=== PATIENT | male | born 1965 | race American Indian/Alaskan Native ===

== ENCOUNTER 2022-03-13 13:57 | Inpatient (IN) | payer MEDICARE ==
--- NOTE | 2022-03-13 14:28 | Emergency Department Report ---
HPI - General Chief Complaint: Allergic Reaction Time Seen by Provider: 03/13/22 14:22 - HPI HPI: Room 2 The patient is a 56-year-old male present with chief complaint of shortness of breath. Patient has a history end-stage renal disease and was last dialyzed 5 days ago (03/08/2022). EMS was called states the patient was found to be 96% on room air. Patient has bilateral lower extremity edema as well as facial edema. History is limited secondary to the patient's decreased ability to respond given increased work of breathing. ED Past Medical Hx - Past Medical History Hx Hypertension: Yes Hx Pulmonary Embolism: Yes (On Xarelto) Hx Renal Disease: Yes (ESRD on HD q. T, TH, SAT) - Surgical History Additional Surgical History: Left chest Vas-Cath - Family History Family history: no significant - Social History Smoking Status: Unknown if ever smoked Substance Use Type: None ED Review of Systems ROS: Stated complaint: ALLERGIC REACTION Other details as noted in HPI Comment: Unobtainable due to pts medical conditions (Limited secondary to increased work of breathing) Constitutional: no symptoms reported Respiratory: shortness of breath Physical Exam - Physical Exam Vital Signs: Vital Signs 03/13/22 14:05 Temperature 98 F Pulse Rate 100 H Respiratory 18 Rate Blood Pressure 170/100 [Left] O2 Sat by Pulse 96 Oximetry Physical Exam: GENERAL: The patient is well-developed well-nourished male lying on stretcher exhibiting increased work of breathing. [] HEENT: Normocephalic. Atraumatic. Extraocular motions are intact. Patient has moist mucous membranes. There is periorbital and facial swelling NECK: Supple. Trachea midline CHEST/LUNGS: Diminished throughout. There is no respiratory distress noted. HEART/CARDIOVASCULAR: Regular. There is no tachycardia. There is no gallop rub or murmur. ABDOMEN: Abdomen is soft, nontender. Patient has normal bowel sounds. There is no abdominal distention. SKIN: There is no rash. There is 2+ bilateral lower extremity pitting edema. There is no diaphoresis. NEURO: The patient is awake, alert, and oriented. The patient is cooperative. The patient has no focal neurologic deficits. The patient has normal speech. GCS 15 MUSCULOSKELETAL: There is no evidence of acute injury. ED Course Vital Signs 03/13/22 14:05 Temperature 98 F Pulse Rate 100 H Respiratory 18 Rate Blood Pressure 170/100 [Left] O2 Sat by Pulse 96 Oximetry - Reevaluation(s) Reevaluation #1: 03/13/22 15:24 Patient became agitated and pulled off BiPAP. Explained to the patient importance of keeping the BiPAP on and otherwise only recourse would be intubation. Ativan 0.5 mg and Zofran 8 mg IV ordered. 03/13/22 16:35 Patient continues to pull with his BiPAP mask off and desats to 81% on room air. Subsequently the decision to intubate using RSI was made - Consultations Consultation #1: 03/13/22 16:38 Nephrology paged 03/13/22 17:12 Case discussed with woodworking craftsman Dr. Roy- will follow/arrange dialysis - Intubation Sedative: Etomidate Mg Given: 20 Paralytic: Succinylcholine Mg Given: 100 Laryngoscope: fiberoptic video scope Size: 3 Assist Device Used: fiberoptic device ET Tube Size: 8 Tube Secured Depth (cm): 24 Tube Secured Location: lips Tube Placement Confirmation: visualized tube passing t, equal breath sounds bilat, no breath sounds over epi, confirmation by capnometr Patient Tolerated Procedure: well, no complications Intubation Complications: none ED Medical Decision Making - Lab Data Result diagrams: 03/13/22 15:44 03/13/22 15:44 Laboratory Tests 03/13/22 03/13/22 03/13/22 15:44 15:44 16:15 WBC 10.9 RBC 5.42 H Hgb 15.4 H Hct 48.1 H MCV 89 MCH 28 MCHC 32 RDW 19.7 H Plt Count 153 Seg Neutrophils % Resident Hall Director ABG pH 7.281 L ABG pCO2 36.1 ABG pO2 73.5 L ABG HCO3 16.6 L ABG O2 Saturation 92.5 L ABG O2 Content 19.4 ABG Base Excess -9.2 L ABG Hemoglobin 15.2 ABG Carboxyhemoglobin 1.7 ABG Methemoglobin 0.6 Oxyhemoglobin 90.4 L FiO2 50 Sodium 143 Potassium 4.8 Chloride 105.5 Carbon Dioxide 17 L Anion Gap 25 BUN 78 H Creatinine 3.6 H Estimated GFR 18 BUN/Creatinine Ratio 22 Glucose 135 H Calcium 9.3 Total Bilirubin 2.50 H AST 363 H ALT 430 H Alkaline Phosphatase 122 Troponin T 0.176 H* NT-Pro-B Natriuret Pep 77113 H Total Protein 6.5 Albumin 3.6 L Albumin/Globulin Ratio 1.2 Triglycerides 98 Cholesterol 99 LDL Cholesterol Direct 59 HDL Cholesterol 24 L Cholesterol/HDL Ratio 4.12 - EKG Data -: EKG Interpreted by Me EKG shows normal: sinus rhythm Rate: normal (97 bpm) - EKG Data When compared to previous EKG there are: previous EKG unavailable Interpretation: nonspecific ST-T wave reilly (Flattened T waves leads I and aVL) - Radiology Data Radiology results: report reviewed (Chest x-ray), image reviewed (Chest x-ray) interpreted by me: Chest [id number] edema, no pneumothorax. No definite focal infiltrates [facility] [address] [place] [address] XRay Report Signed Patient: SALLIE BOWMAN MR#: [id number] : 1965 Acct:[id number] Age/Sex: 56 / M ADM Date: 03/13/22 Loc: ED Attending Dr: Ordering Physician: JACQUELINE HDZ MD Date of Service: 03/13/22 Procedure(s): XR chest 1V ap Accession Number(s): [id number] cc: JACQUELINE HDZ MD Fluoro Time In Minutes: CHEST 1 VIEW 03/13/2022 2:37 PM INDICATION / CLINICAL INFORMATION: Shortness of breath. Angioedema. COMPARISON: None available. FINDINGS: SUPPORT DEVICES: There is a single-lead left subclavian ICD with the tip of the pacing lead overlying the right ventricle. There is also a left jugular CVL with the tip overlying the upper cavoatrial junction. HEART / MEDIASTINUM: There is mild cardiomegaly with mild prominence of the central pulmonary vessels. LUNGS / PLEURA: Interstitial lung markings are slightly increased in the perihilar regions and lower lung zones. No pleural effusion. No pneumothorax. ADDITIONAL FINDINGS: No significant additional findings. IMPRESSION: Cardiomegaly with probable mild congestive heart failure/interstitial edema. Signer Name: Sly Braga MD Signed: 03/13/2022 2:54 PM Workstation Name: [id number] Transcribed By: RT Dictated By: lSy Braga MD Electronically Authenticated By: Sly Braga MD Signed Date/Time: 03/13/221453 DD/ 1452 TD/TT: - Differential Diagnosis Volume overload, pneumonia, CHF exacerbation, Critical care attestation.: If time is entered above; I have spent that time in minutes in the direct care o f this critically ill patient, excluding procedure time. ED Disposition Clinical Impression: Volume overload, ESRD needing dialysis, Respiratory failure, Hypoxia Disposition: ADMITTED INPATIENT Is pt being admited?: Yes Does the pt Need Aspirin: No Condition: Serious Time of Disposition: 16:47 (Care transferred to hospitalist (Dr. Butler))
--- NOTE | 2022-03-13 14:59 | XRay Report ---
CHEST 1 VIEW 03/13/2022 2:37 PM INDICATION / CLINICAL INFORMATION: Shortness of breath. Angioedema. COMPARISON: None available. FINDINGS: SUPPORT DEVICES: There is a single-lead left subclavian ICD with the tip of the pacing lead overlying the right ventricle. There is also a left jugular CVL with the tip overlying the upper cavoatrial ju nction. HEART / MEDIASTINUM: There is mild cardiomegaly with mild prominence of the central pulmonary vessels . LUNGS / PLEURA: Interstitial lung markings are slightly increased in the perihilar regions and lower lung zones. No pleural effusion. No pneumothorax. ADDITIONAL FINDINGS: No significant additional findings. IMPRESSION: Cardiomegaly with probable mild congestive heart failure/interstitial edema. Signer Name: Sly Braga MD Signed: 03/13/2022 2:54 PM Workstation Name: [id number]
[2022-03-13] MEDS ORDERED: ONDANSETRON 4 MG/2 ML INJ IV ONE (15:19)
[2022-03-13] MEDS ORDERED: LORazepam 2 MG/ML VIAL IV ONE (15:19)
[2022-03-13 15:53] LABS: Hematocrit 48.1 % (35.5-45.6); Hemoglobin 15.4 gm/dl (11.8-15.2); Mean Corpuscular HGB Conc 32 % (32-34); Mean Corpuscular Volume 89 fl (84-94); Platelet Count 153 K/mm3 (140-440); Red Blood Count 5.42 M/mm3 (3.65-5.03); Red Cell Distribution Width 19.7 % (13.2-15.2)
[2022-03-13 16:18] LABS: Albumin 3.6 g/dL (3.9-5); Calcium 9.3 mg/dL (8.4-10.2)
[2022-03-13 16:22] LABS: ABG Base Excess -9.2 mmol/L (-2.0-3.0); ABG HCO3 16.6 mmol/L (20.0-26.0); ABG Methemoglobin 0.6 % (0.0-1.5); ABG Oxygen Saturation 92.5 % (95.0-99.0); ABG PCO2 36.1 mm Hg; ABG PH 7.281 pH Units (7.350-7.450); ABG PO2 73.5 mm Hg (80.0-90.0)
[2022-03-13] MEDS ORDERED: SUCCINYLCHOLINE CHLORIDE 200 MG/10 ML INJ MDV ONE (16:24)
[2022-03-13] MEDS ORDERED: ETOMIDATE 20 MG/10 ML INJ IV ONE ×2 (16:24→18:10)
[2022-03-13] MEDS ORDERED: MIDAZOLAM 2 MG/2 ML INJ IV PRN (16:34)
[2022-03-13 16:41] LABS: Chol/HDL Ratio 4.12 %
[2022-03-13 16:49] LABS: Band Neutrophils # (Manual) 0.1 K/mm3; Basophils % (Manual) 0 % (0.0-1.8); Eosinophils % (Manual) 0 % (0.0-4.3); Total Cells Counted 100
[2022-03-13 16:50] LABS: Burr Cells 1+
[2022-03-13 16:51] LABS: Platelet Estimate Consistent w Auto
[2022-03-13] MEDS ORDERED: MIDAZOLAM/NS Drip 100mg/100ml 100 MG/100 ML BAG IV SCH (17:00)
--- NOTE | 2022-03-13 17:17 | History and Physical Report ---
History of Present Illness Chief complaint: Problems breathing History of present illness: 56 YO Male with Obesity Hypoventilation Syndrome, HTN, ESRD on HD(T,R,Sa) last dialyzed 5 days ago, PE on therapeutic anticoagulation with Xarelto presents to ED for evaluation. Patient reports "I cannot breathe". Patient is intubated and on ventilatory support at time my evaluation is unable to provide history. Patient history taken EMS staff, ED staff. At the time of arrival to the emergency department the patient reported he has experienced shortness of breath over the past 2 days with worsening symptoms over the past 1 day. Patient also acknowledged facial swelling. Patient was found to have oropharyngeal edema and was unable to protect his airway and was also found to have a pulse oximetry of 89%. Patient was emergently intubated and placed on ventilatory support. No further history is obtainable. No reports of fever, chills, chest pain, palpitation, adductive cough, skin rash or recent contact, or known exposure to COVID-19. Patient found to have clinical and laboratory symptoms consistent with CHF decompensation, end-stage renal disease, metabolic acidosis, fluid overload, elevated liver function tests. Echocardiogram and abdominal ultrasound ordered and is pending at time of admission. No prior admission for review. All medication listed at time of admission as reconciled. Advanced car e planning conducted in ED. Past History Past Medical History: ESRD, hypertension, pulmonary embolism, other (See HPI) Past Surgical History: Other (Dialysis access, AICD) Social history: single. denies: smoking, alcohol abuse, prescription drug abuse Family history: diabetes, hypertension Medications and Allergies Allergies Allergy/AdvReac Type Severity Reaction Status Date / Time No Known Allergies Allergy Verified 03/13/22 14:06 Home Medications Medication Instructions Recorded Confirmed Last Taken Type Aspirin [Aspirin BABY CHEW TAB] 81 mg PO QDAY 03/13/22 03/13/22 Unknown History AtorvaSTATin [Lipitor] 40 mg PO QHS 03/13/22 03/13/22 Unknown History Furosemide [Lasix] 40 mg PO QDAY 03/13/22 03/13/22 Unknown History Insulin NPH Hum/Reg Insulin Hm 100 unit SQ BID 03/13/22 03/13/22 Unknown History [Novolin 70-30 100 Unit/ml Vial] Sodium Bicarbonate 650 mg PO Q8HR 03/13/22 03/13/22 Unknown History XARELTO (see DOAC order set to 20 mg PO QDAY 03/13/22 03/13/22 Unknown History order) carvediloL [Coreg] 25 mg PO BID 03/13/22 03/13/22 Unknown History cloNIDine [Catapres] 0.2 mg PO BID 03/13/22 03/13/22 Unknown History hydrALAZINE [Apresoline] 50 mg PO Q8HR 03/13/22 03/13/22 Unknown History hydroCHLOROthiazide 50 mg PO 03/13/22 03/13/22 Unknown History [Hydrochlorothiazide] Active Meds: Active Medications MIDAZOLAM/NS Drip 100mg/100ml (Midazolam/Ns Drip 100mg/100ml) 100 mg in 100 mls @ 1 mls/hr IV TITR YRIS; Protocol Last Admin: 03/13/22 17:00 Dose: 1 mg/hr, 1 mls/hr Midazolam HCl (Midazolam 2 Mg/2 Ml Inj) 2 mg IV Q10MIN PRN PRN Reason: Sedation Last Admin: 03/13/22 17:00 Dose: 2 mg Review of Systems ROS unobtainable: due to endotracheal tube, due to mental status Exam - Constitutional Vitals: Temp Pulse Resp BP Pulse Ox 98 F 94 H 36 H 156/92 94 03/13/22 14:05 03/13/22 16:40 03/13/22 15:45 03/13/22 16:40 03/13/22 16:40 General appearance: Present: severe distress - EENT Eyes: Present: PERRL ENT: hearing intact, clear oral mucosa - Neck Neck: Present: supple, masses or JVD - Respiratory Respiratory effort: labored, accessory muscle use, stridor Respiratory: bilateral: diminished, rhonchi - Cardiovascular Heart Sounds: Present: S1 & S2. Absent: rub, click - Extremities Extremity abnormal: edema Peripheral Pulses: within normal limits - Abdominal General gastrointestinal: Present: soft, non-tender, non-distended, normal bowel sounds Male genitourinary: Present: normal - Integumentary Integumentary: Present: clear, dry - Musculoskeletal Musculoskeletal: generalized weakness - Psychiatric Psychiatric: no appropriate mood/affect, no intact judgment & insight, no memory intact - Neurologic Neurologic: CNII-XII intact, no focal deficits, moves all extremities, no gait normal HEART Score - HEART Score Troponin: Troponin T 0.176 ng/mL (0.00-0.029) H* 03/13/22 15:44 Results - Labs CBC & Chem 7: 03/13/22 15:44 03/13/22 15:44 Labs: Abnormal lab results 03/13/22 03/13/22 03/13/22 Range/Units 15:44 15:44 16:15 RBC 5.42 H (3.65-5.03) M/mm3 Hgb 15.4 H (11.8-15.2) gm/dl Hct 48.1 H (35.5-45.6) % RDW 19.7 H (13.2-15.2) % Seg Neuts % (Manual) 93.0 H (40.0-70.0) % Lymphocytes % (Manual) 3.0 L (13.4-35.0) % Nucleated RBC % 1.0 H (0.0-0.9) % Seg Neutrophils # Man 10.1 H (1.8-7.7) K/mm3 Lymphocytes # (Manual) 0.3 L (1.2-5.4) K/mm3 ABG pH 7.281 L (7.350-7.450) pH Units ABG pO2 73.5 L (80.0-90.0) mm Hg ABG HCO3 16.6 L (20.0-26.0) mmol/L ABG O2 Saturation 92.5 L (95.0-99.0) % ABG Base Excess -9.2 L (-2.0-3.0) mmol/L Oxyhemoglobin 90.4 L (95.0-99.0) % Carbon Dioxide 17 L (22-30) mmol/L BUN 78 H (9-20) mg/dL Creatinine 3.6 H (0.8-1.3) mg/dL Glucose 135 H (75-100) mg/dL Total Bilirubin 2.50 H (0.1-1.2) mg/dL AST 363 H (5-40) units/L ALT 430 H (7-56) units/L Troponin T 0.176 H* (0.00-0.029) ng/mL NT-Pro-B Natriuret Pep 53977 H (0-900) pg/mL Albumin 3.6 L (3.9-5) g/dL HDL Cholesterol 24 L (40-59) mg/dL Assessment and Plan - Patient Problems (1) Acute hypoxemic respiratory failure Current Visit: Yes Status: Acute Plan to address problem: Patient intubated and on ventilatory support, wean vent as tolerated, pulmonary team consulted, chest x-ray, supplemental oxygen, pulse oximetry, wean vent as tolerated, pulmonary toilet. The high probability of a clinically significant, sudden or life threatening deterioration of the [pulmonary, renal, cardiac, neuro] system(s) required my full and direct attention, intervention and personal management. The aggregate critical care time was [95] minutes. This time is in addition to time spent performing reported procedures but includes the following: [x] Data Review and interpretation [x] Patient assessment and monitoring of vital signs [x] Documentation [x] Medication orders and management (2) End stage renal disease Current Visit: Yes Status: Acute Plan to address problem: Nephrology team consulted in ED, dialysis as per renal team, strict I's/O, monitor fluid balance, avoid nephrotoxic agents. (3) Fluid overload Current Visit: Yes Status: Acute Qualifiers: Hypervolemia type: unspecified Qualified Code(s): E87.70 - Fluid overload, unspecified Plan to address problem: Dialysis as per renal team, monitor fluid balance, strict I's/O. (4) Metabolic acidosis Current Visit: Yes Status: Acute Plan to address problem: IV bicarbonate therapy, BMP, repeat BMP in AM. Urgent dialysis. (5) CHF (congestive heart failure) Current Visit: Yes Status: Acute Qualifiers: Heart failure type: systolic Heart failure chronicity: acute Qualified Code(s): I50.21 - Acute systolic (congestive) heart failure Plan to address problem: Strict I's/O, monitor urine output every shift, daily weight, afterload reduction, blood pressure control, diuresis, supplemental oxygen, pulse oximetry, thyroid panel, magnesium level, echocardiogram ordered and pending at time of admission. Cardiology team consulted in ED (6) History of pulmonary embolism Current Visit: Yes Status: Acute Plan to address problem: Continue therapeutic anticoagulation, supportive care. (7) Elevated liver function tests Current Visit: Yes Status: Acute Plan to address problem: Ultrasound abdomen to evaluate for hepatobiliary obstruction, repeat LFT in AM. (8) DVT prophylaxis Current Visit: Yes Status: Acute Plan to address problem: SCD to bilateral lower EXTR while in bed, continue therapeutic anticoagulation. (9) Advance care planning Current Visit: Yes Status: Acute Plan to address problem: Disease education done, care plan discussed, diagnoses discussed, prognosis discussed, patient is full code, +30 minutes. (10) Preventative health care Current Visit: Yes Status: Acute Plan to address problem: Outpatient follow-up with primary care physician for all age and risk factor appropriate screening tests, balanced diet, weight reduction, +30 minutes.
[2022-03-13] MEDS ORDERED: HYDROmorphone 0.5 MG/0.5 ML INJ IV PRN (17:18)
[2022-03-13] MEDS ORDERED: ALBUTEROL 2.5 MG/3 ML NEBU IH PRN (17:18)
[2022-03-13] MEDS ORDERED: oxyCODONE /ACETAMINOPHEN 5-325MG TAB PO PRN (17:18)
--- NOTE | 2022-03-13 17:36 | XRay Report ---
ABDOMEN 1 VIEW 03/13/2022 4:14 PM INDICATION / CLINICAL INFORMATION: OG post intubation. COMPARISON: None available. FINDINGS: TUBES / LINES: There is an orogastric tube with the tip overlying the gastric body and the proximal s idehole below the gastroesophageal junction. BOWEL GAS PATTERN: No significant abnormality. FREE AIR / EXTRALUMINAL GAS: None. ADDITIONAL FINDINGS: No significant additional findings. IMPRESSION: Orogastric tube tip overlies the gastric body. Signer Name: Sly Braga MD Signed: 03/13/2022 5:31 PM Workstation Name: [id number]
--- NOTE | 2022-03-13 17:47 | XRay Report ---
CHEST 1 VIEW 03/13/2022 4:14 PM INDICATION / CLINICAL INFORMATION: Status post intubation. COMPARISON: Earlier today at 2:37 PM. FINDINGS: SUPPORT DEVICES: There is a new endotracheal tube with the tip approximately 5 cm above the pamela. T here is a nasogastric tube coursing into the stomach with tip not seen. The positions of the left jug ular CVL and left subclavian pacemaker have not changed.. HEART / MEDIASTINUM: Cardiomegaly and pulmonary vascular congestion are stable. LUNGS / PLEURA: Patchy parenchymal opacities in both mid to lower lung zones are probably unchanged. No pneumothorax. ADDITIONAL FINDINGS: No significant additional findings. IMPRESSION: 1. New endotracheal tube is in satisfactory position. 2. Congestive heart failure is similar to the prior exam. Signer Name: Sly Braga MD Signed: 03/13/2022 5:42 PM Workstation Name: [id number]
[2022-03-13] MEDS ORDERED: SUCCINYLCHOLINE CHLORIDE 200 MG/10 ML INJ MDV IV ONE (18:10)
[2022-03-13] MEDS ORDERED: SODIUM CHLORIDE 0.9% 100 ML IV PRN (18:42)
[2022-03-13] MEDS ORDERED: ALBUMIN HUMAN 25% (25 GM/100 ML) INJ IV PRN (18:43)
--- NOTE | 2022-03-13 18:45 | Event Note ---
Date: 03/13/22 Appreciate nephrology consult- patient with ESRD, missed HD, presents with dyspnea and was intubated due to work of breathing. Electrolytes reasonable, volume of concern. However as he has been intubated, plan for HD in AM for volume removal.
[2022-03-13 20:13] LABS: ABG Base Excess -8.2 mmol/L (-2.0-3.0); ABG HCO3 16.3 mmol/L (20.0-26.0); ABG Methemoglobin 0.6 % (0.0-1.5); ABG Oxygen Saturation 99.4 % (95.0-99.0); ABG PH 7.339 pH Units (7.350-7.450)
[2022-03-13 20:17] LABS: ABG PO2 259.5 mm Hg (80.0-90.0)
[2022-03-13 21:16] LABS: Free T4 (Free Thyroxine) 1.24 ng/dL (0.76-1.46)
[2022-03-13] MEDS: cloNIDine 0.2 MG TAB PO SCH (22:05)
[2022-03-13] MEDS: SODIUM BICARBONATE 325 MG TAB PO SCH (23:05)
[2022-03-13] MEDS: carvediloL 25 MG TAB PO SCH (23:15)
[2022-03-14] MEDS: hydrALAZINE 25 MG TAB PO SCH ×2 (00:05→06:00)
[2022-03-14 04:23] LABS: ABG Base Excess -6.8 mmol/L (-2.0-3.0); ABG HCO3 18.4 mmol/L (20.0-26.0); ABG Methemoglobin 0.6 % (0.0-1.5); ABG Oxygen Saturation 91.1 % (95.0-99.0); ABG PCO2 35.9 mm Hg; ABG PH 7.327 pH Units (7.350-7.450); ABG PO2 65.2 mm Hg (80.0-90.0)
[2022-03-14 05:15] LABS: Basophils % (Auto) 0.1 % (0.0-1.8); Eosinophils % (Auto) 0.1 % (0.0-4.3); Hematocrit 41.7 % (35.5-45.6); Lymphocytes # (Auto) 0.5 K/mm3 (1.2-5.4); Lymphocytes % (Auto) 4.7 % (13.4-35.0); Mean Corpuscular HGB Conc 31 % (32-34); Mean Corpuscular Volume 90 fl (84-94); Monocytes # (Auto) 0.5 K/mm3 (0.0-0.8); Monocytes % (Auto) 5.6 % (0.0-7.3); Platelet Count 115 K/mm3 (140-440); Red Blood Count 4.64 M/mm3 (3.65-5.03); Red Cell Distribution Width 19.3 % (13.2-15.2)
[2022-03-14 05:29] LABS: Calcium 8.7 mg/dL (8.4-10.2)
[2022-03-14] MEDS: SODIUM BICARBONATE 325 MG TAB PO SCH ×3 (06:15→22:20)
[2022-03-14] MEDS ORDERED: RIVAROXABAN 20 MG TAB PO SCH (08:00)
--- NOTE | 2022-03-14 09:15 | XRay Report ---
CHEST 1 VIEW 03/14/2022 8:05 AM INDICATION / CLINICAL INFORMATION: resp failure. COMPARISON: 03/13/22 FINDINGS: SUPPORT DEVICES: Endotracheal tube has been removed. Left central line and esophagogastric tube are u nchanged. HEART / MEDIASTINUM: Stable. LUNGS / PLEURA: Interval improvement in bibasilar pulmonary opacities. No pneumothorax. ADDITIONAL FINDINGS: No significant additional findings. IMPRESSION: 1. Interval improvement. Signer Name: Alicia Turner MD Signed: 03/14/2022 9:10 AM Workstation Name: [id number]
--- NOTE | 2022-03-14 09:56 | Consultation ---
History of Present Illness - Reason for Consult Consult date: 03/14/22 chronic renal failure Requesting physician: JACQUELINE HDZ - History of Present Illness The patient is a 56-year-old male present with chief complaint of shortness of breath. ER records indicate that patient has history of ESRD and had last dialysis treatment about 5 days ago. However I do not see any dialysis access at this time. He does have a left chest wall triple-lumen catheter in place. Patient is currently intubated. Unable to get any additional information from patient. Tried to call patient's home number but no response. Patient has indwelling Anguiano catheter in place. He is putting out urine. He is currently on 55% FiO2. Oxygen saturation is 96%. Past History Past Medical History: hypertension, pulmonary embolism Past Surgical History: Other (Dialysis access, AICD) Social history: single. denies: smoking, alcohol abuse, prescription drug abuse Family history: diabetes, hypertension Medications and Allergies Allergies Allergy/AdvReac Type Severity Reaction Status Date / Time No Known Allergies Allergy Verified 03/13/22 14:06 Home Medications Medication Instructions Recorded Confirmed Last Taken Type Aspirin [Aspirin BABY CHEW TAB] 81 mg PO QDAY 03/13/22 03/13/22 Unknown History AtorvaSTATin [Lipitor] 40 mg PO QHS 03/13/22 03/13/22 Unknown History Furosemide [Lasix] 40 mg PO QDAY 03/13/22 03/13/22 Unknown History Insulin NPH Hum/Reg Insulin Hm 100 unit SQ BID 03/13/22 03/13/22 Unknown History [Novolin 70-30 100 Unit/ml Vial] Sodium Bicarbonate 650 mg PO Q8HR 03/13/22 03/13/22 Unknown History XARELTO (see DOAC order set to 20 mg PO QDAY 03/13/22 03/13/22 Unknown History order) carvediloL [Coreg] 25 mg PO BID 03/13/22 03/13/22 Unknown History cloNIDine [Catapres] 0.2 mg PO BID 03/13/22 03/13/22 Unknown History hydrALAZINE [Apresoline] 50 mg PO Q8HR 03/13/22 03/13/22 Unknown History hydroCHLOROthiazide 50 mg PO 03/13/22 03/13/22 Unknown History [Hydrochlorothiazide] Active Meds: Active Medications Acetaminophen (Acetaminophen 325 Mg Tab) 650 mg PO Q6H PRN PRN Reason: Pain MILD(1-3)/Fever >100.5/FLORES Albumin Human (Albumin Human 25% (25 Gm/100 Ml) Inj) 25 gm IV GLADYS PRN PRN Reason: Hypotension Albuterol (Albuterol 2.5 Mg/3 Ml Nebu) 2.5 mg IH Q3HRT PRN PRN Reason: Shortness Of Breath Aspirin (Aspirin 81 Mg Tab Chew) 81 mg PO QDAY [facility] Atorvastatin Calcium (Atorvastatin 40 Mg Tab) 40 mg PO QHS [facility] Last Admin: 03/13/22 23:05 Dose: 40 mg Carvedilol (Carvedilol 25 Mg Tab) 25 mg PO BID [facility] Last Admin: 03/13/22 23:15 Dose: 25 mg Clonidine HCl (Clonidine 0.2 Mg Tab) 0.2 mg PO BID [facility] Last Admin: 03/13/22 22:05 Dose: Not Given Furosemide (Furosemide 20 Mg/2 Ml Inj) 20 mg IV QDAY [facility] Hydralazine HCl (Hydralazine 25 Mg Tab) 50 mg PO Q8HR [facility] Last Admin: 03/14/22 06:00 Dose: Not Given Hydrochlorothiazide (Hydrochlorothiazide 25 Mg Tab) 50 mg PO QDAY [facility] Hydromorphone HCl (Hydromorphone 0.5 Mg/0.5 Ml Inj) 0.5 mg IV Q13H PRN PRN Reason: Pain , Severe (7-10) Last Admin: 03/13/22 21:30 Dose: 0.5 mg MIDAZOLAM/NS Drip 100mg/100ml (Midazolam/Ns Drip 100mg/100ml) 100 mg in 100 mls @ 1 mls/hr IV TITR [facility]; Protocol Last Titration: 03/13/22 22:30 Dose: 4 mg/hr, 4 mls/hr Sodium Chloride (Nacl 0.9%) 100 mls @ 999 mls/hr IV GLADYS PRN PRN Reason: Hypotension Midazolam HCl (Midazolam 2 Mg/2 Ml Inj) 2 mg IV Q10MIN PRN PRN Reason: Sedation Last Admin: 03/13/22 17:00 Dose: 2 mg Oxycodone/Acetaminophen (Oxycodone /Acetaminophen 5-325mg Tab) 1 tab PO Q16H PRN PRN Reason: Pain, Moderate (4-6) Rivaroxaban (Rivaroxaban 20 Mg Tab) 20 mg PO QDDIAB [facility] Sodium Bicarbonate (Sodium Bicarbonate 325 Mg Tab) 650 mg PO Q8HR [facility] Last Admin: 03/14/22 06:15 Dose: 650 mg Sodium Chloride (Sodium Chloride 0.9% 10 Ml Flush Syringe) 10 ml IV BID [facility] Last Admin: 03/13/22 22:30 Dose: 10 ml Sodium Chloride (Sodium Chloride 0.9% 10 Ml Flush Syringe) 10 ml IV PRN PRN PRN Reason: LINE FLUSH Review of Systems ROS unobtainable: due to mental status Exam - Vital Signs Vital signs: Vital Signs Temp Pulse Resp BP Pulse Ox 98 F 100 H 18 170/100 96 03/13/22 14:05 03/13/22 14:05 03/13/22 14:05 03/13/22 14:05 03/13/22 14:05 - General Appearance General appearance: well-developed, well-nourished, appears stated age, intubated EENT: PERRL, mucous membranes moist Neck: Present: neck supple, trachea midline. Absent: JVD/HJR, Masses Respiratory: Clear to Ascultation, Decreased Breath Sounds (At the bases) Heart: other (1+ pitting edema) Results - Lab Results 03/14/22 04:50 03/14/22 04:50 Most recent lab results ABG pH 7.327 pH Units (7.350-7.450) L 03/14/22 03:58 ABG pCO2 35.9 mm Hg 03/14/22 03:58 ABG pO2 65.2 mm Hg (80.0-90.0) L 03/14/22 03:58 ABG HCO3 18.4 mmol/L (20.0-26.0) L 03/14/22 03:58 ABG O2 Saturation 91.1 % (95.0-99.0) L 03/14/22 03:58 Calcium 8.7 mg/dL (8.4-10.2) 03/14/22 04:50 Magnesium 2.50 mg/dL (1.7-2.3) H 03/13/22 20:33 Assessment and Plan Impression * Acute kidney injury * Patient may have underlying chronic kidney disease * Respiratory failure. Chest x-ray showing evidence of mild volume overload * Diabetes * Hypertension * Abnormal LFTs * Mild metabolic acidosis and mild hyperkalemia Recommendations * Patient's baseline renal function is not known. Although ER documentation stated that patient has ESRD. I do not see any dialysis access. Attempted to call patient's home number but no response. * Patient is clinically mildly volume overloaded. Shall administer IV loop di uretic * Check a UA as well as renal ultrasound * Vasculitis work-up * Avoid nephrotoxins * Monitor Anguiano catheter for now * Shall treat his mild hyperkalemia medically * Monitor fluid status and electrolytes closely * No urgent indication for dialysis today * Thank you very much for the consultation. Shall follow along with you
[2022-03-14] MEDS ORDERED: FUROSEMIDE 40 MG/4 ML INJ IV ONE (09:58)
[2022-03-14] MEDS ORDERED: hydroCHLOROthiazide 25 MG TAB PO SCH (10:00)
[2022-03-14] MEDS ORDERED: XARELTO 20 MG PO SCH (10:00)
[2022-03-14] MEDS ORDERED: NON-FORMULARY EACH (Hydrochlorothiazide [Hydrochlorothiazide] 50 MG Tablet) PO SCH (10:00)
--- NOTE | 2022-03-14 10:04 | Electrocardiograph Report ---
Test Date: 2022-03-13 Test Time: 14:17:39 Pat Name: SALLIE BOWMAN Department: Room: A263 Gender: M [facility]: JUAN CARLOS : 1965 Requested By: JACQUELINE HDZ Order Number: [id number] Reading MD: Adonis Barboza Measurements Intervals [place] Rate: 97 P: 75 ND: 201 QRS: -70 QRSD: 111 T: 88 QT: 373 QTc: 474 Interpretive Statements Sinus rhythm Borderline prolonged ND interval Left anterior fascicular block Anterior infarct, old No previous ECG available for comparison Electronically Signed On 03-14-2022 10:04:20 EDT by Adonis Barboza
[2022-03-14] MEDS ORDERED: SODIUM POLYSTYRENE 15 GM/60 ML ORAL LIQD PO SCH (10:30)
[2022-03-14] MEDS: carvediloL 25 MG TAB PO SCH ×2 (10:38→22:20)
[2022-03-14] MEDS: ASPIRIN 81 MG TAB CHEW PO SCH (10:38)
[2022-03-14] MEDS: cloNIDine 0.2 MG TAB PO SCH (10:40)
[2022-03-14] MEDS: FUROSEMIDE 20 MG/2 ML INJ IV SCH (10:46)
--- NOTE | 2022-03-14 11:03 | Consultation ---
History of Present Illness Consult date: 03/14/22 Requesting physician: TRISTON ORDOÑEZ Reason for consult: other (AHRF on MVS) History of present illness: PULMONARY/CCM CONSULT NOTE (Full dictation # [id number]) Please see dictated notes for full details Past History Past Medical History: hypertension, pulmonary embolism Past Surgical History: Other (Dialysis access, AICD) Social history: single. denies: smoking, alcohol abuse, prescription drug abuse Family history: diabetes, hypertension Medications and Allergies Allergies Allergy/AdvReac Type Severity Reaction Status Date / Time No Known Allergies Allergy Verified 03/13/22 14:06 Home Medications Medication Instructions Recorded Confirmed Last Taken Type Aspirin [Aspirin BABY CHEW TAB] 81 mg PO QDAY 03/13/22 03/13/22 Unknown History AtorvaSTATin [Lipitor] 40 mg PO QHS 03/13/22 03/13/22 Unknown History Furosemide [Lasix] 40 mg PO QDAY 03/13/22 03/13/22 Unknown History Insulin NPH Hum/Reg Insulin Hm 100 unit SQ BID 03/13/22 03/13/22 Unknown History [Novolin 70-30 100 Unit/ml Vial] Sodium Bicarbonate 650 mg PO Q8HR 03/13/22 03/13/22 Unknown History XARELTO (see DOAC order set to 20 mg PO QDAY 03/13/22 03/13/22 Unknown History order) carvediloL [Coreg] 25 mg PO BID 03/13/22 03/13/22 Unknown History cloNIDine [Catapres] 0.2 mg PO BID 03/13/22 03/13/22 Unknown History hydrALAZINE [Apresoline] 50 mg PO Q8HR 03/13/22 03/13/22 Unknown History hydroCHLOROthiazide 50 mg PO 03/13/22 03/13/22 Unknown History [Hydrochlorothiazide] Active Meds: Active Medications Acetaminophen (Acetaminophen 325 Mg Tab) 650 mg PO Q6H PRN PRN Reason: Pain MILD(1-3)/Fever >100.5/FLORES Albumin Human (Albumin Human 25% (25 Gm/100 Ml) Inj) 25 gm IV GLADYS PRN PRN Reason: Hypotension Albuterol (Albuterol 2.5 Mg/3 Ml Nebu) 2.5 mg IH Q3HRT PRN PRN Reason: Shortness Of Breath Aspirin (Aspirin 81 Mg Tab Chew) 81 mg PO QDAY [facility] Last Admin: 03/14/22 10:38 Dose: 81 mg Carvedilol (Carvedilol 25 Mg Tab) 25 mg PO BID [facility] Last Admin: 03/14/22 10:38 Dose: 25 mg Furosemide (Furosemide 20 Mg/2 Ml Inj) 20 mg IV QDAY [facility] Last Admin: 03/14/22 10:46 Dose: 20 mg Hydromorphone HCl (Hydromorphone 0.5 Mg/0.5 Ml Inj) 0.5 mg IV Q13H PRN PRN Reason: Pain , Severe (7-10) Last Admin: 03/13/22 21:30 Dose: 0.5 mg MIDAZOLAM/NS Drip 100mg/100ml (Midazolam/Ns Drip 100mg/100ml) 100 mg in 100 mls @ 1 mls/hr IV TITR [facility]; Protocol Last Titration: 03/14/22 10:30 Dose: 3 mg/hr, 3 mls/hr Sodium Chloride (Nacl 0.9%) 100 mls @ 999 mls/hr IV GLADYS PRN PRN Reason: Hypotension Midazolam HCl (Midazolam 2 Mg/2 Ml Inj) 2 mg IV Q10MIN PRN PRN Reason: Sedation Last Admin: 03/13/22 17:00 Dose: 2 mg Oxycodone/Acetaminophen (Oxycodone /Acetaminophen 5-325mg Tab) 1 tab PO Q16H PRN PRN Reason: Pain, Moderate (4-6) Rivaroxaban (Rivaroxaban 15 Mg Tab) 15 mg PO QDDIAB [facility] Sodium Bicarbonate (Sodium Bicarbonate 325 Mg Tab) 650 mg PO Q8HR [facility] Last Admin: 03/14/22 06:15 Dose: 650 mg Sodium Chloride (Sodium Chloride 0.9% 10 Ml Flush Syringe) 10 ml IV BID [facility] Last Admin: 03/14/22 10:43 Dose: 10 ml Sodium Chloride (Sodium Chloride 0.9% 10 Ml Flush Syringe) 10 ml IV PRN PRN PRN Reason: LINE FLUSH Sodium Polystyrene Sulfonate (Sodium Polystyrene 15 Gm/60 Ml Oral Liqd) 30 gm PO ONCE@1030 [facility] Stop: 03/14/22 14:30 Last Admin: 03/14/22 10:45 Dose: 30 gm Physical Examination Vital signs: Vital Signs Temp Pulse Resp BP Pulse Ox 98 F 100 H 18 170/100 96 03/13/22 14:05 03/13/22 14:05 03/13/22 14:05 03/13/22 14:05 03/13/22 14:05 Results - Laboratory Findings CBC and BMP: 03/14/22 04:50 03/14/22 04:50 ABG ABG pH 7.327 pH Units (7.350-7.450) L 03/14/22 03:58 ABG pCO2 35.9 mm Hg 03/14/22 03:58 ABG pO2 65.2 mm Hg (80.0-90.0) L 03/14/22 03:58 ABG O2 Saturation 91.1 % (95.0-99.0) L 03/14/22 03:58 Abnormal lab findings: Abnormal Labs 03/13/22 03/13/22 03/13/22 15:44 15:44 16:15 RBC 5.42 H Hgb 15.4 H Hct 48.1 H MCHC RDW 19.7 H Plt Count Lymph % (Auto) Lymph # (Auto) Seg Neutrophils % Seg Neuts % (Manual) 93.0 H Lymphocytes % (Manual) 3.0 L Nucleated RBC % 1.0 H Seg Neutrophils # Seg Neutrophils # Man 10.1 H Lymphocytes # (Manual) 0.3 L ABG pH 7.281 L ABG pO2 73.5 L ABG HCO3 16.6 L ABG O2 Saturation 92.5 L ABG Base Excess -9.2 L ABG Hemoglobin Oxyhemoglobin 90.4 L Potassium Chloride Carbon Dioxide 17 L BUN 78 H Creatinine 3.6 H Glucose 135 H POC Glucose Magnesium Total Bilirubin 2.50 H AST 363 H ALT 430 H Troponin T 0.176 H* NT-Pro-B Natriuret Pep 16539 H Albumin 3.6 L HDL Cholesterol 24 L 03/13/22 03/13/22 03/14/22 20:04 20:33 00:23 RBC Hgb Hct MCHC RDW Plt Count Lymph % (Auto) Lymph # (Auto) Seg Neutrophils % Seg Neuts % (Manual) Lymphocytes % (Manual) Nucleated RBC % Seg Neutrophils # Seg Neutrophils # Man Lymphocytes # (Manual) ABG pH 7.339 L ABG pO2 259.5 H ABG HCO3 16.3 L ABG O2 Saturation 99.4 H ABG Base Excess -8.2 L ABG Hemoglobin Oxyhemoglobin Potassium Chloride Carbon Dioxide BUN Creatinine Glucose POC Glucose 187 H Magnesium 2.50 H Total Bilirubin AST ALT Troponin T NT-Pro-B Natriuret Pep Albumin HDL Cholesterol 03/14/22 03/14/22 03/14/22 03:58 04:50 04:50 RBC Hgb Hct MCHC 31 L RDW 19.3 H Plt Count 115 L Lymph % (Auto) 4.7 L Lymph # (Auto) 0.5 L Seg Neutrophils % 89.5 H Seg Neuts % (Manual) Lymphocytes % (Manual) Nucleated RBC % Seg Neutrophils # 8.5 H Seg Neutrophils # Man Lymphocytes # (Manual) ABG pH 7.327 L ABG pO2 65.2 L ABG HCO3 18.4 L ABG O2 Saturation 91.1 L ABG Base Excess -6.8 L ABG Hemoglobin 13.2 L Oxyhemoglobin 89.1 L Potassium 5.2 H Chloride 109.5 H Carbon Dioxide 19 L BUN 90 H Creatinine 4.2 H Glucose 204 H POC Glucose Magnesium Total Bilirubin AST ALT Troponin T NT-Pro-B Natriuret Pep Albumin HDL Cholesterol
[2022-03-14] MEDS ORDERED: DEXTROSE 50% IN WATER (25GM) 50 ML SYRINGE IV PRN (12:30)
[2022-03-14] MEDS ORDERED: INSULIN GLARGINE 100 UNITS/ML SUB-Q SCH (13:00)
[2022-03-14] MEDS: RIVAROXABAN 15 MG TAB PO SCH (13:58)
[2022-03-14] MEDS: INSULIN REGULAR, HUMAN 100 UNITS/1 ML SUB-Q SCH ×2 (14:42→18:14)
--- NOTE | 2022-03-14 14:53 | Consultation ---
History of Present Illness Consult date: 03/14/22 Requesting physician: ROSAMARIA DOVER Consult reason: congestive heart failure History of present illness: Patient is a 56-year-old male with a reported past medical history of hypertension, history of PE who was brought to the ED for evaluation due to shortness of breath. Patient history taken from documentation due to patient being intubated and sedated at time of interview. Per documentation patient c [place] to the ED with progressively worsening shortness of breath x2 days. Per documentation patient was found to have oral pharyngeal edema and intubated protect airway. Patient was found to have elevated creatinine, elevated BNP, and elevated liver enzymes. Patient is previously unknown to our practice. Cardiology is consulted for CHF Past History Past Medical History: hypertension, pulmonary embolism Past Surgical History: Other (Dialysis access, AICD) Social history: single. denies: smoking, alcohol abuse, prescription drug abuse Family history: diabetes, hypertension Medications and Allergies Allergies Allergy/AdvReac Type Severity Reaction Status Date / Time No Known Allergies Allergy Verified 03/13/22 14:06 Home Medications Medication Instructions Recorded Confirmed Last Taken Type Aspirin [Aspirin BABY CHEW TAB] 81 mg PO QDAY 03/13/22 03/13/22 Unknown History AtorvaSTATin [Lipitor] 40 mg PO QHS 03/13/22 03/13/22 Unknown History Furosemide [Lasix] 40 mg PO QDAY 03/13/22 03/13/22 Unknown History Insulin NPH Hum/Reg Insulin Hm 100 unit SQ BID 03/13/22 03/13/22 Unknown History [Novolin 70-30 100 Unit/ml Vial] Sodium Bicarbonate 650 mg PO Q8HR 03/13/22 03/13/22 Unknown History XARELTO (see DOAC order set to 20 mg PO QDAY 03/13/22 03/13/22 Unknown History order) carvediloL [Coreg] 25 mg PO BID 03/13/22 03/13/22 Unknown History cloNIDine [Catapres] 0.2 mg PO BID 03/13/22 03/13/22 Unknown History hydrALAZINE [Apresoline] 50 mg PO Q8HR 03/13/22 03/13/22 Unknown History hydroCHLOROthiazide 50 mg PO 03/13/22 03/13/22 Unknown History [Hydrochlorothiazide] Active Meds: Active Medications Acetaminophen (Acetaminophen 325 Mg Tab) 650 mg PO Q6H PRN PRN Reason: Pain MILD(1-3)/Fever >100.5/FLORES Albumin Human (Albumin Human 25% (25 Gm/100 Ml) Inj) 25 gm IV GLADYS PRN PRN Reason: Hypotension Albuterol (Albuterol 2.5 Mg/3 Ml Nebu) 2.5 mg IH Q3HRT PRN PRN Reason: Shortness Of Breath Aspirin (Aspirin 81 Mg Tab Chew) 81 mg PO QDAY [facility] Last Admin: 03/14/22 10:38 Dose: 81 mg Carvedilol (Carvedilol 25 Mg Tab) 25 mg PO BID [facility] Last Admin: 03/14/22 10:38 Dose: 25 mg Dextrose (Dextrose 50% In Water (25gm) 50 Ml Syringe) 50 ml IV Q30MIN PRN; Protocol PRN Reason: Hypoglycemia Famotidine (Famotidine 10 Mg Tab) 10 mg FEEDTUBE BID [facility] Fentanyl (Fentanyl 100 Mcg/2 Ml Inj) 50 mcg IV Q10MIN PRN PRN Reason: ANALGESIA Furosemide (Furosemide 20 Mg/2 Ml Inj) 20 mg IV QDAY [facility] Last Admin: 03/14/22 10:46 Dose: 20 mg Hydromorphone HCl (Hydromorphone 0.5 Mg/0.5 Ml Inj) 0.5 mg IV Q13H PRN PRN Reason: Pain , Severe (7-10) Last Admin: 03/13/22 21:30 Dose: 0.5 mg Sodium Chloride (Nacl 0.9%) 100 mls @ 999 mls/hr IV GLADYS PRN PRN Reason: Hypotension Fentanyl Citrate (Fentanyl Drip Premix) 2,000 mcg in 100 mls @ 7.095 mls/hr IV TITR [facility]; Protocol Insulin Glargine (Insulin Glargine 100 Units/Ml) 10 units SUB-Q ONCE@1300 [facility] Stop: 03/14/22 17:00 Last Admin: 03/14/22 14:36 Dose: 10 units Insulin Glargine (Insulin Glargine 100 Units/Ml) 10 units SUB-Q QHS [facility] Insulin Human Regular (Insulin Regular, Human 100 Units/1 Ml) 0 units SUB-Q Q6HR [facility]; Protocol Last Admin: 03/14/22 14:42 Dose: 3 units Oxycodone/Acetaminophen (Oxycodone /Acetaminophen 5-325mg Tab) 1 tab PO Q16H PRN PRN Reason: Pain, Moderate (4-6) Rivaroxaban (Rivaroxaban 15 Mg Tab) 15 mg PO QDDIAB [facility] Last Admin: 03/14/22 13:58 Dose: 15 mg Sodium Bicarbonate (Sodium Bicarbonate 325 Mg Tab) 650 mg PO Q8HR [facility] Last Admin: 03/14/22 14:36 Dose: 650 mg Sodium Chloride (Sodium Chloride 0.9% 10 Ml Flush Syringe) 10 ml IV BID [facility] Last Admin: 03/14/22 10:43 Dose: 10 ml Sodium Chloride (Sodium Chloride 0.9% 10 Ml Flush Syringe) 10 ml IV PRN PRN PRN Reason: LINE FLUSH Review of Systems ROS unobtainable: due to endotracheal tube Physical Examination Vital Signs Temp Pulse Resp BP Pulse Ox 98 F 100 H 18 170/100 96 03/13/22 14:05 03/13/22 14:05 03/13/22 14:05 03/13/22 14:05 03/13/22 14:05 General appearance: other (Intubated and sedated) HEENT: Positive: Mucus Membranes Moist Neck: Positive: trachea midline Cardiac: Positive: Reg Rate and Rhythm Lungs: Positive: Ventilated Respirations Neuro: Positive: Other (Unable to assess) Abdomen: Positive: Soft Skin: Negative: Rash, Suspicious Lesions, Ulceration Extremities: Present: upper extr. pulses, edema Results 03/14/22 04:50 03/14/22 04:50 Cardiac Enzymes 03/13/22 Range/Units 15:44 AST 363 H (5-40) units/L Lipids 03/13/22 Range/Units 15:44 Triglycerides 98 (2-149) mg/dL Cholesterol 99 (50-199) mg/dL HDL Cholesterol 24 L (40-59) mg/dL Cholesterol/HDL Ratio 4.12 % CBC 03/13/22 03/14/22 Range/Units 15:44 04:50 WBC 10.9 9.5 (4.5-11.0) K/mm3 RBC 5.42 H 4.64 (3.65-5.03) M/mm3 Hgb 15.4 H 13.0 (11.8-15.2) gm/dl Hct 48.1 H 41.7 D (35.5-45.6) % Plt Count 153 115 L (140-440) K/mm3 Lymph # (Auto) 0.5 L (1.2-5.4) K/mm3 Gordon # (Auto) 0.5 (0.0-0.8) K/mm3 Eos # (Auto) 0.0 (0.0-0.4) K/mm3 Baso # (Auto) 0.0 (0.0-0.1) K/mm3 Comprehensive Metabolic Panel 03/13/22 03/14/22 Range/Units 15:44 04:50 Sodium 143 142 (137-145) mmol/L Potassium 4.8 5.2 H (3.6-5.0) mmol/L Chloride 105.5 109.5 H (98-107) mmol/L Carbon Dioxide 17 L 19 L (22-30) mmol/L BUN 78 H 90 H (9-20) mg/dL Creatinine 3.6 H 4.2 H (0.8-1.3) mg/dL Glucose 135 H 204 H (75-100) mg/dL Calcium 9.3 8.7 (8.4-10.2) mg/dL AST 363 H (5-40) units/L ALT 430 H (7-56) units/L Alkaline Phosphatase 122 (35-129) units/L Total Protein 6.5 (6.3-8.2) g/dL Albumin 3.6 L (3.9-5) g/dL - Imaging and Cardiology Echo: pending EKG interpretations - Telemetry EKG Rhythm: Sinus Rhythm - EKG Sinus rhythms and dysrhythmias: sinus rhythm AV and intraventricular conduction: left anterior fascicular Assessment and Plan Patient is a 56-year-old male with a reported past medical history of hypertension, history of PE who was brought to the ED for evaluation due to shortness of breath Acute respiratory failure-pulmonology following SULEMAN on CKD-nephrology follow Acute on chronic HFrEF NSTEMI suspect type II AICD in situ History of PE anticoagulated on Xarelto Hypertension Plan: EKG shows sinus rhythm 97 with borderline prolonged UT interval and left anterior fascicular block. No acute ischemic changes Troponin noted to be elevated suspect troponin elevation in setting of SULEMAN and acute heart failure BNP noted to be elevated, CXR positive for CHF, and patient has bilateral lower extremity edema Due to renal function will defer volume management to nephrology Patient noted to have soft blood pressures this a.m. we will hold clonidine, hydralazine, and hydrochlorothiazide Continue Coreg 25 mg p.o. twice daily Will decrease Xarelto to 15 mg p.o. daily for renal dosing Echo pending Will hold statin due to elevated liver enzymes No next of kin or family listed in chart to contact regarding patient's history Patient seen in conjunction with Dr. Barboza who agrees with this plan of care 30 minutes of critical care time spent care coordination pain - Patient Problems (1) Acute hypoxemic respiratory failure Current Visit: Yes Status: Acute (2) Fluid overload Current Visit: Yes Status: Acute Qualifiers: Hypervolemia type: unspecified Qualified Code(s): E87.70 - Fluid overload, unspecified (3) Metabolic acidosis Current Visit: Yes Status: Acute (4) CHF (congestive heart failure) Current Visit: Yes Status: Acute Qualifiers: Heart failure type: systolic Heart failure chronicity: acute Qualified Code(s): I50.21 - Acute systolic (congestive) heart failure (5) History of pulmonary embolism Current Visit: Yes Status: Acute (6) Elevated liver function tests Current Visit: Yes Status: Acute
[2022-03-14 15:10] LABS: Hepatitis B Surface Antigen Non-Reactive (Negative); Hepatitis C Virus Antibody Non-Reactive (NonReactive)
[2022-03-14] MEDS ORDERED: hydrALAZINE 20 MG/1 ML INJ IV PRN (15:57)
--- NOTE | 2022-03-14 16:13 | Cat Scan Report ---
CT BRAIN: 03/14/2022 INDICATION / CLINICAL INFORMATION: ams. COMPARISON: None available. FINDINGS: BRAIN/INTRACRANIAL STRUCTURES: Unenhanced CT images of the brain were obtained. No previous studies a re available here for comparison. Ventricles and sulci are prominent in size, consistent with diffuse cerebral atrophy. There is a 2.4 cm rounded fluid signal structure located along the medial anterior aspect of left temporal lobe. Thi s is most likely incidental arachnoid cyst, although an intra-axial cystic lesion cannot be fully exc luded. There is evidence of ischemic injury involving the medial aspect of the right inferior cerebellar hem isphere and to a lesser degree small area on the left. This has the appearance of ischemic injury, of indeterminate age. EXTRACRANIAL STRUCTURES: Unremarkable. IMPRESSION: 1. No acute abnormality. 2. Chronic and age-related changes. 3.4 cm rounded fluid density structure in medial left temporal lo be as described above. 4. Evolving cerebellar infarct, right greater than left, indeterminate age. No evidence of hemorrhage All CT scans at this location are performed using dose reduction to ALARA by means of automated expos ure control. Signer Name: Jacob Rose MD Signed: 03/14/2022 4:09 PM Workstation Name: [id number]
--- NOTE | 2022-03-14 16:47 | Progress Note ---
<TIAGOTRISTONTanisha - Last Filed: 03/14/22 16:51> Assessment and Plan Assessment and plan: This is a 56-year-old male with OHS, HTN, PE on therapeutic anticoagulation, CHF and AICD and still admitted with acute on chronic CHF decompensation metabolic acidosis, fluid overload, transaminitis, acute hypoxic respiratory failure and acute kidney injury Neuro: Acute metabolic encephalopathy -Sedated with Versed -changed to fentanyl gtt -RASS goal 0 to -1 -Reorientation as needed -Maintain sleep-wake cycle -As needed analgesia -CT head shows diffuse cerebral atrophy, 3.4 cm rounded fluid density structure located along the medial anterior aspect of the left temporal lobe most likely arachnoid cyst, evolving cerebral infarct right greater than left (age indeterminant), no evidence of hemorrhage -Neurology and neurosurgery consulted, appreciate recommendations -MRI brain pending -MRA head/neck pending -TSH, lipid panel pending -Lipitor, Aspirin -Permissive hypertension for 24-48 hours -PT/OT/ST eval requested Cardiac: Acute on chronic heart failure with reduced EF, NSTEMI suspect type II, h/o HTN, AICD -Cardiology consulted, appreciate recommendations -Blood pressure monitoring per protocol -Antihypertension regimen with hydral 50 po q8, HCTZ 50 mg qday, Coreg 25 mg BID, clonidine 0.2 mg qday -Cardio d/c hydral PO, HCTZ and Clonidine -IV hydral PRN -Echocardiogram pending Respiratory: Acute hypoxic respiratory failure, h/o PE on Xarelto -CCM consulted, appreciate recommendations -Intubated on 03/13 with 7.5 OETT at 24 at the lips -A.m. vent settings: AC TV 450/Rate 24/ Peep 10/ FiO2 55% -See RT notes for titration -A.m. ABG and CXR noted -VAP bundle -SPO2 monitoring GI: Morbid obesity, transaminitis -24 hours +21 mL -PPI -NTR consulted for tube feedings -BR: Senokot S -Abd US pending -Trend LFTs : Acute kidney injury with possible underlying CKD, hyperchloremic metabolic acidosis, mild hyperkalemia -Nephrology consulted, appreciate recommendations --Lasix 80 mg x1 -Monitor intake and output -Renally dose medications -Avoid nephrotoxic medications -Urine electrolytes pending -Renal ultrasound pending -Trend BMP ID: NAD -f/u sputum culture -Monitor WBC and temperature curve Endo: Hyperglycemia, h/o DM -Hold home Novolin 70/30 100 units twice daily -Avoid hypoglycemia -SSI -Accu-Cheks q. 6 -Lantus added, titrate as needed -Hemoglobin A1c pending Heme: NAD -Trend CBC -Transfuse hemoglobin less than 7 -SCDs to BLE while in bed The high probability of a clinically significant, sudden or life threatening deterioration of the [multi] system(s) required my full and direct attention, intervention and personal management. The aggregate critical care time was [60] minutes. This time is in addition to time spent performing reported procedures but includes the following: [x] Data Review and interpretation [x] Patient assessment and monitoring of vital signs [x] Documentation [x] Medication orders and management Disposition Plan: icu Total Time Spent with Patient (Minutes): 60 History Interval history: This is a 56-year-old male with OHS, HTN, PE on therapeutic anticoagulation with Xarelto, CHF and AICD in situ who presented to emergency department on 03/13 with complaints of shortness of breath over the past 2 days with worsening symptoms over the past day via EMS. Per documentation patient had last hemodialysis session on 03/08. Patient was emergently intubated in the emergency department as he was found to have some oropharyngeal edema and inability to protect his airway and found to have a pulse ox of 89%. 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 Patient was admitted to the hospital service with acute CHF decompensation, metabolic acidosis, fluid overload, transaminitis, acute kidney injury and acute hypoxic respiratory failure with consults to [facility], cardiology and nephrology. Hospital course to date: 03/14: Cardiology discontinued hydralazine, hydrochlorothiazide and clonidine due to soft blood pressures this morning and would like to continue Coreg and decreased Xarelto. Nephrology ordered a one-time dose of Lasix 80 mg. Patient remains intubated. This evening patient was becoming hypertensive and as needed hydralazine added. Unable to confirm if patient is on outpatient hemodialysis as does not know and current chest access appears to be PICC line. Hospitalist Physical - Constitutional Vitals: Temp Pulse Resp BP Pulse Ox 100.0 F H 66 23 161/71 95 03/14/22 11:38 03/14/22 12:40 03/14/22 06:30 03/14/22 12:40 03/14/22 12:40 General appearance: Present: no acute distress, other (Intubated and sedated) - EENT Eyes: Present: PERRL, EOM intact ENT: dentition normal - Neck Neck: Present: normal ROM - Respiratory Respiratory effort: normal Respiratory: bilateral: diminished - Cardiovascular Rhythm: regular Heart Sounds: Present: S1 & S2. Absent: systolic murmur, diastolic murmur - Extremities Extremities: no ischemia, pulses intact, pulses symmetrical, normal temperature, normal color Peripheral Pulses: within normal limits - Abdominal General gastrointestinal: soft, non-tender, non-distended, normal bowel sounds - Integumentary Integumentary: Present: warm, dry - Psychiatric Psychiatric: other - Neurologic Neurologic: other (follows commands with BLE, PERRL, intact cough/gag reflex) - Allied Health Allied health notes reviewed: nursing, RT, social work HEART Score - HEART Score Troponin: Troponin T 0.176 ng/mL (0.00-0.029) H* 03/13/22 15:44 Results - Labs CBC & Chem 7: 03/14/22 04:50 03/14/22 04:50 Labs: Laboratory Last Values WBC 9.5 K/mm3 (4.5-11.0) 03/14/22 04:50 RBC 4.64 M/mm3 (3.65-5.03) 03/14/22 04:50 Hgb 13.0 gm/dl (11.8-15.2) 03/14/22 04:50 Hct 41.7 % (35.5-45.6) D 03/14/22 04:50 MCV 90 fl (84-94) 03/14/22 04:50 MCH 28 pg (28-32) 03/14/22 04:50 MCHC 31 % (32-34) L 03/14/22 04:50 RDW 19.3 % (13.2-15.2) H 03/14/22 04:50 Plt Count 115 K/mm3 (140-440) L 03/14/22 04:50 Lymph % (Auto) 4.7 % (13.4-35.0) L 03/14/22 04:50 Campbell % (Auto) 5.6 % (0.0-7.3) 03/14/22 04:50 Eos % (Auto) 0.1 % (0.0-4.3) 03/14/22 04:50 Baso % (Auto) 0.1 % (0.0-1.8) 03/14/22 04:50 Lymph # (Auto) 0.5 K/mm3 (1.2-5.4) L 03/14/22 04:50 Campbell # (Auto) 0.5 K/mm3 (0.0-0.8) 03/14/22 04:50 Eos # (Auto) 0.0 K/mm3 (0.0-0.4) 03/14/22 04:50 Baso # (Auto) 0.0 K/mm3 (0.0-0.1) 03/14/22 04:50 Add Manual Diff Complete 03/13/22 15:44 Total Counted 100 03/13/22 15:44 Seg Neutrophils % 89.5 % (40.0-70.0) H 03/14/22 04:50 Seg Neuts % (Manual) 93.0 % (40.0-70.0) H 03/13/22 15:44 Band Neutrophils % 1.0 % 03/13/22 15:44 Lymphocytes % (Manual) 3.0 % (13.4-35.0) L 03/13/22 15:44 Reactive Lymphs % (Man) 0 % 03/13/22 15:44 Monocytes % (Manual) 2.0 % (0.0-7.3) 03/13/22 15:44 Eosinophils % (Manual) 0 % (0.0-4.3) 03/13/22 15:44 Basophils % (Manual) 0 % (0.0-1.8) 03/13/22 15:44 Metamyelocytes % 1.0 % 03/13/22 15:44 Myelocytes % 0 % 03/13/22 15:44 Promyelocytes % 0 % 03/13/22 15:44 Blast Cells % 0 % 03/13/22 15:44 Nucleated RBC % 1.0 % (0.0-0.9) H 03/13/22 15:44 Seg Neutrophils # 8.5 K/mm3 (1.8-7.7) H 03/14/22 04:50 Seg Neutrophils # Man 10.1 K/mm3 (1.8-7.7) H 03/13/22 15:44 Band Neutrophils # 0.1 K/mm3 03/13/22 15:44 Lymphocytes # (Manual) 0.3 K/mm3 (1.2-5.4) L 03/13/22 15:44 Abs React Lymphs (Man) 0.0 K/mm3 03/13/22 15:44 Monocytes # (Manual) 0.2 K/mm3 (0.0-0.8) 03/13/22 15:44 Eosinophils # (Manual) 0.0 K/mm3 (0.0-0.4) 03/13/22 15:44 Basophils # (Manual) 0.0 K/mm3 (0.0-0.1) 03/13/22 15:44 Metamyelocytes # 0.1 K/mm3 03/13/22 15:44 Myelocytes # 0.0 K/mm3 03/13/22 15:44 Promyelocytes # 0.0 K/mm3 03/13/22 15:44 Blast Cells # 0.0 K/mm3 03/13/22 15:44 WBC Morphology Not Reportable 03/13/22 15:44 Hypersegmented Neuts Not Reportable 03/13/22 15:44 Hyposegmented Neuts Not Reportable 03/13/22 15:44 Hypogranular Neuts Not Reportable 03/13/22 15:44 Smudge Cells Not Reportable 03/13/22 15:44 Toxic Granulation Not Reportable 03/13/22 15:44 Toxic Vacuolation Not Reportable 03/13/22 15:44 Dohle Bodies Not Reportable 03/13/22 15:44 Pelger-Huet Anomaly Not Reportable 03/13/22 15:44 Tyson Rods Not Reportable 03/13/22 15:44 Platelet Estimate Consistent w auto 03/13/22 15:44 Clumped Platelets Not Reportable 03/13/22 15:44 Plt Clumps, EDTA Not Reportable 03/13/22 15:44 Large Platelets Not Reportable 03/13/22 15:44 Giant Platelets Not Reportable 03/13/22 15:44 Platelet Satelliting Not Reportable 03/13/22 15:44 Plt Morphology Comment Not Reportable 03/13/22 15:44 RBC Morphology Not Reportable 03/13/22 15:44 Dimorphic RBCs Not Reportable 03/13/22 15:44 Polychromasia Few 03/13/22 15:44 Hypochromasia Not Reportable 03/13/22 15:44 Poikilocytosis Not Reportable 03/13/22 15:44 Anisocytosis Not Reportable 03/13/22 15:44 Microcytosis Not Reportable 03/13/22 15:44 Macrocytosis Not Reportable 03/13/22 15:44 Spherocytes Not Reportable 03/13/22 15:44 Pappenheimer Bodies Not Reportable 03/13/22 15:44 Sickle Cells Not Reportable 03/13/22 15:44 Target Cells Not Reportable 03/13/22 15:44 Tear Drop Cells Not Reportable 03/13/22 15:44 Ovalocytes Not Reportable 03/13/22 15:44 Helmet Cells Not Reportable 03/13/22 15:44 Sesay-Oberon Bodies Not Reportable 03/13/22 15:44 Jayton Rings Not Reportable 03/13/22 15:44 Caro Cells 1+ 03/13/22 15:44 Bite Cells Not Reportable 03/13/22 15:44 Crenated Cell Not Reportable 03/13/22 15:44 Elliptocytes Few 03/13/22 15:44 Acanthocytes (Spur) Not Reportable 03/13/22 15:44 Rouleaux Not Reportable 03/13/22 15:44 Hemoglobin C Crystals Not Reportable 03/13/22 15:44 Schistocytes Not Reportable 03/13/22 15:44 Malaria parasites Not Reportable 03/13/22 15:44 Rashaad Bodies Not Reportable 03/13/22 15:44 Hem Pathologist Commnt No 03/13/22 15:44 ABG pH 7.327 pH Units (7.350-7.450) L 03/14/22 03:58 ABG pCO2 35.9 mm Hg 03/14/22 03:58 ABG pO2 65.2 mm Hg (80.0-90.0) L 03/14/22 03:58 ABG HCO3 18.4 mmol/L (20.0-26.0) L 03/14/22 03:58 ABG O2 Saturation 91.1 % (95.0-99.0) L 03/14/22 03:58 ABG O2 Content 16.5 (0.0-44) 03/14/22 03:58 ABG Base Excess -6.8 mmol/L (-2.0-3.0) L 03/14/22 03:58 ABG Hemoglobin 13.2 gm/dl (14.0-18.0) L 03/14/22 03:58 ABG Carboxyhemoglobin 1.6 % (0.0-5.0) 03/14/22 03:58 ABG Methemoglobin 0.6 % (0.0-1.5) 03/14/22 03:58 Oxyhemoglobin 89.1 % (95.0-99.0) L 03/14/22 03:58 FiO2 50 % 03/14/22 03:58 Sodium 142 mmol/L (137-145) 03/14/22 04:50 Potassium 5.2 mmol/L (3.6-5.0) H 03/14/22 04:50 Chloride 109.5 mmol/L (98-107) H 03/14/22 04:50 Carbon Dioxide 19 mmol/L (22-30) L 03/14/22 04:50 Anion Gap 19 mmol/L 03/14/22 04:50 BUN 90 mg/dL (9-20) H 03/14/22 04:50 Creatinine 4.2 mg/dL (0.8-1.3) H 03/14/22 04:50 Estimated GFR 18 ml/min 03/14/22 04:50 BUN/Creatinine Ratio 21 % 03/14/22 04:50 Glucose 204 mg/dL (75-100) H 03/14/22 04:50 POC Glucose 190 mg/dL (70-105) H 03/14/22 16:28 Calcium 8.7 mg/dL (8.4-10.2) 03/14/22 04:50 Magnesium 2.50 mg/dL (1.7-2.3) H 03/13/22 20:33 Total Bilirubin 2.50 mg/dL (0.1-1.2) H 03/13/22 15:44 AST 363 units/L (5-40) H 03/13/22 15:44 ALT 430 units/L (7-56) H 03/13/22 15:44 Alkaline Phosphatase 122 units/L (35-129) 03/13/22 15:44 Troponin T 0.176 ng/mL (0.00-0.029) H* 03/13/22 15:44 NT-Pro-B Natriuret Pep 98001 pg/mL (0-900) H 03/13/22 15:44 Total Protein 6.5 g/dL (6.3-8.2) 03/13/22 15:44 Albumin 3.6 g/dL (3.9-5) L 03/13/22 15:44 Albumin/Globulin Ratio 1.2 % 03/13/22 15:44 Triglycerides 98 mg/dL (2-149) 03/13/22 15:44 Cholesterol 99 mg/dL (50-199) 03/13/22 15:44 LDL Cholesterol Direct 59 mg/dL (50-130) 03/13/22 15:44 HDL Cholesterol 24 mg/dL (40-59) L 03/13/22 15:44 Cholesterol/HDL Ratio 4.12 % 03/13/22 15:44 TSH 1.790 mlU/mL (0.270-4.200) 03/13/22 20:33 Free T4 1.24 ng/dL (0.76-1.46) 03/13/22 20:33 Hepatitis A IgM Ab Non-reactive (NonReactive) 03/14/22 10:12 Hep Bs Antigen Non-reactive (Negative) 03/14/22 10:12 Hep B Core IgM Ab Non-reactive (NonReactive) 03/14/22 10:12 Hepatitis C Antibody Non-reactive (NonReactive) 03/14/22 10:12 Microbiology: Microbiology 03/13/22 18:15 Sputum - Expectorated Sputum Sputum Culture - Preliminary Anguiano/IV: Voiding Method Indwelling Catheter Active Medications - Current Medications Current Medications: Generic Name Dose Route Start Last Admin Trade Name Freq PRN Reason Stop Dose Admin Acetaminophen 650 mg 03/13/22 17:18 Acetaminophen 325 Mg Tab PO Q6H PRN Pain MILD(1-3)/Fever >100.5/FLORES Albumin Human 25 gm 03/13/22 18:43 Albumin Human 25% (25 Gm/100 Ml) Inj IV GLADYS PRN Hypotension Albuterol 2.5 mg 03/13/22 17:18 Albuterol 2.5 Mg/3 Ml Nebu IH Q3HRT PRN Shortness Of Breath Aspirin 81 mg 03/14/22 10:00 03/14/22 10:38 Aspirin 81 Mg Tab Chew PO 81 mg QDAY YRIS Administration Atorvastatin Calcium 40 mg 03/14/22 22:00 Atorvastatin 40 Mg Tab PO QHS YRIS Carvedilol 25 mg 03/13/22 22:00 03/14/22 10:38 Carvedilol 25 Mg Tab PO 25 mg BID YRIS Administration Dextrose 50 ml 03/14/22 12:30 Dextrose 50% In Water (25gm) 50 Ml Syringe IV Q30MIN PRN Hypoglycemia Protocol Famotidine 10 mg 03/14/22 22:00 Famotidine 10 Mg Tab FEEDTUBE BID YRIS Fentanyl 50 mcg 03/14/22 11:20 Fentanyl 100 Mcg/2 Ml Inj IV Q10MIN PRN ANALGESIA Furosemide 20 mg 03/14/22 10:00 03/14/22 10:46 Furosemide 20 Mg/2 Ml Inj IV 20 mg QDAY YRIS Administration Hydralazine HCl 10 mg 03/14/22 15:57 Hydralazine 20 Mg/1 Ml Inj IV Q4HR PRN Hypertension Hydromorphone HCl 0.5 mg 03/13/22 17:18 03/13/22 21:30 Hydromorphone 0.5 Mg/0.5 Ml Inj IV 0.5 mg Q13H PRN Administration Pain , Severe (7-10) Sodium Chloride 100 mls @ 999 mls/hr 03/13/22 18:42 Nacl 0.9% IV GLADYS PRN Hypotension Fentanyl Citrate 2,000 mcg in 100 mls @ 7.095 mls/hr 03/14/22 12:00 Fentanyl Drip Premix IV TITR [facility] Protocol 1 MCG/KG/HR Insulin Glargine 10 units 03/14/22 13:00 03/14/22 14:36 Insulin Glargine 100 Units/Ml SUB-Q 03/14/22 17:00 10 units ONCE@1300 [facility] Administration Insulin Glargine 10 units 03/15/22 22:00 Insulin Glargine 100 Units/Ml SUB-Q QHS [facility] Insulin Human Regular 0 units 03/14/22 13:00 03/14/22 14:42 Insulin Regular, Human 100 Units/1 Ml SUB-Q 3 units Q6HR YRIS Administration Protocol Oxycodone/Acetaminophen 1 tab 03/13/22 17:18 Oxycodone /Acetaminophen 5-325mg Tab PO Q16H PRN Pain, Moderate (4-6) Rivaroxaban 15 mg 03/14/22 10:29 03/14/22 13:58 Rivaroxaban 15 Mg Tab PO 15 mg QDDIAB YRIS Administration Senna/Docusate Sodium 1 tab 03/14/22 22:00 Sennosides/Docusate Sodium 8.6/50 Mg Tab FEEDTUBE QHS YRIS Sodium Bicarbonate 650 mg 03/13/22 22:00 03/14/22 14:36 Sodium Bicarbonate 325 Mg Tab PO 650 mg Q8HR YRIS Administration Sodium Chloride 10 ml 03/13/22 22:00 03/14/22 10:43 Sodium Chloride 0.9% 10 Ml Flush Syringe IV 10 ml BID YRIS Administration Sodium Chloride 10 ml 03/13/22 17:18 Sodium Chloride 0.9% 10 Ml Flush Syringe IV PRN PRN LINE FLUSH Nutrition/Malnutrition Assess - Dietary Evaluation Nutrition/Malnutrition Findings: Nutrition Notes Start: 03/14/22 09:54 Freq: Status: Active Protocol: Document 03/14/22 09:54 VICTORIA (Rec: 03/14/22 10:31 VICTORIA [id number]) Nutrition Notes Need for Assessment 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 Current Diet NPO (since 03/13 17:19), TF- Nepro w/CARBSTEADY @ 50 ml/hr (from L 03/14.). Labs/Tests 03/14: K 5.2, Cl 109.5, CO2 19 , BUN 90, Crea 4.2, Glu 204. Pertinent Medications 03/14: Nutritionally unremarkable. 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 Weight Status Morbidly Obese Subjective/Other Information RD consult for skin risk, risk of malnutrition, and write/ manage TF. Pt currently on NPO. I will prescribe TF to provide Pt with energy/proteins needs duering LOS. Pt is on Mechanical Ventilation, O2 saturation @ 89%, according to Physical Assessment History notes. Pt has missing teeth, according to Physical Assessment History notes. Pt shows no signs of concern for skin risk at the odalis, according to Physical Assessment History notes. Pt shows no signs of concern for risk of malnutrition at the time, according to Physical Assessment History notes. Percent of energy/protein needs met: Pt currently on NPO. Prescribed TF-Nepro w/ CARBSTEADY @ 50 ml/hr provides for energy/protein needs (2, 180 Kcal/98 g) during LOS, 102 % Kcal; 74% AA. Burn Absent Trauma Absent GI Symptoms None Food Allergy No Skin Integrity/Comment Assessment WNL. 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 As Evidenced by Signs and Symptoms Pt currently on NPO. Is patient on ventilator? Yes Is Patient Ambulatory and/or Out of Bed No REE-([facility]-confined to bed) 2740.836 Kcal/Kg value to use for calculation 15 Approximate Energy Requirements Using 2129 kcal/Kg Calculation Used for Recommendations Kcal/kg Additional Notes Protein: >1.2 g/Kg AdjBW; >132 g/day. Fluids: 1 ml/Kcal, or as per MD. Nutrition Intervention Nutrition Support: Start TF-Nepro w/CARBSTEADY @ 50 ml/hr. Flush: 200 ml water Q 4 hr,or as per MD. Kcal 2,180 Protein (gm) 98 Carbohydrates (gm) 195 Fat (gm) 116 Fluid (mL) 880 Fiber (gm) 15 % RDI: 102% Kcal; 74% AA. Goal #1 Provide at least 75% of energy /protein needs through Enteral Feeding during LOS. Follow-Up By: 03/16/22 Additional Comments Start monitoring TF tolerance and BM. <DWAYNE ANNE - Last Filed: 03/15/22 07:57> Assessment and Plan Assessment and plan: I saw and evaluated the patient. I agree with the findings and the plan of care as documented in the Nurse Practitioner's~note, with the following corrections and additions. Hospitalist Physical - Constitutional Vitals: Temp Pulse Resp BP Pulse Ox 99.3 F 67 26 H 123/77 84 03/15/22 07:12 03/15/22 07:00 03/15/22 07:00 03/15/22 07:00 03/15/22 07:00 HEART Score - HEART Score Troponin: Troponin T 0.176 ng/mL (0.00-0.029) H* 03/13/22 15:44 Results - Labs CBC & Chem 7: 03/14/22 04:50 03/15/22 04:36 Labs: Laboratory Last Values WBC 9.5 K/mm3 (4.5-11.0) 03/14/22 04:50 RBC 4.64 M/mm3 (3.65-5.03) 03/14/22 04:50 Hgb 13.0 gm/dl (11.8-15.2) 03/14/22 04:50 Hct 41.7 % (35.5-45.6) D 03/14/22 04:50 MCV 90 fl (84-94) 03/14/22 04:50 MCH 28 pg (28-32) 03/14/22 04:50 MCHC 31 % (32-34) L 03/14/22 04:50 RDW 19.3 % (13.2-15.2) H 03/14/22 04:50 Plt Count 115 K/mm3 (140-440) L 03/14/22 04:50 Lymph % (Auto) 4.7 % (13.4-35.0) L 03/14/22 04:50 Campbell % (Auto) 5.6 % (0.0-7.3) 03/14/22 04:50 Eos % (Auto) 0.1 % (0.0-4.3) 03/14/22 04:50 Baso % (Auto) 0.1 % (0.0-1.8) 03/14/22 04:50 Lymph # (Auto) 0.5 K/mm3 (1.2-5.4) L 03/14/22 04:50 Campbell # (Auto) 0.5 K/mm3 (0.0-0.8) 03/14/22 04:50 Eos # (Auto) 0.0 K/mm3 (0.0-0.4) 03/14/22 04:50 Baso # (Auto) 0.0 K/mm3 (0.0-0.1) 03/14/22 04:50 Add Manual Diff Complete 03/13/22 15:44 Total Counted 100 03/13/22 15:44 Seg Neutrophils % 89.5 % (40.0-70.0) H 03/14/22 04:50 Seg Neuts % (Manual) 93.0 % (40.0-70.0) H 03/13/22 15:44 Band Neutrophils % 1.0 % 03/13/22 15:44 Lymphocytes % (Manual) 3.0 % (13.4-35.0) L 03/13/22 15:44 Reactive Lymphs % (Man) 0 % 03/13/22 15:44 Monocytes % (Manual) 2.0 % (0.0-7.3) 03/13/22 15:44 Eosinophils % (Manual) 0 % (0.0-4.3) 03/13/22 15:44 Basophils % (Manual) 0 % (0.0-1.8) 03/13/22 15:44 Metamyelocytes % 1.0 % 03/13/22 15:44 Myelocytes % 0 % 03/13/22 15:44 Promyelocytes % 0 % 03/13/22 15:44 Blast Cells % 0 % 03/13/22 15:44 Nucleated RBC % 1.0 % (0.0-0.9) H 03/13/22 15:44 Seg Neutrophils # 8.5 K/mm3 (1.8-7.7) H 03/14/22 04:50 Seg Neutrophils # Man 10.1 K/mm3 (1.8-7.7) H 03/13/22 15:44 Band Neutrophils # 0.1 K/mm3 03/13/22 15:44 Lymphocytes # (Manual) 0.3 K/mm3 (1.2-5.4) L 03/13/22 15:44 Abs React Lymphs (Man) 0.0 K/mm3 03/13/22 15:44 Monocytes # (Manual) 0.2 K/mm3 (0.0-0.8) 03/13/22 15:44 Eosinophils # (Manual) 0.0 K/mm3 (0.0-0.4) 03/13/22 15:44 Basophils # (Manual) 0.0 K/mm3 (0.0-0.1) 03/13/22 15:44 Metamyelocytes # 0.1 K/mm3 03/13/22 15:44 Myelocytes # 0.0 K/mm3 03/13/22 15:44 Promyelocytes # 0.0 K/mm3 03/13/22 15:44 Blast Cells # 0.0 K/mm3 03/13/22 15:44 WBC Morphology Not Reportable 03/13/22 15:44 Hypersegmented Neuts Not Reportable 03/13/22 15:44 Hyposegmented Neuts Not Reportable 03/13/22 15:44 Hypogranular Neuts Not Reportable 03/13/22 15:44 Smudge Cells Not Reportable 03/13/22 15:44 Toxic Granulation Not Reportable 03/13/22 15:44 Toxic Vacuolation Not Reportable 03/13/22 15:44 Dohle Bodies Not Reportable 03/13/22 15:44 Pelger-Huet Anomaly Not Reportable 03/13/22 15:44 Tyson Rods Not Reportable 03/13/22 15:44 Platelet Estimate Consistent w auto 03/13/22 15:44 Clumped Platelets Not Reportable 03/13/22 15:44 Plt Clumps, EDTA Not Reportable 03/13/22 15:44 Large Platelets Not Reportable 03/13/22 15:44 Giant Platelets Not Reportable 03/13/22 15:44 Platelet Satelliting Not Reportable 03/13/22 15:44 Plt Morphology Comment Not Reportable 03/13/22 15:44 RBC Morphology Not Reportable 03/13/22 15:44 Dimorphic RBCs Not Reportable 03/13/22 15:44 Polychromasia Few 03/13/22 15:44 Hypochromasia Not Reportable 03/13/22 15:44 Poikilocytosis Not Reportable 03/13/22 15:44 Anisocytosis Not Reportable 03/13/22 15:44 Microcytosis Not Reportable 03/13/22 15:44 Macrocytosis Not Reportable 03/13/22 15:44 Spherocytes Not Reportable 03/13/22 15:44 Pappenheimer Bodies Not Reportable 03/13/22 15:44 Sickle Cells Not Reportable 03/13/22 15:44 Target Cells Not Reportable 03/13/22 15:44 Tear Drop Cells Not Reportable 03/13/22 15:44 Ovalocytes Not Reportable 03/13/22 15:44 Helmet Cells Not Reportable 03/13/22 15:44 Sesay-Oberon Bodies Not Reportable 03/13/22 15:44 Jayton Rings Not Reportable 03/13/22 15:44 Azael Cells 1+ 03/13/22 15:44 Bite Cells Not Reportable 03/13/22 15:44 Crenated Cell Not Reportable 03/13/22 15:44 Elliptocytes Few 03/13/22 15:44 Acanthocytes (Spur) Not Reportable 03/13/22 15:44 Rouleaux Not Reportable 03/13/22 15:44 Hemoglobin C Crystals Not Reportable 03/13/22 15:44 Schistocytes Not Reportable 03/13/22 15:44 Malaria parasites Not Reportable 03/13/22 15:44 Rashaad Bodies Not Reportable 03/13/22 15:44 Hem Pathologist Commnt No 03/13/22 15:44 ABG pH 7.347 pH Units (7.350-7.450) L 03/14/22 21:00 ABG pCO2 41.9 mm Hg 03/14/22 21:00 ABG pO2 111.6 mm Hg (80.0-90.0) H 03/14/22 21:00 ABG HCO3 22.4 mmol/L (20.0-26.0) 03/14/22 21:00 ABG O2 Saturation 97.9 % (95.0-99.0) 03/14/22 21:00 ABG O2 Content 18.3 (0.0-44) 03/14/22 21:00 ABG Base Excess -3.1 mmol/L (-2.0-3.0) L 03/14/22 21:00 ABG Hemoglobin 13.4 gm/dl (14.0-18.0) L 03/14/22 21:00 ABG Carboxyhemoglobin 1.5 % (0.0-5.0) 03/14/22 21:00 ABG Methemoglobin 0.5 % (0.0-1.5) 03/14/22 21:00 Oxyhemoglobin 96.0 % (95.0-99.0) 03/14/22 21:00 FiO2 53 % 03/14/22 21:00 Sodium 143 mmol/L (137-145) 03/15/22 04:36 Potassium 4.8 mmol/L (3.6-5.0) 03/15/22 04:36 Chloride 109.8 mmol/L (98-107) H 03/15/22 04:36 Carbon Dioxide 21 mmol/L (22-30) L 03/15/22 04:36 Anion Gap 17 mmol/L 03/15/22 04:36 BUN 100 mg/dL (9-20) H 03/15/22 04:36 Creatinine 4.3 mg/dL (0.8-1.3) H 03/15/22 04:36 Estimated GFR 18 ml/min 03/15/22 04:36 BUN/Creatinine Ratio 23 % 03/15/22 04:36 Glucose 178 mg/dL (75-100) H 03/15/22 04:36 POC Glucose 166 mg/dL (70-105) H 03/14/22 23:43 Hemoglobin A1c 8.6 % (4-6) H 03/15/22 04:36 Calcium 8.6 mg/dL (8.4-10.2) 03/15/22 04:36 Magnesium 2.50 mg/dL (1.7-2.3) H 03/13/22 20:33 Total Bilirubin 1.50 mg/dL (0.1-1.2) H 03/15/22 04:36 AST 136 units/L (5-40) H 03/15/22 04:36 ALT 299 units/L (7-56) H 03/15/22 04:36 Alkaline Phosphatase 78 units/L (35-129) 03/15/22 04:36 Troponin T 0.176 ng/mL (0.00-0.029) H* 03/13/22 15:44 NT-Pro-B Natriuret Pep 91016 pg/mL (0-900) H 03/13/22 15:44 Total Protein 5.3 g/dL (6.3-8.2) L 03/15/22 04:36 Albumin 2.5 g/dL (3.9-5) L 03/15/22 04:36 Albumin/Globulin Ratio 0.9 % 03/15/22 04:36 Triglycerides 98 mg/dL (2-149) 03/13/22 15:44 Cholesterol 99 mg/dL (50-199) 03/13/22 15:44 LDL Cholesterol Direct 59 mg/dL (50-130) 03/13/22 15:44 HDL Cholesterol 24 mg/dL (40-59) L 03/13/22 15:44 Cholesterol/HDL Ratio 4.12 % 03/13/22 15:44 TSH 0.362 mlU/mL (0.270-4.200) 03/15/22 04:36 Free T4 1.24 ng/dL (0.76-1.46) 03/13/22 20:33 Urine Color Straw (Yellow) 03/14/22 16:25 Urine Turbidity Clear (Clear) 03/14/22 16:25 Urine pH 5.0 (5.0-7.0) 03/14/22 16:25 Ur Specific [place] 1.015 (1.003-1.030) 03/14/22 16:25 Urine Protein 30 mg/dl mg/dL (Negative) 03/14/22 16:25 Urine Glucose (UA) Negative mg/dL (Negative) 03/14/22 16:25 Urine Ketones Trace mg/dL (Negative) 03/14/22 16:25 Urine Blood 1+ (Negative) 03/14/22 16:25 Urine Nitrite Negative (Negative) 03/14/22 16:25 Ur Reducing Substances Not Reportable 03/14/22 16:25 Urine Bilirubin Negative (Negative) 03/14/22 16:25 Urine Ictotest Not Reportable 03/14/22 16:25 Urine Urobilinogen < 2.0 mg/dL (<2.0) 03/14/22 16:25 Ur Leukocyte Esterase Negative (Negative) 03/14/22 16:25 Urine WBC (Auto) 6.0 /HPF (0.0-6.0) 03/14/22 16:25 Urine RBC (Auto) 82.0 /HPF (0.0-6.0) 03/14/22 16:25 U Epithel Cells (Auto) 1.0 /HPF (0-13.0) 03/14/22 16:25 Urine Bacteria (Auto) 1+ /HPF (Negative) 03/14/22 16:25 Urine Mucus Few /HPF 03/14/22 16:25 Hepatitis A IgM Ab Non-reactive (NonReactive) 03/14/22 10:12 Hep Bs Antigen Non-reactive (Negative) 03/14/22 10:12 Hep B Core IgM Ab Non-reactive (NonReactive) 03/14/22 10:12 Hepatitis C Antibody Non-reactive (NonReactive) 03/14/22 10:12 Microbiology: Microbiology 03/13/22 18:15 Sputum - Expectorated Sputum Sputum Culture - Preliminary Anguiano/IV: Voiding Method Indwelling Catheter Active Medications - Current Medications Current Medications: Generic Name Dose Route Start Last Admin Trade Name Freq PRN Reason Stop Dose Admin Acetaminophen 650 mg 03/13/22 17:18 Acetaminophen 325 Mg Tab PO Q6H PRN Pain MILD(1-3)/Fever >100.5/FLORES Albumin Human 25 gm 03/13/22 18:43 Albumin Human 25% (25 Gm/100 Ml) Inj IV GLADYS PRN Hypotension Albuterol 2.5 mg 03/13/22 17:18 Albuterol 2.5 Mg/3 Ml Nebu IH Q3HRT PRN Shortness Of Breath Aspirin 81 mg 03/14/22 10:00 03/14/22 10:38 Aspirin 81 Mg Tab Chew PO 81 mg QDAY YRIS Administration Atorvastatin Calcium 40 mg 03/14/22 22:00 03/14/22 22:20 Atorvastatin 40 Mg Tab PO 40 mg QHS YRIS Administration Carvedilol 25 mg 03/13/22 22:00 03/14/22 22:20 Carvedilol 25 Mg Tab PO 25 mg BID YRIS Administration Dextrose 50 ml 03/14/22 12:30 Dextrose 50% In Water (25gm) 50 Ml Syringe IV Q30MIN PRN Hypoglycemia Protocol Famotidine 10 mg 03/14/22 22:00 03/14/22 22:20 Famotidine 10 Mg Tab FEEDTUBE 10 mg BID YRIS Administration Fentanyl 50 mcg 03/14/22 11:20 Fentanyl 100 Mcg/2 Ml Inj IV Q10MIN PRN ANALGESIA Furosemide 20 mg 03/14/22 10:00 03/14/22 10:46 Furosemide 20 Mg/2 Ml Inj IV 20 mg QDAY YRIS Administration Hydralazine HCl 10 mg 03/14/22 15:57 Hydralazine 20 Mg/1 Ml Inj IV Q4HR PRN Hypertension Hydromorphone HCl 0.5 mg 03/13/22 17:18 03/13/22 21:30 Hydromorphone 0.5 Mg/0.5 Ml Inj IV 0.5 mg Q13H PRN Administration Pain , Severe (7-10) Sodium Chloride 100 mls @ 999 mls/hr 03/13/22 18:42 Nacl 0.9% IV GLADYS PRN Hypotension Fentanyl Citrate 2,000 mcg in 100 mls @ 7.095 mls/hr 03/14/22 12:00 Fentanyl Drip Premix IV TITR YRIS Protocol 1 MCG/KG/HR Insulin Glargine 10 units 03/15/22 22:00 Insulin Glargine 100 Units/Ml SUB-Q QHS YRIS Insulin Human Regular 0 units 03/14/22 13:00 03/15/22 06:16 Insulin Regular, Human 100 Units/1 Ml SUB-Q 2 units Q6HR YRIS Administration Protocol Oxycodone/Acetaminophen 1 tab 03/13/22 17:18 Oxycodone /Acetaminophen 5-325mg Tab PO Q16H PRN Pain, Moderate (4-6) Rivaroxaban 15 mg 03/14/22 10:29 03/14/22 13:58 Rivaroxaban 15 Mg Tab PO 15 mg QDDIAB YRIS Administration Senna/Docusate Sodium 1 tab 03/14/22 22:00 03/14/22 22:20 Sennosides/Docusate Sodium 8.6/50 Mg Tab FEEDTUBE 1 tab QHS YRIS Administration Sodium Bicarbonate 650 mg 03/13/22 22:00 03/15/22 06:17 Sodium Bicarbonate 325 Mg Tab PO 650 mg Q8HR YRIS Administration Sodium Chloride 10 ml 03/13/22 22:00 03/14/22 22:20 Sodium Chloride 0.9% 10 Ml Flush Syringe IV 10 ml BID YRIS Administration Sodium Chloride 10 ml 03/13/22 17:18 Sodium Chloride 0.9% 10 Ml Flush Syringe IV PRN PRN LINE FLUSH Nutrition/Malnutrition Assess - Dietary Evaluation Nutrition/Malnutrition Findings: Nutrition Notes Start: 03/14/22 09 :54 Freq: Status: Active Protocol: Document 03/14/22 09:54 VICTORIA (Rec: 03/14/22 10:31 VICTORIA [id number]) Nutrition Notes Need for Assessment 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 Current Diet NPO (since 03/13 17:19), TF- Nepro w/CARBSTEADY @ 50 ml/hr (from L 03/14.). Labs/Tests 03/14: K 5.2, Cl 109.5, CO2 19 , BUN 90, Crea 4.2, Glu 204. Pertinent Medications 03/14: Nutritionally unremarkable. 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 Weight Status Morbidly Obese Subjective/Other Information RD consult for skin risk, risk of malnutrition, and write/ manage TF. Pt currently on NPO. I will prescribe TF to provide Pt with energy/proteins needs duering LOS. Pt is on Mechanical Ventilation, O2 saturation @ 89%, according to Physical Assessment History notes. Pt has missing teeth, according to Physical Assessment History notes. Pt shows no signs of concern for skin risk at the odalis, according to Physical Assessment History notes. Pt shows no signs of concern for risk of malnutrition at the time, according to Physical Assessment History notes. Percent of energy/protein needs met: Pt currently on NPO. Prescribed TF-Nepro w/ CARBSTEADY @ 50 ml/hr provides for energy/protein needs (2, 180 Kcal/98 g) during LOS, 102 % Kcal; 74% AA. Burn Absent Trauma Absent GI Symptoms None Food Allergy No Skin Integrity/Comment Assessment WNL. 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 As Evidenced by Signs and Symptoms Pt currently on NPO. Is patient on ventilator? Yes Is Patient Ambulatory and/or Out of Bed No REE-([facility]-confined to bed) 2740.836 Kcal/Kg value to use for calculation 15 Approximate Energy Requirements Using 2129 kcal/Kg Calculation Used for Recommendations Kcal/kg Additional Notes Protein: >1.2 g/Kg AdjBW; >132 g/day. Fluids: 1 ml/Kcal, or as per MD. Nutrition Intervention Nutrition Support: Start TF-Nepro w/CARBSTEADY @ 50 ml/hr. Flush: 200 ml water Q 4 hr,or as per MD. Kcal 2,180 Protein (gm) 98 Carbohydrates (gm) 195 Fat (gm) 116 Fluid (mL) 880 Fiber (gm) 15 % RDI: 102% Kcal; 74% AA. Goal #1 Provide at least 75% of energy /protein needs through Enteral Feeding during LOS. Follow-Up By: 03/16/22 Additional Comments Start monitoring TF tolerance and BM.
[2022-03-14 18:50] LABS: Bacteria,Urine 1+ /HPF (Negative); Mucus,Urine FEW /HPF
[2022-03-14 19:18] LABS: Bilirubin,Urine Negative (Negative); Color,Urine Straw (Yellow)
[2022-03-14 19:19] LABS: Blood,Urine 1+ (Negative); Urobilinogen,Urine < 2.0 mg/dL (<2.0)
[2022-03-14 21:18] LABS: ABG Base Excess -3.1 mmol/L (-2.0-3.0); ABG HCO3 22.4 mmol/L (20.0-26.0); ABG Methemoglobin 0.5 % (0.0-1.5); ABG Oxygen Saturation 97.9 % (95.0-99.0); ABG PCO2 41.9 mm Hg; ABG PH 7.347 pH Units (7.350-7.450); ABG PO2 111.6 mm Hg (80.0-90.0)
--- NOTE | 2022-03-14 21:52 | Ultrasound Report ---
ULTRASOUND ABDOMEN, LIMITED INDICATION / CLINICAL INFORMATION: Elev LFT's, Elev bilirubin. COMPARISON: None available. FINDINGS: PANCREAS: Visualized portion shows no significant abnormality. LIVER: Liver is enlarged measuring 19 cm. Liver appears moderately echogenic. No focal lesion. Normal hepatopedal blood flow in the main portal vein. GALLBLADDER: Moderate amount of gallbladder sludge. No echogenic stones. No gallbladder wall thickeni ng or edema. BILE DUCTS: No significant abnormality. Common bile duct measures 5 mm. FREE FLUID: None. ADDITIONAL FINDINGS: None. IMPRESSION: 1. Hepatomegaly with hepatic steatosis. 2. Gallbladder sludge without sonographic evidence for acute cholecystitis. Signer Name: Alicia Turner MD Signed: 03/14/2022 9:47 PM Workstation Name: [id number]
[2022-03-14] MEDS: SENNOSIDES/DOCUSATE SODIUM 8.6/50 MG TAB FEEDTUBE SCH (22:20)
[2022-03-14] MEDS: FAMOTIDINE 10 MG TAB FEEDTUBE SCH (22:20)
[2022-03-15] MEDS: INSULIN REGULAR, HUMAN 100 UNITS/1 ML SUB-Q SCH ×5 (00:27→23:24)
[2022-03-15 05:49] LABS: Albumin 2.5 g/dL (3.9-5); Calcium 8.6 mg/dL (8.4-10.2)
[2022-03-15] MEDS: SODIUM BICARBONATE 325 MG TAB PO SCH ×3 (06:17→21:33)
[2022-03-15] MEDS: carvediloL 25 MG TAB PO SCH ×2 (09:04→21:33)
[2022-03-15] MEDS: ASPIRIN 81 MG TAB CHEW PO SCH (09:04)
[2022-03-15] MEDS: RIVAROXABAN 15 MG TAB PO SCH (09:04)
[2022-03-15] MEDS: FUROSEMIDE 20 MG/2 ML INJ IV SCH (09:04)
[2022-03-15] MEDS: FAMOTIDINE 10 MG TAB FEEDTUBE SCH ×2 (09:04→21:33)
--- NOTE | 2022-03-15 09:04 | Progress Note ---
Assessment and Plan Impression * Acute kidney injury * Patient may have underlying chronic kidney disease * Respiratory failure. Chest x-ray showing evidence of mild volume overload * Diabetes * Hypertension * Abnormal LFTs * Mild metabolic acidosis and mild hyperkalemia Recommendations * Patient's baseline renal function is not known. Although ER documentation s tated that patient has ESRD. I do not see any dialysis access. Attempted to call patient's home number again today but no response. * Patient is clinically mildly volume overloaded. Continue IV loop diuretic as needed * His urine shows 1+ dipstick protein and 1+ blood * Follow-up results of vasculitis work-up. Hepatitis B and C both are negative * Avoid nephrotoxins * Monitor Anguiano catheter for now * Hyperkalemia has been corrected * Monitor fluid status and electrolytes closely * No urgent indication for dialysis today * Reorder renal ultrasound Subjective Date of service: 03/15/22 Interval history: Patient remains on the ventilator. Currently on 55% FiO2. Oxygen saturation is 98%. Patient is unresponsive. Objective - Vital Signs Vital signs: Vital Signs - 12hr 03/14/22 03/14/22 03/14/22 21:30 21:58 22:00 Temperature Pulse Rate 65 64 65 Pulse Rate [ From Monitor] Respiratory 24 24 Rate Blood Pressure 169/75 175/77 175/77 O2 Sat by Pulse 95 98 91 Oximetry 03/14/22 03/14/22 03/14/22 22:20 22:30 23:00 Temperature Pulse Rate 69 66 64 Pulse Rate [ From Monitor] Respiratory 24 24 Rate Blood Pressure 175/77 174/73 163/60 O2 Sat by Pulse 94 92 Oximetry 03/14/22 03/14/22 03/14/22 23:30 23:41 23:45 Temperature 98.4 F Pulse Rate 61 63 Pulse Rate [ From Monitor] Respiratory 24 Rate Blood Pressure 148/63 148/63 O2 Sat by Pulse 100 100 Oximetry 03/15/22 03/15/22 03/15/22 00:00 00:30 01:00 Temperature Pulse Rate 63 62 62 Pulse Rate [ 63 From Monitor] Respiratory 24 24 24 Rate Blood Pressure 152/79 148/70 153/81 O2 Sat by Pulse 90 89 92 Oximetry 03/15/22 03/15/22 03/15/22 01:30 02:00 02:30 Temperature Pulse Rate 63 63 64 Pulse Rate [ From Monitor] Respiratory 24 24 24 Rate Blood Pressure 160/74 153/72 174/87 O2 Sat by Pulse 93 91 97 Oximetry 03/15/22 03/15/22 03/15/22 03:00 03:30 04:00 Temperature 99.3 F Pulse Rate 62 61 61 Pulse Rate [ 61 From Monitor] Respiratory 24 24 24 Rate Blood Pressure 158/72 149/71 161/81 O2 Sat by Pulse 95 92 93 Oximetry 03/15/22 03/15/22 03/15/22 04:30 05:00 05:02 Temperature Pulse Rate 61 62 64 Pulse Rate [ From Monitor] Respiratory 24 19 Rate Blood Pressure 153/76 148/79 148/79 O2 Sat by Pulse 90 96 99 Oximetry 03/15/22 03/15/22 03/15/22 05:31 06:01 06:30 Temperature Pulse Rate 64 64 66 Pulse Rate [ From Monitor] Respiratory 24 24 27 H Rate Blood Pressure 128/70 120/70 127/75 O2 Sat by Pulse 91 87 88 Oximetry 03/15/22 03/15/22 03/15/22 07:00 07:12 07:20 Temperature 99.3 F Pulse Rate 67 67 Pulse Rate [ From Monitor] Respiratory 26 H Rate Blood Pressure 123/77 123/77 O2 Sat by Pulse 84 95 Oximetry 03/15/22 03/15/22 03/15/22 07:30 08:00 08:22 Temperature Pulse Rate 67 67 66 Pulse Rate [ 66 From Monitor] Respiratory 29 H 31 H Rate Blood Pressure 123/73 137/84 O2 Sat by Pulse 92 96 Oximetry 03/15/22 03/15/22 08:30 09:00 Temperature Pulse Rate 69 67 Pulse Rate [ From Monitor] Respiratory 29 H 26 H Rate Blood Pressure 146/88 128/76 O2 Sat by Pulse 96 94 Oximetry - General Appearance General appearance: well-developed, well-nourished, appears stated age, intubated EENT: PERRL, mucous membranes moist Neck: no JVD, no thyromegaly, no carotid bruit, supple Respiratory: Present: Clear to Ascultation Cardiology: regular, normal heart rate, S1S2, no murmurs Gastrointestinal: Integumentary: no rash, other (1+ edema) - Lab 03/14/22 04:50 03/15/22 04:36 Most recent lab results ABG pH 7.347 pH Units (7.350-7.450) L 03/14/22 21:00 ABG pCO2 41.9 mm Hg 03/14/22 21:00 ABG pO2 111.6 mm Hg (80.0-90.0) H 03/14/22 21:00 ABG HCO3 22.4 mmol/L (20.0-26.0) 03/14/22 21:00 ABG O2 Saturation 97.9 % (95.0-99.0) 03/14/22 21:00 Calcium 8.6 mg/dL (8.4-10.2) 03/15/22 04:36 Magnesium 2.50 mg/dL (1.7-2.3) H 03/13/22 20:33 Medications & Allergies - Medications Allergies/Adverse Reactions: Allergies No Known Allergies Allergy (Verified 03/13/22 14:06) Home Medications: Home Medications Medication Instructions Recorded Confirmed Last Taken Type Aspirin [Aspirin BABY CHEW TAB] 81 mg PO QDAY 03/13/22 03/13/22 Unknown History AtorvaSTATin [Lipitor] 40 mg PO QHS 03/13/22 03/13/22 Unknown History Furosemide [Lasix] 40 mg PO QDAY 03/13/22 03/13/22 Unknown History Insulin NPH Hum/Reg Insulin Hm 100 unit SQ BID 03/13/22 03/13/22 Unknown History [Novolin 70-30 100 Unit/ml Vial] Sodium Bicarbonate 650 mg PO Q8HR 03/13/22 03/13/22 Unknown History XARELTO (see DOAC order set to 20 mg PO QDAY 03/13/22 03/13/22 Unknown History order) carvediloL [Coreg] 25 mg PO BID 03/13/22 03/13/22 Unknown History cloNIDine [Catapres] 0.2 mg PO BID 03/13/22 03/13/22 Unknown History hydrALAZINE [Apresoline] 50 mg PO Q8HR 03/13/22 03/13/22 Unknown History hydroCHLOROthiazide 50 mg PO 03/13/22 03/13/22 Unknown History [Hydrochlorothiazide] Active Medications: Generic Name Dose Route Start Last Admin Trade Name Freq PRN Reason Stop Dose Admin Acetaminophen 650 mg 03/13/22 17:18 Acetaminophen 325 Mg Tab PO Q6H PRN Pain MILD(1-3)/Fever >100.5/FLORES Albumin Human 25 gm 07/24/22 18:43 Albumin Human 25% (25 Gm/100 Ml) Inj IV GLADYS PRN Hypotension Albuterol 2.5 mg 03/13/22 17:18 Albuterol 2.5 Mg/3 Ml Nebu IH Q3HRT PRN Shortness Of Breath Aspirin 81 mg 03/14/22 10:00 03/14/22 10:38 Aspirin 81 Mg Tab Chew PO 81 mg QDAY YRIS Administration Atorvastatin Calcium 40 mg 03/14/22 22:00 03/14/22 22:20 Atorvastatin 40 Mg Tab PO 40 mg QHS [facility] Administration Carvedilol 25 mg 03/13/22 22:00 03/14/22 22:20 Carvedilol 25 Mg Tab PO 25 mg BID YRIS Administration Dextrose 50 ml 03/14/22 12:30 Dextrose 50% In Water (25gm) 50 Ml Syringe IV Q30MIN PRN Hypoglycemia Protocol Famotidine 10 mg 03/14/22 22:00 03/14/22 22:20 Famotidine 10 Mg Tab FEEDTUBE 10 mg BID YRIS Administration Fentanyl 50 mcg 03/14/22 11:20 Fentanyl 100 Mcg/2 Ml Inj IV Q10MIN PRN ANALGESIA Furosemide 20 mg 03/14/22 10:00 03/14/22 10:46 Furosemide 20 Mg/2 Ml Inj IV 20 mg QDAY [facility] Administration Hydralazine HCl 10 mg 03/14/22 15:57 Hydralazine 20 Mg/1 Ml Inj IV Q4HR PRN Hypertension Hydromorphone HCl 0.5 mg 03/13/22 17:18 03/13/22 21:30 Hydromorphone 0.5 Mg/0.5 Ml Inj IV 0.5 mg Q13H PRN Administration Pain , Severe (7-10) Sodium Chloride 100 mls @ 999 mls/hr 03/13/22 18:42 Nacl 0.9% IV GLADYS PRN Hypotension Fentanyl Citrate 2,000 mcg in 100 mls @ 7.095 mls/hr 03/14/22 12:00 Fentanyl Drip Premix IV TITR [facility] Protocol 1 MCG/KG/HR Insulin Glargine 10 units 03/15/22 22:00 Insulin Glargine 100 Units/Ml SUB-Q QHS [facility] Insulin Human Regular 0 units 03/14/22 13:00 03/15/22 06:16 Insulin Regular, Human 100 Units/1 Ml SUB-Q 2 units Q6HR YRIS Administration Protocol Oxycodone/Acetaminophen 1 tab 03/13/22 17:18 Oxycodone /Acetaminophen 5-325mg Tab PO Q16H PRN Pain, Moderate (4-6) Rivaroxaban 15 mg 03/14/22 10:29 03/14/22 13:58 Rivaroxaban 15 Mg Tab PO 15 mg QDDIAB YRIS Administration Senna/Docusate Sodium 1 tab 03/14/22 22:00 03/14/22 22:20 Sennosides/Docusate Sodium 8.6/50 Mg Tab FEEDTUBE 1 tab QHS YRIS Administration Sodium Bicarbonate 650 mg 03/13/22 22:00 03/15/22 06:17 Sodium Bicarbonate 325 Mg Tab PO 650 mg Q8HR YRIS Administration Sodium Chloride 10 ml 03/13/22 22:00 03/14/22 22:20 Sodium Chloride 0.9% 10 Ml Flush Syringe IV 10 ml BID YRIS Administration Sodium Chloride 10 ml 03/13/22 17:18 Sodium Chloride 0.9% 10 Ml Flush Syringe IV PRN PRN LINE FLUSH
[2022-03-15] MEDS ORDERED: FUROSEMIDE 40 MG/4 ML INJ IV SCH (09:30)
--- NOTE | 2022-03-15 09:39 | XRay Report ---
CHEST 1 VIEW 03/15/2022 7:42 AM INDICATION / CLINICAL INFORMATION: resp failure. COMPARISON: 03/14/2022 FINDINGS: SUPPORT DEVICES: Stable, satisfactory device positioning.. Left Port-A-Cath tip overlies SVC HEART / MEDIASTINUM: No significant abnormality. LUNGS / PLEURA: Mild increased densities seen right middle lobe and right lower lung and retrocardiac region. This appears increased since prior exam No pneumothorax. Signer Name: Tiburcio Vega MD Signed: 03/15/2022 9:35 AM Workstation Name: [id number]
--- NOTE | 2022-03-15 11:25 | Progress Note ---
Assessment and Plan - neurology consulted - scheduled duonebs bid - begin scopolamine patch - 2D ECHO reveals HFrEF of 20-25% (was on home Milrinone) - ? Cardiorenal syndrome; may benefit from imotropic support if no improvement in azotemia - gentle diuresis per nephrology team - Heme/Onc evaluation ongoing - continue to wean supplemental oxygen for target O2 sat's > 90% acutely - VAP bundle addressed - continue lung protective strategies - continue bronchodilators with pulmonary hygiene per RT - wean per pulmonary driven protocols otherwise - avoid nephrotoxins, renally dose all medications - continue Daily SAT and SBT assessment as tolerated - continue accuchecks with glycemic control per SSI (While critically ill target blood glucose of 140-180 mg/dL; avoid hypoglycemia) - sedation prn for target RASS 0 to -1 - continue to avoid benzodiazepine's, reduce the possibility of delirium - AB's per ID rec's (Rocephin and Vancomycin) - prn analgesia per CPOT score - Maintenance of sleep-wake cycle, avoid delirium - continue enteral nutritional support at goal rate as tolerated - G.I. & VTE prophylaxis - PT/OT/ROM exercises - continue mobility protocols for pressure ulcer prophylaxis - Monitor hemodynamics closely - continue other care per attending / other consultants - discharge planning ongoing concurrently COVID SPECIFIC INTERVENTIONS - COVID-19 PCR negative .... Re-evaluate in am & prn CONDITION: CRITICAL PROGNOSIS: GUARDED CODE STATUS: FULL CODE The high probability of a clinically significant, sudden or life-threatening deterioration of the [respiratory, cardiovascular, GI & neurologic] system(s) required my full and direct attention, intervention and personal management. The aggregate critical care time was [33] minutes without overlap. Time includes spent on; [x] Data Review and interpretation [x] Patient assessment and monitoring of vital signs [x] Documentation [x] Medication orders and management Subjective Date of service: 03/15/22 Interval history: Patient is seen today for: Seen and examined at bedside; 24hour events reviewed; nursing and respiratory care staff consulted; no adverse overnight events reported to me; resting in bed; remains on MVS; oxygenation improved; remains lethargic; CT brain suggests subacute cerebellar infarct; no emesisa or overt aspiration; secretions moderate Objective Vital Signs - 12hr 03/14/22 03/14/22 03/14/22 23:30 23:41 23:45 Temperature 98.4 F Pulse Rate 61 63 Pulse Rate [ From Monitor] Respiratory 24 Rate Blood Pressure 148/63 148/63 O2 Sat by Pulse 100 100 Oximetry 03/15/22 03/15/22 03/15/22 00:00 00:30 01:00 Temperature Pulse Rate 63 62 62 Pulse Rate [ 63 From Monitor] Respiratory 24 24 24 Rate Blood Pressure 152/79 148/70 153/81 O2 Sat by Pulse 90 89 92 Oximetry 03/15/22 03/15/22 03/15/22 01:30 02:00 02:30 Temperature Pulse Rate 63 63 64 Pulse Rate [ From Monitor] Respiratory 24 24 Rate Blood Pressure 160/74 153/72 174/87 O2 Sat by Pulse 93 91 97 Oximetry 03/15/22 03/15/22 03/15/22 03:00 03:30 04:00 Temperature 99.3 F Pulse Rate 62 61 61 Pulse Rate [ 61 From Monitor] Respiratory 24 24 Rate Blood Pressure 158/72 149/71 161/81 O2 Sat by Pulse 95 92 93 Oximetry 03/15/22 03/15/22 03/15/22 04:30 05:00 05:02 Temperature Pulse Rate 61 62 64 Pulse Rate [ From Monitor] Respiratory 24 19 Rate Blood Pressure 153/76 148/79 148/79 O2 Sat by Pulse 90 96 99 Oximetry 03/15/22 03/15/22 03/15/22 05:31 06:01 06:30 Temperature Pulse Rate 64 64 66 Pulse Rate [ From Monitor] Respiratory 24 24 27 H Rate Blood Pressure 128/70 120/70 127/75 O2 Sat by Pulse 91 87 88 Oximetry 03/15/22 03/15/22 03/15/22 07:00 07:12 07:20 Temperature 99.3 F Pulse Rate 67 67 Pulse Rate [ From Monitor] Respiratory 26 H Rate Blood Pressure 123/77 123/77 O2 Sat by Pulse 84 95 Oximetry 03/15/22 03/15/22 03/15/22 07:30 08:00 08:22 Temperature Pulse Rate 67 67 66 Pulse Rate [ 66 From Monitor] Respiratory 29 H 31 H Rate Blood Pressure 123/73 137/84 O2 Sat by Pulse 92 96 Oximetry 03/15/22 03/15/22 03/15/22 08:30 09:00 09:30 Temperature Pulse Rate 69 67 67 Pulse Rate [ From Monitor] Respiratory 29 H 26 H 24 Rate Blood Pressure 146/88 128/76 132/78 O2 Sat by Pulse 96 94 97 Oximetry 03/15/22 10:00 Temperature Pulse Rate 63 Pulse Rate [ From Monitor] Respiratory 24 Rate Blood Pressure 125/71 O2 Sat by Pulse 91 Oximetry Constitutional: no acute distress, other (middle aged morbidly obese male with mildly increased respiratory effort at rest on MVS) Eyes: non-icteric ENT: oropharynx moist, other (ETT 24 cm PRESLEY) Neck: supple, no lymphadenopathy, no JVD, other (large circumference) Effort: mildly labored Ascultation: Bilateral: diminished breath sounds, rales Percussion: Bilateral: not dull Cardiovascular: regular rate and rhythm Gastrointestinal: normoactive bowel sounds, soft, non-tender, non-distended (protuberant) Integumentary: normal Extremities: no cyanosis, pulses normal, no ischemia or petechiae, edema (2+) Neurologic: non-focal exam (grossly), pupils equal and round, unable to assess Psychiatric: other (unable to assess re: AMS) CBC and BMP: 03/14/22 04:50 03/15/22 04:36 ABG, PT/INR, D-dimer: ABG ABG pH 7.347 pH Units (7.350-7.450) L 03/14/22 21:00 ABG pCO2 41.9 mm Hg 03/14/22 21:00 ABG pO2 111.6 mm Hg (80.0-90.0) H 03/14/22 21:00 ABG O2 Saturation 97.9 % (95.0-99.0) 03/14/22 21:00 Abnormal lab findings: Abnormal Labs 03/13/22 03/13/22 03/13/22 15:44 15:44 16:15 RBC 5.42 H Hgb 15.4 H Hct 48.1 H MCHC RDW 19.7 H Plt Count Lymph % (Auto) Lymph # (Auto) Seg Neutrophils % Seg Neuts % (Manual) 93.0 H Lymphocytes % (Manual) 3.0 L Nucleated RBC % 1.0 H Seg Neutrophils # Seg Neutrophils # Man 10.1 H Lymphocytes # (Manual) 0.3 L ABG pH 7.281 L ABG pO2 73.5 L ABG HCO3 16.6 L ABG O2 Saturation 92.5 L ABG Base Excess -9.2 L ABG Hemoglobin Oxyhemoglobin 90.4 L Potassium Chloride Carbon Dioxide 17 L BUN 78 H Creatinine 3.6 H Glucose 135 H POC Glucose Hemoglobin A1c Magnesium Total Bilirubin 2.50 H AST 363 H ALT 430 H Troponin T 0.176 H* NT-Pro-B Natriuret Pep 57072 H Total Protein Albumin 3.6 L HDL Cholesterol 24 L 03/13/22 03/13/22 03/14/22 20:04 20:33 00:23 RBC Hgb Hct MCHC RDW Plt Count Lymph % (Auto) Lymph # (Auto) Seg Neutrophils % Seg Neuts % (Manual) Lymphocytes % (Manual) Nucleated RBC % Seg Neutrophils # Seg Neutrophils # Man Lymphocytes # (Manual) ABG pH 7.339 L ABG pO2 259.5 H ABG HCO3 16.3 L ABG O2 Saturation 99.4 H ABG Base Excess -8.2 L ABG Hemoglobin Oxyhemoglobin Potassium Chloride Carbon Dioxide BUN Creatinine Glucose POC Glucose 187 H Hemoglobin A1c Magnesium 2.50 H Total Bilirubin AST ALT Troponin T NT-Pro-B Natriuret Pep Total Protein Albumin HDL Cholesterol 03/14/22 03/14/22 03/14/22 03:58 04:50 04:50 RBC Hgb Hct MCHC 31 L RDW 19.3 H Plt Count 115 L Lymph % (Auto) 4.7 L Lymph # (Auto) 0.5 L Seg Neutrophils % 89.5 H Seg Neuts % (Manual) Lymphocytes % (Manual) Nucleated RBC % Seg Neutrophils # 8.5 H Seg Neutrophils # Man Lymphocytes # (Manual) ABG pH 7.327 L ABG pO2 65.2 L ABG HCO3 18.4 L ABG O2 Saturation 91.1 L ABG Base Excess -6.8 L ABG Hemoglobin 13.2 L Oxyhemoglobin 89.1 L Potassium 5.2 H Chloride 109.5 H Carbon Dioxide 19 L BUN 90 H Creatinine 4.2 H Glucose 204 H POC Glucose Hemoglobin A1c Magnesium Total Bilirubin AST ALT Troponin T NT-Pro-B Natriuret Pep Total Protein Albumin HDL Cholesterol 03/14/22 03/14/22 03/14/22 11:29 16:28 21:00 RBC Hgb Hct MCHC RDW Plt Count Lymph % (Auto) Lymph # (Auto) Seg Neutrophils % Seg Neuts % (Manual) Lymphocytes % (Manual) Nucleated RBC % Seg Neutrophils # Seg Neutrophils # Man Lymphocytes # (Manual) ABG pH 7.347 L ABG pO2 111.6 H ABG HCO3 ABG O2 Saturation ABG Base Excess -3.1 L ABG Hemoglobin 13.4 L Oxyhemoglobin Potassium Chloride Carbon Dioxide BUN Creatinine Glucose POC Glucose 203 H 190 H Hemoglobin A1c Magnesium Total Bilirubin AST ALT Troponin T NT-Pro-B Natriuret Pep Total Protein Albumin HDL Cholesterol 03/14/22 03/15/22 03/15/22 23:43 04:36 04:36 RBC Hgb Hct MCHC RDW Plt Count Lymph % (Auto) Lymph # (Auto) Seg Neutrophils % Seg Neuts % (Manual) Lymphocytes % (Manual) Nucleated RBC % Seg Neutrophils # Seg Neutrophils # Man Lymphocytes # (Manual) ABG pH ABG pO2 ABG HCO3 ABG O2 Saturation ABG Base Excess ABG Hemoglobin Oxyhemoglobin Potassium Chloride 109.8 H Carbon Dioxide 21 L BUN 100 H Creatinine 4.3 H Glucose 178 H POC Glucose 166 H Hemoglobin A1c 8.6 H Magnesium Total Bilirubin 1.50 H AST 136 H ALT 299 H Troponin T NT-Pro-B Natriuret Pep Total Protein 5.3 L Albumin 2.5 L HDL Cholesterol Chest x-ray: image reviewed (increased interstitial edema pattern) Allied health notes reviewed: nursing
[2022-03-15] MEDS: CLOPIDOGREL 75 MG TAB FEEDTUBE SCH (11:41)
--- NOTE | 2022-03-15 13:34 | Progress Note ---
Assessment and Plan Patient is a 56-year-old male with a reported past medical history of hypertension, history of PE who was brought to the ED for evaluation due to shortness of breath Acute respiratory failure-pulmonology following SULEMAN on CKD-nephrology follow Acute on chronic HFrEF NSTEMI suspect type II AICD in situ History of PE anticoagulated on Xarelto Hypertension Echo 03/13/2022-EF 20 to 25%. Mild concentric LVH. Right ventricle is moderately dilated. Left atrium is moderately dilated. Right atrium is mildly dilated. Pacemaker lead present in right atrium. Mild mitral regurgitation. Mild tricuspid regurgitation. Mild to moderate pulmonary hypertension. Plan: Per conversation with staff patient was on milrinone as an outpatient and PICC line for milrinone. Furthermore per conversations patient follows Dr. Montoya. Records requested from Dr. Montoya office. Will hold off on inotropic therapy until records reviewed Troponin noted to be elevated suspect troponin elevation in setting of SULEMAN and acute heart failure BNP noted to be elevated, CXR positive for CHF, and patient has bilateral lower extremity edema Due to renal function will defer volume management to nephrology Continue Coreg 25 mg p.o. twice daily Continue Xarelto to 15 mg p.o. daily for h/o pf PE Will hold statin due to elevated liver enzymes Patient seen in conjunction with Dr. Barboza who agrees with this plan of care 30 minutes of critical care time spent care coordination pain - Patient Problems (1) Acute hypoxemic respiratory failure Current Visit: Yes Status: Acute (2) Fluid overload Current Visit: Yes Status: Acute Qualifiers: Hypervolemia type: unspecified Qualified Code(s): E87.70 - Fluid overload, unspecified (3) Metabolic acidosis Current Visit: Yes Status: Acute (4) CHF (congestive heart failure) Current Visit: Yes Status: Acute Qualifiers: Heart failure type: systolic Heart failure chronicity: acute Qualified Code(s): I50.21 - Acute systolic (congestive) heart failure (5) History of pulmonary embolism Current Visit: Yes Status: Acute (6) Elevated liver function tests Current Visit: Yes Status: Acute Subjective Date of service: 03/15/22 Principal diagnosis: SULEMAN, acute on chronic HFrEF, acute respiratory failure Interval history: Patient remains intubated and sedated Sinus 60 to 70s with PVCs on monitor Objective Vital Signs Temp Pulse Pulse Resp BP Pulse Ox 03/15/22 13:00 70 25 H 148/88 88 03/15/22 12:31 68 30 H 146/89 94 03/15/22 12:01 69 25 H 120/75 89 03/15/22 12:00 67 30 H 95 03/15/22 11:40 99.4 F 03/15/22 11:30 66 27 H 105/75 90 03/15/22 11:28 65 125/71 98 03/15/22 11:00 65 29 H 115/76 91 03/15/22 10:30 66 27 H 136/82 88 03/15/22 10:00 63 24 125/71 91 03/15/22 09:30 67 24 132/78 97 03/15/22 09:00 67 26 H 128/76 94 03/15/22 08:30 69 29 H 146/88 96 03/15/22 08:22 66 03/15/22 08:00 67 66 31 H 137/84 96 03/15/22 07:30 67 29 H 123/73 92 03/15/22 07:20 67 123/77 95 03/15/22 07:12 99.3 F 03/15/22 07:00 67 26 H 123/77 84 03/15/22 06:30 66 27 H 127/75 88 03/15/22 06:01 64 24 120/70 87 03/15/22 05:31 64 24 128/70 91 03/15/22 05:02 64 148/79 99 03/15/22 05:00 62 19 148/79 96 03/15/22 04:30 61 24 153/76 90 03/15/22 04:00 99.3 F 61 61 24 161/81 93 03/15/22 03:30 61 24 149/71 92 03/15/22 03:00 62 24 158/72 95 03/15/22 02:30 64 24 174/87 97 03/15/22 02:00 63 24 153/72 91 03/15/22 01:30 63 24 160/74 93 03/15/22 01:00 62 24 153/81 92 03/15/22 00:30 62 24 148/70 89 03/15/22 00:00 63 63 24 152/79 90 03/14/22 23:45 98.4 F 03/14/22 23:41 63 148/63 100 03/14/22 23:30 61 24 148/63 100 03/14/22 23:00 64 24 163/60 92 03/14/22 22:30 66 24 174/73 94 03/14/22 22:20 69 175/77 03/14/22 22:00 65 24 175/77 91 03/14/22 21:58 64 175/77 98 03/14/22 21:30 65 24 169/75 95 03/14/22 21:00 66 24 169/70 92 03/14/22 20:30 63 24 153/74 94 03/14/22 20:00 98.3 F 65 65 24 160/79 92 03/14/22 19:30 65 24 158/76 92 03/14/22 19:00 65 24 163/74 96 03/14/22 18:30 64 23 150/73 92 03/14/22 18:00 65 24 166/73 92 03/14/22 17:30 64 24 162/80 94 03/14/22 17:00 68 20 156/81 92 03/14/22 16:51 98.7 F 03/14/22 16:40 68 160/77 96 03/14/22 16:30 68 20 160/77 92 03/14/22 16:01 68 16 175/76 98 03/14/22 16:00 77 24 94 03/14/22 15:30 66 20 175/76 91 03/14/22 15:00 66 24 175/70 91 03/14/22 14:31 66 24 170/76 95 03/14/22 14:00 67 22 170/76 92 - Physical Examination General: Other (Intubated and sedated) HEENT: Positive: Mucus Membranes Moist Neck: Positive: trachea midline Cardiac: Positive: Reg Rate and Rhythm Lungs: Positive: Ventilated Respirations Neuro: Positive: Other (Unable to assess) Abdomen: Positive: Soft Skin: Negative: Rash, Suspicious Lesions, Ulceration Extremities: Present: upper extr. pulses, edema - Labs and Meds Cardiac Enzymes 03/15/22 Range/Units 04:36 AST 136 H (5-40) units/L Comprehensive Metabolic Panel 03/15/22 Range/Units 04:36 Sodium 143 (137-145) mmol/L Potassium 4.8 (3.6-5.0) mmol/L Chloride 109.8 H (98-107) mmol/L Carbon Dioxide 21 L (22-30) mmol/L BUN 100 H (9-20) mg/dL Creatinine 4.3 H (0.8-1.3) mg/dL Glucose 178 H (75-100) mg/dL Calcium 8.6 (8.4-10.2) mg/dL AST 136 H (5-40) units/L ALT 299 H (7-56) units/L Alkaline Phosphatase 78 (35-129) units/L Total Protein 5.3 L (6.3-8.2) g/dL Albumin 2.5 L (3.9-5) g/dL - Imaging and Cardiology Echo: report reviewed - Telemetry EKG Rhythm: Sinus Rhythm - EKG Sinus rhythms and dysrhythmias: sinus rhythm AV and intraventricular conduction: left anterior fascicular - Allied health notes Allied health notes reviewed: nursing
[2022-03-15] MEDS: IPRATROPIUM/ALBUTEROL SULFATE 3 ML AMPUL.NEB IH SCH ×2 (13:50→20:45)
--- NOTE | 2022-03-15 15:00 | Vascular Lab Report ---
DUPLEX DOPPLER ULTRASOUND CAROTID, BILATERAL INDICATION / CLINICAL INFORMATION: cva. COMPARISON: None available. FINDINGS: RIGHT CAROTID: Mild atherosclerotic plaque. - PLAQUE ESTIMATE (%): < 50% - CCA velocity: 44 cm/sec. - ICA peak systolic velocity: 72 cm/sec. - ICA/CCA PSV Ratio: Less than 2. Right Vertebral Artery: Antegrade flow. LEFT CAROTID: Mild to moderate atherosclerotic plaque. - PLAQUE ESTIMATE (%): < 50% - CCA velocity: 43 cm/sec. - ICA peak systolic velocity: 93 cm/sec. - ICA/CCA PSV Ratio: 2.2 Left Vertebral Artery: Antegrade flow. IMPRESSION: 1. Right Internal Carotid Artery: Less than 50% diameter stenosis. 2. Left Internal Carotid Artery: Less than 50% diameter stenosis. Velocity criteria are extrapolated from diameter data as defined by the Society of Radiologists in Ul trasound Consensus Conference, Radiology 2003; 229;340-346. NO STENOSIS (NORMAL) - Plaque = none; ICA PSV < 125 cm/sec; ICA/CCA PSV Ratio < 2.0 <50% STENOSIS - Plaque < 50%; ICA PSV < 125 cm/sec; ICA/CCA PSV Ratio < 2.0 50-69% STENOSIS - Plaque > 50%; ICA PSV = 125-230 cm/sec; ICA/CCA PSV Ratio = 2.0-4.0 >70% BUT <100% STENOSIS - Plaque > 50%; ICA PSV > 230 cm/sec; ICA/CCA PSV Ratio > 4.0 NEAR OCCLUSION - Plaque = visible lumen; ICA PSV = high/low/none; ICA/CCA PSV Ratio = variable TOTAL OCCLUSION - Plaque = no lumen; ICA PSV = none; ICA/CCA PSV Ratio = N/A Scribed by: Corrie Gomez RDMS, RVT, RMSKS Scribed: 03/15/2022 1:45 PM I have reviewed the images, agree with this report, and edited this report as needed. Signer Name: Luis Alvarado MD Signed: 03/15/2022 2:56 PM Workstation Name: [id number]
--- NOTE | 2022-03-15 15:49 | Progress Note ---
Assessment and Plan Assessment and plan: This is a 56-year-old male with OHS, HTN, PE on therapeutic anticoagulation, CHF and AICD and still admitted with acute on chronic CHF decompensation metabolic acidosis, fluid overload, transaminitis, acute hypoxic respiratory failure and acute kidney injury Neuro: Acute metabolic encephalopathy, CVA -Sedated with fentanyl gtt -RASS goal 0 to -1 -Reorientation as needed -Maintain sleep-wake cycle -As needed analgesia -CT head shows diffuse cerebral atrophy, 3.4 cm rounded fluid density structure located along the medial anterior aspect of the left temporal lobe most likely arachnoid cyst, evolving cerebral infarct right greater than left (age indeterminant), no evidence of hemorrhage -Neurology and neurosurgery consulted, appreciate recommendations -MRI brain unable to be completed d/t AICD -MRA head/neck unable to be completed d/t AICD, CTA unable to be obtained d/t renal function -Bilateral carotid US with less than 50% stenosis in Bilateral carotid arteries -TSH, lipid panel noted -Lipitor holding re elevated LFTs, Aspirin/plavix -PT/OT/ST eval requested Cardiac: Acute on chronic heart failure with reduced EF, NSTEMI suspect type II, h/o HTN, AICD -Cardiology consulted, appreciate recommendations -Blood pressure monitoring per protocol -Antihypertension regimen with Coreg 25 mg BID -Per family: outpatient milrinone through PICC -Records requested from Dr. Montoya office -IV hydral PRN -Echocardiogram pending -Hold statin in setting of transaminitis Respiratory: Acute hypoxic respiratory failure, h/o PE on Xarelto -CCM consulted, appreciate recommendations -Intubated on 03/13 with 7.5 OETT at 24 at the lips -A.m. vent settings: AC TV 450/Rate 24/ Peep 10/ FiO2 55% -See RT notes for titration -A.m. ABG and CXR noted -VAP bundle -SPO2 monitoring GI: Morbid obesity, transaminitis -24 hours -1133 mL -PPI -NTR consulted for tube feedings -BR: Senokot S -03/15 abdominal ultrasound shows hepatomegaly with hepatic steatosis, gallbladder sludge without sonographic evidence of acute cholecystitis -Trend LFTs : Acute kidney injury with possible underlying CKD, hyperchloremic metabolic acidosis, uremia -Nephrology consulted, appreciate recommendations -s/p lasix 80mg 03/14, 03/15 40 mg lasix -Monitor intake and output -Renally dose medications -Avoid nephrotoxic medications -Urine electrolytes pending -Renal ultrasound cancelled -Trend BMP ID: NAD -f/u sputum culture -Monitor WBC and temperature curve Endo: h/o DM -Hold home Novolin 70/30 100 units twice daily -Avoid hypoglycemia -SSI -Accu-Cheks q. 6 -Lantus added, titrate as needed -Hemoglobin A1c 8.6 Heme: NAD -Trend CBC -Transfuse hemoglobin less than 7 -SCDs to BLE while in bed -Continue home Xarelto The high probability of a clinically significant, sudden or life threatening deterioration of the [multi] system(s) required my full and direct attention, intervention and personal management. The aggregate critical care time was [90] minutes. This time is in addition to time spent performing reported procedures but includes the following: [x] Data Review and interpretation [x] Patient assessment and monitoring of vital signs [x] Documentation [x] Medication orders and management Disposition Plan: icu Total Time Spent with Patient (Minutes): 90 History Interval history: This is a 56-year-old male with OHS, HTN, PE on therapeutic anticoagulation with Xarelto, CHF and AICD in situ who presented to emergency department on 03/13 with complaints of shortness of breath over the past 2 days with worsening symptoms over the past day via EMS. Per documentation patient had last hemodialysis session on 03/08. Patient was emergently intubated in the emergency department as he was found to have some oropharyngeal edema and inability to protect his airway and found to have a pulse ox of 89%. 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 Patient was admitted to the hospital service with acute CHF decompensation, metabolic acidosis, fluid overload, transaminitis, acute kidney injury and acute hypoxic respiratory failure with consults to [facility], cardiology and nephrology. Hospital course to date: 03/14: Cardiology discontinued hydralazine, hydrochlorothiazide and clonidine due to soft blood pressures this morning and would like to continue Coreg and decreased Xarelto. Nephrology ordered a one-time dose of Lasix 80 mg. Patient remains intubated. This evening patient was becoming hypertensive and as needed hydralazine added. Unable to confirm if patient is on outpatient hemodialysis as does not know and current chest access appears to be PICC line. 03/15: Family stated that patient had milrinone infusion through PICC line, hemodialysis approximately 8 years ago. Nephrology administered additional Lasix today. We will continue to monitor renal function. CCM made vent changes. Daughter and updated extensively at bedside by nurse practitioner. Hospitalist Physical - Constitutional Vitals: Temp Pulse Resp BP Pulse Ox 99.4 F 69 30 H 139/80 95 03/15/22 11:40 03/15/22 15:20 03/15/22 15:00 03/15/22 15:20 03/15/22 15:20 General appearance: Present: no acute distress, other (Intubated and sedated) - EENT Eyes: Present: PERRL, EOM intact ENT: dentition normal - Neck Neck: Present: normal ROM - Respiratory Respiratory effort: normal Respiratory: bilateral: diminished - Cardiovascular Rhythm: regular Heart Sounds: Present: S1 & S2. Absent: systolic murmur, diastolic murmur - Extremities Extremities: no ischemia, pulses intact, pulses symmetrical, normal temperature, normal color Extremity abnormal: edema Peripheral Pulses: within normal limits - Abdominal General gastrointestinal: soft, non-tender, non-distended, normal bowel sounds - Integumentary Integumentary: Present: warm, dry - Psychiatric Psychiatric: cooperative, other - Neurologic Neurologic: other (moves BLE to pain, PERRL, intact cough/gag) - Allied Health Allied health notes reviewed: nursing, RT, social work HEART Score - HEART Score Troponin: Troponin T 0.176 ng/mL (0.00-0.029) H* 03/13/22 15:44 Results - Labs CBC & Chem 7: 03/14/22 04:50 03/15/22 04:36 Labs: Laboratory Last Values WBC 9.5 K/mm3 (4.5-11.0) 03/14/22 04:50 RBC 4.64 M/mm3 (3.65-5.03) 03/14/22 04:50 Hgb 13.0 gm/dl (11.8-15.2) 03/14/22 04:50 Hct 41.7 % (35.5-45.6) D 03/14/22 04:50 MCV 90 fl (84-94) 03/14/22 04:50 MCH 28 pg (28-32) 03/14/22 04:50 MCHC 31 % (32-34) L 03/14/22 04:50 RDW 19.3 % (13.2-15.2) H 03/14/22 04:50 Plt Count 115 K/mm3 (140-440) L 03/14/22 04:50 Lymph % (Auto) 4.7 % (13.4-35.0) L 03/14/22 04:50 [place] % (Auto) 5.6 % (0.0-7.3) 03/14/22 04:50 Eos % (Auto) 0.1 % (0.0-4.3) 03/14/22 04:50 Baso % (Auto) 0.1 % (0.0-1.8) 03/14/22 04:50 Lymph # (Auto) 0.5 K/mm3 (1.2-5.4) L 03/14/22 04:50 [place] # (Auto) 0.5 K/mm3 (0.0-0.8) 03/14/22 04:50 Eos # (Auto) 0.0 K/mm3 (0.0-0.4) 03/14/22 04:50 Baso # (Auto) 0.0 K/mm3 (0.0-0.1) 03/14/22 04:50 Add Manual Diff Complete 03/13/22 15:44 Total Counted 100 03/13/22 15:44 Seg Neutrophils % 89.5 % (40.0-70.0) H 03/14/22 04:50 Seg Neuts % (Manual) 93.0 % (40.0-70.0) H 03/13/22 15:44 Band Neutrophils % 1.0 % 03/13/22 15:44 Lymphocytes % (Manual) 3.0 % (13.4-35.0) L 03/13/22 15:44 Reactive Lymphs % (Man) 0 % 03/13/22 15:44 Monocytes % (Manual) 2.0 % (0.0-7.3) 03/13/22 15:44 Eosinophils % (Manual) 0 % (0.0-4.3) 03/13/22 15:44 Basophils % (Manual) 0 % (0.0-1.8) 03/13/22 15:44 Metamyelocytes % 1.0 % 03/13/22 15:44 Myelocytes % 0 % 03/13/22 15:44 Promyelocytes % 0 % 03/13/22 15:44 Blast Cells % 0 % 03/13/22 15:44 Nucleated RBC % 1.0 % (0.0-0.9) H 03/13/22 15:44 Seg Neutrophils # 8.5 K/mm3 (1.8-7.7) H 03/14/22 04:50 Seg Neutrophils # Man 10.1 K/mm3 (1.8-7.7) H 03/13/22 15:44 Band Neutrophils # 0.1 K/mm3 03/13/22 15:44 Lymphocytes # (Manual) 0.3 K/mm3 (1.2-5.4) L 03/13/22 15:44 Abs React Lymphs (Man) 0.0 K/mm3 03/13/22 15:44 Monocytes # (Manual) 0.2 K/mm3 (0.0-0.8) 03/13/22 15:44 Eosinophils # (Manual) 0.0 K/mm3 (0.0-0.4) 03/13/22 15:44 Basophils # (Manual) 0.0 K/mm3 (0.0-0.1) 03/13/22 15:44 Metamyelocytes # 0.1 K/mm3 03/13/22 15:44 Myelocytes # 0.0 K/mm3 03/13/22 15:44 Promyelocytes # 0.0 K/mm3 03/13/22 15:44 Blast Cells # 0.0 K/mm3 03/13/22 15:44 WBC Morphology Not Reportable 03/13/22 15:44 Hypersegmented Neuts Not Reportable 03/13/22 15:44 Hyposegmented Neuts Not Reportable 03/13/22 15:44 Hypogranular Neuts Not Reportable 03/13/22 15:44 Smudge Cells Not Reportable 03/13/22 15:44 Toxic Granulation Not Reportable 03/13/22 15:44 Toxic Vacuolation Not Reportable 03/13/22 15:44 Dohle Bodies Not Reportable 03/13/22 15:44 Pelger-Huet Anomaly Not Reportable 03/13/22 15:44 Tyson Rods Not Reportable 03/13/22 15:44 Platelet Estimate Consistent w auto 03/13/22 15:44 Clumped Platelets Not Reportable 03/13/22 15:44 Plt Clumps, EDTA Not Reportable 03/13/22 15:44 Large Platelets Not Reportable 03/13/22 15:44 Giant Platelets Not Reportable 03/13/22 15:44 Platelet Satelliting Not Reportable 03/13/22 15:44 Plt Morphology Comment Not Reportable 03/13/22 15:44 RBC Morphology Not Reportable 03/13/22 15:44 Dimorphic RBCs Not Reportable 03/13/22 15:44 Polychromasia Few 03/13/22 15:44 Hypochromasia Not Reportable 03/13/22 15:44 Poikilocytosis Not Reportable 03/13/22 15:44 Anisocytosis Not Reportable 03/13/22 15:44 Microcytosis Not Reportable 03/13/22 15:44 Macrocytosis Not Reportable 03/13/22 15:44 Spherocytes Not Reportable 03/13/22 15:44 Pappenheimer Bodies Not Reportable 03/13/22 15:44 Sickle Cells Not Reportable 03/13/22 15:44 Target Cells Not Reportable 03/13/22 15:44 Tear Drop Cells Not Reportable 03/13/22 15:44 Ovalocytes Not Reportable 03/13/22 15:44 Helmet Cells Not Reportable 03/13/22 15:44 [place] Bodies Not Reportable 03/13/22 15:44 Picher Rings Not Reportable 03/13/22 15:44 [place] Cells 1+ 03/13/22 15:44 Bite Cells Not Reportable 03/13/22 15:44 Crenated Cell Not Reportable 03/13/22 15:44 Elliptocytes Few 03/13/22 15:44 Acanthocytes (Spur) Not Reportable 03/13/22 15:44 Rouleaux Not Reportable 03/13/22 15:44 Hemoglobin C Crystals Not Reportable 03/13/22 15:44 Schistocytes Not Reportable 03/13/22 15:44 Malaria parasites Not Reportable 03/13/22 15:44 Rashaad Bodies Not Reportable 03/13/22 15:44 Hem Pathologist Commnt No 03/13/22 15:44 ABG pH 7.347 pH Units (7.350-7.450) L 03/14/22 21:00 ABG pCO2 41.9 mm Hg 03/14/22 21:00 ABG pO2 111.6 mm Hg (80.0-90.0) H 03/14/22 21:00 ABG HCO3 22.4 mmol/L (20.0-26.0) 03/14/22 21:00 ABG O2 Saturation 97.9 % (95.0-99.0) 03/14/22 21:00 ABG O2 Content 18.3 (0.0-44) 03/14/22 21:00 ABG Base Excess -3.1 mmol/L (-2.0-3.0) L 03/14/22 21:00 ABG Hemoglobin 13.4 gm/dl (14.0-18.0) L 03/14/22 21:00 ABG Carboxyhemoglobin 1.5 % (0.0-5.0) 03/14/22 21:00 ABG Methemoglobin 0.5 % (0.0-1.5) 03/14/22 21:00 Oxyhemoglobin 96.0 % (95.0-99.0) 03/14/22 21:00 FiO2 53 % 03/14/22 21:00 Sodium 143 mmol/L (137-145) 03/15/22 04:36 Potassium 4.8 mmol/L (3.6-5.0) 03/15/22 04:36 Chloride 109.8 mmol/L (98-107) H 03/15/22 04:36 Carbon Dioxide 21 mmol/L (22-30) L 03/15/22 04:36 Anion Gap 17 mmol/L 03/15/22 04:36 BUN 100 mg/dL (9-20) H 03/15/22 04:36 Creatinine 4.3 mg/dL (0.8-1.3) H 03/15/22 04:36 Estimated GFR 18 ml/min 03/15/22 04:36 BUN/Creatinine Ratio 23 % 03/15/22 04:36 Glucose 178 mg/dL (75-100) H 03/15/22 04:36 POC Glucose 199 mg/dL (70-105) H 03/15/22 11:25 Hemoglobin A1c 8.6 % (4-6) H 03/15/22 04:36 Calcium 8.6 mg/dL (8.4-10.2) 03/15/22 04:36 Magnesium 2.50 mg/dL (1.7-2.3) H 03/13/22 20:33 Total Bilirubin 1.50 mg/dL (0.1-1.2) H 03/15/22 04:36 AST 136 units/L (5-40) H 03/15/22 04:36 ALT 299 units/L (7-56) H 03/15/22 04:36 Alkaline Phosphatase 78 units/L (35-129) 03/15/22 04:36 Troponin T 0.176 ng/mL (0.00-0.029) H* 03/13/22 15:44 NT-Pro-B Natriuret Pep 41641 pg/mL (0-900) H 03/13/22 15:44 Total Protein 5.3 g/dL (6.3-8.2) L 03/15/22 04:36 Albumin 2.5 g/dL (3.9-5) L 03/15/22 04:36 Albumin/Globulin Ratio 0.9 % 03/15/22 04:36 Triglycerides 98 mg/dL (2-149) 03/13/22 15:44 Cholesterol 99 mg/dL (50-199) 03/13/22 15:44 LDL Cholesterol Direct 59 mg/dL (50-130) 03/13/22 15:44 HDL Cholesterol 24 mg/dL (40-59) L 03/13/22 15:44 Cholesterol/HDL Ratio 4.12 % 03/13/22 15:44 TSH 0.362 mlU/mL (0.270-4.200) 03/15/22 04:36 Free T4 1.24 ng/dL (0.76-1.46) 03/13/22 20:33 Urine Color Straw (Yellow) 03/14/22 16:25 Urine Turbidity Clear (Clear) 03/14/22 16:25 Urine pH 5.0 (5.0-7.0) 03/14/22 16:25 Ur Specific [place] 1.015 (1.003-1.030) 03/14/22 16:25 Urine Protein 30 mg/dl mg/dL (Negative) 03/14/22 16:25 Urine Glucose (UA) Negative mg/dL (Negative) 03/14/22 16:25 Urine Ketones Trace mg/dL (Negative) 03/14/22 16:25 Urine Blood 1+ (Negative) 03/14/22 16:25 Urine Nitrite Negative (Negative) 03/14/22 16:25 Ur Reducing Substances Not Reportable 03/14/22 16:25 Urine Bilirubin Negative (Negative) 03/14/22 16:25 Urine Ictotest Not Reportable 03/14/22 16:25 Urine Urobilinogen < 2.0 mg/dL (<2.0) 03/14/22 16:25 Ur Leukocyte Esterase Negative (Negative) 03/14/22 16:25 Urine WBC (Auto) 6.0 /HPF (0.0-6.0) 03/14/22 16:25 Urine RBC (Auto) 82.0 /HPF (0.0-6.0) 03/14/22 16:25 U Epithel Cells (Auto) 1.0 /HPF (0-13.0) 03/14/22 16:25 Urine Bacteria (Auto) 1+ /HPF (Negative) 03/14/22 16:25 Urine Mucus Few /HPF 03/14/22 16:25 Hepatitis A IgM Ab Non-reactive (NonReactive) 03/14/22 10:12 Hep Bs Antigen Non-reactive (Negative) 03/14/22 10:12 Hep B Core IgM Ab Non-reactive (NonReactive) 03/14/22 10:12 Hepatitis C Antibody Non-reactive (NonReactive) 03/14/22 10:12 Microbiology: Microbiology 03/13/22 18:15 Sputum - Expectorated Sputum Sputum Culture - Preliminary [place]gu[place]/IV: Voiding Method Indwelling Catheter Active Medications - Current Medications Current Medications: Generic Name Dose Route Start Last Admin Trade Name Freq PRN Reason Stop Dose Admin Acetaminophen 650 mg 03/13/22 17:18 Acetaminophen 325 Mg Tab PO Q6H PRN Pain MILD(1-3)/Fever >100.5/FLORES Albumin Human 25 gm 03/13/22 18:43 Albumin Human 25% (25 Gm/100 Ml) Inj IV GLADYS PRN Hypotension Albuterol 2.5 mg 03/13/22 17:18 Albuterol 2.5 Mg/3 Ml Nebu IH Q3HRT PRN Shortness Of Breath Albuterol/Ipratropium 1 ampul 03/15/22 12:00 03/15/22 13:50 Ipratropium/Albuterol Sulfate 3 Ml Ampul.Neb IH 1 ampul Q12HRT YRIS Administration Aspirin 81 mg 03/14/22 10:00 03/15/22 09:04 Aspirin 81 Mg Tab Chew PO 81 mg QDAY YRIS Administration Atorvastatin Calcium 40 mg 03/14/22 22:00 03/14/22 22:20 Atorvastatin 40 Mg Tab PO 40 mg QHS YRIS Administration Carvedilol 25 mg 03/13/22 22:00 03/15/22 09:04 Carvedilol 25 Mg Tab PO 25 mg BID YRIS Administration Clopidogrel Bisulfate 75 mg 03/15/22 11:00 03/15/22 11:41 Clopidogrel 75 Mg Tab FEEDTUBE 75 mg QDAY YRIS Administration Dextrose 50 ml 03/14/22 12:30 Dextrose 50% In Water (25gm) 50 Ml Syringe IV Q30MIN PRN Hypoglycemia Protocol Famotidine 10 mg 03/14/22 22:00 03/15/22 09:04 Famotidine 10 Mg Tab FEEDTUBE 10 mg BID YRIS Administration Fentanyl 50 mcg 03/14/22 11:20 Fentanyl 100 Mcg/2 Ml Inj IV Q10MIN PRN ANALGESIA Furosemide 20 mg 03/14/22 10:00 03/15/22 09:04 Furosemide 20 Mg/2 Ml Inj IV 20 mg QDAY YRIS Administration Hydralazine HCl 10 mg 03/14/22 15:57 Hydralazine 20 Mg/1 Ml Inj IV Q4HR PRN Hypertension Hydromorphone HCl 0.5 mg 03/13/22 17:18 03/13/22 21:30 Hydromorphone 0.5 Mg/0.5 Ml Inj IV 0.5 mg Q13H PRN Administration Pain , Severe (7-10) Sodium Chloride 100 mls @ 999 mls/hr 03/13/22 18:42 Nacl 0.9% IV GLADYS PRN Hypotension Fentanyl Citrate 2,000 mcg in 100 mls @ 7.095 mls/hr 03/14/22 12:00 Fentanyl Drip Premix IV TITR [facility] Protocol 1 MCG/KG/HR Insulin Glargine 10 units 03/15/22 22:00 Insulin Glargine 100 Units/Ml SUB-Q QHS [facility] Insulin Human Regular 0 units 03/14/22 13:00 03/15/22 11:41 Insulin Regular, Human 100 Units/1 Ml SUB-Q 2 units Q6HR YRIS Administration Protocol Oxycodone/Acetaminophen 1 tab 03/13/22 17:18 Oxycodone /Acetaminophen 5-325mg Tab PO Q16H PRN Pain, Moderate (4-6) Rivaroxaban 15 mg 03/14/22 10:29 03/15/22 09:04 Rivaroxaban 15 Mg Tab PO 15 mg QDDIAB YRIS Administration Senna/Docusate Sodium 1 tab 03/14/22 22:00 03/14/22 22:20 Sennosides/Docusate Sodium 8.6/50 Mg Tab FEEDTUBE 1 tab QHS YRIS Administration Sodium Bicarbonate 650 mg 03/13/22 22:00 03/15/22 13:56 Sodium Bicarbonate 325 Mg Tab PO 650 mg Q8HR YRIS Administration Sodium Chloride 10 ml 03/13/22 22:00 03/15/22 09:05 Sodium Chloride 0.9% 10 Ml Flush Syringe IV 10 ml BID YRIS Administration Sodium Chloride 10 ml 03/13/22 17:18 Sodium Chloride 0.9% 10 Ml Flush Syringe IV PRN PRN LINE FLUSH Nutrition/Malnutrition Assess - Dietary Evaluation Nutrition/Malnutrition Findings: Nutrition Notes Start: 03/14/22 09:5 4 Freq: Status: Active Protocol: Document 03/14/22 09:54 VICTORIA (Rec: 03/14/22 10:31 VICTORIA [id number]) Nutrition Notes Need for Assessment generated from: MD Order,manager integrity,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 Current Diet NPO (since 03/13 17:19), TF- Nepro w/CARBSTEADY @ 50 ml/hr (from L 03/14.). Labs/Tests 03/14: K 5.2, Cl 109.5, CO2 19 , BUN 90, Crea 4.2, Glu 204. Pertinent Medications 03/14: Nutritionally unremarkable. Height 5 ft 11 in Weight 141.9 kg [place] Body Weight (kg) 78.18 BMI 43.6 Intake Prior to Admission Good Weight change and time frame P{t states being unsure if loss body weight [employer]. Weight Status Morbidly Obese Subjective/Other Information RD consult for skin risk, risk of malnutrition, and write/ manage TF. Pt currently on NPO. I will prescribe TF to provide Pt with energy/proteins needs duering LOS. Pt is on Mechanical Ventilation, O2 saturation @ 89%, according to Physical Assessment History notes. Pt has missing teeth, according to Physical Assessment History notes. Pt shows no signs of concern for skin risk at the odalis, according to Physical Assessment History notes. Pt shows no signs of concern for risk of malnutrition at the time, according to Physical Assessment History notes. Percent of energy/protein needs met: Pt currently on NPO. Prescribed TF-Nepro w/ CARBSTEADY @ 50 ml/hr provides for energy/protein needs (2, 180 Kcal/98 g) during LOS, 102 % Kcal; 74% AA. Burn Absent Trauma Absent GI Symptoms None Food Allergy No Skin Integrity/Comment Assessment WNL. Current % PO Other Minimum of two criteria No Fluid Accumulation Moderate to Severe (severe) Reduced Bottle Label Inspector Strength N/A (non-severe) Protein-Calorie Malnutrition N\A #1 Nutrition Diagnosis Inadequate oral intake Etiology Pt is on Mechanical Ventilation. As Evidenced by Signs and Symptoms Pt currently on NPO. Is patient on ventilator? Yes Is Patient Ambulatory and/or Out of Bed No REE-([facility]-confined to bed) 2740.836 Kcal/Kg value to use for calculation 15 Approximate Energy Requirements Using 2129 kcal/Kg Calculation Used for Recommendations Kcal/kg Additional Notes Protein: >1.2 g/Kg AdjBW; >132 g/day. Fluids: 1 ml/Kcal, or as per MD. Nutrition Intervention Nutrition Support: Start TF-Nepro w/CARBSTEADY @ 50 ml/hr. Flush: 200 ml water Q 4 hr,or as per MD. Kcal 2,180 Protein (gm) 98 Carbohydrates (gm) 195 Fat (gm) 116 Fluid (mL) 880 Fiber (gm) 15 % RDI: 102% Kcal; 74% AA. Goal #1 Provide at least 75% of energy /protein needs through Enteral Feeding during LOS. Follow-Up By: 03/16/22 Additional Comments Start monitoring TF tolerance and BM.
[2022-03-15] MEDS: ACETAMINOPHEN 325 MG TAB PO PRN (16:39)
--- NOTE | 2022-03-15 18:23 | Consultation ---
DATE OF CONSULTATION: 03/14/2022 PULMONARY CRITICAL CARE CONSULT NOTE CONSULTING PHYSICIAN: Kendra Woodward MD. REASON FOR CONSULTATION: Acute hypoxemic respiratory failure, on mechanical ventilatory support. CHIEF COMPLAINT AND HISTORY OF PRESENT ILLNESS: The patient is a now 56-year-old middle-aged male with a past medical history significant for obesity hypoventilation syndrome, morbidly obese, BMI of 44, who apparently missed a couple of dialysis sessions, came into the Emergency Room, I believe, yesterday complaining of shortness of breath. Of note, he also has a history of a pulmonary embolism, on therapeutic anticoagulation. In the Emergency Room, he was intubated and placed on mechanical ventilatory support. According to the EMS, the patient mentioned that he had been short of breath for about 2 days with worsening symptoms in the preceding 24 hours. He acknowledged some facial swelling. He was found to have oropharyngeal edema. He was unable to protect his airway. He was hypoxemic. He was emergently intubated. There were no reports of fevers, chills, chest pain, palpitation, cough or known exposure to COVID-19. It is unclear who got that history. His symptoms were consistent with CHF decompensation, volume overload, possibly also related to his end-stage renal disease as well as metabolic acidosis. We are asked to assist with management. When I stopped by to see him, he was resting in bed. He was on the mechanical ventilator, assist control mode of ventilation. He was on PRVC/AC, tidal volumes 450, rate of 24, and a PEEP of 10 and 55% FiO2 at the time I saw him. The patient's tobacco use/abuse history is unknown. He was sedated. The above is as much of the history of presentation as I have. PAST MEDICAL HISTORY: End-stage renal disease, on dialysis; congestive heart failure; obesity hypoventilation syndrome. History of pulmonary embolus, on therapeutic anticoagulation. He is morbidly obese. PAST SURGICAL HISTORY: Reportedly, has a history of dialysis access, so the records mention a history of dialysis ____ as well as an implanted cardiac device. MEDICATIONS: He was on at the time I stopped by to see him, according to the medication administration record included the following: He was on Tylenol 650 mg p.o. q. 6 hours p.r.n. mild pain or fevers, all p.o. meds via the feeding tube. Albumin 25 grams IV p.r.n. with dialysis. Albuterol 2.5 mg inhaled q. 3 hours p.r.n. shortness of breath, aspirin 81 mg p.o. daily, carvedilol 25 mg p.o. b.i.d., Lasix 20 mg IV daily, Dilaudid 0.5 mg IV q. 13 hours p.r.n. severe pain. Versed drip was going at 3 mg per hour. Percocet 5/325 one tablet p.o. q. 16 hours p.r.n. moderate pain, Xarelto, rivaroxaban 15 mg p.o. b.i.d. ALLERGIES: No known drug allergies. DIET: Morbidly obese gentleman, acute weight loss or gain history is unknown. FAMILY AND SOCIAL HISTORY: Apparently lived in the community. Records deny alcohol, tobacco, or illicit drug use or abuse. FAMILY HISTORY: Otherwise positive for diabetes and hypertension. REVIEW OF SYSTEMS: Unobtainable secondary to the patient's medical and mental condition. Since he has been here, no gross hematochezia or melena, no gross hematuria, no hematemesis, no bloody tracheal secretions, no witnessed seizures. Review of systems otherwise unobtainable or as in body of history above. PHYSICAL EXAMINATION: VITAL SIGNS: On presentation here revealed vital signs shows that he was afebrile, temperature 98 degrees Fahrenheit with a pulse of 100, respiratory rate of as high as 37 and blood pressure 170/100, O2 sats were 96%. Inspired oxygen concentration at that time was not recorded. Since he has been here, he has had a T-max of 100.7 degrees Fahrenheit. GENERAL: He is a middle-aged, morbidly obese male. Normocephalic, atraumatic on the mechanical ventilator with mildly increased respiratory effort at rest. HEAD, EYES, EARS, NOSE AND THROAT: Anicteric. No conjunctival erythema. Oropharynx was moist. ET tube was taped around 25 cm at the lips. No gross jugular venous distention, no thyromegaly. He does have a large neck circumference. Grossly, there were no palpable lymph nodes in the supraclavicular or submandibular lymph node chains. LUNGS: Auscultation of both lung yee significant for bilateral rales. No active wheezing. Diminished breath sounds. HEART: Sounds 1 and 2 are heard at the time of my evaluation, regular rate and rhythm without overt rubs or murmurs. ABDOMEN: Soft, full, protuberant. Bowel sounds are positive, nontender, no palpable hepatosplenomegaly. He does have an implanted cardiac device in the left upper anterior chest wall. He also appears to have vascular catheter/PICC line in the left upper anterior chest wall. It is unclear what type of line that is, but it does not look like a Vascath. No significant bleeding around the stoma. Again, abdomen is soft, full, protuberant. Bowel sounds are positive, nontender, no palpable hepatosplenomegaly. EXTREMITIES: Without overt digital clubbing or cyanosis. He has about 2+ bipedal pitting edema. Pedal pulses are 2+ bilaterally. NEUROLOGIC: Pupils are equal, round, about 3 mm, reactive to light. Extraocular muscle movements could not be assessed. He has spontaneous movements to all 4 extremities. He was sedated and not really following commands. SKIN: Normal turgor in the areas I examined without overt cellulitis or rash. Please see the wound care nurses' notes for full description of his skin. PSYCHIATRIC: Mood and affect could not be assessed. He was sedated. LABORATORY DATA: From my review are as follows: Admission white cell count 10,900, hemoglobin 15.4, hematocrit 48.1, platelet count 153, 1% band forms on the manual differential. Arterial blood gas at presentation showed a pH of 7.28, pCO2 of 36, pO2 of 74 on 50% FiO2. Most recent ABG shows a pH of 7.33, pCO2 of 36, pO2 of 65, again on 50% FiO2 and the above-mentioned vent settings. Serum sodium was 143, potassium 4.8, chloride 106, bicarbonate 17, BUN 78, creatinine 3.6, glucose 135. AST 363, ALT 430. Troponin was up at 0.176. TSH within normal limits. Free T4 within normal limits. Tracheal aspirate is pending, no growth to date. DIAGNOSTIC DATA: A chest x-ray was done, it is preintubation, it showed gross cardiomegaly, hilar congestion and enlarged right main pulmonary artery trunk and bilaterally increased interstitial markings consistent with volume overload. Post-intubation chest x-ray shows ET tube in good position. Of note, there is what looks like a PICC line with the tip in the distal SVC/right atrial junction. He also has an implanted cardiac device. Chest x-ray today shows some improvement in the volume overload picture. Echocardiogram has been done, it shows a left ventricular ejection fraction of 20-25%, moderately reduced right ventricular systolic function. Right ventricular systolic pressure estimated at 47 mmHg. ASSESSMENT: 1. Acute hypoxemic respiratory failure, on mechanical ventilatory support. 2. History of end-stage renal disease, on dialysis. Unclear where the vascular access is. 3. Bilateral pulmonary edema. 4. Metabolic acidosis. 5. Acute exacerbation of congestive heart failure. 6. History of pulmonary embolism. 7. Elevated serum transaminases. Possible congested liver. 8. Morbid obesity. 9. Pulmonary hypertension. PLAN: We will keep him on full mechanical ventilator support in the short term. Ventilator-associated pneumonia bundle has been introduced. Oxygen will be weaned to keep sats greater than or equal to 90%. Aspiration precautions were maintained. No acute indication for empiric antibiotic therapy. We will follow him clinically at this point. Hopefully, with hemodialysis ultrafiltration, volume status overload should improve. Again, oxygen will be weaned to keep sats greater than or equal to about 90%. Versed drip will be stopped and he will be started on fentanyl drip. We will get a CRP level to help guide clinical decision making. Nephrology consultation has been placed. I will repeat the arterial blood gas at 9:00 p.m. tonsuellen and make changes from that standpoint. He will be placed on GI prophylaxis with Pepcid. He is fully anticoagulated with Xarelto. Cardiology evaluation will be of benefit in this gentleman with severe cardiomyopathy. Flu and pneumonia vaccination will be addressed per protocol. Thank you very much for the consult. We will follow along and make further recommendations as picture progresses/becomes clearer. Enteral nutrition will be the feeding modality of choice. He is critically ill on life-sustaining interventions including mechanical ventilatory support at very high risk of from cardiopulmonary and renal system decompensation. At this time, I spent about 35-40 minutes of critical care time without overlap and excluding any procedural time that may be necessary. TID: [id number] RECEIPT: [id number] STEPHEN/LOW/PAUL
[2022-03-15] MEDS: SENNOSIDES/DOCUSATE SODIUM 8.6/50 MG TAB FEEDTUBE SCH (21:33)
[2022-03-15] MEDS: INSULIN GLARGINE 100 UNITS/ML SUB-Q SCH (21:33)
[2022-03-16] MEDS: fentaNYL 100 MCG/2 ML INJ IV PRN ×2 (00:19→15:13)
[2022-03-16 03:51] LABS: Hematocrit 40.9 % (35.5-45.6); Hemoglobin 13.5 gm/dl (11.8-15.2); Mean Corpuscular HGB Conc 33 % (32-34); Mean Corpuscular Volume 88 fl (84-94); Red Blood Count 4.65 M/mm3 (3.65-5.03); Red Cell Distribution Width 19.9 % (13.2-15.2)
[2022-03-16 03:56] LABS: Platelet Count 94 K/mm3 (140-440)
[2022-03-16 04:02] LABS: Albumin 2.3 g/dL (3.9-5); Calcium 8.3 mg/dL (8.4-10.2)
[2022-03-16] MEDS: INSULIN REGULAR, HUMAN 100 UNITS/1 ML SUB-Q SCH ×4 (05:04→23:31)
[2022-03-16] MEDS: SODIUM BICARBONATE 650 MG TAB PO SCH ×3 (05:09→21:16)
[2022-03-16 06:47] LABS: ABG Base Excess -1.8 mmol/L (-2.0-3.0); ABG HCO3 23.3 mmol/L (20.0-26.0); ABG Methemoglobin 0.5 % (0.0-1.5); ABG PCO2 40.8 mm Hg; ABG PH 7.374 pH Units (7.350-7.450); ABG PO2 111.9 mm Hg (80.0-90.0)
[2022-03-16] MEDS: IPRATROPIUM/ALBUTEROL SULFATE 3 ML AMPUL.NEB IH SCH ×2 (08:17→21:07)
--- NOTE | 2022-03-16 09:06 | Progress Note ---
Assessment and Plan Impression * Acute kidney injury * Chronic kidney disease * Respiratory failure. Chest x-ray showing evidence of mild volume overload * Diabetes * Hypertension * Abnormal LFTs * Mild metabolic acidosis and mild hyperkalemia * Acute on chronic HFrEF * NSTEMI suspect type II Recommendations * Patient's baseline renal function is not known. Noted to have CKD per discussions with family however * Patient is clinically volume overloaded. Continue IV loop diuretic as needed, switch to Bumex given hypoalbuminemia and poor kidney function * Appreciate cardiology input- defer to them regarding inotropic therapy but suspect would be beneficial from kidney standpoint * His urine shows 1+ dipstick protein and 1+ blood * Follow-up results of vasculitis work-up. 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 Currently on 40% FiO2. Tube feeds running. Patient is unresponsive. Objective - Exam Narrative Exam: General appearance: well-developed, well-nourished, appears stated age, intubated EENT: PERRL, mucous membranes moist Neck: no JVD, supple Respiratory: Present: Clear to Ascultation Cardiology: regular, normal heart rate, S1S2, no murmurs Gastrointestinal: Integumentary: no rash, other (2+ edema) - Vital Signs Vital signs: Vital Signs - 12hr 03/15/22 03/15/22 03/15/22 21:33 22:00 22:42 Temperature Pulse Rate 68 69 69 Pulse Rate [ Bilateral Throughout] Pulse Rate [ From Monitor] Respiratory 28 H 35 H Rate Respiratory Rate [Bilateral Throughout] Blood Pressure 126/79 121/79 122/80 O2 Sat by Pulse 95 98 Oximetry 03/15/22 03/15/22 03/15/22 23:00 23:12 23:24 Temperature 97.8 F Pulse Rate 66 69 Pulse Rate [ Bilateral Throughout] Pulse Rate [ From Monitor] Respiratory 34 H Rate Respiratory Rate [Bilateral Throughout] Blood Pressure 120/81 155/80 O2 Sat by Pulse 93 96 Oximetry 0703/16/22 03/16/22 00:00 01:00 02:00 Temperature 97.3 F L Pulse Rate 68 64 63 Pulse Rate [ Bilateral Throughout] Pulse Rate [ 68 From Monitor] Respiratory 37 H 30 H 27 H Rate Respiratory Rate [Bilateral Throughout] Blood Pressure 134/86 119/69 118/76 O2 Sat by Pulse 90 98 Oximetry 03/16/22 03/16/22 03/16/22 03:00 03:34 03:51 Temperature 99.3 F Pulse Rate 64 62 Pulse Rate [ Bilateral Throughout] Pulse Rate [ From Monitor] Respiratory 33 H Rate Respiratory Rate [Bilateral Throughout] Blood Pressure 134/80 122/60 O2 Sat by Pulse 97 96 Oximetry 03/16/22 03/16/22 03/16/22 04:00 05:00 06:00 Temperature Pulse Rate 62 62 65 Pulse Rate [ Bilateral Throughout] Pulse Rate [ 62 From Monitor] Respiratory 25 H 27 H 24 Rate Respiratory Rate [Bilateral Throughout] Blood Pressure 120/68 126/69 125/86 O2 Sat by Pulse 96 94 97 Oximetry 03/16/22 03/16/22 03/16/22 07:00 08:00 08:41 Temperature 98.7 F Pulse Rate 61 68 Pulse Rate [ 68 Bilateral Throughout] Pulse Rate [ 63 From Monitor] Respiratory 24 26 H Rate Respiratory 24 Rate [Bilateral Throughout] Blood Pressure 127/70 142/89 O2 Sat by Pulse 95 98 Oximetry 03/16/22 09:00 Temperature Pulse Rate 64 Pulse Rate [ Bilateral Throughout] Pulse Rate [ From Monitor] Respiratory 24 Rate Respiratory Rate [Bilateral Throughout] Blood Pressure 151/84 O2 Sat by Pulse 91 Oximetry - Lab 03/16/22 Unknown 03/16/22 04:00 Most recent lab results ABG pH 7.374 pH Units (7.350-7.450) 03/16/22 06:00 ABG pCO2 40.8 mm Hg 03/16/22 06:00 ABG pO2 111.9 mm Hg (80.0-90.0) H 03/16/22 06:00 ABG HCO3 23.3 mmol/L (20.0-26.0) 03/16/22 06:00 ABG O2 Saturation 98.0 % (95.0-99.0) 03/16/22 06:00 Calcium 8.3 mg/dL (8.4-10.2) L 03/16/22 04:00 Magnesium 2.50 mg/dL (1.7-2.3) H 03/13/22 20:33 Medications & Allergies - Medications Allergies/Adverse Reactions: Allergies No Known Allergies Allergy (Verified 03/13/22 14:06) Home Medications: Home Medications Medication Instructions Recorded Confirmed Last Taken Type Aspirin [Aspirin BABY CHEW TAB] 81 mg PO QDAY 03/13/22 03/13/22 Unknown History AtorvaSTATin [Lipitor] 40 mg PO QHS 03/13/22 03/13/22 Unknown History Furosemide [Lasix] 40 mg PO QDAY 03/13/22 03/13/22 Unknown History Insulin NPH Hum/Reg Insulin Hm 100 unit SQ BID 03/13/22 03/13/22 Unknown History [Novolin 70-30 100 Unit/ml Vial] Sodium Bicarbonate 650 mg PO Q8HR 03/13/22 03/13/22 Unknown History XARELTO (see DOAC order set to 20 mg PO QDAY 03/13/22 03/13/22 Unknown History order) carvediloL [Coreg] 25 mg PO BID 03/13/22 03/13/22 Unknown History cloNIDine [Catapres] 0.2 mg PO BID 03/13/22 03/13/22 Unknown History hydrALAZINE [Apresoline] 50 mg PO Q8HR 03/13/22 03/13/22 Unknown History hydroCHLOROthiazide 50 mg PO 03/13/22 03/13/22 Unknown History [Hydrochlorothiazide] Active Medications: Generic Name Dose Route Start Last Admin Trade Name Freq PRN Reason Stop Dose Admin Acetaminophen 650 mg 03/13/22 17:18 03/15/22 16:39 Acetaminophen 325 Mg Tab PO 650 mg Q6H PRN Administration Pain MILD(1-3)/Fever >100.5/FLORES Albumin Human 25 gm 03/13/22 18:43 Albumin Human 25% (25 Gm/100 Ml) Inj IV GLADYS PRN Hypotension Albuterol 2.5 mg 03/13/22 17:18 Albuterol 2.5 Mg/3 Ml Nebu IH Q3HRT PRN Shortness Of Breath Albuterol/Ipratropium 1 ampul 03/15/22 12:00 03/16/22 08:17 Ipratropium/Albuterol Sulfate 3 Ml Ampul.Neb IH 1 ampul Q12HRT YRIS Administration Aspirin 81 mg 03/14/22 10:00 03/15/22 09:04 Aspirin 81 Mg Tab Chew PO 81 mg QDAY YRIS Administration Carvedilol 25 mg 03/13/22 22:00 03/15/22 21:33 Carvedilol 25 Mg Tab PO 25 mg BID YRIS Administration Clopidogrel Bisulfate 75 mg 03/15/22 11:00 03/15/22 11:41 Clopidogrel 75 Mg Tab FEEDTUBE 75 mg QDAY YRIS Administration Dextrose 50 ml 03/14/22 12:30 Dextrose 50% In Water (25gm) 50 Ml Syringe IV Q30MIN PRN Hypoglycemia Protocol Famotidine 10 mg 03/14/22 22:00 03/15/22 21:33 Famotidine 10 Mg Tab FEEDTUBE 10 mg BID YRIS Administration Fentanyl 50 mcg 03/14/22 11:20 03/16/22 00:19 Fentanyl 100 Mcg/2 Ml Inj IV 50 mcg Q10MIN PRN Administration ANALGESIA Furosemide 20 mg 03/14/22 10:00 03/15/22 09:04 Furosemide 20 Mg/2 Ml Inj IV 20 mg QDAY YRIS Administration Hydralazine HCl 10 mg 03/14/22 15:57 Hydralazine 20 Mg/1 Ml Inj IV Q4HR PRN Hypertension Hydromorphone HCl 0.5 mg 03/13/22 17:18 03/13/22 21:30 Hydromorphone 0.5 Mg/0.5 Ml Inj IV 0.5 mg Q13H PRN Administration Pain , Severe (7-10) Sodium Chloride 100 mls @ 999 mls/hr 03/13/22 18:42 Nacl 0.9% IV GLADYS PRN Hypotension Fentanyl Citrate 2,000 mcg in 100 mls @ 7.095 mls/hr 03/14/22 12:00 Fentanyl Drip Premix IV TITR YRIS Protocol 1 MCG/KG/HR Insulin Glargine 10 units 03/15/22 22:00 03/15/22 21:33 Insulin Glargine 100 Units/Ml SUB-Q 10 units QHS YRIS Administration Insulin Human Regular 0 units 03/14/22 13:00 03/16/22 05:04 Insulin Regular, Human 100 Units/1 Ml SUB-Q 3 units Q6HR YRIS Administration Protocol Oxycodone/Acetaminophen 1 tab 03/13/22 17:18 Oxycodone /Acetaminophen 5-325mg Tab PO Q16H PRN Pain, Moderate (4-6) Rivaroxaban 15 mg 03/14/22 10:29 03/15/22 09:04 Rivaroxaban 15 Mg Tab PO 15 mg QDDIAB YRIS Administration Senna/Docusate Sodium 1 tab 03/14/22 22:00 03/15/22 21:33 Sennosides/Docusate Sodium 8.6/50 Mg Tab FEEDTUBE 1 tab QHS YRIS Administration Sodium Bicarbonate 650 mg 03/16/22 06:00 03/16/22 05:09 Sodium Bicarbonate 650 Mg Tab PO 650 mg Q8HR YRIS Administration Sodium Chloride 10 ml 03/13/22 22:00 03/15/22 21:34 Sodium Chloride 0.9% 10 Ml Flush Syringe IV 10 ml BID YRIS Administration Sodium Chloride 10 ml 03/13/22 17:18 Sodium Chloride 0.9% 10 Ml Flush Syringe IV PRN PRN LINE FLUSH
--- NOTE | 2022-03-16 09:14 | XRay Report ---
CHEST 1 VIEW 03/16/2022 7:03 AM INDICATION / CLINICAL INFORMATION: Respiratory failure. COMPARISON: Yesterday. FINDINGS: SUPPORT DEVICES: The positions of the endotracheal tube, nasogastric tube, left jugular CVL and left subclavian ICD have not changed. HEART / MEDIASTINUM: Cardiomegaly is stable. There is prominence of the central pulmonary vessels. LUNGS / PLEURA: Pleuroparenchymal disease in both lower hemithoraces, right greater than left, is aga in identified. Disease on the right has shown slight improvement. No new abnormality. No pneumothorax . ADDITIONAL FINDINGS: No significant additional findings. IMPRESSION: Pleuroparenchymal disease in both lower hemithoraces with slight improvement on the right . Signer Name: Sly Braga MD Signed: 03/16/2022 9:10 AM Workstation Name: [id number]
[2022-03-16] MEDS: FAMOTIDINE 10 MG TAB FEEDTUBE SCH ×2 (09:43→21:16)
[2022-03-16] MEDS: ASPIRIN 81 MG TAB CHEW PO SCH (09:43)
[2022-03-16] MEDS: carvediloL 25 MG TAB PO SCH ×2 (09:44→21:19)
[2022-03-16] MEDS: CLOPIDOGREL 75 MG TAB FEEDTUBE SCH (09:44)
[2022-03-16] MEDS: RIVAROXABAN 15 MG TAB PO SCH (09:44)
[2022-03-16] MEDS ORDERED: FUROSEMIDE 20 MG/2 ML INJ IV SCH (10:00)
--- NOTE | 2022-03-16 10:55 | Consultation ---
History of Present Illness Consult date: 03/15/22 Reason for Consult: cva Chief complaint: cva History of present illness: 56 yo male with htn, pe (?on xarelto at home), who presented with shortness of breath with noted oropharyngeal edema (requiring intubation) with nchct revealing age indeterminate infarct and/or "evolving infarct". Patient is not able to provide any more history at present. Past History Past Medical History: hypertension, pulmonary embolism Past Surgical History: Other (Dialysis access, AICD) Social history: single. denies: smoking, alcohol abuse, prescription drug abuse Family history: diabetes, hypertension Medications and Allergies Allergies Allergy/AdvReac Type Severity Reaction Status Date / Time No Known Allergies Allergy Verified 03/13/22 14:06 Home Medications Medication Instructions Recorded Confirmed Last Taken Type Aspirin [Aspirin BABY CHEW TAB] 81 mg PO QDAY 03/13/22 03/13/22 Unknown History AtorvaSTATin [Lipitor] 40 mg PO QHS 03/13/22 03/13/22 Unknown History Furosemide [Lasix] 40 mg PO QDAY 03/13/22 03/13/22 Unknown History Insulin NPH Hum/Reg Insulin Hm 100 unit SQ BID 03/13/22 03/13/22 Unknown History [Novolin 70-30 100 Unit/ml Vial] Sodium Bicarbonate 650 mg PO Q8HR 03/13/22 03/13/22 Unknown History XARELTO (see DOAC order set to 20 mg PO QDAY 03/13/22 03/13/22 Unknown History order) carvediloL [Coreg] 25 mg PO BID 03/13/22 03/13/22 Unknown History cloNIDine [Catapres] 0.2 mg PO BID 03/13/22 03/13/22 Unknown History hydrALAZINE [Apresoline] 50 mg PO Q8HR 03/13/22 03/13/22 Unknown History hydroCHLOROthiazide 50 mg PO 03/13/22 03/13/22 Unknown History [Hydrochlorothiazide] Active Meds: Active Medications Acetaminophen (Acetaminophen 325 Mg Tab) 650 mg PO Q6H PRN PRN Reason: Pain MILD(1-3)/Fever >100.5/FLORES Last Admin: 03/15/22 16:39 Dose: 650 mg Albumin Human (Albumin Human 25% (25 Gm/100 Ml) Inj) 25 gm IV GLADYS PRN PRN Reason: Hypotension Albuterol (Albuterol 2.5 Mg/3 Ml Nebu) 2.5 mg IH Q3HRT PRN PRN Reason: Shortness Of Breath Albuterol/Ipratropium (Ipratropium/Albuterol Sulfate 3 Ml Ampul.Neb) 1 ampul IH Q12HRT [facility] Last Admin: 03/16/22 08:17 Dose: 1 ampul Aspirin (Aspirin 81 Mg Tab Chew) 81 mg PO QDAY [facility] Last Admin: 03/16/22 09:43 Dose: 81 mg Bumetanide (Bumetanide 1 Mg/4 Ml Inj) 1 mg IV BID@0600,1800 [facility] Carvedilol (Carvedilol 25 Mg Tab) 25 mg PO BID [facility] Last Admin: 03/16/22 09:44 Dose: 25 mg Clopidogrel Bisulfate (Clopidogrel 75 Mg Tab) 75 mg FEEDTUBE QDAY [facility] Last Admin: 03/16/22 09:44 Dose: 75 mg Dextrose (Dextrose 50% In Water (25gm) 50 Ml Syringe) 50 ml IV Q30MIN PRN; Protocol PRN Reason: Hypoglycemia Famotidine (Famotidine 10 Mg Tab) 10 mg FEEDTUBE BID [facility] Last Admin: 03/16/22 09:43 Dose: 10 mg Fentanyl (Fentanyl 100 Mcg/2 Ml Inj) 50 mcg IV Q10MIN PRN PRN Reason: ANALGESIA Last Admin: 03/16/22 00:19 Dose: 50 mcg Hydralazine HCl (Hydralazine 20 Mg/1 Ml Inj) 10 mg IV Q4HR PRN PRN Reason: Hypertension Hydromorphone HCl (Hydromorphone 0.5 Mg/0.5 Ml Inj) 0.5 mg IV Q13H PRN PRN Reason: Pain , Severe (7-10) Last Admin: 03/13/22 21:30 Dose: 0.5 mg Sodium Chloride (Nacl 0.9%) 100 mls @ 999 mls/hr IV GLADYS PRN PRN Reason: Hypotension Fentanyl Citrate (Fentanyl Drip Premix) 2,000 mcg in 100 mls @ 7.095 mls/hr IV TITR [facility]; Protocol Insulin Glargine (Insulin Glargine 100 Units/Ml) 10 units SUB-Q QHS [facility] Last Admin: 03/15/22 21:33 Dose: 10 units Insulin Human Regular (Insulin Regular, Human 100 Units/1 Ml) 0 units SUB-Q Q6HR [facility]; Protocol Last Admin: 03/16/22 05:04 Dose: 3 units Oxycodone/Acetaminophen (Oxycodone /Acetaminophen 5-325mg Tab) 1 tab PO Q16H PRN PRN Reason: Pain, Moderate (4-6) Rivaroxaban (Rivaroxaban 15 Mg Tab) 15 mg PO QDDIAB [facility] Last Admin: 03/16/22 09:44 Dose: 15 mg Senna/Docusate Sodium (Sennosides/Docusate Sodium 8.6/50 Mg Tab) 1 tab FEEDTUBE QHS [facility] Last Admin: 03/15/22 21:33 Dose: 1 tab Sodium Bicarbonate (Sodium Bicarbonate 650 Mg Tab) 650 mg PO Q8HR [facility] Last Admin: 03/16/22 05:09 Dose: 650 mg Sodium Chloride (Sodium Chloride 0.9% 10 Ml Flush Syringe) 10 ml IV BID [facility] Last Admin: 03/16/22 09:43 Dose: 10 ml Sodium Chloride (Sodium Chloride 0.9% 10 Ml Flush Syringe) 10 ml IV PRN PRN PRN Reason: LINE FLUSH Review of Systems ROS unobtainable: due to endotracheal tube Physical Examination - Vital Signs Vital Signs: Vital Signs Temp Pulse Resp BP Pulse Ox 98 F 100 H 18 170/100 96 03/13/22 14:05 03/13/22 14:05 03/13/22 14:05 03/13/22 14:05 03/13/22 14:05 - Physical Exam Narrative exam: Gen: nad, intubated; Head: normocephalic; Eyes: no gaze deviation; ENT: +ETT; CVS: warm and well-perfused; Pulm: no respiratory distress; GI: appears non-distended; Ext: no cyanosis appreciated at distal extremities; Skin: no acute rash appreciated at distal extremities; Heme: no pathologic ecchymosis appreciated at distal extremities; Neuro: obtunded, intubated, CN 2 - sluggish reactive pupils, CN 3, 4, 6 - no gaze deviation, CN 5/7 -opens/closes eyes to tactile stimuli, CN 9/10 - swallowing not noted, CN 11/12 - pt cannot cooperate secondary to LOC; Motor/Sensory - at least 2-/5 at distal upper exts to tactile stimuli; at least 1/5 at distal lower exts; Cerebellar/Gait - pt cannot cooperate secondary to LOC; NIHSS (1a.) Level of Consciousness:2 (1b.) LOC Questions:1 (1c.) LOC Commands:1 (2.) Best Gaze:0 (3.) Visual:1 (4.) Facial Palsy:0 (5a.) Motor Arm, Left:3 (5b.) Motor Arm, Right:3 (6a.) Motor Leg, Left:3 (6b.) Motor Leg, Right:3 (7.) Limb Ataxia:0 (8.) Sensory:1 (9.) Best Language:2 (10.) Dysarthria: untestable (11.) Extinction and Inattention:1 NIHSS Total Score: 21 Results - Laboratory Findings CBC and BMP: 03/16/22 Unknown 03/16/22 04:00 Abnormal Lab Findings: Abnormal Labs 03/13/22 03/13/22 03/13/22 15:44 15:44 16:15 RBC 5.42 H Hgb 15.4 H Hct 48.1 H MCHC RDW 19.7 H Plt Count Lymph % (Auto) Lymph # (Auto) Seg Neutrophils % Seg Neuts % (Manual) 93.0 H Lymphocytes % (Manual) 3.0 L Nucleated RBC % 1.0 H Seg Neutrophils # Seg Neutrophils # Man 10.1 H Lymphocytes # (Manual) 0.3 L ABG pH 7.281 L ABG pO2 73.5 L ABG HCO3 16.6 L ABG O2 Saturation 92.5 L ABG Base Excess -9.2 L ABG Hemoglobin Oxyhemoglobin 90.4 L Sodium Potassium Chloride Carbon Dioxide 17 L BUN 78 H Creatinine 3.6 H Glucose 135 H POC Glucose Hemoglobin A1c Calcium Magnesium Total Bilirubin 2.50 H AST 363 H ALT 430 H Troponin T 0.176 H* NT-Pro-B Natriuret Pep 50010 H Total Protein Albumin 3.6 L HDL Cholesterol 24 L 03/13/22 03/13/22 03/14/22 20:04 20:33 00:23 RBC Hgb Hct MCHC RDW Plt Count Lymph % (Auto) Lymph # (Auto) Seg Neutrophils % Seg Neuts % (Manual) Lymphocytes % (Manual) Nucleated RBC % Seg Neutrophils # Seg Neutrophils # Man Lymphocytes # (Manual) ABG pH 7.339 L ABG pO2 259.5 H ABG HCO3 16.3 L ABG O2 Saturation 99.4 H ABG Base Excess -8.2 L ABG Hemoglobin Oxyhemoglobin Sodium Potassium Chloride Carbon Dioxide BUN Creatinine Glucose POC Glucose 187 H Hemoglobin A1c Calcium Magnesium 2.50 H Total Bilirubin AST ALT Troponin T NT-Pro-B Natriuret Pep Total Protein Albumin HDL Cholesterol 03/14/22 03/14/22 03/14/22 03:58 04:50 04:50 RBC Hgb Hct MCHC 31 L RDW 19.3 H Plt Count 115 L Lymph % (Auto) 4.7 L Lymph # (Auto) 0.5 L Seg Neutrophils % 89.5 H Seg Neuts % (Manual) Lymphocytes % (Manual) Nucleated RBC % Seg Neutrophils # 8.5 H Seg Neutrophils # Man Lymphocytes # (Manual) ABG pH 7.327 L ABG pO2 65.2 L ABG HCO3 18.4 L ABG O2 Saturation 91.1 L ABG Base Excess -6.8 L ABG Hemoglobin 13.2 L Oxyhemoglobin 89.1 L Sodium Potassium 5.2 H Chloride 109.5 H Carbon Dioxide 19 L BUN 90 H Creatinine 4.2 H Glucose 204 H POC Glucose Hemoglobin A1c Calcium Magnesium Total Bilirubin AST ALT Troponin T NT-Pro-B Natriuret Pep Total Protein Albumin HDL Cholesterol 03/14/22 03/14/22 03/14/22 11:29 16:28 21:00 RBC Hgb Hct MCHC RDW Plt Count Lymph % (Auto) Lymph # (Auto) Seg Neutrophils % Seg Neuts % (Manual) Lymphocytes % (Manual) Nucleated RBC % Seg Neutrophils # Seg Neutrophils # Man Lymphocytes # (Manual) ABG pH 7.347 L ABG pO2 111.6 H ABG HCO3 ABG O2 Saturation ABG Base Excess -3.1 L ABG Hemoglobin 13.4 L Oxyhemoglobin Sodium Potassium Chloride Carbon Dioxide BUN Creatinine Glucose POC Glucose 203 H 190 H Hemoglobin A1c Calcium Magnesium Total Bilirubin AST ALT Troponin T NT-Pro-B Natriuret Pep Total Protein Albumin HDL Cholesterol 03/14/22 03/15/22 03/15/22 23:43 04:36 04:36 RBC Hgb Hct MCHC RDW Plt Count Lymph % (Auto) Lymph # (Auto) Seg Neutrophils % Seg Neuts % (Manual) Lymphocytes % (Manual) Nucleated RBC % Seg Neutrophils # Seg Neutrophils # Man Lymphocytes # (Manual) ABG pH ABG pO2 ABG HCO3 ABG O2 Saturation ABG Base Excess ABG Hemoglobin Oxyhemoglobin Sodium Potassium Chloride 109.8 H Carbon Dioxide 21 L BUN 100 H Creatinine 4.3 H Glucose 178 H POC Glucose 166 H Hemoglobin A1c 8.6 H Calcium Magnesium Total Bilirubin 1.50 H AST 136 H ALT 299 H Troponin T NT-Pro-B Natriuret Pep Total Protein 5.3 L Albumin 2.5 L HDL Cholesterol 03/15/22 03/15/22 03/15/22 11:25 16:15 21:30 RBC Hgb Hct MCHC RDW Plt Count Lymph % (Auto) Lymph # (Auto) Seg Neutrophils % Seg Neuts % (Manual) Lymphocytes % (Manual) Nucleated RBC % Seg Neutrophils # Seg Neutrophils # Man Lymphocytes # (Manual) ABG pH ABG pO2 ABG HCO3 ABG O2 Saturation ABG Base Excess ABG Hemoglobin Oxyhemoglobin Sodium Potassium Chloride Carbon Dioxide BUN Creatinine Glucose POC Glucose 199 H 192 H 207 H Hemoglobin A1c Calcium Magnesium Total Bilirubin AST ALT Troponin T NT-Pro-B Natriuret Pep Total Protein Albumin HDL Cholesterol 03/15/22 03/16/22 03/16/22 23:09 04:00 05:00 RBC Hgb Hct MCHC RDW Plt Count Lymph % (Auto) Lymph # (Auto) Seg Neutrophils % Seg Neuts % (Manual) Lymphocytes % (Manual) Nucleated RBC % Seg Neutrophils # Seg Neutrophils # Man Lymphocytes # (Manual) ABG pH ABG pO2 ABG HCO3 ABG O2 Saturation ABG Base Excess ABG Hemoglobin Oxyhemoglobin Sodium 148 H Potassium Chloride 110.3 H Carbon Dioxide BUN 111 H Creatinine 4.7 H Glucose 243 H POC Glucose 193 H 201 H Hemoglobin A1c Calcium 8.3 L Magnesium Total Bilirubin 1.50 H AST 72 H ALT 202 H Troponin T NT-Pro-B Natriuret Pep Total Protein 5.6 L Albumin 2.3 L HDL Cholesterol 03/16/22 03/16/22 06:00 Unknown RBC Hgb Hct MCHC RDW 19.9 H Plt Count 94 L Lymph % (Auto) Lymph # (Auto) Seg Neutrophils % Seg Neuts % (Manual) Lymphocytes % (Manual) Nucleated RBC % Seg Neutrophils # Seg Neutrophils # Man Lymphocytes # (Manual) ABG pH ABG pO2 111.9 H ABG HCO3 ABG O2 Saturation ABG Base Excess ABG Hemoglobin 13.4 L Oxyhemoglobin Sodium Potassium Chloride Carbon Dioxide BUN Creatinine Glucose POC Glucose Hemoglobin A1c Calcium Magnesium Total Bilirubin AST ALT Troponin T NT-Pro-B Natriuret Pep Total Protein Albumin HDL Cholesterol Assessment and Plan 56 yo male with htn, pe (?on xarelto at home), who presented with shortness of breath with noted oropharyngeal edema (requiring intubation) with nchct revealing age indeterminate infarct and/or "evolving infarct". 1. Acute / Subacute Ischemic Stroke (?embolic) - ASA 325 mg PO qday, MRI/A Brai n w/o contrast if ppm is mri compatible o/w repeat nhct in 24-48 hours, CTA Head/Neck w/ & w/o contrast if no contraindication (noted with low gfr), TTEcho, CUS, confirm LDL/TSH/Covid-19/UDS, agree w/ hypercoaguable workup (recommend hematology evaluation), telemetry, NIHSS q4 hours; SBP goal 160-200 mmHg and DBP 80-100 mmHg for 48 hours. Statin therapy for a goal LDL of 70, when patient passes swallow evaluation. PT/OT/ST/Swallow evaluation. Long-term risk-factor modification, including a strict diet/exercise regimen for secondary stroke prophylaxis. Stroke education prior to discharge. 2. Hypertension - goal SBP 160-200 mmHg and DBP 80-100 mmHg for 48 hours 3. Hyperlipidemia - goal LDL of 70 w/ statin therapy if no contraindications. 4. Dysarthria / Dysphagia - st / swallow evaluation/monitoring especially in the setting of oropharyngeal edema (?trigger per primary team). 5. Generalized weakness - pt/ot evaluation/monitoring. Bonifacio Braga MD Neurology [id number]
--- NOTE | 2022-03-16 12:35 | Progress Note ---
Assessment and Plan Patient is a 56-year-old male with a reported past medical history of hypertension, history of PE who was brought to the ED for evaluation due to shortness of breath Acute respiratory failure-pulmonology following SULEMAN on CKD-nephrology follow Acute on chronic HFrEF NSTEMI suspect type II AICD in situ History of PE anticoagulated on Xarelto Hypertension Echo 03/13/2022-EF 20 to 25%. Mild concentric LVH. Right ventricle is moderately dilated. Left atrium is moderately dilated. Right atrium is mildly dilated. Pacemaker lead present in right atrium. Mild mitral regurgitation. Mild tricuspid regurgitation. Mild to moderate pulmonary hypertension. Plan: Per conversation with staff patient was on milrinone as an outpatient and PICC line for milrinone. Furthermore per conversations patient follows Dr. Montoya. Records reviewed patient appears to have been on IV milrinone as an outpatient we will resume inotropic therapy with milrinone Due to renal function will defer volume management to nephrology Continue Coreg 25 mg p.o. twice daily Continue Xarelto to 15 mg p.o. daily for h/o pf PE Will hold statin due to elevated liver enzymes Patient seen in conjunction with Dr. Barboza who agrees with this plan of care 30 minutes of critical care time spent care coordination pain - Patient Problems (1) Acute hypoxemic respiratory failure Current Visit: Yes Status: Acute (2) Fluid overload Current Visit: Yes Status: Acute Qualifiers: Hypervolemia type: unspecified Qualified Code(s): E87.70 - Fluid overload, unspecified (3) Metabolic acidosis Current Visit: Yes Status: Acute (4) CHF (congestive heart failure) Current Visit: Yes Status: Acute Qualifiers: Heart failure type: systolic Heart failure chronicity: acute Qualified Code(s): I50.21 - Acute systolic (congestive) heart failure (5) History of pulmonary embolism Current Visit: Yes Status: Acute (6) Elevated liver function tests Current Visit: Yes Status: Acute Subjective Date of service: 03/16/22 Principal diagnosis: SULEMAN, acute on chronic HFrEF, acute respiratory failure Interval history: Patient remains intubated and unresponsive Sinus 60 to 70s with PVCs on monitor Objective Vital Signs Temp Pulse Pulse Pulse Resp Resp BP 03/16/22 12:00 99.3 F 61 61 29 H 120/67 03/16/22 11:00 65 19 114/68 03/16/22 10:00 63 18 151/84 03/16/22 09:00 64 24 151/84 03/16/22 08:41 68 24 03/16/22 08:00 98.7 F 68 63 26 H 142/89 03/16/22 07:00 61 24 127/70 03/16/22 06:00 65 24 125/86 03/16/22 05:00 62 27 H 126/69 03/16/22 04:00 62 62 25 H 120/68 03/16/22 03:51 99.3 F 03/16/22 03:34 62 122/60 03/16/22 03:00 64 33 H 134/80 03/16/22 02:00 63 27 H 118/76 03/16/22 01:00 64 30 H 119/69 03/16/22 00:00 97.3 F L 68 68 37 H 134/86 03/15/22 23:24 69 155/80 03/15/22 23:12 97.8 F 03/15/22 23:00 66 34 H 120/81 03/15/22 22:42 69 35 H 122/80 03/15/22 22:00 69 28 H 121/79 03/15/22 21:33 68 126/79 03/15/22 21:00 69 29 H 131/78 03/15/22 20:46 69 28 H 03/15/22 20:00 67 30 H 164/77 03/15/22 19:45 70 31 H 03/15/22 19:25 98.3 F 03/15/22 19:00 70 33 H 128/77 03/15/22 18:50 71 35 H 128/77 03/15/22 18:45 70 36 H 128/77 03/15/22 18:41 71 36 H 128/77 03/15/22 18:35 71 36 H 128/77 03/15/22 18:31 71 37 H 128/77 03/15/22 18:25 70 30 H 121/83 03/15/22 18:21 68 30 H 121/83 03/15/22 18:15 69 29 H 121/83 03/15/22 18:11 69 29 H 121/83 03/15/22 18:05 69 31 H 121/83 03/15/22 18:01 69 33 H 121/83 03/15/22 17:55 69 30 H 111/78 03/15/22 17:51 70 29 H 111/78 03/15/22 17:45 73 33 H 111/78 03/15/22 17:41 72 34 H 111/78 03/15/22 17:36 100.5 F H 03/15/22 17:35 73 34 H 111/78 03/15/22 17:31 72 34 H 111/78 03/15/22 17:25 73 35 H 114/87 03/15/22 17:21 74 37 H 114/87 03/15/22 17:15 73 36 H 114/87 03/15/22 17:11 73 36 H 114/87 03/15/22 17:06 03/15/22 17:05 73 36 H 114/87 03/15/22 17:00 71 35 H 114/87 03/15/22 16:34 101.3 F H 03/15/22 16:31 73 36 H 132/80 03/15/22 16:00 70 70 29 H 112/76 03/15/22 15:30 68 31 H 122/76 03/15/22 15:20 69 139/80 03/15/22 15:00 68 30 H 123/77 03/15/22 14:30 69 24 139/80 03/15/22 14:00 68 24 126/78 03/15/22 13:50 70 26 H 03/15/22 13:30 69 29 H 143/81 03/15/22 13:00 70 25 H 148/88 Pulse Ox 03/16/22 12:00 94 03/16/22 11:00 91 03/16/22 10:00 95 03/16/22 09:00 91 03/16/22 08:41 03/16/22 08:00 98 03/16/22 07:00 95 03/16/22 06:00 97 03/16/22 05:00 94 03/16/22 04:00 96 03/16/22 03:51 03/16/22 03:34 96 03/16/22 03:00 97 03/16/22 02:00 98 03/16/22 01:00 03/16/22 00:00 90 03/15/22 23:24 96 03/15/22 23:12 03/15/22 23:00 93 03/15/22 22:42 98 03/15/22 22:00 95 03/15/22 21:33 03/15/22 21:00 92 03/15/22 20:46 03/15/22 20:00 96 03/15/22 19:45 97 03/15/22 19:25 03/15/22 19:00 97 03/15/22 18:50 98 03/15/22 18:45 98 03/15/22 18:41 98 03/15/22 18:35 97 03/15/22 18:31 94 03/15/22 18:25 97 03/15/22 18:21 96 03/15/22 18:15 96 03/15/22 18:11 96 03/15/22 18:05 96 03/15/22 18:01 95 03/15/22 17:55 94 03/15/22 17:51 94 03/15/22 17:45 96 03/15/22 17:41 95 03/15/22 17:36 03/15/22 17:35 95 03/15/22 17:31 92 03/15/22 17:25 96 03/15/22 17:21 96 03/15/22 17:15 96 03/15/22 17:11 97 03/15/22 17:06 97 03/15/22 17:05 96 03/15/22 17:00 89 03/15/22 16:34 03/15/22 16:31 90 03/15/22 16:00 88 03/15/22 15:30 89 03/15/22 15:20 95 03/15/22 15:00 88 03/15/22 14:30 87 03/15/22 14:00 86 03/15/22 13:50 03/15/22 13:30 87 03/15/22 13:00 88 - Physical Examination General: Other (Intubated and sedated) HEENT: Positive: Mucus Membranes Moist Neck: Positive: trachea midline Cardiac: Positive: Reg Rate and Rhythm Lungs: Positive: Decreased Breath Sounds Neuro: Positive: Other (Unable to assess) Abdomen: Positive: Soft Skin: Negative: Rash, Suspicious Lesions, Ulceration Extremities: Present: upper extr. pulses, edema - Labs and Meds Cardiac Enzymes 03/16/22 Range/Units 04:00 AST 72 H (5-40) units/L CBC 03/16/22 Range/Units Unknown WBC 8.8 (4.5-11.0) K/mm3 RBC 4.65 (3.65-5.03) M/mm3 Hgb 13.5 (11.8-15.2) gm/dl Hct 40.9 (35.5-45.6) % Plt Count 94 L (140-440) K/mm3 Comprehensive Metabolic Panel 03/16/22 Range/Units 04:00 Sodium 148 H (137-145) mmol/L Potassium 4.7 (3.6-5.0) mmol/L Chloride 110.3 H (98-107) mmol/L Carbon Dioxide 24 (22-30) mmol/L BUN 111 H (9-20) mg/dL Creatinine 4.7 H (0.8-1.3) mg/dL Glucose 243 H (75-100) mg/dL Calcium 8.3 L (8.4-10.2) mg/dL AST 72 H (5-40) units/L ALT 202 H (7-56) units/L Alkaline Phosphatase 107 (35-129) units/L Total Protein 5.6 L (6.3-8.2) g/dL Albumin 2.3 L (3.9-5) g/dL - Imaging and Cardiology Echo: report reviewed - Telemetry EKG Rhythm: Sinus Rhythm - EKG Sinus rhythms and dysrhythmias: sinus rhythm AV and intraventricular conduction: left anterior fascicular - Allied health notes Allied health notes reviewed: nursing
[2022-03-16] MEDS: MILRINONE-D5W 20 MG/100 ML 20 MG/100 ML BAG IV SCH ×2 (12:44→20:32)
--- NOTE | 2022-03-16 13:02 | Ultrasound Report ---
ULTRASOUND RENAL INDICATION: SULEMAN. COMPARISON: No relevant prior imaging study available. FINDINGS: RIGHT KIDNEY: Size: 10.4 cm. Echogenicity: Normal. Cortical thickness: Normal. Stones: None. Hydronephrosis: None. Cyst or mass: None. LEFT KIDNEY: Size: 15.6 cm. Echogenicity: Normal. Cortical thickness: Normal. Stones: None. Hydronephrosis: None. Cyst or mass: None. Urinary Bladder: No significant abnormality. Free Fluid: None. Additional Findings: None. IMPRESSION 1. No acute sonographic abnormality of the kidneys. Relative enlargement of the left kidney compared with the right, of uncertain clinical significance. Signer Name: Luis Alvarado MD Signed: 03/16/2022 12:58 PM Workstation Name: [id number]
--- NOTE | 2022-03-16 14:45 | Progress Note ---
Assessment and Plan Assessment and plan: This is a 56-year-old male with OHS, HTN, PE on therapeutic anticoagulation, CHF and AICD and still admitted with acute on chronic CHF decompensation metabolic acidosis, fluid overload, transaminitis, acute hypoxic respiratory failure and acute kidney injury Neuro: Acute metabolic encephalopathy, CVA -Sedated with fentanyl gtt -RASS goal 0 to -1 -Reorientation as needed -Maintain sleep-wake cycle -As needed analgesia -CT head shows diffuse cerebral atrophy, 3.4 cm rounded fluid density structure located along the medial anterior aspect of the left temporal lobe most likely arachnoid cyst, evolving cerebral infarct right greater than left (age indeterminant), no evidence of hemorrhage -Neurology and neurosurgery consulted, appreciate recommendations -MRI brain unable to be completed d/t AICD -MRA head/neck unable to be completed d/t AICD, CTA unable to be obtained d/t renal function -Bilateral carotid US with less than 50% stenosis in Bilateral carotid arteries -TSH, lipid panel noted -Lipitor holding re elevated LFTs, Aspirin/plavix -PT/OT/ST eval requested Cardiac: Acute on chronic heart failure with reduced EF, NSTEMI suspect type II, h/o HTN, AICD -Cardiology consulted, appreciate recommendations -Blood pressure monitoring per protocol -Antihypertension regimen with Coreg 25 mg BID -Per family: outpatient milrinone through PICC -Cards will resume milrinone gtt -IV hydral PRN -Echocardiogram shows LVEF 20 to 25%, mild concentric LVH, mild to moderate pulm hypertension -Hold statin in setting of transaminitis Respiratory: Acute hypoxic respiratory failure, h/o PE on Xarelto -CCM consulted, appreciate recommendations -Intubated on 03/13 with 7.5 OETT at 24 at the lips -A.m. vent settings: AC TV 450/Rate 24/ Peep 10/ FiO2 40% -See RT notes for titration -A.m. ABG and CXR noted -VAP bundle -SPO2 monitoring GI: Morbid obesity, transaminitis (improving) -24 hours + 650 mL -PPI -NTR consulted for tube feedings -BR: Senokot S -03/15 abdominal ultrasound shows hepatomegaly with hepatic steatosis, gallbladder sludge without sonographic evidence of acute cholecystitis -Trend LFTs : Acute kidney injury with possible underlying CKD, hyperchloremic, uremia, hy ponatremia -Nephrology consulted, appreciate recommendations -s/p lasix 80mg 03/14, 03/15 40 mg lasix-> Bumex -Monitor intake and output -Renally dose medications -Avoid nephrotoxic medications -Urine electrolytes pending -Renal ultrasound cancelled -Trend BMP ID: NAD -f/u sputum culture -Monitor WBC and temperature curve Endo: h/o DM -Hold home Novolin 70/30 100 units twice daily -Avoid hypoglycemia -SSI -Accu-Cheks q. 6 -Lantus added, titrate as needed -Hemoglobin A1c 8.6 Heme: NAD -Trend CBC -Transfuse hemoglobin less than 7 -SCDs to BLE while in bed -Continue home Xarelto The high probability of a clinically significant, sudden or life threatening deterioration of the [multi] system(s) required my full and direct attention, intervention and personal management. The aggregate critical care time was [90] minutes. This time is in addition to time spent performing reported procedures but includes the following: [x] Data Review and interpretation [x] Patient assessment and monitoring of vital signs [x] Documentation [x] Medication orders and management Disposition Plan: icu Total Time Spent with Patient (Minutes): 60 History Interval history: This is a 56-year-old male with OHS, HTN, PE on therapeutic anticoagulation with Xarelto, CHF and AICD in situ who presented to emergency department on 03/13 with complaints of shortness of breath over the past 2 days with worsening symptoms over the past day via EMS. Per documentation patient had last hemodialysis session on 03/08. Patient was emergently intubated in the emergency department as he was found to have some oropharyngeal edema and inability to protect his airway and found to have a pulse ox of 89%. 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 Patient was admitted to the hospital service with acute CHF decompensation, metabolic acidosis, fluid overload, transaminitis, acute kidney injury and acute hypoxic respiratory failure with consults to [facility], cardiology and nephrology. Hospital course to date: 03/14: Cardiology discontinued hydralazine, hydrochlorothiazide and clonidine due to soft blood pressures this morning and would like to continue Coreg and decreased Xarelto. Nephrology ordered a one-time dose of Lasix 80 mg. Patient remains intubated. This evening patient was becoming hypertensive and as needed hydralazine added. Unable to confirm if patient is on outpatient hemodialysis as does not know and current chest access appears to be PICC line. 03/15: Family stated that patient had milrinone infusion through PICC line, hemodialysis approximately 8 years ago. Nephrology administered additional Lasix today. We will continue to monitor renal function. CCM made vent changes. Daughter and updated extensively at bedside by nurse practitioner. 03/16: Worsening renal function however no urgent need for indication for nephrology. Diuretics changed to Bumex. Neurology ordered a CTA head/neck (not ordered yesterday due to renal function, MRA not ordered due to pacemaker) and nephrology has okayed the use of dye per RN however testing still pending as radiology states patient will need hemodialysis postcontrast. RN paged telemetry neurology. Cardiology will restart IV milrinone. Hospitalist Physical - Constitutional Vitals: Temp Pulse Resp BP Pulse Ox 99.3 F 74 29 H 113/57 91 03/16/22 12:00 03/16/22 14:00 03/16/22 14:00 03/16/22 14:00 03/16/22 14:00 General appearance: Present: no acute distress, other (Intubated and sedated) - EENT Eyes: Present: PERRL, EOM intact ENT: dentition normal, hearing decreased - Neck Neck: Present: normal ROM - Respiratory Respiratory effort: normal Respiratory: bilateral: diminished - Cardiovascular Rhythm: regular Heart Sounds: Present: S1 & S2. Absent: systolic murmur, diastolic murmur - Extremities Extremities: no ischemia, pulses intact, pulses symmetrical, normal temperature, normal color Extremity abnormal: edema Peripheral Pulses: within normal limits - Abdominal General gastrointestinal: soft, non-tender, non-distended, normal bowel sounds - Integumentary Integumentary: Present: warm, dry - Psychiatric Psychiatric: other - Neurologic Neurologic: other (awaken to verbal stimuli, response to painful stimuli to BLE, does not follow commands, intact cough/gag reflex) - Allied Health Allied health notes reviewed: nursing, RT, social work HEART Score - HEART Score Troponin: Troponin T 0.176 ng/mL (0.00-0.029) H* 03/13/22 15:44 Results - Labs CBC & Chem 7: 03/16/22 Unknown 03/16/22 04:00 Labs: Laboratory Last Values WBC 8.8 K/mm3 (4.5-11.0) 03/16/22 Unknown RBC 4.65 M/mm3 (3.65-5.03) 03/16/22 Unknown Hgb 13.5 gm/dl (11.8-15.2) 03/16/22 Unknown Hct 40.9 % (35.5-45.6) 03/16/22 Unknown MCV 88 fl (84-94) 03/16/22 Unknown MCH 29 pg (28-32) 03/16/22 Unknown MCHC 33 % (32-34) 03/16/22 Unknown RDW 19.9 % (13.2-15.2) H 03/16/22 Unknown Plt Count 94 K/mm3 (140-440) L 03/16/22 Unknown Lymph % (Auto) 4.7 % (13.4-35.0) L 03/14/22 04:50 [place] % (Auto) 5.6 % (0.0-7.3) 03/14/22 04:50 Eos % (Auto) 0.1 % (0.0-4.3) 03/14/22 04:50 Baso % (Auto) 0.1 % (0.0-1.8) 03/14/22 04:50 Lymph # (Auto) 0.5 K/mm3 (1.2-5.4) L 03/14/22 04:50 [place] # (Auto) 0.5 K/mm3 (0.0-0.8) 03/14/22 04:50 Eos # (Auto) 0.0 K/mm3 (0.0-0.4) 03/14/22 04:50 Baso # (Auto) 0.0 K/mm3 (0.0-0.1) 03/14/22 04:50 Add Manual Diff Complete 03/13/22 15:44 Total Counted 100 03/13/22 15:44 Seg Neutrophils % 89.5 % (40.0-70.0) H 03/14/22 04:50 Seg Neuts % (Manual) 93.0 % (40.0-70.0) H 03/13/22 15:44 Band Neutrophils % 1.0 % 03/13/22 15:44 Lymphocytes % (Manual) 3.0 % (13.4-35.0) L 03/13/22 15:44 Reactive Lymphs % (Man) 0 % 03/13/22 15:44 Monocytes % (Manual) 2.0 % (0.0-7.3) 03/13/22 15:44 Eosinophils % (Manual) 0 % (0.0-4.3) 03/13/22 15:44 Basophils % (Manual) 0 % (0.0-1.8) 03/13/22 15:44 Metamyelocytes % 1.0 % 03/13/22 15:44 Myelocytes % 0 % 03/13/22 15:44 Promyelocytes % 0 % 03/13/22 15:44 Blast Cells % 0 % 03/13/22 15:44 Nucleated RBC % 1.0 % (0.0-0.9) H 03/13/22 15:44 Seg Neutrophils # 8.5 K/mm3 (1.8-7.7) H 03/14/22 04:50 Seg Neutrophils # Man 10.1 K/mm3 (1.8-7.7) H 03/13/22 15:44 Band Neutrophils # 0.1 K/mm3 03/13/22 15:44 Lymphocytes # (Manual) 0.3 K/mm3 (1.2-5.4) L 03/13/22 15:44 Abs React Lymphs (Man) 0.0 K/mm3 03/13/22 15:44 Monocytes # (Manual) 0.2 K/mm3 (0.0-0.8) 03/13/22 15:44 Eosinophils # (Manual) 0.0 K/mm3 (0.0-0.4) 03/13/22 15:44 Basophils # (Manual) 0.0 K/mm3 (0.0-0.1) 03/13/22 15:44 Metamyelocytes # 0.1 K/mm3 03/13/22 15:44 Myelocytes # 0.0 K/mm3 03/13/22 15:44 Promyelocytes # 0.0 K/mm3 03/13/22 15:44 Blast Cells # 0.0 K/mm3 03/13/22 15:44 WBC Morphology Not Reportable 03/13/22 15:44 Hypersegmented Neuts Not Reportable 03/13/22 15:44 Hyposegmented Neuts Not Reportable 03/13/22 15:44 Hypogranular Neuts Not Reportable 03/13/22 15:44 Smudge Cells Not Reportable 03/13/22 15:44 Toxic Granulation Not Reportable 03/13/22 15:44 Toxic Vacuolation Not Reportable 03/13/22 15:44 Dohle Bodies Not Reportable 03/13/22 15:44 Pelger-Huet Anomaly Not Reportable 03/13/22 15:44 Tyson Rods Not Reportable 03/13/22 15:44 Platelet Estimate Consistent w auto 03/13/22 15:44 Clumped Platelets Not Reportable 03/13/22 15:44 Plt Clumps, EDTA Not Reportable 03/13/22 15:44 Large Platelets Not Reportable 03/13/22 15:44 Giant Platelets Not Reportable 03/13/22 15:44 Platelet Satelliting Not Reportable 03/13/22 15:44 Plt Morphology Comment Not Reportable 03/13/22 15:44 RBC Morphology Not Reportable 03/13/22 15:44 Dimorphic RBCs Not Reportable 03/13/22 15:44 Polychromasia Few 03/13/22 15:44 Hypochromasia Not Reportable 03/13/22 15:44 Poikilocytosis Not Reportable 03/13/22 15:44 Anisocytosis Not Reportable 03/13/22 15:44 Microcytosis Not Reportable 03/13/22 15:44 Macrocytosis Not Reportable 03/13/22 15:44 Spherocytes Not Reportable 03/13/22 15:44 Pappenheimer Bodies Not Reportable 03/13/22 15:44 Sickle Cells Not Reportable 03/13/22 15:44 Target Cells Not Reportable 03/13/22 15:44 Tear Drop Cells Not Reportable 03/13/22 15:44 Ovalocytes Not Reportable 03/13/22 15:44 Helmet Cells Not Reportable 03/13/22 15:44 Sesay-Brackenridge Bodies Not Reportable 03/13/22 15:44 [place] Rings Not Reportable 03/13/22 15:44 Azael Cells 1+ 03/13/22 15:44 Bite Cells Not Reportable 03/13/22 15:44 Crenated Cell Not Reportable 03/13/22 15:44 Elliptocytes Few 03/13/22 15:44 Acanthocytes (Spur) Not Reportable 03/13/22 15:44 Rouleaux Not Reportable 03/13/22 15:44 Hemoglobin C Crystals Not Reportable 03/13/22 15:44 Schistocytes Not Reportable 03/13/22 15:44 Malaria parasites Not Reportable 03/13/22 15:44 Rashaad Bodies Not Reportable 03/13/22 15:44 Hem Pathologist Commnt No 03/13/22 15:44 ABG pH 7.374 pH Units (7.350-7.450) 03/16/22 06:00 ABG pCO2 40.8 mm Hg 03/16/22 06:00 ABG pO2 111.9 mm Hg (80.0-90.0) H 03/16/22 06:00 ABG HCO3 23.3 mmol/L (20.0-26.0) 03/16/22 06:00 ABG O2 Saturation 98.0 % (95.0-99.0) 03/16/22 06:00 ABG O2 Content 18.2 (0.0-44) 03/16/22 06:00 ABG Base Excess -1.8 mmol/L (-2.0-3.0) 03/16/22 06:00 ABG Hemoglobin 13.4 gm/dl (14.0-18.0) L 03/16/22 06:00 ABG Carboxyhemoglobin 1.4 % (0.0-5.0) 03/16/22 06:00 ABG Methemoglobin 0.5 % (0.0-1.5) 03/16/22 06:00 Oxyhemoglobin 96.1 % (95.0-99.0) 03/16/22 06:00 FiO2 50 % 03/16/22 06:00 Sodium 148 mmol/L (137-145) H 03/16/22 04:00 Potassium 4.7 mmol/L (3.6-5.0) 03/16/22 04:00 Chloride 110.3 mmol/L (98-107) H 03/16/22 04:00 Carbon Dioxide 24 mmol/L (22-30) 03/16/22 04:00 Anion Gap 18 mmol/L 03/16/22 04:00 BUN 111 mg/dL (9-20) H 03/16/22 04:00 Creatinine 4.7 mg/dL (0.8-1.3) H 03/16/22 04:00 Estimated GFR 16 ml/min 03/16/22 04:00 BUN/Creatinine Ratio 24 % 03/16/22 04:00 Glucose 243 mg/dL (75-100) H 03/16/22 04:00 POC Glucose 209 mg/dL (70-105) H 03/16/22 11:48 Hemoglobin A1c 8.6 % (4-6) H 03/15/22 04:36 Calcium 8.3 mg/dL (8.4-10.2) L 03/16/22 04:00 Magnesium 2.50 mg/dL (1.7-2.3) H 03/13/22 20:33 Total Bilirubin 1.50 mg/dL (0.1-1.2) H 03/16/22 04:00 AST 72 units/L (5-40) H 03/16/22 04:00 ALT 202 units/L (7-56) H 03/16/22 04:00 Alkaline Phosphatase 107 units/L (35-129) 03/16/22 04:00 Troponin T 0.176 ng/mL (0.00-0.029) H* 03/13/22 15:44 NT-Pro-B Natriuret Pep 95530 pg/mL (0-900) H 03/13/22 15:44 Total Protein 5.6 g/dL (6.3-8.2) L 03/16/22 04:00 Albumin 2.3 g/dL (3.9-5) L 03/16/22 04:00 Albumin/Globulin Ratio 0.7 % 03/16/22 04:00 Triglycerides 98 mg/dL (2-149) 03/13/22 15:44 Cholesterol 99 mg/dL (50-199) 03/13/22 15:44 LDL Cholesterol Direct 59 mg/dL (50-130) 03/13/22 15:44 HDL Cholesterol 24 mg/dL (40-59) L 03/13/22 15:44 Cholesterol/HDL Ratio 4.12 % 03/13/22 15:44 TSH 0.362 mlU/mL (0.270-4.200) 03/15/22 04:36 Free T4 1.24 ng/dL (0.76-1.46) 03/13/22 20:33 Urine Color Straw (Yellow) 03/14/22 16:25 Urine Turbidity Clear (Clear) 03/14/22 16:25 Urine pH 5.0 (5.0-7.0) 03/14/22 16:25 Ur Specific [place] 1.015 (1.003-1.030) 03/14/22 16:25 Urine Protein 30 mg/dl mg/dL (Negative) 03/14/22 16:25 Urine Glucose (UA) Negative mg/dL (Negative) 03/14/22 16:25 Urine Ketones Trace mg/dL (Negative) 03/14/22 16:25 Urine Blood 1+ (Negative) 03/14/22 16:25 Urine Nitrite Negative (Negative) 03/14/22 16:25 Ur Reducing Substances Not Reportable 03/14/22 16:25 Urine Bilirubin Negative (Negative) 03/14/22 16:25 Urine Ictotest Not Reportable 03/14/22 16:25 Urine Urobilinogen < 2.0 mg/dL (<2.0) 03/14/22 16:25 Ur Leukocyte Esterase Negative (Negative) 03/14/22 16:25 Urine WBC (Auto) 6.0 /HPF (0.0-6.0) 03/14/22 16:25 Urine RBC (Auto) 82.0 /HPF (0.0-6.0) 03/14/22 16:25 U Epithel Cells (Auto) 1.0 /HPF (0-13.0) 03/14/22 16:25 Urine Bacteria (Auto) 1+ /HPF (Negative) 03/14/22 16:25 Urine Mucus Few /HPF 03/14/22 16:25 Hepatitis A IgM Ab Non-reactive (NonReactive) 03/14/22 10:12 Hep Bs Antigen Non-reactive (Negative) 03/14/22 10:12 Hep B Core IgM Ab Non-reactive (NonReactive) 03/14/22 10:12 Hepatitis C Antibody Non-reactive (NonReactive) 03/14/22 10:12 Anguiano/IV: Voiding Method Indwelling Catheter Active Medications - Current Medications Current Medications: Generic Name Dose Route Start Last Admin Trade Name Freq PRN Reason Stop Dose Admin Acetaminophen 650 mg 03/13/22 17:18 03/15/22 16:39 Acetaminophen 325 Mg Tab PO 650 mg Q6H PRN Administration Pain MILD(1-3)/Fever >100.5/FLORES Albumin Human 25 gm 03/13/22 18:43 Albumin Human 25% (25 Gm/100 Ml) Inj IV GLADYS PRN Hypotension Albuterol 2.5 mg 03/13/22 17:18 Albuterol 2.5 Mg/3 Ml Nebu IH Q3HRT PRN Shortness Of Breath Albuterol/Ipratropium 1 ampul 03/15/22 12:00 03/16/22 08:17 Ipratropium/Albuterol Sulfate 3 Ml Ampul.Neb IH 1 ampul Q12HRT YRIS Administration Aspirin 81 mg 03/14/22 10:00 03/16/22 09:43 Aspirin 81 Mg Tab Chew PO 81 mg QDAY YRIS Administration Bumetanide 1 mg 03/16/22 18:00 Bumetanide 1 Mg/4 Ml Inj IV BID@0600,1800 YRIS Carvedilol 25 mg 03/13/22 22:00 03/16/22 09:44 Carvedilol 25 Mg Tab PO 25 mg BID YRIS Administration Clopidogrel Bisulfate 75 mg 03/15/22 11:00 03/16/22 09:44 Clopidogrel 75 Mg Tab FEEDTUBE 75 mg QDAY YRIS Administration Dextrose 50 ml 03/14/22 12:30 Dextrose 50% In Water (25gm) 50 Ml Syringe IV Q30MIN PRN Hypoglycemia Protocol Famotidine 10 mg 03/14/22 22:00 03/16/22 09:43 Famotidine 10 Mg Tab FEEDTUBE 10 mg BID YRIS Administration Fentanyl 50 mcg 03/14/22 11:20 03/16/22 00:19 Fentanyl 100 Mcg/2 Ml Inj IV 50 mcg Q10MIN PRN Administration ANALGESIA Hydralazine HCl 10 mg 03/14/22 15:57 Hydralazine 20 Mg/1 Ml Inj IV Q4HR PRN Hypertension Hydromorphone HCl 0.5 mg 03/13/22 17:18 03/13/22 21:30 Hydromorphone 0.5 Mg/0.5 Ml Inj IV 0.5 mg Q13H PRN Administration Pain , Severe (7-10) Sodium Chloride 100 mls @ 999 mls/hr 03/13/22 18:42 Nacl 0.9% IV GLADYS PRN Hypotension Fentanyl Citrate 2,000 mcg in 100 mls @ 7.095 mls/hr 03/14/22 12:00 Fentanyl Drip Premix IV TITR YRIS Protocol 1 MCG/KG/HR Milrinone Lactate/Dextrose 20 mg in 100 mls @ 11.6 mls/hr 03/16/22 13:00 12:44 Milrinone-D5w 20 Mg/100 Ml IV 0.275 mcg/kg/min DIRECT YRIS 11.6 mls/hr Administration Protocol 0.275 MCG/KG/MIN Insulin Glargine 10 units 03/15/22 22:00 03/15/22 21:33 Insulin Glargine 100 Units/Ml SUB-Q 10 units QHS YRIS Administration Insulin Human Regular 0 units 03/14/22 13:00 03/16/22 12:21 Insulin Regular, Human 100 Units/1 Ml SUB-Q 3 units Q6HR YRIS Administration Protocol Oxycodone/Acetaminophen 1 tab 03/13/22 17:18 Oxycodone /Acetaminophen 5-325mg Tab PO Q16H PRN Pain, Moderate (4-6) Rivaroxaban 15 mg 03/14/22 10:29 03/16/22 09:44 Rivaroxaban 15 Mg Tab PO 15 mg QDDIAB YRIS Administration Senna/Docusate Sodium 1 tab 03/14/22 22:00 03/15/22 21:33 Sennosides/Docusate Sodium 8.6/50 Mg Tab FEEDTUBE 1 tab QHS YRIS Administration Sodium Bicarbonate 650 mg 03/16/22 06:00 03/16/22 13:44 Sodium Bicarbonate 650 Mg Tab PO 650 mg Q8HR YRIS Administration Sodium Chloride 10 ml 03/13/22 22:00 03/16/22 09:43 Sodium Chloride 0.9% 10 Ml Flush Syringe IV 10 ml BID YRIS Administration Sodium Chloride 10 ml 03/13/22 17:18 Sodium Chloride 0.9% 10 Ml Flush Syringe IV PRN PRN LINE FLUSH Nutrition/Malnutrition Assess - Dietary Evaluation Nutrition/Malnutrition Findings: Nutrition Notes Start: 03/14/22 09:54 Freq: Status: Active Protocol: Document 03/16/22 10:04 VICTORIA (Rec: 03/16/22 10:27 VICTORIA [id number]) Nutrition Notes Initial or Follow up Brief Note Current Diagnosis Acute Kidney Injury,CKD(stage I-IV),Diabetes,Hypertension, Respiratory Failure,Stroke Other Pertinent Diagnosis ESRD+HD, Pulmonary Embolism, Fluid Overload, Metabolic Acidosis, CHF... Current Diet TF-Nepro w/CARBSTEADY @ 50 ml/ hr (from L 03/14). Labs/Tests 03/16: Na 148, Cl 110.3, BUN 111, Crea 4.7, Glu 243, Ca 8.3 , HbA1c 8.6%. Pertinent Medications 03/16: Lantus 10U, Humulin R 3U, others nutritionally unremarkable. Height 5 ft 11 in Weight 140.6 kg Carpio Body Weight (kg) 78.18 BMI 43.2 Weight change and time frame 1.3 Kg body weight loss in 2 days reported. Weight Status Morbidly Obese Subjective/Other Information RD consult for routine F/U on TF tolerance/continuation. TF continues as prescribed, and well tolerated, according to RN notes. Pt remains on Mechanical Ventilation, O2 saturation @ 98%, according to Physical Assessment History notes. Pt has not had a BM since , according to Physical Assessment History notes. Percent of energy/protein needs met: Prescribed TF-Nepro w/ CARBSTEADY @ 50 ml/hr provides for energy/protein needs (2, 180 Kcal/98 g) during LOS, 102 % Kcal; 74% AA. #1 Nutrition Diagnosis Inadequate oral intake Diagnosis Progress(for reassessment Continues documentation) Is patient on ventilator? Yes Is Patient Ambulatory and/or Out of Bed No REE-([facility]-confined to bed) 2725.248 Kcal/Kg value to use for calculation 15 Approximate Energy Requirements Using 2109 kcal/Kg Calculation Used for Recommendations Kcal/kg Additional Notes Protein: >1.2 g/Kg AdjBW; >132 g/day. Fluids: 1 ml/Kcal, or as per MD. Nutrition Intervention Nutrition Support: Continue TF-Nepro w/CARBSTEADY @ 50 ml/hr. Flush: 200 ml water Q 4 hr,or as per MD. Kcal 2,180 Protein (gm) 98 Carbohydrates (gm) 195 Fat (gm) 116 Fluid (mL) 880 Fiber (gm) 15 % RDI: 102% Kcal; 74% AA. Goal #1 Provide at least 75% of energy /protein needs through Enteral Feeding during LOS. Follow-Up By: 03/23/22 Additional Comments Continue monitoring TF tolerance and BM.
--- NOTE | 2022-03-16 17:10 | Progress Note ---
Assessment and Plan -Acute hypoxic respiratory failure on MVS -h/o PE on Xarelto -Acute metabolic encephalopathy, CVA -Acute on chronic heart failure with reduced EF - NSTEMI suspect type II, h/o HTN, AICD -Morbid obesity BMI 43 -Transaminitis (improving) -Acute kidney injury with possible underlying CKD, -Hyperchloremic, uremia, hyponatremia - h/o DM -Thrombocytopenia -CTA brain (pending) -2D ECHO reveals HFrEF of 20-25% (was on home Milrinone) -Diuresis per nephrology team- changed Furosemide to Bumetanide today -Edwards catheter in for strict Is and Os. Plan to change to condom cath - continue to titrate supplemental oxygen to keep SpO2 89-92% - VAP bundle addressed, aspiration precautions - continue lung protective strategies-keep PEEP at 10 to help with heart failure -CXR,ABG as clinically indicated - continue bronchodilators with pulmonary hygiene per RT - wean per pulmonary driven protocols otherwise - avoid nephrotoxins, renally dose all medications - continue daily assessment for readiness to wean - continue accuchecks with glycemic control per SSI (While critically ill target blood glucose of 140-180 mg/dL; avoid hypoglycemia) - continue to avoid benzodiazepines, reduce the possibility of delirium -Trend temperature curve and WCC, continue to monitor off antibiotics for now - prn analgesia per CPOT score - Maintenance of sleep-wake cycle, avoid delirium - continue enteral nutritional support at goal rate as tolerated - VTE prophylaxis- on Rivaroxaban for h/o PE -Stress ulcer prophylaxis- Famotidine -continue mobility , off loading per facility protocol for pressure ulcer prevention - Monitor hemodynamics closely, trend platelets -Supportive transfusions as clinically indicated to keep HgB >7g/dL - continue other care per attending / other consultants COVID SPECIFIC INTERVENTIONS - COVID-19 PCR negative CONDITION: CRITICAL PROGNOSIS: GUARDED CODE STATUS: FULL CODE The high probability of a clinically significant, sudden or life-threatening deterioration of the [respiratory, cardiovascular, neurologic] system(s) required my full and direct attention, intervention and personal management. The aggregate critical care time was [33] minutes without overlap. 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, acute on chronic HFrEF, acute respiratory failure Interval history: This is a 56-year-old male with OHS, HTN, PE on therapeutic anticoagulation, CHF and AICD and still admitted with acute on chronic CHF decompensation metabolic acidosis, fluid overload, transaminitis, acute hypoxic respiratory failure and acute kidney injury Seen and examined at bedside; 24hour events reviewed; nursing and respiratory care staff consulted; no adverse overnight events reported to me; resting in bed; remains on MVS ACVC- 450/24/+ 10/40% ; no emesis or overt aspiration; secretions moderate Daughter visiting at the bedside Objective Vital Signs - 12hr 03/16/22 03/16/22 03/16/22 06:00 07:00 08:00 Temperature 98.7 F Pulse Rate 65 61 68 Pulse Rate [ Bilateral Throughout] Pulse Rate [ 63 From Monitor] Respiratory 24 24 26 H Rate Respiratory Rate [Bilateral Throughout] Blood Pressure 125/86 127/70 142/89 O2 Sat by Pulse 97 95 98 Oximetry 03/16/22 03/16/22 03/16/22 08:41 09:00 10:00 Temperature Pulse Rate 64 63 Pulse Rate [ 68 Bilateral Throughout] Pulse Rate [ From Monitor] Respiratory 24 18 Rate Respiratory 24 Rate [Bilateral Throughout] Blood Pressure 151/84 151/84 O2 Sat by Pulse 91 95 Oximetry 03/16/22 03/16/22 03/16/22 11:00 12:00 12:45 Temperature 99.3 F Pulse Rate 65 61 61 Pulse Rate [ Bilateral Throughout] Pulse Rate [ 61 From Monitor] Respiratory 19 29 H Rate Respiratory Rate [Bilateral Throughout] Blood Pressure 114/68 120/67 120/67 O2 Sat by Pulse 91 94 94 Oximetry 03/16/22 03/16/22 03/16/22 13:00 14:00 15:00 Temperature Pulse Rate 66 74 72 Pulse Rate [ Bilateral Throughout] Pulse Rate [ From Monitor] Respiratory 34 H 29 H 31 H Rate Respiratory Rate [Bilateral Throughout] Blood Pressure 114/69 113/57 105/53 O2 Sat by Pulse 92 91 91 Oximetry 03/16/22 03/16/22 03/16/22 15:13 15:19 16:00 Temperature 98.8 F Pulse Rate 70 Pulse Rate [ Bilateral Throughout] Pulse Rate [ 71 From Monitor] Respiratory 38 H 38 H 93 H Rate Respiratory Rate [Bilateral Throughout] Blood Pressure 115/43 O2 Sat by Pulse 94 Oximetry 03/16/22 03/16/22 16:38 17:00 Temperature Pulse Rate 71 76 Pulse Rate [ Bilateral Throughout] Pulse Rate [ From Monitor] Respiratory 33 H Rate Respiratory Rate [Bilateral Throughout] Blood Pressure 115/43 115/47 O2 Sat by Pulse 95 89 Oximetry Constitutional: other (middle aged morbidly obese male with mildly increased respiratory effort at rest on MVS) Eyes: non-icteric ENT: oropharynx moist, other (ETT 24 cm PRESLEY) Neck: supple, no lymphadenopathy, no JVD, other (large circumference) Effort: mildly labored, other (anterior left chest wall tunnelled PICC line) Ascultation: Bilateral: diminished breath sounds, rales Percussion: Bilateral: not dull Cardiovascular: regular rate and rhythm, other (S1,S2) Gastrointestinal: normoactive bowel sounds, soft, non-tender, non-distended (protuberant) Integumentary: normal Extremities: no cyanosis, pulses normal, no ischemia or petechiae, edema (2+) Neurologic: non-focal exam (grossly), pupils equal and round (3mm), unable to assess Psychiatric: other (unable to assess re: AMS) CBC and BMP: 03/17/22 04:17 03/17/22 04:17 ABG, PT/INR, D-dimer: ABG ABG pH 7.374 pH Units (7.350-7.450) 03/16/22 06:00 ABG pCO2 40.8 mm Hg 03/16/22 06:00 ABG pO2 111.9 mm Hg (80.0-90.0) H 03/16/22 06:00 ABG O2 Saturation 98.0 % (95.0-99.0) 03/16/22 06:00 Abnormal lab findings: Abnormal Labs 03/13/22 03/13/22 03/13/22 15:44 15:44 16:15 RBC 5.42 H Hgb 15.4 H Hct 48.1 H MCHC RDW 19.7 H Plt Count Lymph % (Auto) Lymph # (Auto) Seg Neutrophils % Seg Neuts % (Manual) 93.0 H Lymphocytes % (Manual) 3.0 L Nucleated RBC % 1.0 H Seg Neutrophils # Seg Neutrophils # Man 10.1 H Lymphocytes # (Manual) 0.3 L ABG pH 7.281 L ABG pO2 73.5 L ABG HCO3 16.6 L ABG O2 Saturation 92.5 L ABG Base Excess -9.2 L ABG Hemoglobin Oxyhemoglobin 90.4 L Sodium Potassium Chloride Carbon Dioxide 17 L BUN 78 H Creatinine 3.6 H Glucose 135 H POC Glucose Hemoglobin A1c Calcium Magnesium Total Bilirubin 2.50 H AST 363 H ALT 430 H Troponin T 0.176 H* NT-Pro-B Natriuret Pep 54709 H Total Protein Albumin 3.6 L HDL Cholesterol 24 L 03/13/22 03/13/22 03/14/22 20:04 20:33 00:23 RBC Hgb Hct MCHC RDW Plt Count Lymph % (Auto) Lymph # (Auto) Seg Neutrophils % Seg Neuts % (Manual) Lymphocytes % (Manual) Nucleated RBC % Seg Neutrophils # Seg Neutrophils # Man Lymphocytes # (Manual) ABG pH 7.339 L ABG pO2 259.5 H ABG HCO3 16.3 L ABG O2 Saturation 99.4 H ABG Base Excess -8.2 L ABG Hemoglobin Oxyhemoglobin Sodium Potassium Chloride Carbon Dioxide BUN Creatinine Glucose POC Glucose 187 H Hemoglobin A1c Calcium Magnesium 2.50 H Total Bilirubin AST ALT Troponin T NT-Pro-B Natriuret Pep Total Protein Albumin HDL Cholesterol 03/14/22 03/14/22 03/14/22 03:58 04:50 04:50 RBC Hgb Hct MCHC 31 L RDW 19.3 H Plt Count 115 L Lymph % (Auto) 4.7 L Lymph # (Auto) 0.5 L Seg Neutrophils % 89.5 H Seg Neuts % (Manual) Lymphocytes % (Manual) Nucleated RBC % Seg Neutrophils # 8.5 H Seg Neutrophils # Man Lymphocytes # (Manual) ABG pH 7.327 L ABG pO2 65.2 L ABG HCO3 18.4 L ABG O2 Saturation 91.1 L ABG Base Excess -6.8 L ABG Hemoglobin 13.2 L Oxyhemoglobin 89.1 L Sodium Potassium 5.2 H Chloride 109.5 H Carbon Dioxide 19 L BUN 90 H Creatinine 4.2 H Glucose 204 H POC Glucose Hemoglobin A1c Calcium Magnesium Total Bilirubin AST ALT Troponin T NT-Pro-B Natriuret Pep Total Protein Albumin HDL Cholesterol 03/14/22 03/14/22 03/14/22 11:29 16:28 21:00 RBC Hgb Hct MCHC RDW Plt Count Lymph % (Auto) Lymph # (Auto) Seg Neutrophils % Seg Neuts % (Manual) Lymphocytes % (Manual) Nucleated RBC % Seg Neutrophils # Seg Neutrophils # Man Lymphocytes # (Manual) ABG pH 7.347 L ABG pO2 111.6 H ABG HCO3 ABG O2 Saturation ABG Base Excess -3.1 L ABG Hemoglobin 13.4 L Oxyhemoglobin Sodium Potassium Chloride Carbon Dioxide BUN Creatinine Glucose POC Glucose 203 H 190 H Hemoglobin A1c Calcium Magnesium Total Bilirubin AST ALT Troponin T NT-Pro-B Natriuret Pep Total Protein Albumin HDL Cholesterol 03/14/22 03/15/22 03/15/22 23:43 04:36 04:36 RBC Hgb Hct MCHC RDW Plt Count Lymph % (Auto) Lymph # (Auto) Seg Neutrophils % Seg Neuts % (Manual) Lymphocytes % (Manual) Nucleated RBC % Seg Neutrophils # Seg Neutrophils # Man Lymphocytes # (Manual) ABG pH ABG pO2 ABG HCO3 ABG O2 Saturation ABG Base Excess ABG Hemoglobin Oxyhemoglobin Sodium Potassium Chloride 109.8 H Carbon Dioxide 21 L BUN 100 H Creatinine 4.3 H Glucose 178 H POC Glucose 166 H Hemoglobin A1c 8.6 H Calcium Magnesium Total Bilirubin 1.50 H AST 136 H ALT 299 H Troponin T NT-Pro-B Natriuret Pep Total Protein 5.3 L Albumin 2.5 L HDL Cholesterol 03/15/22 03/15/22 03/15/22 11:25 16:15 21:30 RBC Hgb Hct MCHC RDW Plt Count Lymph % (Auto) Lymph # (Auto) Seg Neutrophils % Seg Neuts % (Manual) Lymphocytes % (Manual) Nucleated RBC % Seg Neutrophils # Seg Neutrophils # Man Lymphocytes # (Manual) ABG pH ABG pO2 ABG HCO3 ABG O2 Saturation ABG Base Excess ABG Hemoglobin Oxyhemoglobin Sodium Potassium Chloride Carbon Dioxide BUN Creatinine Glucose POC Glucose 199 H 192 H 207 H Hemoglobin A1c Calcium Magnesium Total Bilirubin AST ALT Troponin T NT-Pro-B Natriuret Pep Total Protein Albumin HDL Cholesterol 03/15/22 03/16/22 03/16/22 23:09 04:00 05:00 RBC Hgb Hct MCHC RDW Plt Count Lymph % (Auto) Lymph # (Auto) Seg Neutrophils % Seg Neuts % (Manual) Lymphocytes % (Manual) Nucleated RBC % Seg Neutrophils # Seg Neutrophils # Man Lymphocytes # (Manual) ABG pH ABG pO2 ABG HCO3 ABG O2 Saturation ABG Base Excess ABG Hemoglobin Oxyhemoglobin Sodium 148 H Potassium Chloride 110.3 H Carbon Dioxide BUN 111 H Creatinine 4.7 H Glucose 243 H POC Glucose 193 H 201 H Hemoglobin A1c Calcium 8.3 L Magnesium Total Bilirubin 1.50 H AST 72 H ALT 202 H Troponin T NT-Pro-B Natriuret Pep Total Protein 5.6 L Albumin 2.3 L HDL Cholesterol 03/16/22 03/16/22 03/16/22 06:00 11:48 Unknown RBC Hgb Hct MCHC RDW 19.9 H Plt Count 94 L Lymph % (Auto) Lymph # (Auto) Seg Neutrophils % Seg Neuts % (Manual) Lymphocytes % (Manual) Nucleated RBC % Seg Neutrophils # Seg Neutrophils # Man Lymphocytes # (Manual) ABG pH ABG pO2 111.9 H ABG HCO3 ABG O2 Saturation ABG Base Excess ABG Hemoglobin 13.4 L Oxyhemoglobin Sodium Potassium Chloride Carbon Dioxide BUN Creatinine Glucose POC Glucose 209 H Hemoglobin A1c Calcium Magnesium Total Bilirubin AST ALT Troponin T NT-Pro-B Natriuret Pep Total Protein Albumin HDL Cholesterol Chest x-ray: image reviewed Allied health notes reviewed: RT
[2022-03-16] MEDS: BUMETANIDE 1 MG/4 ML INJ IV SCH (18:22)
[2022-03-16] MEDS: SENNOSIDES/DOCUSATE SODIUM 8.6/50 MG TAB FEEDTUBE SCH (21:16)
[2022-03-16] MEDS: INSULIN GLARGINE 100 UNITS/ML SUB-Q SCH (21:19)
[2022-03-17] MEDS: MILRINONE-D5W 20 MG/100 ML 20 MG/100 ML BAG IV SCH (03:19)
[2022-03-17 04:54] LABS: Hematocrit 36.7 % (35.5-45.6); Mean Corpuscular HGB Conc 33 % (32-34); Mean Corpuscular Volume 90 fl (84-94); Red Blood Count 4.08 M/mm3 (3.65-5.03); Red Cell Distribution Width 19.6 % (13.2-15.2)
[2022-03-17 04:56] LABS: Platelet Count 77 K/mm3 (140-440)
[2022-03-17] MEDS: SODIUM BICARBONATE 650 MG TAB PO SCH ×3 (05:07→21:02)
[2022-03-17] MEDS: INSULIN REGULAR, HUMAN 100 UNITS/1 ML SUB-Q SCH ×4 (05:07→23:52)
[2022-03-17] MEDS: BUMETANIDE 1 MG/4 ML INJ IV SCH ×2 (05:07→17:50)
[2022-03-17 05:13] LABS: Albumin 1.9 g/dL (3.9-5); Calcium 7.6 mg/dL (8.4-10.2)
[2022-03-17 06:14] LABS: ABG Base Excess -0.6 mmol/L (-2.0-3.0); ABG HCO3 24.4 mmol/L (20.0-26.0); ABG Methemoglobin 0.5 % (0.0-1.5); ABG Oxygen Saturation 93.6 % (95.0-99.0); ABG PCO2 41.2 mm Hg; ABG PH 7.39 pH Units (7.350-7.450); ABG PO2 64.3 mm Hg (80.0-90.0)
[2022-03-17] MEDS: RIVAROXABAN 15 MG TAB PO SCH (07:30)
[2022-03-17] MEDS: IPRATROPIUM/ALBUTEROL SULFATE 3 ML AMPUL.NEB IH SCH ×2 (08:48→20:04)
[2022-03-17] MEDS ORDERED: SODIUM CHLORIDE 0.9% 100 ML IV PRN (09:01)
--- NOTE | 2022-03-17 09:01 | Progress Note ---
Assessment and Plan Impression * Acute kidney injury * Patient may have underlying chronic kidney disease * Respiratory failure. Chest x-ray showing evidence of mild volume overload * Diabetes * Hypertension * Abnormal LFTs * Mild metabolic acidosis and mild hyperkalemia Recommendations * Patient's baseline renal function is not known. * His urine shows 1+ dipstick protein and 1+ blood * Follow-up results of vasculitis work-up. Hepatitis B and C both are negative * Renal ultrasound shows relatively larger left kidney. Otherwise normal. * Avoid nephrotoxins * Monitor Anguiano catheter for now * Hyperkalemia has been corrected * Monitor fluid status and electrolytes closely * Plans for CT scan with contrast noted. Furthermore patient still clinically volume overloaded and his BUN is also climbing. Need to initiate renal replacement therapy. Called patient's Elly at [phone] and left message * Discussed with ICU team. Plan to initiate dialysis after access placement. Would plan for dialysis after contrast administration. 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 Currently on 50% FiO2. Oxygen saturation is 94%. Patient is also currently on milrinone drip. Anguiano catheter in place. Objective - Vital Signs Vital signs: Vital Signs - 12hr 03/16/22 03/16/22 03/16/22 21:00 21:07 21:19 Temperature Pulse Rate 80 82 Pulse Rate [ 81 Bilateral Throughout] Pulse Rate [ From Monitor] Respiratory 27 H Rate Respiratory 27 H Rate [Bilateral Throughout] Blood Pressure 101/68 101/68 O2 Sat by Pulse 93 Oximetry 03/16/22 03/16/22 03/16/22 22:00 23:00 23:20 Temperature 98.3 F Pulse Rate 74 77 Pulse Rate [ Bilateral Throughout] Pulse Rate [ From Monitor] Respiratory 28 H 31 H Rate Respiratory Rate [Bilateral Throughout] Blood Pressure 106/58 111/58 O2 Sat by Pulse 91 88 Oximetry 03/16/22 03/17/22 03/17/22 23:46 00:00 00:04 Temperature Pulse Rate 79 70 71 Pulse Rate [ Bilateral Throughout] Pulse Rate [ 76 From Monitor] Respiratory 26 H 28 H Rate Respiratory Rate [Bilateral Throughout] Blood Pressure 103/66 98/48 98/48 O2 Sat by Pulse 95 89 95 Oximetry 03/17/22 03/17/2203/17/22 01:00 02:00 03:00 Temperature Pulse Rate 80 79 73 Pulse Rate [ Bilateral Throughout] Pulse Rate [ From Monitor] Respiratory 33 H 34 H 33 H Rate Respiratory Rate [Bilateral Throughout] Blood Pressure 98/48 119/57 111/53 O2 Sat by Pulse 95 94 95 Oximetry 03/17/22 03/17/22 03/17/22 04:00 05:00 06:00 Temperature 99.1 F Pulse Rate 81 78 74 Pulse Rate [ Bilateral Throughout] Pulse Rate [ 72 From Monitor] Respiratory 37 H 32 H 30 H Rate Respiratory Rate [Bilateral Throughout] Blood Pressure 91/52 95/55 101/50 O2 Sat by Pulse 93 87 91 Oximetry 03/17/22 03/17/22 03/17/22 07:00 07:55 08:00 Temperature 100.1 F H Pulse Rate 79 79 Pulse Rate [ Bilateral Throughout] Pulse Rate [ 75 From Monitor] Respiratory 30 H 31 H Rate Respiratory Rate [Bilateral Throughout] Blood Pressure 91/48 84/54 O2 Sat by Pulse 93 88 Oximetry 03/17/22 03/17/22 08:09 08:15 Temperature Pulse Rate 75 75 Pulse Rate [ Bilateral Throughout] Pulse Rate [ From Monitor] Respiratory Rate Respiratory Rate [Bilateral Throughout] Blood Pressure 84/54 O2 Sat by Pulse 95 Oximetry - General Appearance General appearance: well-developed, well-nourished, appears stated age, intubate d EENT: PERRL, mucous membranes moist Neck: no JVD, no thyromegaly, no carotid bruit, supple Respiratory: Present: Clear to Ascultation Cardiology: regular, normal heart rate, S1S2, no murmurs Gastrointestinal: normal, normoactive bowel sounds Integumentary: other (1+ pitting edema) - Lab 03/17/22 04:17 03/17/22 04:17 Most recent lab results ABG pH 7.390 pH Units (7.350-7.450) 03/17/22 06:00 ABG pCO2 41.2 mm Hg 03/17/22 06:00 ABG pO2 64.3 mm Hg (80.0-90.0) L 03/17/22 06:00 ABG HCO3 24.4 mmol/L (20.0-26.0) 03/17/22 06:00 ABG O2 Saturation 93.6 % (95.0-99.0) L 03/17/22 06:00 Calcium 7.6 mg/dL (8.4-10.2) L 03/17/22 04:17 Magnesium 2.50 mg/dL (1.7-2.3) H 03/13/22 20:33 Medications & Allergies - Medications Allergies/Adverse Reactions: Allergies No Known Allergies Allergy (Verified 03/13/22 14:06) Home Medications: Home Medications Medication Instructions Recorded Confirmed Last Taken Type Aspirin [Aspirin BABY CHEW TAB] 81 mg PO QDAY 03/13/22 03/13/22 Unknown History AtorvaSTATin [Lipitor] 40 mg PO QHS 03/13/22 03/13/22 Unknown History Furosemide [Lasix] 40 mg PO QDAY 03/13/22 03/13/22 Unknown History Insulin NPH Hum/Reg Insulin Hm 100 unit SQ BID 03/13/22 03/13/22 Unknown History [Novolin 70-30 100 Unit/ml Vial] Sodium Bicarbonate 650 mg PO Q8HR 03/13/22 03/13/22 Unknown History XARELTO (see DOAC order set to 20 mg PO QDAY 03/13/22 03/13/22 Unknown History order) carvediloL [Coreg] 25 mg PO BID 03/13/22 03/13/22 Unknown History cloNIDine [Catapres] 0.2 mg PO BID 03/13/22 03/13/22 Unknown History hydrALAZINE [Apresoline] 50 mg PO Q8HR 03/13/22 03/13/22 Unknown History hydroCHLOROthiazide 50 mg PO 03/13/22 03/13/22 Unknown History [Hydrochlorothiazide] Active Medications: Generic Name Dose Route Start Last Admin Trade Name Freq PRN Reason Stop Dose Admin Acetaminophen 650 mg 03/13/22 17:18 03/15/22 16:39 Acetaminophen 325 Mg Tab PO 650 mg Q6H PRN Administration Pain MILD(1-3)/Fever >100.5/FLORES Albumin Human 25 gm 03/13/22 18:43 Albumin Human 25% (25 Gm/100 Ml) Inj IV GLADYS PRN Hypotension Albuterol 2.5 mg 03/13/22 17:18 Albuterol 2.5 Mg/3 Ml Nebu IH Q3HRT PRN Shortness Of Breath Albuterol/Ipratropium 1 ampul 03/15/22 12:00 03/17/22 08:48 Ipratropium/Albuterol Sulfate 3 Ml Ampul.Neb IH 1 ampul Q12HRT YRIS Administration Aspirin 81 mg 03/14/22 10:00 03/16/22 09:43 Aspirin 81 Mg Tab Chew PO 81 mg QDAY YRIS Administration Bumetanide 1 mg 03/16/22 18:00 03/17/22 05:07 Bumetanide 1 Mg/4 Ml Inj IV 1 mg BID@0600,1800 YRIS Administration Carvedilol 25 mg 03/13/22 22:00 03/16/22 21:19 Carvedilol 25 Mg Tab PO 25 mg BID YRIS Administration Clopidogrel Bisulfate 75 mg 03/15/22 11:00 03/16/22 09:44 Clopidogrel 75 Mg Tab FEEDTUBE 75 mg QDAY YRIS Administration Dextrose 50 ml 03/14/22 12:30 Dextrose 50% In Water (25gm) 50 Ml Syringe IV Q30MIN PRN Hypoglycemia Protocol Famotidine 10 mg 03/14/22 22:00 03/16/22 21:16 Famotidine 10 Mg Tab FEEDTUBE 10 mg BID YRIS Administration Fentanyl 50 mcg 03/14/22 11:20 03/16/22 15:13 Fentanyl 100 Mcg/2 Ml Inj IV 50 mcg Q10MIN PRN Administration ANALGESIA Hydralazine HCl 10 mg 03/14/22 15:57 Hydralazine 20 Mg/1 Ml Inj IV Q4HR PRN Hypertension Hydromorphone HCl 0.5 mg 03/13/22 17:18 03/13/22 21:30 Hydromorphone 0.5 Mg/0.5 Ml Inj IV 0.5 mg Q13H PRN Administration Pain , Severe (7-10) Sodium Chloride 100 mls @ 999 mls/hr 03/13/22 18:42 Nacl 0.9% IV GLADYS PRN Hypotension Fentanyl Citrate 2,000 mcg in 100 mls @ 7.095 mls/hr 03/14/22 12:00 Fentanyl Drip Premix IV TITR YRIS Protocol 1 MCG/KG/HR Milrinone Lactate/Dextrose 20 mg in 100 mls @ 11.6 mls/hr 03/16/22 13:00 03/17/22 03:19 Milrinone-D5w 20 Mg/100 Ml IV 0.275 mcg/kg/min DIRECT YRIS 11.6 mls/hr Administration Protocol 0.275 MCG/KG/MIN Insulin Glargine 20 units 03/17/22 22:00 Insulin Glargine 100 Units/Ml SUB-Q QHS YRIS Insulin Human Regular 0 units 03/14/22 13:00 03/17/22 05:07 Insulin Regular, Human 100 Units/1 Ml SUB-Q 3 units Q6HR YRIS Administration Protocol Oxycodone/Acetaminophen 1 tab 03/13/22 17:18 Oxycodone /Acetaminophen 5-325mg Tab PO Q16H PRN Pain, Moderate (4-6) Rivaroxaban 15 mg 03/14/22 10:29 03/17/22 07:30 Rivaroxaban 15 Mg Tab PO 15 mg QDDIAB YRIS Administration Senna/Docusate Sodium 1 tab 03/14/22 22:00 03/16/22 21:16 Sennosides/Docusate Sodium 8.6/50 Mg Tab FEEDTUBE 1 tab QHS YRIS Administration Sodium Bicarbonate 650 mg 03/16/22 06:00 03/17/22 05:07 Sodium Bicarbonate 650 Mg Tab PO 650 mg Q8HR YRSI Administration Sodium Chloride 10 ml 03/13/22 22:00 03/16/22 21:16 Sodium Chloride 0.9% 10 Ml Flush Syringe IV 10 ml BID YRIS Administration Sodium Chloride 10 ml 03/13/22 17:18 Sodium Chloride 0.9% 10 Ml Flush Syringe IV PRN PRN LINE FLUSH
[2022-03-17] MEDS: ASPIRIN 81 MG TAB CHEW PO SCH (09:53)
[2022-03-17] MEDS: carvediloL 25 MG TAB PO SCH (09:53)
[2022-03-17] MEDS: CLOPIDOGREL 75 MG TAB FEEDTUBE SCH (09:53)
[2022-03-17] MEDS: FAMOTIDINE 10 MG TAB FEEDTUBE SCH ×2 (09:53→21:02)
--- NOTE | 2022-03-17 10:11 | Progress Note ---
Assessment and Plan -Acute hypoxic respiratory failure on MVS -h/o PE on Xarelto -Acute metabolic encephalopathy, CVA -Acute on chronic heart failure with reduced EF - NSTEMI suspect type II, h/o HTN, AICD -Morbid obesity BMI 43 -Transaminitis (improving) -Acute kidney injury with possible underlying CKD, -Hyperchloremic, uremia, hyponatremia - h/o DM -Thrombocytopenia CTA brain- done this morning. Results pending Norepinephrine for BP support, titrate to MAP>65 -2D ECHO reveals HFrEF of 20-25% (was on home Milrinone) -Diuresis per nephrology team- for HD today, Vascath will be placed -Anguiano catheter in for strict Is and Os. - continue to titrate supplemental oxygen to keep SpO2 89-92% - VAP bundle addressed, aspiration precautions, HOB >40 - continue lung protective strategies-keep PEEP at 10 to help with heart failure -CXR,ABG as clinically indicated - continue bronchodilators with pulmonary hygiene per RT - wean per pulmonary driven protocols otherwise - avoid nephrotoxins, renally dose all medications - continue daily assessment for readiness to wean - continue accuchecks with glycemic control per SSI (While critically ill target blood glucose of 140-180 mg/dL; avoid hypoglycemia) - continue to avoid benzodiazepines, reduce the possibility of delirium -Trend temperature curve and WCC, continue to monitor off antibiotics for now - prn analgesia per CPOT score - Maintenance of sleep-wake cycle, avoid delirium - continue enteral nutritional support at goal rate as tolerated - VTE prophylaxis- on Rivaroxaban for h/o PE. Continue to monitor for bleeding and platelet counts -Stress ulcer prophylaxis- Famotidine -continue mobility , off loading per facility protocol for pressure ulcer prevention - Monitor hemodynamics closely, -Supportive transfusions as clinically indicated to keep HgB >7g/dL - continue other care per attending / other consultants COVID SPECIFIC INTERVENTIONS - COVID-19 PCR negative CONDITION: CRITICAL PROGNOSIS: GUARDED CODE STATUS: FULL CODE The high probability of a clinically significant, sudden or life-threatening deterioration of the [respiratory, cardiovascular, neurologic] system(s) required my full and direct attention, intervention and personal management. The aggregate critical care time was [33] minutes without overlap. 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 On Milrinone with soft blood pressures Required 2 doses of Fentanyl for patient-ventilator dys-synchrony overnight. No fevers, no diarrhea, no vomiting. Tolerating tube feeding Discussed in inter disciplinary rounds Objective Vital Signs - 12hr 03/16/22 03/16/22 03/16/22 23:00 23:20 23:46 Temperature 98.3 F Pulse Rate 77 79 Pulse Rate [ From Monitor] Respiratory 31 H Rate Blood Pressure 111/58 103/66 O2 Sat by Pulse 88 95 Oximetry 03/17/22 03/17/22 03/17/22 00:00 00:04 01:00 Temperature Pulse Rate 70 71 80 Pulse Rate [ 76 From Monitor] Respiratory 26 H 28 H 33 H Rate Blood Pressure 98/48 98/48 98/48 O2 Sat by Pulse 89 95 95 Oximetry 03/17/22 03/17/22 03/17/22 02:00 03:00 04:00 Temperature 99.1 F Pulse Rate 79 73 81 Pulse Rate [ 72 From Monitor] Respiratory 34 H 33 H 37 H Rate Blood Pressure 119/57 111/53 91/52 O2 Sat by Pulse 94 95 93 Oximetry 03/17/22 03/17/22 03/17/22 05:00 06:00 07:00 Temperature Pulse Rate 78 74 79 Pulse Rate [ From Monitor] Respiratory 32 H 30 H 30 H Rate Blood Pressure 95/55 101/50 91/48 O2 Sat by Pulse 87 91 93 Oximetry 03/17/22 03/17/22 03/17/22 07:55 08:00 08:09 Temperature 100.1 F H Pulse Rate 79 75 Pulse Rate [ 75 From Monitor] Respiratory 31 H Rate Blood Pressure 84/54 O2 Sat by Pulse 88 Oximetry 03/17/22 03/17/22 03/17/22 08:15 09:00 10:00 Temperature Pulse Rate 75 80 80 Pulse Rate [ From Monitor] Respiratory 32 H 30 H Rate Blood Pressure 84/54 98/48 112/59 O2 Sat by Pulse 95 90 95 Oximetry Constitutional: other (middle aged morbidly obese male with mildly increased respiratory effort at rest on MVS) Eyes: non-icteric ENT: oropharynx moist, other (ETT 24 cm PRESLEY) Neck: supple, no lymphadenopathy, no JVD, other (large circumference) Effort: mildly labored, other (anterior left chest wall tunnelled PICC line) Ascultation: Bilateral: diminished breath sounds, rales Percussion: Bilateral: not dull Cardiovascular: regular rate and rhythm, other (S1,S2) Gastrointestinal: normoactive bowel sounds, soft, non-tender, non-distended (protuberant) Integumentary: normal Extremities: no cyanosis, pulses normal, no ischemia or petechiae, edema (2+) Neurologic: non-focal exam (grossly), pupils equal and round (3mm), unable to assess Psychiatric: other (unable to assess re: AMS) CBC and BMP: 03/18/22 04:17 03/18/22 04:17 ABG, PT/INR, D-dimer: ABG ABG pH 7.390 pH Units (7.350-7.450) 03/17/22 06:00 ABG pCO2 41.2 mm Hg 03/17/22 06:00 ABG pO2 64.3 mm Hg (80.0-90.0) L 03/17/22 06:00 ABG O2 Saturation 93.6 % (95.0-99.0) L 03/17/22 06:00 Abnormal lab findings: Abnormal Labs 03/13/22 03/13/22 03/13/22 15:44 15:44 16:15 RBC 5.42 H Hgb 15.4 H Hct 48.1 H MCHC RDW 19.7 H Plt Count Lymph % (Auto) Lymph # (Auto) Seg Neutrophils % Seg Neuts % (Manual) 93.0 H Lymphocytes % (Manual) 3.0 L Nucleated RBC % 1.0 H Seg Neutrophils # Seg Neutrophils # Man 10.1 H Lymphocytes # (Manual) 0.3 L ABG pH 7.281 L ABG pO2 73.5 L ABG HCO3 16.6 L ABG O2 Saturation 92.5 L ABG Base Excess -9.2 L ABG Hemoglobin Oxyhemoglobin 90.4 L Sodium Potassium Chloride Carbon Dioxide 17 L BUN 78 H Creatinine 3.6 H Glucose 135 H POC Glucose Hemoglobin A1c Calcium Magnesium Total Bilirubin 2.50 H AST 363 H ALT 430 H Troponin T 0.176 H* NT-Pro-B Natriuret Pep 14632 H Total Protein Albumin 3.6 L HDL Cholesterol 24 L 03/13/22 03/13/22 03/14/22 20:04 20:33 00:23 RBC Hgb Hct MCHC RDW Plt Count Lymph % (Auto) Lymph # (Auto) Seg Neutrophils % Seg Neuts % (Manual) Lymphocytes % (Manual) Nucleated RBC % Seg Neutrophils # Seg Neutrophils # Man Lymphocytes # (Manual) ABG pH 7.339 L ABG pO2 259.5 H ABG HCO3 16.3 L ABG O2 Saturation 99.4 H ABG Base Excess -8.2 L ABG Hemoglobin Oxyhemoglobin Sodium Potassium Chloride Carbon Dioxide BUN Creatinine Glucose POC Glucose 187 H Hemoglobin A1c Calcium Magnesium 2.50 H Total Bilirubin AST ALT Troponin T NT-Pro-B Natriuret Pep Total Protein Albumin HDL Cholesterol 03/14/22 03/14/22 03/14/22 03:58 04:50 04:50 RBC Hgb Hct MCHC 31 L RDW 19.3 H Plt Count 115 L Lymph % (Auto) 4.7 L Lymph # (Auto) 0.5 L Seg Neutrophils % 89.5 H Seg Neuts % (Manual) Lymphocytes % (Manual) Nucleated RBC % Seg Neutrophils # 8.5 H Seg Neutrophils # Man Lymphocytes # (Manual) ABG pH 7.327 L ABG pO2 65.2 L ABG HCO3 18.4 L ABG O2 Saturation 91.1 L ABG Base Excess -6.8 L ABG Hemoglobin 13.2 L Oxyhemoglobin 89.1 L Sodium Potassium 5.2 H Chloride 109.5 H Carbon Dioxide 19 L BUN 90 H Creatinine 4.2 H Glucose 204 H POC Glucose Hemoglobin A1c Calcium Magnesium Total Bilirubin AST ALT Troponin T NT-Pro-B Natriuret Pep Total Protein Albumin HDL Cholesterol 03/14/22 03/14/22 03/14/22 11:29 16:28 21:00 RBC Hgb Hct MCHC RDW Plt Count Lymph % (Auto) Lymph # (Auto) Seg Neutrophils % Seg Neuts % (Manual) Lymphocytes % (Manual) Nucleated RBC % Seg Neutrophils # Seg Neutrophils # Man Lymphocytes # (Manual) ABG pH 7.347 L ABG pO2 111.6 H ABG HCO3 ABG O2 Saturation ABG Base Excess -3.1 L ABG Hemoglobin 13.4 L Oxyhemoglobin Sodium Potassium Chloride Carbon Dioxide BUN Creatinine Glucose POC Glucose 203 H 190 H Hemoglobin A1c Calcium Magnesium Total Bilirubin AST ALT Troponin T NT-Pro-B Natriuret Pep Total Protein Albumin HDL Cholesterol 03/14/22 03/15/22 03/15/22 23:43 04:36 04:36 RBC Hgb Hct MCHC RDW Plt Count Lymph % (Auto) Lymph # (Auto) Seg Neutrophils % Seg Neuts % (Manual) Lymphocytes % (Manual) Nucleated RBC % Seg Neutrophils # Seg Neutrophils # Man Lymphocytes # (Manual) ABG pH ABG pO2 ABG HCO3 ABG O2 Saturation ABG Base Excess ABG Hemoglobin Oxyhemoglobin Sodium Potassium Chloride 109.8 H Carbon Dioxide 21 L BUN 100 H Creatinine 4.3 H Glucose 178 H POC Glucose 166 H Hemoglobin A1c 8.6 H Calcium Magnesium Total Bilirubin 1.50 H AST 136 H ALT 299 H Troponin T NT-Pro-B Natriuret Pep Total Protein 5.3 L Albumin 2.5 L HDL Cholesterol 03/15/22 03/15/22 03/15/22 11:25 16:15 21:30 RBC Hgb Hct MCHC RDW Plt Count Lymph % (Auto) Lymph # (Auto) Seg Neutrophils % Seg Neuts % (Manual) Lymphocytes % (Manual) Nucleated RBC % Seg Neutrophils # Seg Neutrophils # Man Lymphocytes # (Manual) ABG pH ABG pO2 ABG HCO3 ABG O2 Saturation ABG Base Excess ABG Hemoglobin Oxyhemoglobin Sodium Potassium Chloride Carbon Dioxide BUN Creatinine Glucose POC Glucose 199 H 192 H 207 H Hemoglobin A1c Calcium Magnesium Total Bilirubin AST ALT Troponin T NT-Pro-B Natriuret Pep Total Protein Albumin HDL Cholesterol 03/15/22 03/16/22 03/16/22 23:09 04:00 05:00 RBC Hgb Hct MCHC RDW Plt Count Lymph % (Auto) Lymph # (Auto) Seg Neutrophils % Seg Neuts % (Manual) Lymphocytes % (Manual) Nucleated RBC % Seg Neutrophils # Seg Neutrophils # Man Lymphocytes # (Manual) ABG pH ABG pO2 ABG HCO3 ABG O2 Saturation ABG Base Excess ABG Hemoglobin Oxyhemoglobin Sodium 148 H Potassium Chloride 110.3 H Carbon Dioxide BUN 111 H Creatinine 4.7 H Glucose 243 H POC Glucose 193 H 201 H Hemoglobin A1c Calcium 8.3 L Magnesium Total Bilirubin 1.50 H AST 72 H ALT 202 H Troponin T NT-Pro-B Natriuret Pep Total Protein 5.6 L Albumin 2.3 L HDL Cholesterol 03/16/22 03/16/22 03/16/22 06:00 11:48 18:00 RBC Hgb Hct MCHC RDW Plt Count Lymph % (Auto) Lymph # (Auto) Seg Neutrophils % Seg Neuts % (Manual) Lymphocytes % (Manual) Nucleated RBC % Seg Neutrophils # Seg Neutrophils # Man Lymphocytes # (Manual) ABG pH ABG pO2 111.9 H ABG HCO3 ABG O2 Saturation ABG Base Excess ABG Hemoglobin 13.4 L Oxyhemoglobin Sodium Potassium Chloride Carbon Dioxide BUN Creatinine Glucose POC Glucose 209 H 261 H Hemoglobin A1c Calcium Magnesium Total Bilirubin AST ALT Troponin T NT-Pro-B Natriuret Pep Total Protein Albumin HDL Cholesterol 03/16/22 03/16/22 03/16/22 21:19 23:27 Unknown RBC Hgb Hct MCHC RDW 19.9 H Plt Count 94 L Lymph % (Auto) Lymph # (Auto) Seg Neutrophils % Seg Neuts % (Manual) Lymphocytes % (Manual) Nucleated RBC % Seg Neutrophils # Seg Neutrophils # Man Lymphocytes # (Manual) ABG pH ABG pO2 ABG HCO3 ABG O2 Saturation ABG Base Excess ABG Hemoglobin Oxyhemoglobin Sodium Potassium Chloride Carbon Dioxide BUN Creatinine Glucose POC Glucose 241 H 241 H Hemoglobin A1c Calcium Magnesium Total Bilirubin AST ALT Troponin T NT-Pro-B Natriuret Pep Total Protein Albumin HDL Cholesterol 03/17/22 03/17/22 03/17/22 04:17 04:17 05:04 RBC Hgb Hct MCHC RDW 19.6 H Plt Count 77 L Lymph % (Auto) Lymph # (Auto) Seg Neutrophils % Seg Neuts % (Manual) Lymphocytes % (Manual) Nucleated RBC % Seg Neutrophils # Seg Neutrophils # Man Lymphocytes # (Manual) ABG pH ABG pO2 ABG HCO3 ABG O2 Saturation ABG Base Excess ABG Hemoglobin Oxyhemoglobin Sodium Potassium Chloride Carbon Dioxide 21 L BUN 119 H Creatinine 4.5 H Glucose 446 H POC Glucose 241 H Hemoglobin A1c Calcium 7.6 L Magnesium Total Bilirubin 1.50 H AST ALT 122 H Troponin T NT-Pro-B Natriuret Pep Total Protein 5.1 L Albumin 1.9 L HDL Cholesterol 03/17/22 06:00 RBC Hgb Hct MCHC RDW Plt Count Lymph % (Auto) Lymph # (Auto) Seg Neutrophils % Seg Neuts % (Manual) Lymphocytes % (Manual) Nucleated RBC % Seg Neutrophils # Seg Neutrophils # Man Lymphocytes # (Manual) ABG pH ABG pO2 64.3 L ABG HCO3 ABG O2 Saturation 93.6 L ABG Base Excess ABG Hemoglobin 12.6 L Oxyhemoglobin 91.4 L Sodium Potassium Chloride Carbon Dioxide BUN Creatinine Glucose POC Glucose Hemoglobin A1c Calcium Magnesium Total Bilirubin AST ALT Troponin T NT-Pro-B Natriuret Pep Total Protein Albumin HDL Cholesterol Chest x-ray: image reviewed Allied health notes reviewed: RT
--- NOTE | 2022-03-17 10:31 | Cat Scan Report ---
CT HEAD WITHOUT CONTRAST INDICATION / CLINICAL INFORMATION: cva. TECHNIQUE: All CT scans at this location are performed using CT dose reduction for ALARA by means of automated e xposure control. COMPARISON: Head CT 03/14/2022 FINDINGS: HEMORRHAGE: No evidence of intracranial hemorrhage or extra-axial fluid collection. EXTRA-AXIAL SPACES: A well-circumscribed ovoid region of fluid attenuation is present along the media l aspect of the left temporal lobe. This measures about 2.5 x 2.1 x 1.4 cm in overall dimension. This may represent an arachnoid cyst in the medial aspect of the left cranial fossa. Macrocystic intra-ax ial lesions cannot be entirely excluded. Findings are not changed since recent previous study 03/14/20 22. VENTRICULAR SYSTEM: The third and lateral ventricles are prominent in size for age 56 years. CEREBRAL PARENCHYMA: A diffuse decreased brain parenchymal attenuation is observed in a periventricul ar white matter distribution compatible with advanced microvascular ischemic change. MIDLINE SHIFT OR HERNIATION: There is no mass effect. CEREBELLUM / BRAINSTEM: Decreased attenuation is observed along the medial aspect of the right cerebe llar hemisphere consistent with right posterior cerebral artery infarction. This is unchanged. This m ay be a subacute to chronic right PICA infarction. Cerebellum has an otherwise unremarkable appearanc e. No abnormalities are seen to involve the brainstem. MIDLINE STRUCTURES:No abnormalities of the pituitary gland or pineal region are identified. INTRACRANIAL VESSELS: Calcified atherosclerotic plaque is present along the course the cavernous segm ents of both internal carotid arteries. ORBITS: visualized portions of the orbits have an unremarkable appearance. SOFT TISSUES of HEAD: No significant abnormality. CALVARIUM: Evaluation of bone windows reveals no abnormalities. PARANASAL SINUSES / MASTOID AIR CELLS: Visualized portions of the paranasal sinuses are free from inf lammatory mucosal disease. Mastoid air cells are normally pneumatized. ADDITIONAL FINDINGS: Oral enteric an orotracheal tubes are demonstrated. These are poorly evaluated o n head CT examination. IMPRESSION: 1. 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 2. Well-circumscribed area of CSF attenuation in the medial aspect of the left middle cranial fossa a s described above. 3. No interval change since recent previous study 03/14/2022. Signer Name: Connor Jerez MD Signed: 03/17/2022 10:26 AM Workstation Name: [id number]
[2022-03-17] MEDS ORDERED: NORepinephrine/NS 8 MG-250 ML 8 MG/250 ML INFUS..BTL IV SCH (11:00)
[2022-03-17] MEDS ORDERED: VANCOMYCIN PHARMACY TO DOSE IV SCH (11:00)
--- NOTE | 2022-03-17 11:07 | Progress Note ---
Assessment and Plan Assessment and plan: This is a 56-year-old male with OHS, HTN, PE on therapeutic anticoagulation, CHF and AICD and still admitted with acute on chronic CHF decompensation metabolic acidosis, fluid overload, transaminitis, acute hypoxic respiratory failure and acute kidney injury Neuro: Acute metabolic encephalopathy, CVA -Sedated with fentanyl gtt -RASS goal 0 to -1 -Reorientation as needed -Maintain sleep-wake cycle -As needed analgesia -CT head shows diffuse cerebral atrophy, 3.4 cm rounded fluid density structure located along the medial anterior aspect of the left temporal lobe most likely arachnoid cyst, evolving cerebral infarct right greater than left (age indeterminant), no evidence of hemorrhage -03/17 CT head shows evidence of 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 -CTA head shows poor visualization of the right PICA noted, areas of mild narrowing seen in the posterior circulation, no definitive signs of large vessel occlusion -CTA neck shows no significant stenosis appreciated in the limited CTA of the neck -Neurology and neurosurgery consulted, appreciate recommendations -MRI brain unable to be completed d/t AICD -MRA head/neck unable to be completed d/t AICD -Bilateral carotid US with less than 50% stenosis in Bilateral carotid arteries -TSH, lipid panel noted -Lipitor holding re elevated LFTs, Aspirin/plavix -PT/OT/ST eval requested Cardiac: Acute on chronic heart failure with reduced EF, NSTEMI suspect type II, h/o HTN, AICD -Cardiology consulted, appreciate recommendations -Blood pressure monitoring per protocol -Vasopressor support with levophed -BB reduced -Per family: outpatient milrinone through PICC -milrinone gtt -IV hydral PRN -Echocardiogram shows LVEF 20 to 25%, mild concentric LVH, mild to moderate pulm hypertension -Hold statin in setting of transaminitis Respiratory: Acute hypoxic respiratory failure, h/o PE on Xarelto -[facility] consulted, appreciate recommendations -Intubated on 03/13 with 7.5 OETT at 24 at the lips -A.m. vent settings: AC TV 450/Rate 24/ Peep 10/ FiO2 40% -See RT notes for titration -A.m. ABG and CXR noted -VAP bundle -SPO2 monitoring GI: Morbid obesity, transaminitis (improving) -24 hours + 1480 mL -PPI -NTR consulted for tube feedings -BR: Senokot S -03/15 abdominal ultrasound shows hepatomegaly with hepatic steatosis, gallbladder sludge without sonographic evidence of acute cholecystitis -Trend LFTs : Acute kidney injury with possible underlying CKD, hyperchloremic, uremia, hyponatremia -Nephrology consulted, appreciate recommendations -s/p lasix 80mg 03/14, 03/15 40 mg lasix-> Bumex -Right femoral trialysis placed 03/17 -HD initiated on 03/17 -HD per nephrology -Monitor intake and output -Renally dose medications -Avoid nephrotoxic medications -Urine electrolytes pending -Renal ultrasound cancelled -Trend BMP ID: NAD -f/u sputum culture -Monitor WBC and temperature curve Endo: h/o DM -Hold home Novolin 70/30 100 units twice daily -Avoid hypoglycemia -SSI -Accu-Cheks q. 6 -Lantus added, titrate as needed -Hemoglobin A1c 8.6 Heme: NAD -Trend CBC -Transfuse hemoglobin less than 7 -SCDs to BLE while in bed -Continue home Xarelto The high probability of a clinically significant, sudden or life threatening deterioration of the [multi] system(s) required my full and direct attention, intervention and personal management. The aggregate critical care time was [60] minutes. This time is in addition to time spent performing reported procedures but includes the following: [x] Data Review and interpretation [x] Patient assessment and monitoring of vital signs [x] Documentation [x] Medication orders and management History Interval history: This is a 56-year-old male with OHS, HTN, PE on therapeutic anticoagulation with Xarelto, CHF and AICD in situ who presented to emergency department on 03/13 with complaints of shortness of breath over the past 2 days with worsening symptoms over the past day via EMS. Per documentation patient had last hemodialysis session on 03/08. Patient was emergently intubated in the emergency department as he was found to have some oropharyngeal edema and inability to protect his airway and found to have a pulse ox of 89%. 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 Patient was admitted to the hospital service with acute CHF decompensation, metabolic acidosis, fluid overload, transaminitis, acute kidney injury and acute hypoxic respiratory failure with consults to [facility], cardiology and nephrology. Hospital course to date: 03/14: Cardiology discontinued hydralazine, hydrochlorothiazide and clonidine due to soft blood pressures this morning and would like to continue Coreg and decreased Xarelto. Nephrology ordered a one-time dose of Lasix 80 mg. Patient remains intubated. This evening patient was becoming hypertensive and as needed hydralazine added. Unable to confirm if patient is on outpatient hemodialysis as does not know and current chest access appears to be PICC line. 03/15: Family stated that patient had milrinone infusion through PICC line, hemodialysis approximately 8 years ago. Nephrology administered additional Lasix today. We will continue to monitor renal function. [facility] made vent changes. Daughter and updated extensively at bedside by nurse practitioner. 03/16: Worsening renal function however no urgent need for indication for nephrology. Diuretics changed to Bumex. Neurology ordered a CTA head/neck (not ordered yesterday due to renal function, MRA not ordered due to pacemaker) and nephrology has okayed the use of dye per RN however testing still pending as radiology states patient will need hemodialysis postcontrast. RN paged telemetry neurology. Cardiology will restart IV milrinone. Hospitalist Physical - Constitutional Vitals: Temp Pulse Resp BP Pulse Ox 100.1 F H 80 30 H 112/59 95 03/17/22 07:55 03/17/22 10:00 03/17/22 10:00 03/17/22 10:00 03/17/22 10:00 General appearance: Present: no acute distress, other (Intubated and sedated) HEART Score - HEART Score Troponin: Troponin T 0.176 ng/mL (0.00-0.029) H* 03/13/22 15:44 Results - Labs CBC & Chem 7: 03/17/22 04:17 03/17/22 04:17 Labs: Laboratory Last Values WBC 8.9 K/mm3 (4.5-11.0) 03/17/22 04:17 RBC 4.08 M/mm3 (3.65-5.03) 03/17/22 04:17 Hgb 12.0 gm/dl (11.8-15.2) 03/17/22 04:17 Hct 36.7 % (35.5-45.6) 03/17/22 04:17 MCV 90 fl (84-94) 03/17/22 04:17 MCH 29 pg (28-32) 03/17/22 04:17 MCHC 33 % (32-34) 03/17/22 04:17 RDW 19.6 % (13.2-15.2) H 03/17/22 04:17 Plt Count 77 K/mm3 (140-440) L 03/17/22 04:17 Lymph % (Auto) 4.7 % (13.4-35.0) L 03/14/22 04:50 [place] % (Auto) 5.6 % (0.0-7.3) 03/14/22 04:50 Eos % (Auto) 0.1 % (0.0-4.3) 03/14/22 04:50 Baso % (Auto) 0.1 % (0.0-1.8) 03/14/22 04:50 Lymph # (Auto) 0.5 K/mm3 (1.2-5.4) L 03/14/22 04:50 [place] # (Auto) 0.5 K/mm3 (0.0-0.8) 03/14/22 04:50 Eos # (Auto) 0.0 K/mm3 (0.0-0.4) 03/14/22 04:50 Baso # (Auto) 0.0 K/mm3 (0.0-0.1) 03/14/22 04:50 Add Manual Diff Complete 03/13/22 15:44 Total Counted 100 03/13/22 15:44 Seg Neutrophils % 89.5 % (40.0-70.0) H 03/14/22 04:50 Seg Neuts % (Manual) 93.0 % (40.0-70.0) H 03/13/22 15:44 Band Neutrophils % 1.0 % 03/13/22 15:44 Lymphocytes % (Manual) 3.0 % (13.4-35.0) L 03/13/22 15:44 Reactive Lymphs % (Man) 0 % 03/13/22 15:44 Monocytes % (Manual) 2.0 % (0.0-7.3) 03/13/22 15:44 Eosinophils % (Manual) 0 % (0.0-4.3) 03/13/22 15:44 Basophils % (Manual) 0 % (0.0-1.8) 03/13/22 15:44 Metamyelocytes % 1.0 % 03/13/22 15:44 Myelocytes % 0 % 03/13/22 15:44 Promyelocytes % 0 % 03/13/22 15:44 Blast Cells % 0 % 03/13/22 15:44 Nucleated RBC % 1.0 % (0.0-0.9) H 03/13/22 15:44 Seg Neutrophils # 8.5 K/mm3 (1.8-7.7) H 03/14/22 04:50 Seg Neutrophils # Man 10.1 K/mm3 (1.8-7.7) H 03/13/22 15:44 Band Neutrophils # 0.1 K/mm3 03/13/22 15:44 Lymphocytes # (Manual) 0.3 K/mm3 (1.2-5.4) L 03/13/22 15:44 Abs React Lymphs (Man) 0.0 K/mm3 03/13/22 15:44 Monocytes # (Manual) 0.2 K/mm3 (0.0-0.8) 03/13/22 15:44 Eosinophils # (Manual) 0.0 K/mm3 (0.0-0.4) 03/13/22 15:44 Basophils # (Manual) 0.0 K/mm3 (0.0-0.1) 03/13/22 15:44 Metamyelocytes # 0.1 K/mm3 03/13/22 15:44 Myelocytes # 0.0 K/mm3 03/13/22 15:44 Promyelocytes # 0.0 K/mm3 03/13/22 15:44 Blast Cells # 0.0 K/mm3 03/13/22 15:44 WBC Morphology Not Reportable 03/13/22 15:44 Hypersegmented Neuts Not Reportable 03/13/22 15:44 Hyposegmented Neuts Not Reportable 03/13/22 15:44 Hypogranular Neuts Not Reportable 03/13/22 15:44 Smudge Cells Not Reportable 03/13/22 15:44 Toxic Granulation Not Reportable 03/13/22 15:44 Toxic Vacuolation Not Reportable 03/13/22 15:44 Dohle Bodies Not Reportable 03/13/22 15:44 Pelger-Huet Anomaly Not Reportable 03/13/22 15:44 Tyson Rods Not Reportable 03/13/22 15:44 Platelet Estimate Consistent w auto 03/13/22 15:44 Clumped Platelets Not Reportable 03/13/22 15:44 Plt Clumps, EDTA Not Reportable 03/13/22 15:44 Large Platelets Not Reportable 03/13/22 15:44 Giant Platelets Not Reportable 03/13/22 15:44 Platelet Satelliting Not Reportable 03/13/22 15:44 Plt Morphology Comment Not Reportable 03/13/22 15:44 RBC Morphology Not Reportable 03/13/22 15:44 Dimorphic RBCs Not Reportable 03/13/22 15:44 Polychromasia Few 03/13/22 15:44 Hypochromasia Not Reportable 03/13/22 15:44 Poikilocytosis Not Reportable 03/13/22 15:44 Anisocytosis Not Reportable 03/13/22 15:44 Microcytosis Not Reportable 03/13/22 15:44 Macrocytosis Not Reportable 03/13/22 15:44 Spherocytes Not Reportable 03/13/22 15:44 Pappenheimer Bodies Not Reportable 03/13/22 15:44 Sickle Cells Not Reportable 03/13/22 15:44 Target Cells Not Reportable 03/13/22 15:44 Tear Drop Cells Not Reportable 03/13/22 15:44 Ovalocytes Not Reportable 03/13/22 15:44 Helmet Cells Not Reportable 03/13/22 15:44 [place] Bodies Not Reportable 03/13/22 15:44 [place] Rings Not Reportable 03/13/22 15:44 Azael Cells 1+ 03/13/22 15:44 Bite Cells Not Reportable 03/13/22 15:44 Crenated Cell Not Reportable 03/13/22 15:44 Elliptocytes Few 03/13/22 15:44 Acanthocytes (Spur) Not Reportable 03/13/22 15:44 Rouleaux Not Reportable 03/13/22 15:44 Hemoglobin C Crystals Not Reportable 03/13/22 15:44 Schistocytes Not Reportable 03/13/22 15:44 Malaria parasites Not Reportable 03/13/22 15:44 Rashaad Bodies Not Reportable 03/13/22 15:44 Hem Pathologist Commnt No 03/13/22 15:44 ABG pH 7.390 pH Units (7.350-7.450) 03/17/22 06:00 ABG pCO2 41.2 mm Hg 03/17/22 06:00 ABG pO2 64.3 mm Hg (80.0-90.0) L 03/17/22 06:00 ABG HCO3 24.4 mmol/L (20.0-26.0) 03/17/22 06:00 ABG O2 Saturation 93.6 % (95.0-99.0) L 03/17/22 06:00 ABG O2 Content 16.2 (0.0-44) 03/17/22 06:00 ABG Base Excess -0.6 mmol/L (-2.0-3.0) 03/17/22 06:00 ABG Hemoglobin 12.6 gm/dl (14.0-18.0) L 03/17/22 06:00 ABG Carboxyhemoglobin 1.8 % (0.0-5.0) 03/17/22 06:00 ABG Methemoglobin 0.5 % (0.0-1.5) 03/17/22 06:00 Oxyhemoglobin 91.4 % (95.0-99.0) L 03/17/22 06:00 FiO2 50 % 03/17/22 06:00 Sodium 140 mmol/L (137-145) D 03/17/22 04:17 Potassium 4.1 mmol/L (3.6-5.0) 03/17/22 04:17 Chloride 103.5 mmol/L (98-107) 03/17/22 04:17 Carbon Dioxide 21 mmol/L (22-30) L 03/17/22 04:17 Anion Gap 20 mmol/L 03/17/22 04:17 BUN 119 mg/dL (9-20) H 03/17/22 04:17 Creatinine 4.5 mg/dL (0.8-1.3) H 03/17/22 04:17 Estimated GFR 17 ml/min 03/17/22 04:17 BUN/Creatinine Ratio 26 % 03/17/22 04:17 Glucose 446 mg/dL (75-100) H 03/17/22 04:17 POC Glucose 241 mg/dL (70-105) H 03/17/22 05:04 Hemoglobin A1c 8.6 % (4-6) H 03/15/22 04:36 Calcium 7.6 mg/dL (8.4-10.2) L 03/17/22 04:17 Magnesium 2.50 mg/dL (1.7-2.3) H 03/13/22 20:33 Total Bilirubin 1.50 mg/dL (0.1-1.2) H 03/17/22 04:17 AST 33 units/L (5-40) 03/17/22 04:17 ALT 122 units/L (7-56) H 03/17/22 04:17 Alkaline Phosphatase 109 units/L (35-129) 03/17/22 04:17 Troponin T 0.176 ng/mL (0.00-0.029) H* 03/13/22 15:44 NT-Pro-B Natriuret Pep 10365 pg/mL (0-900) H 03/13/22 15:44 Total Protein 5.1 g/dL (6.3-8.2) L 03/17/22 04:17 Albumin 1.9 g/dL (3.9-5) L 03/17/22 04:17 Albumin/Globulin Ratio 0.6 % 03/17/22 04:17 Triglycerides 98 mg/dL (2-149) 03/13/22 15:44 Cholesterol 99 mg/dL (50-199) 03/13/22 15:44 LDL Cholesterol Direct 59 mg/dL (50-130) 03/13/22 15:44 HDL Cholesterol 24 mg/dL (40-59) L 03/13/22 15:44 Cholesterol/HDL Ratio 4.12 % 03/13/22 15:44 TSH 0.362 mlU/mL (0.270-4.200) 03/15/22 04:36 Free T4 1.24 ng/dL (0.76-1.46) 03/13/22 20:33 Urine Color Straw (Yellow) 03/14/22 16:25 Urine Turbidity Clear (Clear) 03/14/22 16:25 Urine pH 5.0 (5.0-7.0) 03/14/22 16:25 Ur Specific [place] 1.015 (1.003-1.030) 03/14/22 16:25 Urine Protein 30 mg/dl mg/dL (Negative) 03/14/22 16:25 Urine Glucose (UA) Negative mg/dL (Negative) 03/14/22 16:25 Urine Ketones Trace mg/dL (Negative) 03/14/22 16:25 Urine Blood 1+ (Negative) 03/14/22 16:25 Urine Nitrite Negative (Negative) 03/14/22 16:25 Ur Reducing Substances Not Reportable 03/14/22 16:25 Urine Bilirubin Negative (Negative) 03/14/22 16:25 Urine Ictotest Not Reportable 03/14/22 16:25 Urine Urobilinogen < 2.0 mg/dL (<2.0) 03/14/22 16:25 Ur Leukocyte Esterase Negative (Negative) 03/14/22 16:25 Urine WBC (Auto) 6.0 /HPF (0.0-6.0) 03/14/22 16:25 Urine RBC (Auto) 82.0 /HPF (0.0-6.0) 03/14/22 16:25 U Epithel Cells (Auto) 1.0 /HPF (0-13.0) 03/14/22 16:25 Urine Bacteria (Auto) 1+ /HPF (Negative) 03/14/22 16:25 Urine Mucus Few /HPF 03/14/22 16:25 Hepatitis A IgM Ab Non-reactive (NonReactive) 03/14/22 10:12 Hep Bs Antigen Non-reactive (Negative) 03/14/22 10:12 Hep B Core IgM Ab Non-reactive (NonReactive) 03/14/22 10:12 Hepatitis C Antibody Non-reactive (NonReactive) 03/14/22 10:12 Microbiology: Microbiology 03/13/22 18:15 Sputum - Expectorated Sputum Sputum Culture - Preliminary Staphylococcus Aureus Anguiano/IV: Voiding Method Indwelling Catheter Active Medications - Current Medications Current Medications: Generic Name Dose Route Start Last Admin Trade Name Freq PRN Reason Stop Dose Admin Acetaminophen 650 mg 03/13/22 17:18 03/15/22 16:39 Acetaminophen 325 Mg Tab PO 650 mg Q6H PRN Administration Pain MILD(1-3)/Fever >100.5/FLORES Albumin Human 25 gm 03/13/22 18:43 Albumin Human 25% (25 Gm/100 Ml) Inj IV GLADYS PRN Hypotension Albuterol 2.5 mg 03/13/22 17:18 Albuterol 2.5 Mg/3 Ml Nebu IH Q3HRT PRN Shortness Of Breath Albuterol/Ipratropium 1 ampul 03/15/22 12:00 03/17/22 08:48 Ipratropium/Albuterol Sulfate 3 Ml Ampul.Neb IH 1 ampul Q12HRT YRIS Administration Aspirin 81 mg 03/14/22 10:00 03/17/22 09:53 Aspirin 81 Mg Tab Chew PO 81 mg QDAY YRIS Administration Bumetanide 1 mg 03/16/22 18:00 03/17/22 05:07 Bumetanide 1 Mg/4 Ml Inj IV 1 mg BID@0600,1800 YRIS Administration Carvedilol 6.25 mg 03/17/22 22:00 Carvedilol 6.25 Mg Tab FEEDTUBE BID YRIS Clopidogrel Bisulfate 75 mg 03/15/22 11:00 03/17/22 09:53 Clopidogrel 75 Mg Tab FEEDTUBE 75 mg QDAY YRIS Administration Dextrose 50 ml 03/14/22 12:30 Dextrose 50% In Water (25gm) 50 Ml Syringe IV Q30MIN PRN Hypoglycemia Protocol Famotidine 10 mg 03/14/22 22:00 03/17/22 09:53 Famotidine 10 Mg Tab FEEDTUBE 10 mg BID YRIS Administration Fentanyl 50 mcg 03/14/22 11:20 03/16/22 15:13 Fentanyl 100 Mcg/2 Ml Inj IV 50 mcg Q10MIN PRN Administration ANALGESIA Hydralazine HCl 10 mg 03/14/22 15:57 Hydralazine 20 Mg/1 Ml Inj IV Q4HR PRN Hypertension Hydromorphone HCl 0.5 mg 03/13/22 17:18 03/13/22 21:30 Hydromorphone 0.5 Mg/0.5 Ml Inj IV 0.5 mg Q13H PRN Administration Pain , Severe (7-10) Sodium Chloride 100 mls @ 999 mls/hr 03/13/22 18:42 Nacl 0.9% IV GLADYS PRN Hypotension Fentanyl Citrate 2,000 mcg in 100 mls @ 7.095 mls/hr 03/14/22 12:00 Fentanyl Drip Premix IV TITR YRIS Protocol 1 MCG/KG/HR Sodium Chloride 100 mls @ 999 mls/hr 03/17/22 09:01 Nacl 0.9% IV GLADYS PRN Hypotension NORepinephrine/NS 8 MG-250 ML 8 mg in 250 mls @ 3.75 mls/hr 03/17/22 11:00 Norepinephrine/Ns 8 Mg-250 Ml (Double Conc) IV TITRATE YRIS Protocol 2 MCG/MIN Vancomycin HCl 2,000 mg/ 540 mls @ 333 mls/hr 03/17/22 11:00 Sodium Chloride IV 03/17/22 12:37 ONCE ONE Protocol Insulin Glargine 20 units 03/17/22 22:00 Insulin Glargine 100 Units/Ml SUB-Q QHS YRIS Insulin Human Regular 0 units 03/14/22 13:00 03/17/22 05:07 Insulin Regular, Human 100 Units/1 Ml SUB-Q 3 units Q6HR YRIS Administration Protocol Oxycodone/Acetaminophen 1 tab 03/13/22 17:18 Oxycodone /Acetaminophen 5-325mg Tab PO Q16H PRN Pain, Moderate (4-6) Rivaroxaban 15 mg 03/14/22 10:29 03/17/22 07:30 Rivaroxaban 15 Mg Tab PO 15 mg QDDIAB YRIS Administration Senna/Docusate Sodium 1 tab 03/14/22 22:00 03/16/22 21:16 Sennosides/Docusate Sodium 8.6/50 Mg Tab FEEDTUBE 1 tab QHS YRIS Administration Sodium Bicarbonate 650 mg 03/16/22 06:00 03/17/22 05:07 Sodium Bicarbonate 650 Mg Tab PO 650 mg Q8HR YRIS Administration Sodium Chloride 10 ml 03/13/22 22:00 03/17/22 09:54 Sodium Chloride 0.9% 10 Ml Flush Syringe IV 10 ml BID YRIS Administration Sodium Chloride 10 ml 03/13/22 17:18 Sodium Chloride 0.9% 10 Ml Flush Syringe IV PRN PRN LINE FLUSH Nutrition/Malnutrition Assess - Dietary Evaluation Nutrition/Malnutrition Findings: Nutrition Notes Start: 03/14/22 09:54 Freq: Status: Active Protocol: Document 03/16/22 10:04 VICTORIA (Rec: 03/16/22 10:27 VICTORIA [id number]) Nutrition Notes Initial or Follow up Brief Note Current Diagnosis Acute Kidney Injury,CKD(stage I-IV),Diabetes,Hypertension, Respiratory Failure,Stroke Other Pertinent Diagnosis ESRD+HD, Pulmonary Embolism, Fluid Overload, Metabolic Acidosis, CHF... Current Diet TF-Nepro w/CARBSTEADY @ 50 ml/ hr (from L 03/14). Labs/Tests 03/16: Na 148, Cl 110.3, BUN 111, Crea 4.7, Glu 243, Ca 8.3 , HbA1c 8.6%. Pertinent Medications 03/16: Lantus 10U, Humulin R 3U, others nutritionally unremarkable. Height 5 ft 11 in Weight 140.6 kg [place] Body Weight (kg) 78.18 BMI 43.2 Weight change and time frame 1.3 Kg body weight loss in 2 days reported. Weight Status Morbidly Obese Subjective/Other Information RD consult for routine F/U on TF tolerance/continuation. TF continues as prescribed, and well tolerated, according to RN notes. Pt remains on Mechanical Ventilation, O2 saturation @ 98%, according to Physical Assessment History notes. Pt has not had a BM since , according to Physical Assessment History notes. Percent of energy/protein needs met: Prescribed TF-Nepro w/ CARBSTEADY @ 50 ml/hr provides for energy/protein needs (2, 180 Kcal/98 g) during LOS, 102 % Kcal; 74% AA. #1 Nutrition Diagnosis Inadequate oral intake Diagnosis Progress(for reassessment Continues documentation) Is patient on ventilator? Yes Is Patient Ambulatory and/or Out of Bed No REE-([facility]-confined to bed) 2725.248 Kcal/Kg value to use for calculation 15 Approximate Energy Requirements Using 2109 kcal/Kg Calculation Used for Recommendations Kcal/kg Additional Notes Protein: >1.2 g/Kg AdjBW; >132 g/day. Fluids: 1 ml/Kcal, or as per MD. Nutrition Intervention Nutrition Support: Continue TF-Nepro w/CARBSTEADY @ 50 ml/hr. Flush: 200 ml water Q 4 hr,or as per MD. Kcal 2,180 Protein (gm) 98 Carbohydrates (gm) 195 Fat (gm) 116 Fluid (mL) 880 Fiber (gm) 15 % RDI: 102% Kcal; 74% AA. Goal #1 Provide at least 75% of energy /protein needs through Enteral Feeding during LOS. Follow-Up By: 03/23/22 Additional Comments Continue monitoring TF tolerance and BM.
--- NOTE | 2022-03-17 11:09 | Cat Scan Report ---
CT angio head INDICATION / CLINICAL INFORMATION: 56 years Male; cva. TECHNIQUE: Thin cut axial images obtained through the head during IV bolus contrast administration. S agittal, coronal, and 3 plane MIP reconstructions performed by the technologist. NASCET type criteria used evaluate stenoses. Automated exposure control utilized for radiation reduction purposes. Subopt imal bolus concentration suggested. COMPARISON: None available. FINDINGS: INTERNAL CAROTID ARTERIES: No definitive signs of significant narrowing appreciated. Atherosclerotic disease noted. VERTEBROBASILAR SYSTEM: Left vertebral artery appears to be dominant when compared with the right. Ar eas of relatively smooth like narrowing are seen in the distal, nondominant right vertebral artery an d perhaps in the mid basilar artery. DISTAL BRANCHES: Distal branches of the anterior, middle, and posterior cerebral arteries are fairly symmetric in appearance and number. The left PICA is fairly well visualized, while that of the right is not, which may explain patient's PICA territory infarct in the right cerebellar hemisphere. Scattered areas of mild narrowing seen in multiple peripheral branches, some of which may be artifact ual. The P1 segment on the right appears to be hypoplastic-majority of blood flow to the right [employer] territo ry is via the right PICA. Focal area of mild narrowing is suggested in the proximal P1 segment on the left. ANEURYSM: None identified. ADDITIONAL FINDINGS: Small focus of enostosis along the inner table the right frontal bone-of no clin ical significance. IMPRESSION: 1. Poor visualization of the right PICA noted. There are also areas of mild narrowing seen in the pos terior circulation. 2. No definitive signs of large vessel occlusion. Signer Name: Luis Enrique Good MD, III Signed: 03/17/2022 11:05 AM Workstation Name: Lee Silber
--- NOTE | 2022-03-17 11:11 | Procedure Note ---
Date of procedure: 03/17/22 Pre-op diagnosis: SULEMAN, Acute respiratory failure, Acute on Chronic HFrEF Post-op diagnosis: same Procedure: Statement of concerns: Telephone consent obtained from Mrs. Elly Eli. Trialysis catheter was placed in right femoral vein. Sterile technique was utilized. Patient prepped and placed in trendelenburg position. Area prepped with chlorhexidine/ full body drape utilized. Target vessel visualized with ultrasound. Using seldinger technique, a finder needle was used to puncture target vessel. Wire was threaded through the needle, skin was nicked and needle was withdrawn over wire. A dilator was passed over the wire and tract was dilated. A central venous line catheter was threaded over a wire. All three ports withdrew blood and flushed without difficulty with saline. Line sutured in place, biopatch placed and dressed with tegaderm. Pt tolerated procedure well. VS remained stable throughout procedure. (time spent placing line not included in daily critical care time) CCT: 60 mins Anesthesia: local Surgeon: TRISTON ORDOÑEZ Estimated blood loss: minimal Condition: critical Disposition: ICU
--- NOTE | 2022-03-17 11:36 | Cat Scan Report ---
CT angio neck INDICATION / CLINICAL INFORMATION: 56 years Male; cva. TECHNIQUE: Thin cut axial images obtained through the head during IV bolus contrast administration. S agittal, coronal, and 3 plane MIP reconstructions performed by the technologist. NASCET type criteria used evaluate stenoses. All CT scans at this location are performed using CT dose reduction for ALAR A by means of automated exposure control. Poor bolus concentration noted. COMPARISON: None available. FINDINGS: ARCH: Normal aortic arch branching suggested. CAROTID ARTERIES: The visualized common and internal carotid arteries are widely patent. VERTEBRAL ARTERIES: Codominant vertebral system seen. No significant stenosis appreciated, although t he proximal great vessels are difficult to visualize because of streak artifact and some degree of mo tion.. ADDITIONAL FINDINGS: Patient is intubated. OG tube noted. Pleural thickening and/or effusion noted on the right with partial opacification and/or atelectasis s een in the right lower lobe. Pacemaker/February wires noted. Multiple, small nodes are seen in the left level 5/suprapedicular reg ion. Perhaps findings related to recent pacemaker/defibrillator placement. IMPRESSION: No significant stenosis appreciated on this very limited CTA of the neck. Signer Name: Luis Enrique Good MD, III Signed: 03/17/2022 11:32 AM Workstation Name: [email or web address]
[2022-03-17] MEDS ORDERED: VANCOMYCIN 2,000 MG in SODIUM CHLORIDE 0.9% 500 ML 500 ML IV SCH (12:00)
[2022-03-17] MEDS ORDERED: MILRINONE-D5W 20 MG/100 ML 20 MG/100 ML BAG IV SCH (12:00)
--- NOTE | 2022-03-17 12:32 | Progress Note ---
Assessment and Plan Patient is a 56-year-old male with a reported past medical history of hypertension, history of PE who was brought to the ED for evaluation due to shortness of breath Acute respiratory failure-pulmonology following SULEMAN on CKD-nephrology follow Acute on chronic HFrEF NSTEMI suspect type II AICD in situ History of PE anticoagulated on Xarelto Hypertension Echo 03/13/2022-EF 20 to 25%. Mild concentric LVH. Right ventricle is moderately dilated. Left atrium is moderately dilated. Right atrium is mildly dilated. Pacemaker lead present in right atrium. Mild mitral regurgitation. Mild tricuspid regurgitation. Mild to moderate pulmonary hypertension. Plan: Per conversation with staff patient was on milrinone as an outpatient and PICC line for milrinone. Furthermore per conversations patient follows Dr. Montoya. Records reviewed patient appears to have been on IV milrinone as an outpatient Patient has become hypotensive we will decrease to carvedilol 6.25 mg p.o. twice daily. Will continue inotropic therapy with milrinone with close monitoring of BP and for arrhythmia Per documentation patient be started on hemodialysis. Will defer volume management to nephrology Continue Xarelto to 15 mg p.o. daily for h/o pf PE Will hold statin due to elevated liver enzymes Patient seen in conjunction with Dr. Barboza who agrees with this plan of care 30 minutes of critical care time spent care coordination pain - Patient Problems (1) Acute hypoxemic respiratory failure Current Visit: Yes Status: Acute (2) Fluid overload Current Visit: Yes Status: Acute Qualifiers: Hypervolemia type: unspecified Qualified Code(s): E87.70 - Fluid overload, unspecified (3) Metabolic acidosis Current Visit: Yes Status: Acute (4) CHF (congestive heart failure) Current Visit: Yes Status: Acute Qualifiers: Heart failure type: systolic Heart failure chronicity: acute Qualified Code(s): I50.21 - Acute systolic (congestive) heart failure (5) History of pulmonary embolism Current Visit: Yes Status: Acute (6) Elevated liver function tests Current Visit: Yes Status: Acute Subjective Date of service: 03/17/22 Principal diagnosis: SULEMAN, acute on chronic HFrEF, acute respiratory failure Interval history: Patient remains intubated. Patient for CT today Sinus 60 to 70s with PVCs on monitor Objective Vital Signs Temp Pulse Pulse Pulse Resp Resp BP 03/17/22 12:09 70 03/17/22 12:00 75 70 31 H 91/49 03/17/22 11:52 99.2 F 03/17/22 11:00 78 30 H 99/55 03/17/22 10:00 80 30 H 112/59 03/17/22 09:00 80 32 H 98/48 03/17/22 08:49 77 32 H 84/54 03/17/22 08:48 78 33 H 03/17/22 08:15 75 84/54 03/17/22 08:09 75 03/17/22 08:00 79 75 31 H 84/54 03/17/22 07:55 100.1 F H 03/17/22 07:00 79 30 H 91/48 03/17/22 06:00 74 30 H 101/50 03/17/22 05:00 78 32 H 95/55 03/17/22 04:00 99.1 F 81 72 37 H 91/52 03/17/22 03:00 73 33 H 111/53 03/17/22 02:00 79 34 H 119/57 03/17/22 01:00 80 33 H 98/48 03/17/22 00:04 71 28 H 98/48 03/17/22 00:00 70 76 26 H 98/48 03/16/22 23:46 79 103/66 03/16/22 23:20 98.3 F 03/16/22 23:00 77 31 H 111/58 03/16/22 22:00 74 28 H 106/58 03/16/22 21:19 82 101/68 03/16/22 21:07 81 27 H 03/16/22 21:00 80 27 H 101/68 03/16/22 20:00 84 35 H 106/63 03/16/22 19:31 75 25 H 03/16/22 19:18 98.3 F 03/16/22 19:01 77 26 H 03/16/22 19:00 108/54 03/16/22 18:00 74 29 H 113/51 03/16/22 17:00 76 33 H 115/47 03/16/22 16:38 71 115/43 03/16/22 16:00 98.8 F 70 71 93 H 115/43 03/16/22 15:19 38 H 03/16/22 15:13 38 H 03/16/22 15:00 72 31 H 105/53 03/16/22 14:00 74 29 H 113/57 03/16/22 13:00 66 34 H 114/69 03/16/22 12:45 61 120/67 Pulse Ox 03/17/22 12:09 03/17/22 12:00 88 03/17/22 11:52 03/17/22 11:00 90 03/17/22 10:00 95 03/17/22 09:00 90 03/17/22 08:49 95 03/17/22 08:48 03/17/22 08:15 95 03/17/22 08:09 03/17/22 08:00 88 03/17/22 07:55 03/17/22 07:00 93 03/17/22 06:00 91 03/17/22 05:00 87 03/17/22 04:00 93 03/17/22 03:00 95 03/17/22 02:00 94 03/17/22 01:00 95 03/17/22 00:04 03/17/22 00:00 89 03/16/22 23:46 95 03/16/22 23:20 03/16/22 23:00 88 03/16/22 22:00 91 03/16/22 21:19 03/16/22 21:07 03/16/22 21:00 93 03/16/22 20:00 88 03/16/22 19:31 95 03/16/22 19:18 03/16/22 19:01 03/16/22 19:00 03/16/22 18:00 90 03/16/22 17:00 89 03/16/22 16:38 95 03/16/22 16:00 94 03/16/22 15:19 03/16/22 15:13 03/16/22 15:00 91 03/16/22 14:00 91 03/16/22 13:00 92 03/16/22 12:45 94 - Physical Examination General: Other (Intubated and sedated) HEENT: Positive: Mucus Membranes Moist Neck: Positive: trachea midline Cardiac: Positive: Reg Rate and Rhythm Lungs: Positive: Decreased Breath Sounds Neuro: Positive: Other (Unable to assess) Abdomen: Positive: Soft Skin: Negative: Rash, Suspicious Lesions, Ulceration Extremities: Present: upper extr. pulses, edema - Labs and Meds Cardiac Enzymes 03/17/22 Range/Units 04:17 AST 33 (5-40) units/L CBC 03/17/22 Range/Units 04:17 WBC 8.9 (4.5-11.0) K/mm3 RBC 4.08 (3.65-5.03) M/mm3 Hgb 12.0 (11.8-15.2) gm/dl Hct 36.7 (35.5-45.6) % Plt Count 77 L (140-440) K/mm3 Comprehensive Metabolic Panel 03/17/22 Range/Units 04:17 Sodium 140 D (137-145) mmol/L Potassium 4.1 (3.6-5.0) mmol/L Chloride 103.5 (98-107) mmol/L Carbon Dioxide 21 L (22-30) mmol/L BUN 119 H (9-20) mg/dL Creatinine 4.5 H (0.8-1.3) mg/dL Glucose 446 H (75-100) mg/dL Calcium 7.6 L (8.4-10.2) mg/dL AST 33 (5-40) units/L ALT 122 H (7-56) units/L Alkaline Phosphatase 109 (35-129) units/L Total Protein 5.1 L (6.3-8.2) g/dL Albumin 1.9 L (3.9-5) g/dL - Imaging and Cardiology Echo: report reviewed - Telemetry EKG Rhythm: Sinus Rhythm - EKG Sinus rhythms and dysrhythmias: sinus rhythm AV and intraventricular conduction: left anterior fascicular - Allied health notes Allied health notes reviewed: RT
[2022-03-17] MEDS ORDERED: SODIUM CHLORIDE 0.9% 1000 ML 1,000 ML IV PRN (17:08)
--- NOTE | 2022-03-17 17:42 | Procedure Note ---
Date of procedure: 03/17/22 Pre-op diagnosis: acute resp failure, everardo on hd Post-op diagnosis: same Procedure: Jacob test completed. Ulnar pulse intact. Right radial fausto inserted using sterile technique. Area prepped with chlorhexidine and the site was infiltrated with 1ml 1% li docaine. Arterial line was placed using ultrasound; catheter advanced without difficulty. Line was sutured, biopatch not available and tegaderm dressing applied. RN asked to place Arm board. Arterial waveform observed on bedside monitor. Line flushed and zeroed. RN at bedside. Pt tolerated procedure well. VS remained stable throughout procedure. (time spent placing line not included in daily critical care time) CCT: 60 mins
[2022-03-17] MEDS: SENNOSIDES/DOCUSATE SODIUM 8.6/50 MG TAB FEEDTUBE SCH (21:02)
[2022-03-17] MEDS: carvediloL 6.25 MG TAB FEEDTUBE SCH (21:06)
[2022-03-17] MEDS: INSULIN GLARGINE 100 UNITS/ML SUB-Q SCH (21:06)
[2022-03-18 04:32] LABS: Hematocrit 37.6 % (35.5-45.6); Hemoglobin 12.4 gm/dl (11.8-15.2); Mean Corpuscular HGB Conc 33 % (32-34); Mean Corpuscular Volume 87 fl (84-94); Platelet Count 90 K/mm3 (140-440); Red Blood Count 4.32 M/mm3 (3.65-5.03); Red Cell Distribution Width 19.3 % (13.2-15.2)
[2022-03-18 04:47] LABS: Calcium 8.5 mg/dL (8.4-10.2)
[2022-03-18] MEDS: ACETAMINOPHEN 325 MG TAB PO PRN ×2 (04:52→11:54)
[2022-03-18] MEDS: BUMETANIDE 1 MG/4 ML INJ IV SCH ×2 (05:01→17:55)
[2022-03-18] MEDS: SODIUM BICARBONATE 650 MG TAB PO SCH ×3 (05:01→21:50)
[2022-03-18 05:21] LABS: Band Neutrophils # (Manual) 0.1 K/mm3; Basophils % (Manual) 0 % (0.0-1.8); Total Cells Counted 100
[2022-03-18 05:22] LABS: Anisocytosis 1+; Platelet Estimate Consistent w Auto
[2022-03-18 05:41] LABS: ABG Base Excess 0.9 mmol/L (-2.0-3.0); ABG HCO3 24.9 mmol/L (20.0-26.0); ABG Methemoglobin 0.5 % (0.0-1.5); ABG Oxygen Saturation 95.4 % (95.0-99.0); ABG PCO2 37.6 mm Hg; ABG PH 7.439 pH Units (7.350-7.450)
[2022-03-18] MEDS: INSULIN REGULAR, HUMAN 100 UNITS/1 ML SUB-Q SCH ×4 (05:54→23:53)
[2022-03-18] MEDS: fentaNYL 100 MCG/2 ML INJ IV PRN ×2 (06:28→12:22)
[2022-03-18] MEDS: IPRATROPIUM/ALBUTEROL SULFATE 3 ML AMPUL.NEB IH SCH ×2 (07:08→19:53)
[2022-03-18] MEDS: CLOPIDOGREL 75 MG TAB FEEDTUBE SCH (09:13)
[2022-03-18] MEDS: FAMOTIDINE 10 MG TAB FEEDTUBE SCH ×2 (09:13→21:50)
[2022-03-18] MEDS: RIVAROXABAN 15 MG TAB PO SCH (09:13)
[2022-03-18] MEDS: ASPIRIN 81 MG TAB CHEW PO SCH (09:13)
[2022-03-18] MEDS: carvediloL 6.25 MG TAB FEEDTUBE SCH ×2 (10:40→21:50)
--- NOTE | 2022-03-18 10:51 | Progress Note ---
Assessment and Plan Impression * Acute kidney injury * Patient may have underlying chronic kidney disease * Respiratory failure. Chest x-ray showing evidence of mild volume overload * Diabetes * Hypertension * Abnormal LFTs * Mild metabolic acidosis and mild hyperkalemia Recommendations * Patient's baseline renal function is not known. * His urine shows 1+ dipstick protein and 1+ blood * Follow-up results of vasculitis work-up. Hepatitis B and C both are negative * Renal ultrasound shows relatively larger left kidney. Otherwise normal. * Avoid nephrotoxins * Monitor Anguiano catheter for now * Hyperkalemia has been corrected * Monitor fluid status and electrolytes closely * HD started 03/17 for clinical volume overload, azotemia with BUN>100, continue daily HD x3 days per new start protocol, plan for HD today and tomorrow l Subjective Date of service: 03/18/22 Principal diagnosis: SULEMAN, acute on chronic HFrEF, acute respiratory failure Interval history: Patient remains on the ventilator. Currently on 40% FiO2. Patient is unresponsive. Started HD yesterday Objective - Exam Narrative Exam: General appearance: appears stated age, intubated EENT: PERRL, mucous membranes moist Neck: no JVD, supple Respiratory: Present: Clear to Ascultation Cardiology: regular, normal heart rate, S1S2, no murmurs Gastrointestinal: Integumentary: no rash, other (2+ edema) - Vital Signs Vital signs: Vital Signs - 12hr 03/17/22 03/17/22 03/17/22 23:00 23:15 23:31 Temperature Pulse Rate 77 81 81 Pulse Rate [ Bilateral Throughout] Pulse Rate [ From Monitor] Respiratory 32 H 32 H 32 H Rate Respiratory Rate [Bilateral Throughout] Blood Pressure 106/61 106/61 106/61 O2 Sat by Pulse 90 95 95 Oximetry 03/17/22 03/17/22 03/17/22 23:45 23:55 23:56 Temperature Pulse Rate 80 80 Pulse Rate [ Bilateral Throughout] Pulse Rate [ 80 From Monitor] Respiratory 35 H 32 H Rate Respiratory Rate [Bilateral Throughout] Blood Pressure 106/61 O2 Sat by Pulse 94 95 Oximetry 03/18/22 03/18/22 03/18/22 00:00 00:03 00:10 Temperature 98.4 F Pulse Rate 81 80 79 Pulse Rate [ Bilateral Throughout] Pulse Rate [ From Monitor] Respiratory 35 H 34 H Rate Respiratory Rate [Bilateral Throughout] Blood Pressure 116/63 116/63 110/57 O2 Sat by Pulse 89 93 95 Oximetry 03/18/22 03/18/22 03/18/22 00:15 00:31 00:45 Temperature Pulse Rate 82 82 82 Pulse Rate [ Bilateral Throughout] Pulse Rate [ From Monitor] Respiratory 22 22 26 H Rate Respiratory Rate [Bilateral Throughout] Blood Pressure 116/63 116/63 116/63 O2 Sat by Pulse 94 94 94 Oximetry 03/18/22 03/18/22 03/18/22 01:00 01:15 01:31 Temperature Pulse Rate 82 81 83 Pulse Rate [ Bilateral Throughout] Pulse Rate [ From Monitor] Respiratory 33 H 33 H 35 H Rate Respiratory Rate [Bilateral Throughout] Blood Pressure 125/68 125/68 125/68 O2 Sat by Pulse 91 94 93 Oximetry 03/18/22 03/18/22 03/18/22 01:45 02:01 02:15 Temperature Pulse Rate 82 83 83 Pulse Rate [ Bilateral Throughout] Pulse Rate [ From Monitor] Respiratory 34 H 28 H 33 H Rate Respiratory Rate [Bilateral Throughout] Blood Pressure 125/68 116/67 116/67 O2 Sat by Pulse 94 89 94 Oximetry 03/18/22 03/18/22 03/18/22 02:31 02:45 02:55 Temperature Pulse Rate 82 82 86 Pulse Rate [ Bilateral Throughout] Pulse Rate [ From Monitor] Respiratory 30 H 34 H Rate Respiratory Rate [Bilateral Throughout] Blood Pressure 116/67 116/67 124/64 O2 Sat by Pulse 95 95 95 Oximetry 03/18/22 03/18/22 03/18/22 03:00 03:15 03:31 Temperature 102.4 F H Pulse Rate 82 81 83 Pulse Rate [ Bilateral Throughout] Pulse Rate [ From Monitor] Respiratory 34 H 32 H 36 H Rate Respiratory Rate [Bilateral Throughout] Blood Pressure 122/69 122/69 122/69 O2 Sat by Pulse 88 94 95 Oximetry 03/18/22 03/18/22 03/18/22 03:45 04:00 04:15 Temperature 102.4 F H Pulse Rate 83 83 81 Pulse Rate [ Bilateral Throughout] Pulse Rate [ 81 From Monitor] Respiratory 35 H 34 H 32 H Rate Respiratory Rate [Bilateral Throughout] Blood Pressure 122/69 128/71 128/71 O2 Sat by Pulse 95 88 94 Oximetry 03/18/22 03/18/22 03/18/22 04:31 04:45 05:00 Temperature Pulse Rate 83 84 83 Pulse Rate [ Bilateral Throughout] Pulse Rate [ From Monitor] Respiratory 36 H 37 H 36 H Rate Respiratory Rate [Bilateral Throughout] Blood Pressure 128/71 128/71 133/73 O2 Sat by Pulse 94 94 88 Oximetry 03/18/22 03/18/22 03/18/22 05:15 05:31 05:45 Temperature Pulse Rate 82 83 85 Pulse Rate [ Bilateral Throughout] Pulse Rate [ From Monitor] Respiratory 30 H 34 H 37 H Rate Respiratory Rate [Bilateral Throughout] Blood Pressure 133/73 133/73 133/73 O2 Sat by Pulse 94 93 94 Oximetry 03/18/22 03/18/22 03/18/22 06:00 06:15 06:31 Temperature Pulse Rate 88 89 84 Pulse Rate [ Bilateral Throughout] Pulse Rate [ From Monitor] Respiratory 38 H 36 H 35 H Rate Respiratory Rate [Bilateral Throughout] Blood Pressure 142/86 142/86 142/86 O2 Sat by Pulse 89 95 95 Oximetry 03/18/22 03/18/22 03/18/22 06:45 07:00 07:01 Temperature 102.4 F H Pulse Rate 81 80 Pulse Rate [ Bilateral Throughout] Pulse Rate [ From Monitor] Respiratory 29 H 28 H Rate Respiratory Rate [Bilateral Throughout] Blood Pressure 142/86 116/63 O2 Sat by Pulse 94 90 Oximetry 03/18/22 03/18/22 03/18/22 07:09 07:15 07:31 Temperature Pulse Rate 80 81 81 Pulse Rate [ 82 Bilateral Throughout] Pulse Rate [ From Monitor] Respiratory 34 H 31 H 32 H Rate Respiratory 30 H Rate [Bilateral Throughout] Blood Pressure 108/50 116/63 116/63 O2 Sat by Pulse 95 94 93 Oximetry 03/18/22 03/18/22 03/18/22 07:39 07:44 07:45 Temperature Pulse Rate 81 81 Pulse Rate [ Bilateral Throughout] Pulse Rate [ From Monitor] Respiratory 30 H Rate Respiratory Rate [Bilateral Throughout] Blood Pressure 116/63 O2 Sat by Pulse 94 94 Oximetry 03/18/22 03/18/22 03/18/22 08:00 08:15 08:31 Temperature 102.4 F H Pulse Rate 81 82 82 Pulse Rate [ Bilateral Throughout] Pulse Rate [ 82 From Monitor] Respiratory 32 H 32 H 29 H Rate Respiratory Rate [Bilateral Throughout] Blood Pressure 115/69 116/63 116/63 O2 Sat by Pulse 87 93 93 Oximetry 03/18/22 03/18/22 03/18/22 08:45 08:57 09:00 Temperature Pulse Rate 87 85 85 Pulse Rate [ Bilateral Throughout] Pulse Rate [ From Monitor] Respiratory 39 H 36 H Rate Respiratory Rate [Bilateral Throughout] Blood Pressure 116/63 115/69 127/73 O2 Sat by Pulse 93 92 87 Oximetry 03/18/22 03/18/22 03/18/22 09:15 09:31 09:45 Temperature Pulse Rate 86 86 88 Pulse Rate [ Bilateral Throughout] Pulse Rate [ From Monitor] Respiratory 37 H 39 H 33 H Rate Respiratory Rate [Bilateral Throughout] Blood Pressure 127/73 127/73 127/73 O2 Sat by Pulse 92 93 93 Oximetry 03/18/22 03/18/22 03/18/22 10:00 10:15 10:31 Temperature Pulse Rate 86 88 86 Pulse Rate [ Bilateral Throughout] Pulse Rate [ From Monitor] Respiratory 40 H 36 H 39 H Rate Respiratory Rate [Bilateral Throughout] Blood Pressure 136/72 136/72 136/72 O2 Sat by Pulse 89 93 93 Oximetry - Lab 03/18/22 04:17 03/18/22 04:17 Most recent lab results ABG pH 7.439 pH Units (7.350-7.450) 03/18/22 05:30 ABG pCO2 37.6 mm Hg 03/18/22 05:30 ABG pO2 69.0 mm Hg (80.0-90.0) L 03/18/22 05:30 ABG HCO3 24.9 mmol/L (20.0-26.0) 03/18/22 05:30 ABG O2 Saturation 95.4 % (95.0-99.0) 03/18/22 05:30 Calcium 8.5 mg/dL (8.4-10.2) 03/18/22 04:17 Magnesium 2.50 mg/dL (1.7-2.3) H 03/13/22 20:33 Medications & Allergies - Medications Allergies/Adverse Reactions: Allergies No Known Allergies Allergy (Verified 03/13/22 14:06) Home Medications: Home Medications Medication Instructions Recorded Confirmed Last Taken Type Aspirin [Aspirin BABY CHEW TAB] 81 mg PO QDAY 03/13/22 03/13/22 Unknown History AtorvaSTATin [Lipitor] 40 mg PO QHS 03/13/22 03/13/22 Unknown History Furosemide [Lasix] 40 mg PO QDAY 03/13/22 03/13/22 Unknown History Insulin NPH Hum/Reg Insulin Hm 100 unit SQ BID 03/13/22 03/13/22 Unknown History [Novolin 70-30 100 Unit/ml Vial] Sodium Bicarbonate 650 mg PO Q8HR 03/13/22 03/13/22 Unknown History XARELTO (see DOAC order set to 20 mg PO QDAY 03/13/22 03/13/22 Unknown History order) carvediloL [Coreg] 25 mg PO BID 03/13/22 03/13/22 Unknown History cloNIDine [Catapres] 0.2 mg PO BID 03/13/22 03/13/22 Unknown History hydrALAZINE [Apresoline] 50 mg PO Q8HR 03/13/22 03/13/22 Unknown History hydroCHLOROthiazide 50 mg PO 03/13/22 03/13/22 Unknown History [Hydrochlorothiazide] Active Medications: Generic Name Dose Route Start Last Admin Trade Name Freq PRN Reason Stop Dose Admin Acetaminophen 650 mg 03/13/22 17:18 03/18/22 04:52 Acetaminophen 325 Mg Tab PO 650 mg Q6H PRN Administration Pain MILD(1-3)/Fever >100.5/FLORES Albumin Human 25 gm 03/13/22 18:43 Albumin Human 25% (25 Gm/100 Ml) Inj IV GLADYS PRN Hypotension Albuterol 2.5 mg 03/13/22 17:18 Albuterol 2.5 Mg/3 Ml Nebu IH Q3HRT PRN Shortness Of Breath Albuterol/Ipratropium 1 ampul 03/15/22 12:00 03/18/22 07:08 Ipratropium/Albuterol Sulfate 3 Ml Ampul.Neb IH 1 ampul Q12HRT YRIS Administration Aspirin 81 mg 03/14/22 10:00 03/18/22 09:13 Aspirin 81 Mg Tab Chew PO 81 mg QDAY YRIS Administration Bumetanide 1 mg 03/16/22 18:00 03/18/22 05:01 Bumetanide 1 Mg/4 Ml Inj IV 1 mg BID@0600,1800 YRIS Administration Carvedilol 6.25 mg 03/17/22 22:00 03/18/22 10:40 Carvedilol 6.25 Mg Tab FEEDTUBE Not Given BID YRIS Clopidogrel Bisulfate 75 mg 03/15/22 11:00 03/18/22 09:13 Clopidogrel 75 Mg Tab FEEDTUBE 75 mg QDAY YRIS Administration Dextrose 50 ml 03/14/22 12:30 Dextrose 50% In Water (25gm) 50 Ml Syringe IV Q30MIN PRN Hypoglycemia Protocol Famotidine 10 mg 03/14/22 22:00 03/18/22 09:13 Famotidine 10 Mg Tab FEEDTUBE 10 mg BID YRIS Administration Fentanyl 50 mcg 03/14/22 11:20 03/18/22 06:28 Fentanyl 100 Mcg/2 Ml Inj IV 50 mcg Q10MIN PRN Administration ANALGESIA Hydralazine HCl 10 mg 03/14/22 15:57 Hydralazine 20 Mg/1 Ml Inj IV Q4HR PRN Hypertension Hydromorphone HCl 0.5 mg 03/13/22 17:18 03/13/22 21:30 Hydromorphone 0.5 Mg/0.5 Ml Inj IV 0.5 mg Q13H PRN Administration Pain , Severe (7-10) Sodium Chloride 100 mls @ 999 mls/hr 03/13/22 18:42 Nacl 0.9% IV GLADYS PRN Hypotension Fentanyl Citrate 2,000 mcg in 100 mls @ 7.095 mls/hr 03/14/22 12:00 Fentanyl Drip Premix IV TITR YRIS Protocol 1 MCG/KG/HR Sodium Chloride 100 mls @ 999 mls/hr 03/17/22 09:01 Nacl 0.9% IV GLADYS PRN Hypotension NORepinephrine/NS 8 MG-250 ML 8 mg in 250 mls @ 3.75 mls/hr 03/17/22 11:00 03/17/22 20:59 Norepinephrine/Ns 8 Mg-250 Ml (Double Conc) IV 0 mcg/min TITRATE YRIS 0 mls/hr Titration Protocol 2 MCG/MIN Milrinone Lactate/Dextrose 20 mg in 100 mls @ 11.6 mls/hr 03/17/22 12:00 Milrinone-D5w 20 Mg/100 Ml IV DIRECT YRIS Protocol 0.275 MCG/KG/MIN Sodium Chloride 1,000 mls @ 1 mls/hr 03/17/22 17:08 Nacl 0.9% 1000 Ml IV DIRECT PRN ARTERIAL LINE FLUSH Sodium Chloride 100 mls @ 999 mls/hr 03/18/22 10:49 Nacl 0.9% IV GLADYS PRN Hypotension Insulin Glargine 20 units 03/17/22 22:00 03/17/22 21:06 Insulin Glargine 100 Units/Ml SUB-Q 20 units QHS YRIS Administration Insulin Human Regular 0 units 03/14/22 13:00 03/18/22 05:54 Insulin Regular, Human 100 Units/1 Ml SUB-Q 4 units Q6HR YRIS Administration Protocol Oxycodone/Acetaminophen 1 tab 03/13/22 17:18 Oxycodone /Acetaminophen 5-325mg Tab PO Q16H PRN Pain, Moderate (4-6) Rivaroxaban 15 mg 03/14/22 10:29 03/18/22 09:13 Rivaroxaban 15 Mg Tab PO 15 mg QDDIAB YRIS Administration Senna/Docusate Sodium 1 tab 03/14/22 22:00 03/17/22 21:02 Sennosides/Docusate Sodium 8.6/50 Mg Tab FEEDTUBE 1 tab QHS YRIS Administration Sodium Bicarbonate 650 mg 03/16/22 06:00 03/18/22 05:01 Sodium Bicarbonate 650 Mg Tab PO 650 mg Q8HR YRIS Administration Sodium Chloride 10 ml 03/13/22 22:00 03/18/22 09:13 Sodium Chloride 0.9% 10 Ml Flush Syringe IV 10 ml BID YRIS Administration Sodium Chloride 10 ml 03/13/22 17:18 Sodium Chloride 0.9% 10 Ml Flush Syringe IV PRN PRN LINE FLUSH
[2022-03-18] MEDS ORDERED: SODIUM CHLORIDE 0.9% 100 ML IV PRN (11:00)
--- NOTE | 2022-03-18 11:27 | Progress Note ---
Assessment and Plan Patient is a 56-year-old male with a reported past medical history of hypertension, history of PE who was brought to the ED for evaluation due to shortness of breath Acute respiratory failure-pulmonology following SULEMAN on CKD-nephrology follow Acute on chronic HFrEF NSTEMI suspect type II AICD in situ History of PE anticoagulated on Xarelto Hypertension Echo 03/13/2022-EF 20 to 25%. Mild concentric LVH. Right ventricle is moderately dilated. Left atrium is moderately dilated. Right atrium is mildly dilated. Pacemaker lead present in right atrium. Mild mitral regurgitation. Mild tricuspid regurgitation. Mild to moderate pulmonary hypertension. Plan: Per conversation with staff patient was on milrinone as an outpatient and PICC line for milrinone. Furthermore per conversations patient follows Dr. Montoya. Records reviewed patient appears to have been on IV milrinone as an outpatient Following initiation of milrinone patient became hypotensive and required vasopressors. Will hold milrinone at this time Continue carvedilol 6.25 mg p.o. twice daily. Patient initiated on hemodialysis. Will defer volume management to nephrology Continue Xarelto to 15 mg p.o. daily for h/o pf PE Will hold statin due to elevated liver enzymes Patient seen in conjunction with Dr. Barboza who agrees with this plan of care 30 minutes of critical care time spent care coordination pain - Patient Problems (1) Acute hypoxemic respiratory failure Current Visit: Yes Status: Acute (2) Fluid overload Current Visit: Yes Status: Acute Qualifiers: Hypervolemia type: unspecified Qualified Code(s): E87.70 - Fluid overload, unspecified (3) Metabolic acidosis Current Visit: Yes Status: Acute (4) CHF (congestive heart failure) Current Visit: Yes Status: Acute Qualifiers: Heart failure type: systolic Heart failure chronicity: acute Qualified Code(s): I50.21 - Acute systolic (congestive) heart failure (5) History of pulmonary embolism Current Visit: Yes Status: Acute (6) Elevated liver function tests Current Visit: Yes Status: Acute Subjective Date of service: 03/18/22 Principal diagnosis: SULEMAN, acute on chronic HFrEF, acute respiratory failure Interval history: Patient remains intubated but has been started on HD Sinus 70s-80s with PVCs on monitor Objective Vital Signs Temp Pulse Pulse Pulse Resp Resp BP 03/18/22 10:31 86 39 H 136/72 03/18/22 10:15 88 36 H 136/72 03/18/22 10:00 86 40 H 136/72 03/18/22 09:45 88 33 H 127/73 03/18/22 09:31 86 39 H 127/73 03/18/22 09:15 86 37 H 127/73 03/18/22 09:00 85 36 H 127/73 03/18/22 08:57 85 115/69 03/18/22 08:45 87 39 H 116/63 03/18/22 08:31 82 29 H 116/63 03/18/22 08:15 82 32 H 116/63 03/18/22 08:00 102.4 F H 81 82 32 H 115/69 03/18/22 07:45 81 30 H 116/63 03/18/22 07:44 03/18/22 07:39 81 03/18/22 07:31 81 32 H 116/63 03/18/22 07:15 81 31 H 116/63 03/18/22 07:09 80 82 34 H 30 H 108/50 03/18/22 07:01 80 28 H 116/63 03/18/22 07:00 102.4 F H 03/18/22 06:45 81 29 H 142/86 03/18/22 06:31 84 35 H 142/86 03/18/22 06:15 89 36 H 142/86 03/18/22 06:00 88 38 H 142/86 03/18/22 05:45 85 37 H 133/73 03/18/22 05:31 83 34 H 133/73 03/18/22 05:15 82 30 H 133/73 03/18/22 05:00 83 36 H 133/73 03/18/22 04:45 84 37 H 128/71 03/18/22 04:31 83 36 H 128/71 03/18/22 04:15 81 32 H 128/71 03/18/22 04:00 102.4 F H 83 81 34 H 128/71 03/18/22 03:45 83 35 H 122/69 03/18/22 03:31 83 36 H 122/69 03/18/22 03:15 81 32 H 122/69 03/18/22 03:00 102.4 F H 82 34 H 122/69 03/18/22 02:55 86 124/64 03/18/22 02:45 82 34 H 116/67 03/18/22 02:31 82 30 H 116/67 03/18/22 02:15 83 33 H 116/67 03/18/22 02:01 83 28 H 116/67 03/18/22 01:45 82 34 H 125/68 03/18/22 01:31 83 35 H 125/68 03/18/22 01:15 81 33 H 125/68 03/18/22 01:00 82 33 H 125/68 03/18/22 00:45 82 26 H 116/63 03/18/22 00:31 82 22 116/63 03/18/22 00:15 82 22 116/63 03/18/22 00:10 79 110/57 03/18/22 00:03 80 34 H 116/63 03/18/22 00:00 98.4 F 81 35 H 116/63 03/17/22 23:56 80 32 H 03/17/22 23:55 80 03/17/22 23:45 80 35 H 106/61 03/17/22 23:31 81 32 H 106/61 03/17/22 23:15 81 32 H 106/61 03/17/22 23:00 77 32 H 106/61 03/17/22 22:45 81 29 H 115/59 03/17/22 22:31 82 30 H 115/59 03/17/22 22:15 76 32 H 102/61 03/17/22 22:01 79 33 H 102/61 03/17/22 21:45 82 30 H 115/59 03/17/22 21:31 79 31 H 115/59 03/17/22 21:15 80 31 H 115/59 03/17/22 21:06 80 99/54 03/17/22 21:01 80 32 H 115/59 03/17/22 20:45 81 32 H 113/69 03/17/22 20:42 98.4 F 03/17/22 20:31 82 32 H 113/69 03/17/22 20:15 80 30 H 113/69 03/17/22 20:04 80 80 33 H 113/69 03/17/22 20:01 80 31 H 113/69 03/17/22 19:43 98.4 F 03/17/22 19:40 80 27 H 03/17/22 19:38 80 03/17/22 19:00 98.6 F 72 30 H 109/59 03/17/22 18:03 75 29 H 03/17/22 17:00 98.8 F 74 28 H 100/61 03/17/22 16:45 75 87/63 03/17/22 16:30 78 86/59 03/17/22 16:15 71 89/59 03/17/22 16:00 74 76 30 H 94/52 03/17/22 15:52 98.8 F 03/17/22 15:45 75 94/52 03/17/22 15:30 73 93/60 03/17/22 15:15 73 96/57 03/17/22 15:00 72 31 H 102/56 03/17/22 14:45 71 102/56 03/17/22 14:40 100.1 F H 72 34 H 90/57 03/17/22 14:00 73 31 H 109/55 03/17/22 13:00 74 31 H 74/53 03/17/22 12:10 72 84/46 03/17/22 12:09 70 03/17/22 12:00 75 70 31 H 91/49 03/17/22 11:52 99.2 F Pulse Ox Pulse Ox 03/18/22 10:31 93 03/18/22 10:15 93 03/18/22 10:00 89 03/18/22 09:45 93 03/18/22 09:31 93 03/18/22 09:15 92 03/18/22 09:00 87 03/18/22 08:57 92 03/18/22 08:45 93 03/18/22 08:31 93 03/18/22 08:15 93 03/18/22 08:00 87 03/18/22 07:45 94 03/18/22 07:44 94 03/18/22 07:39 03/18/22 07:31 93 03/18/22 07:15 94 03/18/22 07:09 95 03/18/22 07:01 90 03/18/22 07:00 03/18/22 06:45 94 03/18/22 06:31 95 03/18/22 06:15 95 03/18/22 06:00 89 03/18/22 05:45 94 03/18/22 05:31 93 03/18/22 05:15 94 03/18/22 05:00 88 03/18/22 04:45 94 03/18/22 04:31 94 03/18/22 04:15 94 03/18/22 04:00 88 03/18/22 03:45 95 03/18/22 03:31 95 03/18/22 03:15 94 03/18/22 03:00 88 03/18/22 02:55 95 03/18/22 02:45 95 03/18/22 02:31 95 03/18/22 02:15 94 03/18/22 02:01 89 03/18/22 01:45 94 03/18/22 01:31 93 03/18/22 01:15 94 03/18/22 01:00 91 03/18/22 00:45 94 03/18/22 00:31 94 03/18/22 00:15 94 03/18/22 00:10 95 03/18/22 00:03 93 03/18/22 00:00 89 03/17/22 23:56 95 03/17/22 23:55 03/17/22 23:45 94 03/17/22 23:31 95 03/17/22 23:15 95 03/17/22 23:00 90 03/17/22 22:45 95 03/17/22 22:31 95 03/17/22 22:15 94 03/17/22 22:01 90 03/17/22 21:45 94 03/17/22 21:31 94 03/17/22 21:15 93 03/17/22 21:06 03/17/22 21:01 89 03/17/22 20:45 95 03/17/22 20:42 03/17/22 20:31 95 03/17/22 20:15 93 03/17/22 20:04 94 03/17/22 20:01 89 03/17/22 19:43 03/17/22 19:40 93 03/17/22 19:38 03/17/22 19:00 89 03/17/22 18:03 94 03/17/22 17:00 95 95 03/17/22 16:45 03/17/22 16:30 03/17/22 16:15 94 03/17/22 16:00 94 03/17/22 15:52 03/17/22 15:45 03/17/22 15:30 03/17/22 15:15 03/17/22 15:00 95 03/17/22 14:45 03/17/22 14:40 96 03/17/22 14:00 91 03/17/22 13:00 94 03/17/22 12:10 91 03/17/22 12:09 03/17/22 12:00 88 03/17/22 11:52 - Physical Examination General: Other (Intubated and sedated) HEENT: Positive: Mucus Membranes Moist Neck: Positive: trachea midline Cardiac: Positive: Reg Rate and Rhythm Lungs: Positive: Decreased Breath Sounds Neuro: Positive: Other (Unable to assess) Abdomen: Positive: Soft Skin: Negative: Rash, Suspicious Lesions, Ulceration Extremities: Present: upper extr. pulses, edema - Labs and Meds Cardiac Enzymes 03/18/22 Range/Units 04:17 AST 33 (5-40) units/L CBC 03/18/22 Range/Units 04:17 WBC 8.6 (4.5-11.0) K/mm3 RBC 4.32 (3.65-5.03) M/mm3 Hgb 12.4 (11.8-15.2) gm/dl Hct 37.6 (35.5-45.6) % Plt Count 90 L (140-440) K/mm3 Comprehensive Metabolic Panel 03/18/22 Range/Units 04:17 Sodium 144 (137-145) mmol/L Potassium 4.2 (3.6-5.0) mmol/L Chloride 106.3 (98-107) mmol/L Carbon Dioxide 26 (22-30) mmol/L BUN 109 H (9-20) mg/dL Creatinine 4.3 H (0.8-1.3) mg/dL Glucose 253 H (75-100) mg/dL Calcium 8.5 (8.4-10.2) mg/dL AST 33 (5-40) units/L ALT 94 H (7-56) units/L Alkaline Phosphatase 135 H (35-129) units/L Total Protein 5.8 L (6.3-8.2) g/dL Albumin 2.0 L (3.9-5) g/dL - Imaging and Cardiology Echo: report reviewed - Telemetry EKG Rhythm: Sinus Rhythm - EKG Sinus rhythms and dysrhythmias: sinus rhythm AV and intraventricular conduction: left anterior fascicular - Allied health notes Allied health notes reviewed: RT
[2022-03-18] MEDS: fentaNYL DRIP Premix 2,000 MCG/100 ML BAG IV SCH (12:40)
--- NOTE | 2022-03-18 13:30 | Progress Note ---
<TRISTON ORDOÑEZTanisha - Last Filed: 03/18/22 13:25> Assessment and Plan Assessment and plan: This is a 56-year-old male with OHS, HTN, PE on therapeutic anticoagulation, CHF and AICD and still admitted with acute on chronic CHF decompensation metabolic acidosis, fluid overload, transaminitis, acute hypoxic respiratory failure and acute kidney injury Neuro: Acute metabolic encephalopathy, CVA -Fentanyl IVP, fentanyl gtt if needed -RASS goal 0 to -1 -Reorientation as needed -Maintain sleep-wake cycle -As needed analgesia -CT head shows diffuse cerebral atrophy, 3.4 cm rounded fluid density structure located along the medial anterior aspect of the left temporal lobe most likely arachnoid cyst, evolving cerebral infarct right greater than left (age indeterminant), no evidence of hemorrhage -03/17 CT head shows evidence of 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 -CTA head shows poor visualization of the right PICA noted, areas of mild narrowing seen in the posterior circulation, no definitive signs of large vessel occlusion -CTA neck shows no significant stenosis appreciated in the limited CTA of the neck -Neurology and neurosurgery consulted, appreciate recommendations -MRI brain unable to be completed d/t AICD -MRA head/neck unable to be completed d/t AICD -Bilateral carotid US with less than 50% stenosis in Bilateral carotid arteries -TSH, lipid panel noted -Lipitor holding re elevated LFTs, Aspirin/plavix -PT/OT/ST eval requested Cardiac: Acute on chronic heart failure with reduced EF, NSTEMI suspect type II, h/o HTN, AICD -Cardiology consulted, appreciate recommendations -Blood pressure monitoring per protocol -s/p vasopressor support with levophed -BB -Per family: outpatient milrinone through PICC -s/p milrinone gtt-?hypotension, not tolerated -IV hydral PRN -Echocardiogram shows LVEF 20 to 25%, mild concentric LVH, mild to moderate pulm hypertension -Hold statin in setting of transaminitis Respiratory: Acute hypoxic respiratory failure, h/o PE on Xarelto -[facility] consulted, appreciate recommendations -Intubated on 03/13 with 7.5 OETT at 24 at the lips -A.m. vent settings: AC TV 450/ Rate 10/ Peep 10/ FiO2 45% -See RT notes for titration -A.m. ABG and CXR noted -VAP bundle -SPO2 monitoring GI: Morbid obesity, transaminitis (improving) -24 hours + 1140 mL -HD removal 03/17 1 Liter -PPI -NTR consulted for tube feedings -BR: Senokot S -03/15 abdominal ultrasound shows hepatomegaly with hepatic steatosis, gallbladder sludge without sonographic evidence of acute cholecystitis -Trend LFTs : Acute kidney injury with possible underlying CKD, hyperchloremic, uremia, hyponatremia -Nephrology consulted, appreciate recommendations -s/p lasix 80mg 03/14, 03/15 40 mg lasix-> Bumex->HD -Right femoral trialysis placed 03/17 -HD initiated on 03/17 -HD per nephrology -Monitor intake and output -Renally dose medications -Avoid nephrotoxic medications -Urine electrolytes pending -Renal ultrasound cancelled -Trend BMP ID: NAD -f/u sputum culture -Monitor WBC and temperature curve Endo: h/o DM -Hold home Novolin 70/30 100 units twice daily -Avoid hypoglycemia -SSI -Accu-Cheks q. 6 -Lantus added, titrate as needed -Hemoglobin A1c 8.6 Heme: NAD -Trend CBC -Transfuse hemoglobin less than 7 -SCDs to BLE while in bed -Continue home Xarelto The high probability of a clinically significant, sudden or life threatening deterioration of the [multi] system(s) required my full and direct attention, in tervention and personal management. The aggregate critical care time was [60] minutes. This time is in addition to time spent performing reported procedures but includes the following: [x] Data Review and interpretation [x] Patient assessment and monitoring of vital signs [x] Documentation [x] Medication orders and management Disposition Plan: icu Total Time Spent with Patient (Minutes): 60 History Interval history: This is a 56-year-old male with OHS, HTN, PE on therapeutic anticoagulation with Xarelto, CHF and AICD in situ who presented to emergency department on 03/13 with complaints of shortness of breath over the past 2 days with worsening symptoms over the past day via EMS. Per documentation patient had last hemodialysis session on 03/08. Patient was emergently intubated in the emergency department as he was found to have some oropharyngeal edema and inability to protect his airway and found to have a pulse ox of 89%. 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 Patient was admitted to the hospital service with acute CHF decompensation, metabolic acidosis, fluid overload, transaminitis, acute kidney injury and acute hypoxic respiratory failure with consults to [facility], cardiology and nephrology. Hospital course to date: 03/14: Cardiology discontinued hydralazine, hydrochlorothiazide and clonidine due to soft blood pressures this morning and would like to continue Coreg and decreased Xarelto. Nephrology ordered a one-time dose of Lasix 80 mg. Patient remains intubated. This evening patient was becoming hypertensive and as needed hydralazine added. Unable to confirm if patient is on outpatient hemodialysis as does not know and current chest access appears to be PICC line. 03/15: Family stated that patient had milrinone infusion through PICC line, hemodialysis approximately 8 years ago. Nephrology administered additional Lasix today. We will continue to monitor renal function. [facility] made vent changes. Daughter and updated extensively at bedside by nurse practitioner. 03/16: Worsening renal function however no urgent need for indication for nephrology. Diuretics changed to Bumex. Neurology ordered a CTA head/neck (not ordered yesterday due to renal function, MRA not ordered due to pacemaker) and nephrology has okayed the use of dye per RN however testing still pending as radiology states patient will need hemodialysis postcontrast. RN paged telemetry neurology. Cardiology will restart IV milrinone. 02/25: HD today, weaned off levophed gtt, milrinone on hold. Patient did not tolerate CPAP trial this morning. Patient did not tolerate PSV this morning, we will ask RT to repeat this afternoon. Hospitalist Physical - Constitutional Vitals: Temp Pulse Resp BP Pulse Ox 102.2 F H 81 41 H 112/66 95 03/18/22 11:00 03/18/22 12:03/18/22 12:00 03/18/22 12:03/18/22 12:22 General appearance: Present: no acute distress, other (Intubated and sedated) - EENT Eyes: Present: PERRL, EOM intact - Neck Neck: Present: normal ROM - Respiratory Respiratory effort: normal Respiratory: bilateral: diminished - Cardiovascular Rhythm: regular Heart Sounds: Present: S1 & S2. Absent: systolic murmur, diastolic murmur - Extremities Extremities: no ischemia, pulses intact, pulses symmetrical, normal temperature, normal color Extremity abnormal: edema Peripheral Pulses: within normal limits - Abdominal General gastrointestinal: soft, non-tender, normal bowel sounds - Integumentary Integumentary: Present: warm, dry - Psychiatric Psychiatric: other - Neurologic Neurologic: other (does not follow commands, no reponse to painful stimuli, PERRL, intact cough/gag) - Allied Health Allied health notes reviewed: nursing, RT, social work HEART Score - HEART Score Troponin: Troponin T 0.176 ng/mL (0.00-0.029) H* 03/13/22 15:44 Results - Labs CBC & Chem 7: 03/18/22 04:17 03/18/22 04:17 Labs: Laboratory Last Values WBC 8.6 K/mm3 (4.5-11.0) 03/18/22 04:17 RBC 4.32 M/mm3 (3.65-5.03) 03/18/22 04:17 Hgb 12.4 gm/dl (11.8-15.2) 03/18/22 04:17 Hct 37.6 % (35.5-45.6) 03/18/22 04:17 MCV 87 fl (84-94) 03/18/22 04:17 MCH 29 pg (28-32) 03/18/22 04:17 MCHC 33 % (32-34) 03/18/22 04:17 RDW 19.3 % (13.2-15.2) H 03/18/22 04:17 Plt Count 90 K/mm3 (140-440) L 03/18/22 04:17 Lymph % (Auto) 4.7 % (13.4-35.0) L 03/14/22 04:50 [place] % (Auto) 5.6 % (0.0-7.3) 03/14/22 04:50 Eos % (Auto) 0.1 % (0.0-4.3) 03/14/22 04:50 Baso % (Auto) 0.1 % (0.0-1.8) 03/14/22 04:50 Lymph # (Auto) 0.5 K/mm3 (1.2-5.4) L 03/14/22 04:50 [place] # (Auto) 0.5 K/mm3 (0.0-0.8) 03/14/22 04:50 Eos # (Auto) 0.0 K/mm3 (0.0-0.4) 03/14/22 04:50 Baso # (Auto) 0.0 K/mm3 (0.0-0.1) 03/14/22 04:50 Add Manual Diff Complete 03/18/22 04:17 Total Counted 100 03/18/22 04:17 Seg Neutrophils % 89.5 % (40.0-70.0) H 03/14/22 04:50 Seg Neuts % (Manual) 88.0 % (40.0-70.0) H 03/18/22 04:17 Band Neutrophils % 1.0 % 03/18/22 04:17 Lymphocytes % (Manual) 3.0 % (13.4-35.0) L 03/18/22 04:17 Reactive Lymphs % (Man) 0 % 03/18/22 04:17 Monocytes % (Manual) 7.0 % (0.0-7.3) 03/18/22 04:17 Eosinophils % (Manual) 1.0 % (0.0-4.3) 03/18/22 04:17 Basophils % (Manual) 0 % (0.0-1.8) 03/18/22 04:17 Metamyelocytes % 0 % 03/18/22 04:17 Myelocytes % 0 % 03/18/22 04:17 Promyelocytes % 0 % 03/18/22 04:17 Blast Cells % 0 % 03/18/22 04:17 Nucleated RBC % 2.0 % (0.0-0.9) H 03/18/22 04:17 Seg Neutrophils # 8.5 K/mm3 (1.8-7.7) H 03/14/22 04:50 Seg Neutrophils # Man 7.6 K/mm3 (1.8-7.7) 03/18/22 04:17 Band Neutrophils # 0.1 K/mm3 03/18/22 04:17 Lymphocytes # (Manual) 0.3 K/mm3 (1.2-5.4) L 03/18/22 04:17 Abs React Lymphs (Man) 0.0 K/mm3 03/18/22 04:17 Monocytes # (Manual) 0.6 K/mm3 (0.0-0.8) 03/18/22 04:17 Eosinophils # (Manual) 0.1 K/mm3 (0.0-0.4) 03/18/22 04:17 Basophils # (Manual) 0.0 K/mm3 (0.0-0.1) 03/18/22 04:17 Metamyelocytes # 0.0 K/mm3 03/18/22 04:17 Myelocytes # 0.0 K/mm3 03/18/22 04:17 Promyelocytes # 0.0 K/mm3 03/18/22 04:17 Blast Cells # 0.0 K/mm3 03/18/22 04:17 WBC Morphology Not Reportable 03/18/22 04:17 Hypersegmented Neuts Not Reportable 03/18/22 04:17 Hyposegmented Neuts Not Reportable 03/18/22 04:17 Hypogranular Neuts Not Reportable 03/18/22 04:17 Smudge Cells Not Reportable 03/18/22 04:17 Toxic Granulation Not Reportable 03/18/22 04:17 Toxic Vacuolation Not Reportable 03/18/22 04:17 Dohle Bodies Not Reportable 03/18/22 04:17 Pelger-Huet Anomaly Not Reportable 03/18/22 04:17 Tyson Rods Not Reportable 03/18/22 04:17 Platelet Estimate Consistent w auto 03/18/22 04:17 Clumped Platelets Not Reportable 03/18/22 04:17 Plt Clumps, EDTA Not Reportable 03/18/22 04:17 Large Platelets Not Reportable 03/18/22 04:17 Giant Platelets Not Reportable 03/18/22 04:17 Platelet Satelliting Not Reportable 03/18/22 04:17 Plt Morphology Comment Not Reportable 03/18/22 04:17 RBC Morphology Not Reportable 03/18/22 04:17 Dimorphic RBCs Not Reportable 03/18/22 04:17 Polychromasia Not Reportable 03/18/22 04:17 Hypochromasia Not Reportable 03/18/22 04:17 Poikilocytosis Not Reportable 03/18/22 04:17 Anisocytosis 1+ 03/18/22 04:17 Microcytosis Not Reportable 03/18/22 04:17 Macrocytosis Not Reportable 03/18/22 04:17 Spherocytes Not Reportable 03/18/22 04:17 Pappenheimer Bodies Not Reportable 03/18/22 04:17 Sickle Cells Not Reportable 03/18/22 04:17 Target Cells Not Reportable 03/18/22 04:17 Tear Drop Cells Not Reportable 03/18/22 04:17 Ovalocytes Not Reportable 03/18/22 04:17 Helmet Cells Not Reportable 03/18/22 04:17 Sesay-Syosset Bodies Not Reportable 03/18/22 04:17 Harmans Rings Not Reportable 03/18/22 04:17 Azael Cells Not Reportable 03/18/22 04:17 Bite Cells Not Reportable 03/18/22 04:17 Crenated Cell Not Reportable 03/18/22 04:17 Elliptocytes Not Reportable 03/18/22 04:17 Acanthocytes (Spur) Not Reportable 03/18/22 04:17 Rouleaux Not Reportable 03/18/22 04:17 Hemoglobin C Crystals Not Reportable 03/18/22 04:17 Schistocytes Not Reportable 03/18/22 04:17 Malaria parasites Not Reportable 03/18/22 04:17 Rashaad Bodies Not Reportable 03/18/22 04:17 Hem Pathologist Commnt No 03/18/22 04:17 ABG pH 7.439 pH Units (7.350-7.450) 03/18/22 05:30 ABG pCO2 37.6 mm Hg 03/18/22 05:30 ABG pO2 69.0 mm Hg (80.0-90.0) L 03/18/22 05:30 ABG HCO3 24.9 mmol/L (20.0-26.0) 03/18/22 05:30 ABG O2 Saturation 95.4 % (95.0-99.0) 03/18/22 05:30 ABG O2 Content 16.6 (0.0-44) 03/18/22 05:30 ABG Base Excess 0.9 mmol/L (-2.0-3.0) 03/18/22 05:30 ABG Hemoglobin 12.6 gm/dl (14.0-18.0) L 03/18/22 05:30 ABG Carboxyhemoglobin 1.5 % (0.0-5.0) 03/18/22 05:30 ABG Methemoglobin 0.5 % (0.0-1.5) 03/18/22 05:30 Oxyhemoglobin 93.5 % (95.0-99.0) L 03/18/22 05:30 FiO2 50 % 03/18/22 05:30 Sodium 144 mmol/L (137-145) 03/18/22 04:17 Potassium 4.2 mmol/L (3.6-5.0) 03/18/22 04:17 Chloride 106.3 mmol/L (98-107) 03/18/22 04:17 Carbon Dioxide 26 mmol/L (22-30) 03/18/22 04:17 Anion Gap 16 mmol/L 03/18/22 04:17 BUN 109 mg/dL (9-20) H 03/18/22 04:17 Creatinine 4.3 mg/dL (0.8-1.3) H 03/18/22 04:17 Estimated GFR 18 ml/min 03/18/22 04:17 BUN/Creatinine Ratio 25 % 03/18/22 04:17 Glucose 253 mg/dL (75-100) H 03/18/22 04:17 POC Glucose 210 mg/dL (70-105) H 03/18/22 11:36 Hemoglobin A1c 8.6 % (4-6) H 03/15/22 04:36 Calcium 8.5 mg/dL (8.4-10.2) 03/18/22 04:17 Magnesium 2.50 mg/dL (1.7-2.3) H 03/13/22 20:33 Total Bilirubin 1.60 mg/dL (0.1-1.2) H 03/18/22 04:17 AST 33 units/L (5-40) 03/18/22 04:17 ALT 94 units/L (7-56) H 03/18/22 04:17 Alkaline Phosphatase 135 units/L (35-129) H 03/18/22 04:17 Troponin T 0.176 ng/mL (0.00-0.029) H* 03/13/22 15:44 NT-Pro-B Natriuret Pep 21265 pg/mL (0-900) H 03/13/22 15:44 Total Protein 5.8 g/dL (6.3-8.2) L 03/18/22 04:17 Albumin 2.0 g/dL (3.9-5) L 03/18/22 04:17 Albumin/Globulin Ratio 0.5 % 03/18/22 04:17 Triglycerides 98 mg/dL (2-149) 03/13/22 15:44 Cholesterol 99 mg/dL (50-199) 03/13/22 15:44 LDL Cholesterol Direct 59 mg/dL (50-130) 03/13/22 15:44 HDL Cholesterol 24 mg/dL (40-59) L 03/13/22 15:44 Cholesterol/HDL Ratio 4.12 % 03/13/22 15:44 TSH 0.362 mlU/mL (0.270-4.200) 03/15/22 04:36 Free T4 1.24 ng/dL (0.76-1.46) 03/13/22 20:33 Urine Color Straw (Yellow) 03/14/22 16:25 Urine Turbidity Clear (Clear) 03/14/22 16:25 Urine pH 5.0 (5.0-7.0) 03/14/22 16:25 Ur Specific [place] 1.015 (1.003-1.030) 03/14/22 16:25 Urine Protein 30 mg/dl mg/dL (Negative) 03/14/22 16:25 Urine Glucose (UA) Negative mg/dL (Negative) 03/14/22 16:25 Urine Ketones Trace mg/dL (Negative) 03/14/22 16:25 Urine Blood 1+ (Negative) 03/14/22 16:25 Urine Nitrite Negative (Negative) 03/14/22 16:25 Ur Reducing Substances Not Reportable 03/14/22 16:25 Urine Bilirubin Negative (Negative) 03/14/22 16:25 Urine Ictotest Not Reportable 03/14/22 16:25 Urine Urobilinogen < 2.0 mg/dL (<2.0) 03/14/22 16:25 Ur Leukocyte Esterase Negative (Negative) 03/14/22 16:25 Urine WBC (Auto) 6.0 /HPF (0.0-6.0) 03/14/22 16:25 Urine RBC (Auto) 82.0 /HPF (0.0-6.0) 03/14/22 16:25 U Epithel Cells (Auto) 1.0 /HPF (0-13.0) 03/14/22 16:25 Urine Bacteria (Auto) 1+ /HPF (Negative) 03/14/22 16:25 Urine Mucus Few /HPF 03/14/22 16:25 Hepatitis A IgM Ab Non-reactive (NonReactive) 03/14/22 10:12 Hep Bs Antigen Non-reactive (Negative) 03/14/22 10:12 Hep B Core IgM Ab Non-reactive (NonReactive) 03/14/22 10:12 Hepatitis C Antibody Non-reactive (NonReactive) 03/14/22 10:12 Microbiology: Microbiology 03/17/22 15:50 Peripheral/Venous Blood Culture - Preliminary Culture in Progress 03/17/22 15:50 Peripheral/Venous Blood Culture - Preliminary Culture in Progress 03/13/22 18:15 Sputum - Expectorated Sputum Sputum Culture - Preliminary Staphylococcus Aureus Anguiano/IV: Voiding Method Indwelling Catheter Active Medications - Current Medications Current Medications: Generic Name Dose Route Start Last Admin Trade Name Freq PRN Reason Stop Dose Admin Acetaminophen 650 mg 03/13/22 17:18 03/18/22 11:54 Acetaminophen 325 Mg Tab PO 650 mg Q6H PRN Administration Pain MILD(1-3)/Fever >100.5/FLORES Albumin Human 25 gm 03/13/22 18:43 Albumin Human 25% (25 Gm/100 Ml) Inj IV GLADYS PRN Hypotension Albuterol 2.5 mg 03/13/22 17:18 Albuterol 2.5 Mg/3 Ml Nebu IH Q3HRT PRN Shortness Of Breath Albuterol/Ipratropium 1 ampul 03/15/22 12:00 03/18/22 07:08 Ipratropium/Albuterol Sulfate 3 Ml Ampul.Neb IH 1 ampul Q12HRT YRIS Administration Aspirin 81 mg 03/14/22 10:00 03/18/22 09:13 Aspirin 81 Mg Tab Chew PO 81 mg QDAY YRIS Administration Bumetanide 1 mg 03/16/22 18:00 03/18/22 05:01 Bumetanide 1 Mg/4 Ml Inj IV 1 mg BID@0600,1800 YRIS Administration Carvedilol 6.25 mg 03/17/22 22:00 03/18/22 10:40 Carvedilol 6.25 Mg Tab FEEDTUBE Not Given BID YRIS Clopidogrel Bisulfate 75 mg 03/15/22 11:00 03/18/22 09:13 Clopidogrel 75 Mg Tab FEEDTUBE 75 mg QDAY YRIS Administration Dextrose 50 ml 03/14/22 12:30 Dextrose 50% In Water (25gm) 50 Ml Syringe IV Q30MIN PRN Hypoglycemia Protocol Famotidine 10 mg 03/14/22 22:00 03/18/22 09:13 Famotidine 10 Mg Tab FEEDTUBE 10 mg BID YRIS Administration Fentanyl 50 mcg 03/14/22 11:20 03/18/22 12:22 Fentanyl 100 Mcg/2 Ml Inj IV 50 mcg Q10MIN PRN Administration ANALGESIA Hydralazine HCl 10 mg 03/14/22 15:57 Hydralazine 20 Mg/1 Ml Inj IV Q4HR PRN Hypertension Hydromorphone HCl 0.5 mg 03/13/22 17:18 03/13/22 21:30 Hydromorphone 0.5 Mg/0.5 Ml Inj IV 0.5 mg Q13H PRN Administration Pain , Severe (7-10) Fentanyl Citrate 2,000 mcg in 100 mls @ 7.095 mls/hr 03/14/22 12:00 03/18/22 13:14 Fentanyl Drip Premix IV 0 mcg/kg/hr TITR YRIS 0 mls/hr Titration Protocol 1 MCG/KG/HR NORepinephrine/NS 8 MG-250 ML 8 mg in 250 mls @ 3.75 mls/hr 03/17/22 11:00 03/17/22 20:59 Norepinephrine/Ns 8 Mg-250 Ml (Double Conc) IV 0 mcg/min TITRATE YRIS 0 mls/hr Titration Protocol 2 MCG/MIN Milrinone Lactate/Dextrose 20 mg in 100 mls @ 11.6 mls/hr 03/17/22 12:00 Milrinone-D5w 20 Mg/100 Ml IV DIRECT YRIS Protocol 0.275 MCG/KG/MIN Sodium Chloride 1,000 mls @ 1 mls/hr 03/17/22 17:08 Nacl 0.9% 1000 Ml IV DIRECT PRN ARTERIAL LINE FLUSH Sodium Chloride 100 mls @ 999 mls/hr 03/18/22 11:00 Nacl 0.9% IV GLADYS PRN Hypotension Insulin Glargine 20 units 03/17/22 22:00 03/17/22 21:06 Insulin Glargine 100 Units/Ml SUB-Q 20 units QHS YRIS Administration Insulin Human Regular 0 units 03/14/22 13:00 03/18/22 11:55 Insulin Regular, Human 100 Units/1 Ml SUB-Q 3 units Q6HR YRIS Administration Protocol Oxycodone/Acetaminophen 1 tab 03/13/22 17:18 Oxycodone /Acetaminophen 5-325mg Tab PO Q16H PRN Pain, Moderate (4-6) Rivaroxaban 15 mg 03/14/22 10:29 03/18/22 09:13 Rivaroxaban 15 Mg Tab PO 15 mg QDDIAB YRIS Administration Senna/Docusate Sodium 1 tab 03/14/22 22:00 03/17/22 21:02 Sennosides/Docusate Sodium 8.6/50 Mg Tab FEEDTUBE 1 tab QHS YRIS Administration Sodium Bicarbonate 650 mg 03/16/22 06:00 03/18/22 05:01 Sodium Bicarbonate 650 Mg Tab PO 650 mg Q8HR YRIS Administration Sodium Chloride 10 ml 03/13/22 22:00 03/18/22 09:13 Sodium Chloride 0.9% 10 Ml Flush Syringe IV 10 ml BID YRIS Administration Sodium Chloride 10 ml 03/13/22 17:18 Sodium Chloride 0.9% 10 Ml Flush Syringe IV PRN PRN LINE FLUSH Nutrition/Malnutrition Assess - Dietary Evaluation Nutrition/Malnutrition Findings: Nutrition Notes Start: 03/14/22 09:54 Freq: Status: Active Protocol: Document 03/16/22 10:04 VICTORIA (Rec: 03/16/22 10:27 VICTORIA [id number]) Nutrition Notes Initial or Follow up Brief Note Current Diagnosis Acute Kidney Injury,CKD(stage I-IV),Diabetes,Hypertension, Respiratory Failure,Stroke Other Pertinent Diagnosis ESRD+HD, Pulmonary Embolism, Fluid Overload, Metabolic Acidosis, CHF... Current Diet TF-Nepro w/CARBSTEADY @ 50 ml/ hr (from L 03/14). Labs/Tests 03/16: Na 148, Cl 110.3, BUN 111, Crea 4.7, Glu 243, Ca 8.3 , HbA1c 8.6%. Pertinent Medications 03/16: Lantus 10U, Humulin R 3U, others nutritionally unremarkable. Height 5 ft 11 in Weight 140.6 kg Bozman Body Weight (kg) 78.18 BMI 43.2 Weight change and time frame 1.3 Kg body weight loss in 2 days reported. Weight Status Morbidly Obese Subjective/Other Information RD consult for routine F/U on TF tolerance/continuation. TF continues as prescribed, and well tolerated, according to RN notes. Pt remains on Mechanical Ventilation, O2 saturation @ 98%, according to Physical Assessment History notes. Pt has not had a BM since , according to Physical Assessment History notes. Percent of energy/protein needs met: Prescribed TF-Nepro w/ CARBSTEADY @ 50 ml/hr provides for energy/protein needs (2, 180 Kcal/98 g) during LOS, 102 % Kcal; 74% AA. #1 Nutrition Diagnosis Inadequate oral intake Diagnosis Progress(for reassessment Continues documentation) Is patient on ventilator? Yes Is Patient Ambulatory and/or Out of Bed No REE-([facility]-confined to bed) 2725.248 Kcal/Kg value to use for calculation 15 Approximate Energy Requirements Using 2109 kcal/Kg Calculation Used for Recommendations Kcal/kg Additional Notes Protein: >1.2 g/Kg AdjBW; >132 g/day. Fluids: 1 ml/Kcal, or as per MD. Nutrition Intervention Nutrition Support: Continue TF-Nepro w/CARBSTEADY @ 50 ml/hr. Flush: 200 ml water Q 4 hr,or as per MD. Kcal 2,180 Protein (gm) 98 Carbohydrates (gm) 195 Fat (gm) 116 Fluid (mL) 880 Fiber (gm) 15 % RDI: 102% Kcal; 74% AA. Goal #1 Provide at least 75% of energy /protein needs through Enteral Feeding during LOS. Follow-Up By: 03/23/22 Additional Comments Continue monitoring TF tolerance and BM. <JUDITH ESCUDERO - Last Filed: 03/29/22 07:32> Assessment and Plan Assessment and plan: I saw and evaluated the patient. Discussed with the nurse practitioner and agree with their findings and plan as documented in this note. Hospitalist Physical - Constitutional Vitals: Temp Pulse Resp BP Pulse Ox 102.6 F H 99 H 32 H 166/71 0 L 03/19/22 16:00 03/19/22 20:02 03/19/22 18:00 03/19/22 20:02 03/19/22 21:21 HEART Score - HEART Score Troponin: Troponin T 0.176 ng/mL (0.00-0.029) H* 03/13/22 15:44 Results - Labs CBC & Chem 7: 03/19/22 04:00 03/19/22 20:30 Labs: Laboratory Last Values WBC 14.8 K/mm3 (4.5-11.0) H 03/19/22 04:00 RBC 4.44 M/mm3 (3.65-5.03) 03/19/22 04:00 Hgb 12.6 gm/dl (11.8-15.2) 03/19/22 04:00 Hct 38.5 % (35.5-45.6) 03/19/22 04:00 MCV 87 fl (84-94) 03/19/22 04:00 MCH 28 pg (28-32) 03/19/22 04:00 MCHC 33 % (32-34) 03/19/22 04:00 RDW 19.4 % (13.2-15.2) H 03/19/22 04:00 Plt Count 106 K/mm3 (140-440) L 03/19/22 04:00 Lymph % (Auto) 4.7 % (13.4-35.0) L 03/14/22 04:50 [place] % (Auto) 5.6 % (0.0-7.3) 03/14/22 04:50 Eos % (Auto) 0.1 % (0.0-4.3) 03/14/22 04:50 Baso % (Auto) 0.1 % (0.0-1.8) 03/14/22 04:50 Lymph # (Auto) 0.5 K/mm3 (1.2-5.4) L 03/14/22 04:50 [place] # (Auto) 0.5 K/mm3 (0.0-0.8) 03/14/22 04:50 Eos # (Auto) 0.0 K/mm3 (0.0-0.4) 03/14/22 04:50 Baso # (Auto) 0.0 K/mm3 (0.0-0.1) 03/14/22 04:50 Add Manual Diff Complete 03/18/22 04:17 Total Counted 100 03/18/22 04:17 Seg Neutrophils % 89.5 % (40.0-70.0) H 03/14/22 04:50 Seg Neuts % (Manual) 88.0 % (40.0-70.0) H 03/18/22 04:17 Band Neutrophils % 1.0 % 03/18/22 04:17 Lymphocytes % (Manual) 3.0 % (13.4-35.0) L 03/18/22 04:17 Reactive Lymphs % (Man) 0 % 03/18/22 04:17 Monocytes % (Manual) 7.0 % (0.0-7.3) 03/18/22 04:17 Eosinophils % (Manual) 1.0 % (0.0-4.3) 03/18/22 04:17 Basophils % (Manual) 0 % (0.0-1.8) 03/18/22 04:17 Metamyelocytes % 0 % 03/18/22 04:17 Myelocytes % 0 % 03/18/22 04:17 Promyelocytes % 0 % 03/18/22 04:17 Blast Cells % 0 % 03/18/22 04:17 Nucleated RBC % 2.0 % (0.0-0.9) H 03/18/22 04:17 Seg Neutrophils # 8.5 K/mm3 (1.8-7.7) H 03/14/22 04:50 Seg Neutrophils # Man 7.6 K/mm3 (1.8-7.7) 03/18/22 04:17 Band Neutrophils # 0.1 K/mm3 03/18/22 04:17 Lymphocytes # (Manual) 0.3 K/mm3 (1.2-5.4) L 03/18/22 04:17 Abs React Lymphs (Man) 0.0 K/mm3 03/18/22 04:17 Monocytes # (Manual) 0.6 K/mm3 (0.0-0.8) 03/18/22 04:17 Eosinophils # (Manual) 0.1 K/mm3 (0.0-0.4) 03/18/22 04:17 Basophils # (Manual) 0.0 K/mm3 (0.0-0.1) 03/18/22 04:17 Metamyelocytes # 0.0 K/mm3 03/18/22 04:17 Myelocytes # 0.0 K/mm3 03/18/22 04:17 Promyelocytes # 0.0 K/mm3 03/18/22 04:17 Blast Cells # 0.0 K/mm3 03/18/22 04:17 WBC Morphology Not Reportable 03/18/22 04:17 Hypersegmented Neuts Not Reportable 03/18/22 04:17 Hyposegmented Neuts Not Reportable 03/18/22 04:17 Hypogranular Neuts Not Reportable 03/18/22 04:17 Smudge Cells Not Reportable 03/18/22 04:17 Toxic Granulation Not Reportable 03/18/22 04:17 Toxic Vacuolation Not Reportable 03/18/22 04:17 Dohle Bodies Not Reportable 03/18/22 04:17 Pelger-Huet Anomaly Not Reportable 03/18/22 04:17 Tyson Rods Not Reportable 03/18/22 04:17 Platelet Estimate Consistent w auto 03/18/22 04:17 Clumped Platelets Not Reportable 03/18/22 04:17 Plt Clumps, EDTA Not Reportable 03/18/22 04:17 Large Platelets Not Reportable 03/18/22 04:17 Giant Platelets Not Reportable 03/18/22 04:17 Platelet Satelliting Not Reportable 03/18/22 04:17 Plt Morphology Comment Not Reportable 03/18/22 04:17 RBC Morphology Not Reportable 03/18/22 04:17 Dimorphic RBCs Not Reportable 03/18/22 04:17 Polychromasia Not Reportable 03/18/22 04:17 Hypochromasia Not Reportable 03/18/22 04:17 Poikilocytosis Not Reportable 03/18/22 04:17 Anisocytosis 1+ 03/18/22 04:17 Microcytosis Not Reportable 03/18/22 04:17 Macrocytosis Not Reportable 03/18/22 04:17 Spherocytes Not Reportable 03/18/22 04:17 Pappenheimer Bodies Not Reportable 03/18/22 04:17 Sickle Cells Not Reportable 03/18/22 04:17 Target Cells Not Reportable 03/18/22 04:17 Tear Drop Cells Not Reportable 03/18/22 04:17 Ovalocytes Not Reportable 03/18/22 04:17 Helmet Cells Not Reportable 03/18/22 04:17 S[place] Bodies Not Reportable 03/18/22 04:17 Harmans Rings Not Reportable 03/18/22 04:17 Firestone Cells Not Reportable 03/18/22 04:17 Bite Cells Not Reportable 03/18/22 04:17 Crenated Cell Not Reportable 03/18/22 04:17 Elliptocytes Not Reportable 03/18/22 04:17 Acanthocytes (Spur) Not Reportable 03/18/22 04:17 Rouleaux Not Reportable 03/18/22 04:17 Hemoglobin C Crystals Not Reportable 03/18/22 04:17 Schistocytes Not Reportable 03/18/22 04:17 Malaria parasites Not Reportable 03/18/22 04:17 Rashaad Bodies Not Reportable 03/18/22 04:17 Hem Pathologist Commnt No 03/18/22 04:17 ABG pH 7.439 pH Units (7.350-7.450) 03/18/22 05:30 ABG pCO2 37.6 mm Hg 03/18/22 05:30 ABG pO2 69.0 mm Hg (80.0-90.0) L 03/18/22 05:30 ABG HCO3 24.9 mmol/L (20.0-26.0) 03/18/22 05:30 ABG O2 Saturation 95.4 % (95.0-99.0) 03/18/22 05:30 ABG O2 Content 16.6 (0.0-44) 03/18/22 05:30 ABG Base Excess 0.9 mmol/L (-2.0-3.0) 03/18/22 05:30 ABG Hemoglobin 12.6 gm/dl (14.0-18.0) L 03/18/22 05:30 ABG Carboxyhemoglobin 1.5 % (0.0-5.0) 03/18/22 05:30 ABG Methemoglobin 0.5 % (0.0-1.5) 03/18/22 05:30 Oxyhemoglobin 93.5 % (95.0-99.0) L 03/18/22 05:30 FiO2 50 % 03/18/22 05:30 Sodium 144 mmol/L (137-145) 03/19/22 20:30 Potassium 4.5 mmol/L (3.6-5.0) 03/19/22 20:30 Chloride 98.6 mmol/L (98-107) 03/19/22 20:30 Carbon Dioxide 28 mmol/L (22-30) 03/19/22 20:30 Anion Gap 22 mmol/L 03/19/22 20:30 BUN 104 mg/dL (9-20) H 03/19/22 20:30 Creatinine 4.7 mg/dL (0.8-1.3) H 03/19/22 20:30 Estimated GFR 16 ml/min 03/19/22 20:30 BUN/Creatinine Ratio 22 % 03/19/22 20:30 Glucose 208 mg/dL (75-100) H 03/19/22 20:30 POC Glucose 215 mg/dL (70-105) H 03/19/22 20:30 Hemoglobin A1c 8.6 % (4-6) H 03/15/22 04:36 Calcium 8.4 mg/dL (8.4-10.2) 03/19/22 20:30 Magnesium 2.50 mg/dL (1.7-2.3) H 03/13/22 20:33 Total Bilirubin 3.40 mg/dL (0.1-1.2) H 03/19/22 20:30 AST 186 units/L (5-40) H 03/19/22 20:30 ALT 97 units/L (7-56) H 03/19/22 20:30 Alkaline Phosphatase 216 units/L (35-129) H 03/19/22 20:30 Troponin T 0.176 ng/mL (0.00-0.029) H* 03/13/22 15:44 NT-Pro-B Natriuret Pep 04953 pg/mL (0-900) H 03/13/22 15:44 Serum Total Protein 5.0 g/dL (6.1-8.1) L 03/15/22 04:36 Total Protein 6.2 g/dL (6.3-8.2) L 03/19/22 20:30 Albumin 2.0 g/dL (3.9-5) L 03/19/22 20:30 Albumin/Globulin Ratio 0.5 % 03/19/22 20:30 Olnrt-9-[place] 0.5 g/dL (0.2-0.3) H 03/15/22 04:36 Ovogb-1-[place] 0.8 g/dL (0.5-0.9) 03/15/22 04:36 Beta Globulins 0.2 g/dL (0.2-0.5) 03/15/22 04:36 Gamma Globulins 0.8 g/dL (0.8-1.7) 03/15/22 04:36 Abnorm Protein Band 1 see below 03/15/22 04:36 PEP Interpretation see below H 03/15/22 04:36 Triglycerides 98 mg/dL (2-149) 03/13/22 15:44 Cholesterol 99 mg/dL (50-199) 03/13/22 15:44 LDL Cholesterol Direct 59 mg/dL (50-130) 03/13/22 15:44 HDL Cholesterol 24 mg/dL (40-59) L 03/13/22 15:44 Cholesterol/HDL Ratio 4.12 % 03/13/22 15:44 Procalcitonin 41.58 ng/mL (<0.15) 03/17/22 15:50 TSH 0.362 mlU/mL (0.270-4.200) 03/15/22 04:36 Free T4 1.24 ng/dL (0.76-1.46) 03/13/22 20:33 Urine Color Straw (Yellow) 03/14/22 16:25 Urine Turbidity Clear (Clear) 03/14/22 16:25 Urine pH 5.0 (5.0-7.0) 03/14/22 16:25 Ur Specific [place] 1.015 (1.003-1.030) 03/14/22 16:25 Urine Protein 30 mg/dl mg/dL (Negative) 03/14/22 16:25 Urine Glucose (UA) Negative mg/dL (Negative) 03/14/22 16:25 Urine Ketones Trace mg/dL (Negative) 03/14/22 16:25 Urine Blood 1+ (Negative) 03/14/22 16:25 Urine Nitrite Negative (Negative) 03/14/22 16:25 Ur Reducing Substances Not Reportable 03/14/22 16:25 Urine Bilirubin Negative (Negative) 03/14/22 16:25 Urine Ictotest Not Reportable 03/14/22 16:25 Urine Urobilinogen < 2.0 mg/dL (<2.0) 03/14/22 16:25 Ur Leukocyte Esterase Negative (Negative) 03/14/22 16:25 Urine WBC (Auto) 6.0 /HPF (0.0-6.0) 03/14/22 16:25 Urine RBC (Auto) 82.0 /HPF (0.0-6.0) 03/14/22 16:25 U Epithel Cells (Auto) 1.0 /HPF (0-13.0) 03/14/22 16:25 Urine Bacteria (Auto) 1+ /HPF (Negative) 03/14/22 16:25 Urine Mucus Few /HPF 03/14/22 16:25 Nasal Screen MRSA (PCR) Negative (Negative) 03/18/22 10:30 Random Vancomycin 6.3 ug/mL (0-40.0) 03/19/22 05:00 DAVE Screen Negative (Negative) 03/14/22 10:12 Proteinase 3 (PR3) Ab <1.0 AI (<1.0) 03/14/22 10:12 Myeloperoxidase Ab <1.0 AI (<1.0) 03/14/22 10:12 Double Strand DNA Ab <1 IU/mL (<=4) 03/14/22 10:12 Complement C3 107 mg/dL (82-185) 03/14/22 10:12 Complement C4 18 mg/dL (15-53) 03/14/22 10:12 Hepatitis A IgM Ab Non-reactive (NonReactive) 03/14/22 10:12 Hep Bs Antigen Non-reactive (Negative) 03/14/22 10:12 Hep B Core IgM Ab Non-reactive (NonReactive) 03/14/22 10:12 Hepatitis C Antibody Non-reactive (NonReactive) 03/14/22 10:12 Anguiano/IV: Voiding Method Indwelling Catheter Nutrition/Malnutrition Assess - Dietary Evaluation Nutrition/Malnutrition Findings: Nutrition Notes Start: 03/14/22 09:54 Freq: Status: Discharge Protocol: Document 03/16/22 10:04 VICTORIA (Rec: 03/16/22 10:27 VICTORIA [id number]) Nutrition Notes Initial or Follow up Brief Note Current Diagnosis Acute Kidney Injury,CKD(stage I-IV),Diabetes,Hypertension, Respiratory Failure,Stroke Other Pertinent Diagnosis ESRD+HD, Pulmonary Embolism, Fluid Overload, Metabolic Acidosis, CHF... Current Diet TF-Nepro w/CARBSTEADY @ 50 ml/ hr (from L 03/14). Labs/Tests 03/16: Na 148, Cl 110.3, BUN 111, Crea 4.7, Glu 243, Ca 8.3 , HbA1c 8.6%. Pertinent Medications 03/16: Lantus 10U, Humulin R 3U, others nutritionally unremarkable. Height 5 ft 11 in Weight 140.6 kg [place] Body Weight (kg) 78.18 BMI 43.2 Weight change and time frame 1.3 Kg body weight loss in 2 days reported. Weight Status Morbidly Obese Subjective/Other Information RD consult for routine F/U on TF tolerance/continuation. TF continues as prescribed, and well tolerated, according to RN notes. Pt remains on Mechanical Ventilation, O2 saturation @ 98%, according to Physical Assessment History notes. Pt has not had a BM since , according to Physical Assessment History notes. Percent of energy/protein needs met: Prescribed TF-Nepro w/ CARBSTEADY @ 50 ml/hr provides for energy/protein needs (2, 180 Kcal/98 g) during LOS, 102 % Kcal; 74% AA. #1 Nutrition Diagnosis Inadequate oral intake Diagnosis Progress(for reassessment Continues documentation) Is patient on ventilator? Yes Is Patient Ambulatory and/or Out of Bed No REE-([facility]-confined to bed) 2725.248 Kcal/Kg value to use for calculation 15 Approximate Energy Requirements Using 2109 kcal/Kg Calculation Used for Recommendations Kcal/kg Additional Notes Protein: >1.2 g/Kg AdjBW; >132 g/day. Fluids: 1 ml/Kcal, or as per MD. Nutrition Intervention Nutrition Support: Continue TF-Nepro w/CARBSTEADY @ 50 ml/hr. Flush: 200 ml water Q 4 hr,or as per MD. Kcal 2,180 Protein (gm) 98 Carbohydrates (gm) 195 Fat (gm) 116 Fluid (mL) 880 Fiber (gm) 15 % RDI: 102% Kcal; 74% AA. Goal #1 Provide at least 75% of energy /protein needs through Enteral Feeding during LOS. Follow-Up By: 03/23/22 Additional Comments Continue monitoring TF tolerance and BM.
--- NOTE | 2022-03-18 14:31 | Progress Note ---
Assessment and Plan -Acute hypoxic respiratory failure on MVS -h/o PE on Xarelto -Acute metabolic encephalopathy, CVA -Acute on chronic heart failure with reduced EF - NSTEMI suspect type II, h/o HTN, AICD -Morbid obesity BMI 43 -Transaminitis (improving) -Acute kidney injury with possible underlying CKD, -Hyperchloremic, uremia, hyponatremia - h/o DM -Thrombocytopenia- improving Did not tolerate SBT today, tachypnea and increased work of breathing Norepinephrine for BP support, titrate to MAP>65 Start Fentanyl infusion HD per Renal service Follow trach cultures and de-escalate antibiotics based on culture data Trend temperature and WCC Right femoral trialysis catheter -Anguiano catheter in for strict Is and Os. - continue to titrate supplemental oxygen to keep SpO2 89-92% - VAP bundle addressed, aspiration precautions, HOB >40 - continue lung protective strategies-keep PEEP at 10 to help with heart failure -CXR,ABG as clinically indicated - continue bronchodilators with pulmonary hygiene per RT - wean per pulmonary driven protocols otherwise - avoid nephrotoxins, renally dose all medications - continue daily assessment for readiness to wean - continue accuchecks with glycemic control per SSI (While critically ill target blood glucose of 140-180 mg/dL; avoid hypoglycemia) - continue to avoid benzodiazepines, reduce the possibility of delirium -Trend temperature curve and WCC, continue to monitor off antibiotics for now - prn analgesia per CPOT score - Maintenance of sleep-wake cycle, avoid delirium - continue enteral nutritional support at goal rate as tolerated - VTE prophylaxis- on Rivaroxaban for h/o PE. Continue to monitor for bleeding and platelet counts -Stress ulcer prophylaxis- Famotidine -continue mobility , off loading per facility protocol for pressure ulcer prevention - Monitor hemodynamics closely, -Supportive transfusions as clinically indicated to keep HgB >7g/dL - continue other care per attending / other consultants COVID SPECIFIC INTERVENTIONS - COVID-19 PCR negative CONDITION: CRITICAL PROGNOSIS: GUARDED CODE STATUS: FULL CODE The high probability of a clinically significant, sudden or life-threatening deterioration of the [respiratory, cardiovascular, neurologic] system(s) required my full and direct attention, intervention and personal management. The aggregate critical care time was [33] minutes without overlap. 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 Off Milrinone with soft blood pressures, tolerating HD at this time High grade intermittent fevers, On Vancomycin for Staph in tracheal aspirate No diarrhea, no vomiting. Tolerating tube feeding Objective Vital Signs - 12hr 03/18/22 03/18/22 03/18/22 02:45 02:55 03:00 Temperature 102.4 F H Pulse Rate 82 86 82 Pulse Rate [ Bilateral Throughout] Pulse Rate [ From Monitor] Respiratory 34 H 34 H Rate Respiratory Rate [Bilateral Throughout] Blood Pressure 116/67 124/64 122/69 O2 Sat by Pulse 95 95 88 Oximetry O2 Sat by Pulse Oximetry [ Bilateral Throughout] 03/18/22 03/18/22 03/18/22 03:15 03:31 03:45 Temperature Pulse Rate 81 83 83 Pulse Rate [ Bilateral Throughout] Pulse Rate [ From Monitor] Respiratory 32 H 36 H 35 H Rate Respiratory Rate [Bilateral Throughout] Blood Pressure 122/69 122/69 122/69 O2 Sat by Pulse 94 95 95 Oximetry O2 Sat by Pulse Oximetry [ Bilateral Throughout] 03/18/22 03/18/22 03/18/22 04:00 04:15 04:31 Temperature 102.4 F H Pulse Rate 83 81 83 Pulse Rate [ Bilateral Throughout] Pulse Rate [ 81 From Monitor] Respiratory 34 H 32 H 36 H Rate Respiratory Rate [Bilateral Throughout] Blood Pressure 128/71 128/71 128/71 O2 Sat by Pulse 88 94 94 Oximetry O2 Sat by Pulse Oximetry [ Bilateral Throughout] 03/18/22 03/18/22 03/18/22 04:45 05:00 05:15 Temperature Pulse Rate 84 83 82 Pulse Rate [ Bilateral Throughout] Pulse Rate [ From Monitor] Respiratory 37 H 36 H 30 H Rate Respiratory Rate [Bilateral Throughout] Blood Pressure 128/71 133/73 133/73 O2 Sat by Pulse 94 88 94 Oximetry O2 Sat by Pulse Oximetry [ Bilateral Throughout] 03/18/22 03/18/22 03/18/22 05:31 05:45 06:00 Temperature Pulse Rate 83 85 88 Pulse Rate [ Bilateral Throughout] Pulse Rate [ From Monitor] Respiratory 34 H 37 H 38 H Rate Respiratory Rate [Bilateral Throughout] Blood Pressure 133/73 133/73 142/86 O2 Sat by Pulse 93 94 89 Oximetry O2 Sat by Pulse Oximetry [ Bilateral Throughout] 03/18/22 03/18/22 03/18/22 06:15 06:31 06:45 Temperature Pulse Rate 89 84 81 Pulse Rate [ Bilateral Throughout] Pulse Rate [ From Monitor] Respiratory 36 H 35 H 29 H Rate Respiratory Rate [Bilateral Throughout] Blood Pressure 142/86 142/86 142/86 O2 Sat by Pulse 95 95 94 Oximetry O2 Sat by Pulse Oximetry [ Bilateral Throughout] 03/18/22 03/18/22 03/18/22 07:00 07:01 07:09 Temperature 102.4 F H Pulse Rate 80 80 Pulse Rate [ 82 Bilateral Throughout] Pulse Rate [ From Monitor] Respiratory 28 H 34 H Rate Respiratory 30 H Rate [Bilateral Throughout] Blood Pressure 116/63 108/50 O2 Sat by Pulse 90 95 Oximetry O2 Sat by Pulse Oximetry [ Bilateral Throughout] 03/18/22 03/18/22 03/18/22 07:15 07:31 07:39 Temperature Pulse Rate 81 81 81 Pulse Rate [ Bilateral Throughout] Pulse Rate [ From Monitor] Respiratory 31 H 32 H Rate Respiratory Rate [Bilateral Throughout] Blood Pressure 116/63 116/63 O2 Sat by Pulse 94 93 Oximetry O2 Sat by Pulse Oximetry [ Bilateral Throughout] 03/18/22 03/18/22 03/18/22 07:44 07:45 08:00 Temperature 102.4 F H Pulse Rate 81 81 Pulse Rate [ Bilateral Throughout] Pulse Rate [ 82 From Monitor] Respiratory 30 H 32 H Rate Respiratory Rate [Bilateral Throughout] Blood Pressure 116/63 115/69 O2 Sat by Pulse 94 94 87 Oximetry O2 Sat by Pulse Oximetry [ Bilateral Throughout] 03/18/22 03/18/22 03/18/22 08:15 08:31 08:45 Temperature Pulse Rate 82 82 87 Pulse Rate [ Bilateral Throughout] Pulse Rate [ From Monitor] Respiratory 32 H 29 H 39 H Rate Respiratory Rate [Bilateral Throughout] Blood Pressure 116/63 116/63 116/63 O2 Sat by Pulse 93 93 93 Oximetry O2 Sat by Pulse Oximetry [ Bilateral Throughout] 03/18/22 03/18/22 03/18/22 08:57 09:00 09:15 Temperature Pulse Rate 85 85 86 Pulse Rate [ Bilateral Throughout] Pulse Rate [ From Monitor] Respiratory 36 H 37 H Rate Respiratory Rate [Bilateral Throughout] Blood Pressure 115/69 127/73 127/73 O2 Sat by Pulse 92 87 92 Oximetry O2 Sat by Pulse Oximetry [ Bilateral Throughout] 03/18/22 03/18/22 03/18/22 09:31 09:45 10:00 Temperature Pulse Rate 86 88 86 Pulse Rate [ Bilateral Throughout] Pulse Rate [ From Monitor] Respiratory 39 H 33 H 40 H Rate Respiratory Rate [Bilateral Throughout] Blood Pressure 127/73 127/73 136/72 O2 Sat by Pulse 93 93 89 Oximetry O2 Sat by Pulse Oximetry [ Bilateral Throughout] 03/18/22 03/18/22 03/18/22 10:15 10:31 10:45 Temperature Pulse Rate 88 86 85 Pulse Rate [ Bilateral Throughout] Pulse Rate [ From Monitor] Respiratory 36 H 39 H 39 H Rate Respiratory Rate [Bilateral Throughout] Blood Pressure 136/72 136/72 136/72 O2 Sat by Pulse 93 93 93 Oximetry O2 Sat by Pulse Oximetry [ Bilateral Throughout] 03/18/22 03/18/22 03/18/22 11:00 11:15 11:31 Temperature 102.2 F H Pulse Rate 85 85 84 Pulse Rate [ Bilateral Throughout] Pulse Rate [ From Monitor] Respiratory 40 H 38 H 41 H Rate Respiratory Rate [Bilateral Throughout] Blood Pressure 126/74 126/74 126/74 O2 Sat by Pulse 89 93 93 Oximetry O2 Sat by Pulse Oximetry [ Bilateral Throughout] 03/18/22 03/18/22 03/18/22 11:45 12:00 12:15 Temperature Pulse Rate 82 84 84 Pulse Rate [ Bilateral Throughout] Pulse Rate [ 82 From Monitor] Respiratory 35 H 38 H 42 H Rate Respiratory Rate [Bilateral Throughout] Blood Pressure 124/70 112/66 112/66 O2 Sat by Pulse 93 88 93 Oximetry O2 Sat by Pulse Oximetry [ Bilateral Throughout] 03/18/22 03/18/22 03/18/22 12:22 12:31 12:45 Temperature Pulse Rate 81 81 76 Pulse Rate [ Bilateral Throughout] Pulse Rate [ From Monitor] Respiratory 32 H 34 H Rate Respiratory Rate [Bilateral Throughout] Blood Pressure 112/66 112/66 112/66 O2 Sat by Pulse 95 93 93 Oximetry O2 Sat by Pulse Oximetry [ Bilateral Throughout] 03/18/22 03/18/22 03/18/22 13:01 13:15 13:31 Temperature Pulse Rate 76 80 75 Pulse Rate [ Bilateral Throughout] Pulse Rate [ From Monitor] Respiratory 30 H 31 H 32 H Rate Respiratory Rate [Bilateral Throughout] Blood Pressure 102/54 102/54 102/54 O2 Sat by Pulse 90 90 90 Oximetry O2 Sat by Pulse Oximetry [ Bilateral Throughout] 03/18/22 03/18/22 03/18/22 13:45 14:00 14:15 Temperature Pulse Rate 80 78 79 Pulse Rate [ Bilateral Throughout] Pulse Rate [ From Monitor] Respiratory 38 H Rate Respiratory Rate [Bilateral Throughout] Blood Pressure 118/57 108/56 99/63 O2 Sat by Pulse 49 L Oximetry O2 Sat by Pulse Oximetry [ Bilateral Throughout] 03/18/22 14:18 Temperature Pulse Rate Pulse Rate [ Bilateral Throughout] Pulse Rate [ From Monitor] Respiratory Rate Respiratory Rate [Bilateral Throughout] Blood Pressure O2 Sat by Pulse Oximetry O2 Sat by Pulse 94 Oximetry [ Bilateral Throughout] Constitutional: other (middle aged morbidly obese male with mildly increased respiratory effort at rest on MVS) Eyes: non-icteric ENT: oropharynx moist, other (ETT 24 cm PRESLEY) Neck: supple, no lymphadenopathy, no JVD, other (large circumference) Effort: mildly labored, other (anterior left chest wall tunnelled PICC line) Ascultation: Bilateral: diminished breath sounds, rales Percussion: Bilateral: not dull Cardiovascular: regular rate and rhythm, other (S1,S2) Gastrointestinal: normoactive bowel sounds, soft, non-tender, non-distended (protuberant) Integumentary: normal Extremities: no cyanosis, pulses normal, no ischemia or petechiae, edema (2+) Neurologic: non-focal exam (grossly), pupils equal and round (3mm), unable to assess Psychiatric: other (unable to assess re: AMS) CBC and BMP: 03/19/22 04:00 03/19/22 04:00 ABG, PT/INR, D-dimer: ABG ABG pH 7.439 pH Units (7.350-7.450) 03/18/22 05:30 ABG pCO2 37.6 mm Hg 03/18/22 05:30 ABG pO2 69.0 mm Hg (80.0-90.0) L 03/18/22 05:30 ABG O2 Saturation 95.4 % (95.0-99.0) 03/18/22 05:30 Abnormal lab findings: Abnormal Labs 03/13/22 03/13/22 03/13/22 15:44 15:44 16:15 RBC 5.42 H Hgb 15.4 H Hct 48.1 H MCHC RDW 19.7 H Plt Count Lymph % (Auto) Lymph # (Auto) Seg Neutrophils % Seg Neuts % (Manual) 93.0 H Lymphocytes % (Manual) 3.0 L Nucleated RBC % 1.0 H Seg Neutrophils # Seg Neutrophils # Man 10.1 H Lymphocytes # (Manual) 0.3 L ABG pH 7.281 L ABG pO2 73.5 L ABG HCO3 16.6 L ABG O2 Saturation 92.5 L ABG Base Excess -9.2 L ABG Hemoglobin Oxyhemoglobin 90.4 L Sodium Potassium Chloride Carbon Dioxide 17 L BUN 78 H Creatinine 3.6 H Glucose 135 H POC Glucose Hemoglobin A1c Calcium Magnesium Total Bilirubin 2.50 H AST 363 H ALT 430 H Alkaline Phosphatase Troponin T 0.176 H* NT-Pro-B Natriuret Pep 56278 H Total Protein Albumin 3.6 L HDL Cholesterol 24 L 03/13/22 03/13/22 03/14/22 20:04 20:33 00:23 RBC Hgb Hct MCHC RDW Plt Count Lymph % (Auto) Lymph # (Auto) Seg Neutrophils % Seg Neuts % (Manual) Lymphocytes % (Manual) Nucleated RBC % Seg Neutrophils # Seg Neutrophils # Man Lymphocytes # (Manual) ABG pH 7.339 L ABG pO2 259.5 H ABG HCO3 16.3 L ABG O2 Saturation 99.4 H ABG Base Excess -8.2 L ABG Hemoglobin Oxyhemoglobin Sodium Potassium Chloride Carbon Dioxide BUN Creatinine Glucose POC Glucose 187 H Hemoglobin A1c Calcium Magnesium 2.50 H Total Bilirubin AST ALT Alkaline Phosphatase Troponin T NT-Pro-B Natriuret Pep Total Protein Albumin HDL Cholesterol 07/03/14/22 03/14/22 03:58 04:50 04:50 RBC Hgb Hct MCHC 31 L RDW 19.3 H Plt Count 115 L Lymph % (Auto) 4.7 L Lymph # (Auto) 0.5 L Seg Neutrophils % 89.5 H Seg Neuts % (Manual) Lymphocytes % (Manual) Nucleated RBC % Seg Neutrophils # 8.5 H Seg Neutrophils # Man Lymphocytes # (Manual) ABG pH 7.327 L ABG pO2 65.2 L ABG HCO3 18.4 L ABG O2 Saturation 91.1 L ABG Base Excess -6.8 L ABG Hemoglobin 13.2 L Oxyhemoglobin 89.1 L Sodium Potassium 5.2 H Chloride 109.5 H Carbon Dioxide 19 L BUN 90 H Creatinine 4.2 H Glucose 204 H POC Glucose Hemoglobin A1c Calcium Magnesium Total Bilirubin AST ALT Alkaline Phosphatase Troponin T NT-Pro-B Natriuret Pep Total Protein Albumin HDL Cholesterol 03/14/22 03/14/22 03/14/22 11:29 16:28 21:00 RBC Hgb Hct MCHC RDW Plt Count Lymph % (Auto) Lymph # (Auto) Seg Neutrophils % Seg Neuts % (Manual) Lymphocytes % (Manual) Nucleated RBC % Seg Neutrophils # Seg Neutrophils # Man Lymphocytes # (Manual) ABG pH 7.347 L ABG pO2 111.6 H ABG HCO3 ABG O2 Saturation ABG Base Excess -3.1 L ABG Hemoglobin 13.4 L Oxyhemoglobin Sodium Potassium Chloride Carbon Dioxide BUN Creatinine Glucose POC Glucose 203 H 190 H Hemoglobin A1c Calcium Magnesium Total Bilirubin AST ALT Alkaline Phosphatase Troponin T NT-Pro-B Natriuret Pep Total Protein Albumin HDL Cholesterol 03/14/22 03/15/22 03/15/22 23:43 04:36 04:36 RBC Hgb Hct MCHC RDW Plt Count Lymph % (Auto) Lymph # (Auto) Seg Neutrophils % Seg Neuts % (Manual) Lymphocytes % (Manual) Nucleated RBC % Seg Neutrophils # Seg Neutrophils # Man Lymphocytes # (Manual) ABG pH ABG pO2 ABG HCO3 ABG O2 Saturation ABG Base Excess ABG Hemoglobin Oxyhemoglobin Sodium Potassium Chloride 109.8 H Carbon Dioxide 21 L BUN 100 H Creatinine 4.3 H Glucose 178 H POC Glucose 166 H Hemoglobin A1c 8.6 H Calcium Magnesium Total Bilirubin 1.50 H AST 136 H ALT 299 H Alkaline Phosphatase Troponin T NT-Pro-B Natriuret Pep Total Protein 5.3 L Albumin 2.5 L HDL Cholesterol 03/15/22 03/15/22 03/15/22 11:25 16:15 21:30 RBC Hgb Hct MCHC RDW Plt Count Lymph % (Auto) Lymph # (Auto) Seg Neutrophils % Seg Neuts % (Manual) Lymphocytes % (Manual) Nucleated RBC % Seg Neutrophils # Seg Neutrophils # Man Lymphocytes # (Manual) ABG pH ABG pO2 ABG HCO3 ABG O2 Saturation ABG Base Excess ABG Hemoglobin Oxyhemoglobin Sodium Potassium Chloride Carbon Dioxide BUN Creatinine Glucose POC Glucose 199 H 192 H 207 H Hemoglobin A1c Calcium Magnesium Total Bilirubin AST ALT Alkaline Phosphatase Troponin T NT-Pro-B Natriuret Pep Total Protein Albumin HDL Cholesterol 03/15/22 03/16/22 03/16/22 23:09 04:00 05:00 RBC Hgb Hct MCHC RDW Plt Count Lymph % (Auto) Lymph # (Auto) Seg Neutrophils % Seg Neuts % (Manual) Lymphocytes % (Manual) Nucleated RBC % Seg Neutrophils # Seg Neutrophils # Man Lymphocytes # (Manual) ABG pH ABG pO2 ABG HCO3 ABG O2 Saturation ABG Base Excess ABG Hemoglobin Oxyhemoglobin Sodium 148 H Potassium Chloride 110.3 H Carbon Dioxide BUN 111 H Creatinine 4.7 H Glucose 243 H POC Glucose 193 H 201 H Hemoglobin A1c Calcium 8.3 L Magnesium Total Bilirubin 1.50 H AST 72 H ALT 202 H Alkaline Phosphatase Troponin T NT-Pro-B Natriuret Pep Total Protein 5.6 L Albumin 2.3 L HDL Cholesterol 03/16/22 03/16/22 03/16/22 06:00 11:48 18:00 RBC Hgb Hct MCHC RDW Plt Count Lymph % (Auto) Lymph # (Auto) Seg Neutrophils % Seg Neuts % (Manual) Lymphocytes % (Manual) Nucleated RBC % Seg Neutrophils # Seg Neutrophils # Man Lymphocytes # (Manual) ABG pH ABG pO2 111.9 H ABG HCO3 ABG O2 Saturation ABG Base Excess ABG Hemoglobin 13.4 L Oxyhemoglobin Sodium Potassium Chloride Carbon Dioxide BUN Creatinine Glucose POC Glucose 209 H 261 H Hemoglobin A1c Calcium Magnesium Total Bilirubin AST ALT Alkaline Phosphatase Troponin T NT-Pro-B Natriuret Pep Total Protein Albumin HDL Cholesterol 03/16/22 03/16/22 03/16/22 21:19 23:27 Unknown RBC Hgb Hct MCHC RDW 19.9 H Plt Count 94 L Lymph % (Auto) Lymph # (Auto) Seg Neutrophils % Seg Neuts % (Manual) Lymphocytes % (Manual) Nucleated RBC % Seg Neutrophils # Seg Neutrophils # Man Lymphocytes # (Manual) ABG pH ABG pO2 ABG HCO3 ABG O2 Saturation ABG Base Excess ABG Hemoglobin Oxyhemoglobin Sodium Potassium Chloride Carbon Dioxide BUN Creatinine Glucose POC Glucose 241 H 241 H Hemoglobin A1c Calcium Magnesium Total Bilirubin AST ALT Alkaline Phosphatase Troponin T NT-Pro-B Natriuret Pep Total Protein Albumin HDL Cholesterol 03/17/22 03/17/22 03/17/22 04:17 04:17 05:04 RBC Hgb Hct MCHC RDW 19.6 H Plt Count 77 L Lymph % (Auto) Lymph # (Auto) Seg Neutrophils % Seg Neuts % (Manual) Lymphocytes % (Manual) Nucleated RBC % Seg Neutrophils # Seg Neutrophils # Man Lymphocytes # (Manual) ABG pH ABG pO2 ABG HCO3 ABG O2 Saturation ABG Base Excess ABG Hemoglobin Oxyhemoglobin Sodium Potassium Chloride Carbon Dioxide 21 L BUN 119 H Creatinine 4.5 H Glucose 446 H POC Glucose 241 H Hemoglobin A1c Calcium 7.6 L Magnesium Total Bilirubin 1.50 H AST ALT 122 H Alkaline Phosphatase Troponin T NT-Pro-B Natriuret Pep Total Protein 5.1 L Albumin 1.9 L HDL Cholesterol 03/17/22 03/17/22 03/17/22 06:00 11:51 17:46 RBC Hgb Hct MCHC RDW Plt Count Lymph % (Auto) Lymph # (Auto) Seg Neutrophils % Seg Neuts % (Manual) Lymphocytes % (Manual) Nucleated RBC % Seg Neutrophils # Seg Neutrophils # Man Lymphocytes # (Manual) ABG pH ABG pO2 64.3 L ABG HCO3 ABG O2 Saturation 93.6 L ABG Base Excess ABG Hemoglobin 12.6 L Oxyhemoglobin 91.4 L Sodium Potassium Chloride Carbon Dioxide BUN Creatinine Glucose POC Glucose 184 H 228 H Hemoglobin A1c Calcium Magnesium Total Bilirubin AST ALT Alkaline Phosphatase Troponin T NT-Pro-B Natriuret Pep Total Protein Albumin HDL Cholesterol 03/17/22 03/17/22 03/18/22 21:05 23:42 04:17 RBC Hgb Hct MCHC RDW 19.3 H Plt Count 90 L Lymph % (Auto) Lymph # (Auto) Seg Neutrophils % Seg Neuts % (Manual) 88.0 H Lymphocytes % (Manual) 3.0 L Nucleated RBC % 2.0 H Seg Neutrophils # Seg Neutrophils # Man Lymphocytes # (Manual) 0.3 L ABG pH ABG pO2 ABG HCO3 ABG O2 Saturation ABG Base Excess ABG Hemoglobin Oxyhemoglobin Sodium Potassium Chloride Carbon Dioxide BUN Creatinine Glucose POC Glucose 228 H 190 H Hemoglobin A1c Calcium Magnesium Total Bilirubin AST ALT Alkaline Phosphatase Troponin T NT-Pro-B Natriuret Pep Total Protein Albumin HDL Cholesterol 03/18/22 03/18/22 03/18/22 04:17 05:30 05:50 RBC Hgb Hct MCHC RDW Plt Count Lymph % (Auto) Lymph # (Auto) Seg Neutrophils % Seg Neuts % (Manual) Lymphocytes % (Manual) Nucleated RBC % Seg Neutrophils # Seg Neutrophils # Man Lymphocytes # (Manual) ABG pH ABG pO2 69.0 L ABG HCO3 ABG O2 Saturation ABG Base Excess ABG Hemoglobin 12.6 L Oxyhemoglobin 93.5 L Sodium Potassium Chloride Carbon Dioxide BUN 109 H Creatinine 4.3 H Glucose 253 H POC Glucose 270 H Hemoglobin A1c Calcium Magnesium Total Bilirubin 1.60 H AST ALT 94 H Alkaline Phosphatase 135 H Troponin T NT-Pro-B Natriuret Pep Total Protein 5.8 L Albumin 2.0 L HDL Cholesterol 03/18/22 11:36 RBC Hgb Hct MCHC RDW Plt Count Lymph % (Auto) Lymph # (Auto) Seg Neutrophils % Seg Neuts % (Manual) Lymphocytes % (Manual) Nucleated RBC % Seg Neutrophils # Seg Neutrophils # Man Lymphocytes # (Manual) ABG pH ABG pO2 ABG HCO3 ABG O2 Saturation ABG Base Excess ABG Hemoglobin Oxyhemoglobin Sodium Potassium Chloride Carbon Dioxide BUN Creatinine Glucose POC Glucose 210 H Hemoglobin A1c Calcium Magnesium Total Bilirubin AST ALT Alkaline Phosphatase Troponin T NT-Pro-B Natriuret Pep Total Protein Albumin HDL Cholesterol Chest x-ray: image reviewed (Persiteing alveolar infiltrates) Allied health notes reviewed: RT
[2022-03-18] MEDS: INSULIN GLARGINE 100 UNITS/ML SUB-Q SCH (21:49)
[2022-03-18] MEDS: SENNOSIDES/DOCUSATE SODIUM 8.6/50 MG TAB FEEDTUBE SCH (21:50)
[2022-03-19] MEDS: ACETAMINOPHEN 325 MG TAB PO PRN ×4 (00:08→19:57)
[2022-03-19 05:06] LABS: Hematocrit 38.5 % (35.5-45.6); Hemoglobin 12.6 gm/dl (11.8-15.2); Mean Corpuscular HGB Conc 33 % (32-34); Mean Corpuscular Volume 87 fl (84-94); Platelet Count 106 K/mm3 (140-440); Red Blood Count 4.44 M/mm3 (3.65-5.03); Red Cell Distribution Width 19.4 % (13.2-15.2)
[2022-03-19 05:29] LABS: Calcium 8.5 mg/dL (8.4-10.2)
[2022-03-19] MEDS: BUMETANIDE 1 MG/4 ML INJ IV SCH ×2 (06:59→17:48)
[2022-03-19] MEDS: SODIUM BICARBONATE 650 MG TAB PO SCH ×2 (07:01→15:05)
[2022-03-19] MEDS: INSULIN REGULAR, HUMAN 100 UNITS/1 ML SUB-Q SCH ×3 (07:01→17:48)
[2022-03-19] MEDS: IPRATROPIUM/ALBUTEROL SULFATE 3 ML AMPUL.NEB IH SCH ×2 (08:20→20:01)
[2022-03-19] MEDS: FAMOTIDINE 10 MG TAB FEEDTUBE SCH (09:20)
[2022-03-19] MEDS: ASPIRIN 81 MG TAB CHEW PO SCH (09:20)
[2022-03-19] MEDS: RIVAROXABAN 15 MG TAB PO SCH (09:20)
[2022-03-19] MEDS: CLOPIDOGREL 75 MG TAB FEEDTUBE SCH (09:21)
--- NOTE | 2022-03-19 09:36 | XRay Report ---
CHEST 1 VIEW 03/19/2022 8:20 AM INDICATION / CLINICAL INFORMATION: resp failure. COMPARISON: 03/16/22 FINDINGS: SUPPORT DEVICES: Unchanged. HEART / MEDIASTINUM: Enlarged but stable. Left-sided single lead AICD is unchanged. LUNGS / PLEURA: Slight worsening of bibasilar pleural-parenchymal densities. No pneumothorax. ADDITIONAL FINDINGS: No significant additional findings. IMPRESSION: 1. Interval worsening. Signer Name: Alicia Turner MD Signed: 03/19/2022 9:32 AM Workstation Name: [id number]
[2022-03-19] MEDS ORDERED: SODIUM CHLORIDE 0.9% 100 ML IV PRN (11:48)
--- NOTE | 2022-03-19 11:48 | Progress Note ---
Assessment and Plan Impression * Acute kidney injury. Most likely secondary to ATN. * Patient may have underlying chronic kidney disease * Respiratory failure. Chest x-ray showing evidence of mild volume overload * Diabetes * Hypertension * Abnormal LFTs * Mild metabolic acidosis and mild hyperkalemia Recommendations * Patient's baseline renal function is not known. * His urine shows 1+ dipstick protein and 1+ blood * Follow-up results of vasculitis work-up. Hepatitis B and C both are negative * Renal ultrasound shows relatively larger left kidney. Otherwise normal. * Avoid nephrotoxins * Monitor Anguiano catheter for now * Hyperkalemia has been corrected * Monitor fluid status and electrolytes closely * Status post Vas-Cath placement on 03/17/2022 and initiation of dialysis. Uneventful hemodialysis yesterday. * Patient is clinically still volume overloaded. BUN is still high. Shall dialyze him again today. 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 Currently on 45% FiO2. Oxygen saturation is 97%. He is also on Levophed drip. Objective - Vital Signs Vital signs: Vital Signs - 12hr 03/19/22 03/19/22 03/19/22 00:00 00:01 00:15 Temperature 101 F H Pulse Rate 79 78 Pulse Rate [ Bilateral Throughout] Pulse Rate [ 79 From Monitor] Respiratory 29 H 31 H 28 H Rate Respiratory Rate [Bilateral Throughout] Blood Pressure 110/58 105/59 O2 Sat by Pulse 97 88 93 Oximetry 03/19/22 03/19/22 03/19/22 00:30 00:45 01:00 Temperature Pulse Rate 80 78 79 Pulse Rate [ Bilateral Throughout] Pulse Rate [ From Monitor] Respiratory 23 26 H 26 H Rate Respiratory Rate [Bilateral Throughout] Blood Pressure 105/59 120/58 120/58 O2 Sat by Pulse 93 89 93 Oximetry 03/19/22 03/19/22 03/19/22 01:15 01:31 01:45 Temperature Pulse Rate 79 78 79 Pulse Rate [ Bilateral Throughout] Pulse Rate [ From Monitor] Respiratory 26 H 24 26 H Rate Respiratory Rate [Bilateral Throughout] Blood Pressure 111/63 122/60 99/63 O2 Sat by Pulse 87 90 Oximetry 03/19/22 03/19/22 03/19/22 02:00 02:15 02:31 Temperature Pulse Rate 79 79 79 Pulse Rate [ Bilateral Throughout] Pulse Rate [ From Monitor] Respiratory H 26 H 25 H Rate Respiratory Rate [Bilateral Throughout] Blood Pressure 112/58 104/55 111/56 O2 Sat by Pulse 88 93 91 Oximetry 03/19/22 03/19/22 03/19/22 02:45 03:00 03:15 Temperature Pulse Rate 78 78 79 Pulse Rate [ Bilateral Throughout] Pulse Rate [ From Monitor] Respiratory 24 H 23 Rate Respiratory Rate [Bilateral Throughout] Blood Pressure 102/57 107/62 100/60 O2 Sat by Pulse 92 Oximetry 03/19/22 03/19/22 03/19/22 03:31 03:45 04:00 Temperature 99.4 F Pulse Rate 79 79 78 Pulse Rate [ Bilateral Throughout] Pulse Rate [ 78 From Monitor] Respiratory H 28 H 27 H Rate Respiratory Rate [Bilateral Throughout] Blood Pressure 104/60 113/56 O2 Sat by Pulse 90 92 94 Oximetry 03/19/22 03/19/22 03/19/22 04:01 04:15 04:30 Temperature Pulse Rate 78 78 76 Pulse Rate [ Bilateral Throughout] Pulse Rate [ From Monitor] Respiratory H 30 H 30 H Rate Respiratory Rate [Bilateral Throughout] Blood Pressure 115/55 104/59 110/66 O2 Sat by Pulse 92 92 92 Oximetry 03/19/22 03/19/22 03/19/22 04:45 05:01 05:09 Temperature Pulse Rate 78 77 77 Pulse Rate [ Bilateral Throughout] Pulse Rate [ From Monitor] Respiratory 28 H 29 H Rate Respiratory Rate [Bilateral Throughout] Blood Pressure 116/56 107/57 100/50 O2 Sat by Pulse 92 93 94 Oximetry 03/19/22 03/19/22 03/19/22 05:15 05:30 05:45 Temperature Pulse Rate 77 78 77 Pulse Rate [ Bilateral Throughout] Pulse Rate [ From Monitor] Respiratory 30 H 29 H 29 H Rate Respiratory Rate [Bilateral Throughout] Blood Pressure 101/61 115/57 122/57 O2 Sat by Pulse 91 92 100 Oximetry 03/19/22 03/19/22 03/19/22 06:00 06:15 06:30 Temperature Pulse Rate 78 78 77 Pulse Rate [ Bilateral Throughout] Pulse Rate [ From Monitor] Respiratory 28 H 28 H 30 H Rate Respiratory Rate [Bilateral Throughout] Blood Pressure 104/60 101/60 107/59 O2 Sat by Pulse 92 92 92 Oximetry 03/19/22 03/19/22 03/19/22 06:45 07:00 07:15 Temperature Pulse Rate 77 77 78 Pulse Rate [ Bilateral Throughout] Pulse Rate [ From Monitor] Respiratory 30 H 29 H 28 H Rate Respiratory Rate [Bilateral Throughout] Blood Pressure 113/63 120/64 102/52 O2 Sat by Pulse 92 92 94 Oximetry 03/19/22 03/19/22 03/19/22 07:30 07:45 08:00 Temperature 101 F H Pulse Rate 76 78 77 Pulse Rate [ Bilateral Throughout] Pulse Rate [ 78 From Monitor] Respiratory 30 H 32 H 32 H Rate Respiratory Rate [Bilateral Throughout] Blood Pressure 112/59 131/79 134/72 O2 Sat by Pulse 92 93 95 Oximetry 03/19/22 03/19/22 03/19/22 08:09 08:15 08:20 Temperature Pulse Rate 78 77 Pulse Rate [ 78 Bilateral Throughout] Pulse Rate [ From Monitor] Respiratory 22 Rate Respiratory 33 H Rate [Bilateral Throughout] Blood Pressure 134/72 127/73 O2 Sat by Pulse 95 94 Oximetry 03/19/22 03/19/22 03/19/22 08:30 08:45 09:01 Temperature Pulse Rate 78 76 77 Pulse Rate [ Bilateral Throughout] Pulse Rate [ From Monitor] Respiratory 33 H 31 H 28 H Rate Respiratory Rate [Bilateral Throughout] Blood Pressure 119/70 128/67 107/51 O2 Sat by Pulse 94 92 95 Oximetry 03/19/22 03/19/22 03/19/22 09:15 09:31 09:38 Temperature Pulse Rate 76 75 77 Pulse Rate [ Bilateral Throughout] Pulse Rate [ From Monitor] Respiratory 26 H 27 H 27 H Rate Respiratory Rate [Bilateral Throughout] Blood Pressure 107/51 107/51 O2 Sat by Pulse 95 95 95 Oximetry 03/19/22 03/19/22 09:45 10:01 Temperature Pulse Rate 76 75 Pulse Rate [ Bilateral Throughout] Pulse Rate [ From Monitor] Respiratory 23 23 Rate Respiratory Rate [Bilateral Throughout] Blood Pressure 107/51 107/51 O2 Sat by Pulse 95 96 Oximetry - General Appearance General appearance: well-developed, well-nourished, appears stated age, intubated EENT: PERRL, mucous membranes moist Neck: no JVD, no thyromegaly, no carotid bruit, supple Respiratory: Present: Clear to Ascultation Cardiology: regular, normal heart rate, S1S2, no murmurs Gastrointestinal: normal, normoactive bowel sounds Integumentary: no rash, other (No edema. Right femoral Vas-Cath in place) - Lab 03/19/22 04:00 03/19/22 04:00 Most recent lab results ABG pH 7.439 pH Units (7.350-7.450) 03/18/22 05:30 ABG pCO2 37.6 mm Hg 03/18/22 05:30 ABG pO2 69.0 mm Hg (80.0-90.0) L 03/18/22 05:30 ABG HCO3 24.9 mmol/L (20.0-26.0) 03/18/22 05:30 ABG O2 Saturation 95.4 % (95.0-99.0) 03/18/22 05:30 Calcium 8.5 mg/dL (8.4-10.2) 03/19/22 04:00 Magnesium 2.50 mg/dL (1.7-2.3) H 03/13/22 20:33 Medications & Allergies - Medications Allergies/Adverse Reactions: Allergies No Known Allergies Allergy (Verified 03/13/22 14:06) Home Medications: Home Medications Medication Instructions Recorded Confirmed Last Taken Type Aspirin [Aspirin BABY CHEW TAB] 81 mg PO QDAY 03/13/22 03/13/22 Unknown History AtorvaSTATin [Lipitor] 40 mg PO QHS 03/13/22 03/13/22 Unknown History Furosemide [Lasix] 40 mg PO QDAY 03/13/22 03/13/22 Unknown History Insulin NPH Hum/Reg Insulin Hm 100 unit SQ BID 03/13/22 03/13/22 Unknown History [Novolin 70-30 100 Unit/ml Vial] Sodium Bicarbonate 650 mg PO Q8HR 03/13/22 03/13/22 Unknown History XARELTO (see DOAC order set to 20 mg PO QDAY 03/13/22 03/13/22 Unknown History order) carvediloL [Coreg] 25 mg PO BID 03/13/22 03/13/22 Unknown History cloNIDine [Catapres] 0.2 mg PO BID 03/13/22 03/13/22 Unknown History hydrALAZINE [Apresoline] 50 mg PO Q8HR 03/13/22 03/13/22 Unknown History hydroCHLOROthiazide 50 mg PO 03/13/22 03/13/22 Unknown History [Hydrochlorothiazide] Active Medications: Generic Name Dose Route Start Last Admin Trade Name Freq PRN Reason Stop Dose Admin Acetaminophen 650 mg 03/13/22 17:18 03/19/22 09:20 Acetaminophen 325 Mg Tab PO 650 mg Q6H PRN Administration Pain MILD(1-3)/Fever >100.5/FLORES Albumin Human 25 gm 03/13/22 18:43 Albumin Human 25% (25 Gm/100 Ml) Inj IV GLADYS PRN Hypotension Albuterol 2.5 mg 03/13/22 17:18 Albuterol 2.5 Mg/3 Ml Nebu IH Q3HRT PRN Shortness Of Breath Albuterol/Ipratropium 1 ampul 03/15/22 12:00 03/19/22 08:20 Ipratropium/Albuterol Sulfate 3 Ml Ampul.Neb IH 1 ampul Q12HRT YRIS Administration Aspirin 81 mg 03/14/22 10:00 03/19/22 09:20 Aspirin 81 Mg Tab Chew PO 81 mg QDAY YRIS Administration Bumetanide 1 mg 03/16/22 18:00 03/19/22 06:59 Bumetanide 1 Mg/4 Ml Inj IV 1 mg BID@0600,1800 YRIS Administration Carvedilol 6.25 mg 03/17/22 22:00 03/18/22 21:50 Carvedilol 6.25 Mg Tab FEEDTUBE 6.25 mg BID YRIS Administration Clopidogrel Bisulfate 75 mg 03/15/22 11:00 03/19/22 09:21 Clopidogrel 75 Mg Tab FEEDTUBE 75 mg QDAY YRIS Administration Dextrose 50 ml 03/14/22 12:30 Dextrose 50% In Water (25gm) 50 Ml Syringe IV Q30MIN PRN Hypoglycemia Protocol Famotidine 10 mg 03/14/22 22:00 03/19/22 09:20 Famotidine 10 Mg Tab FEEDTUBE 10 mg BID YRIS Administration Fentanyl 50 mcg 03/14/22 11:20 03/18/22 12:22 Fentanyl 100 Mcg/2 Ml Inj IV 50 mcg Q10MIN PRN Administration ANALGESIA Hydralazine HCl 10 mg 03/14/22 15:57 Hydralazine 20 Mg/1 Ml Inj IV Q4HR PRN Hypertension Hydromorphone HCl 0.5 mg 03/13/22 17:18 03/13/22 21:30 Hydromorphone 0.5 Mg/0.5 Ml Inj IV 0.5 mg Q13H PRN Administration Pain , Severe (7-10) Fentanyl Citrate 2,000 mcg in 100 mls @ 7.095 mls/hr 03/14/22 12:00 03/19/22 02:07 Fentanyl Drip Premix IV 0.5 mcg/kg/hr TITR YRIS 3.548 mls/hr Titration Protocol 1 MCG/KG/HR NORepinephrine/NS 8 MG-250 ML 8 mg in 250 mls @ 3.75 mls/hr 03/17/22 11:00 03/19/22 02:08 Norepinephrine/Ns 8 Mg-250 Ml (Double Conc) IV 2 mcg/min TITRATE YRIS 3.75 mls/hr Titration Protocol 2 MCG/MIN Milrinone Lactate/Dextrose 20 mg in 100 mls @ 11.6 mls/hr 03/17/22 12:00 Milrinone-D5w 20 Mg/100 Ml IV DIRECT YRIS Protocol 0.275 MCG/KG/MIN Sodium Chloride 1,000 mls @ 1 mls/hr 03/17/22 17:08 Nacl 0.9% 1000 Ml IV DIRECT PRN ARTERIAL LINE FLUSH Sodium Chloride 100 mls @ 999 mls/hr 03/18/22 11:00 Nacl 0.9% IV GLADYS PRN Hypotension Insulin Glargine 20 units 03/17/22 22:00 03/18/22 21:49 Insulin Glargine 100 Units/Ml SUB-Q 20 units QHS YRIS Administration Insulin Human Regular 0 units 03/14/22 13:00 03/19/22 11:18 Insulin Regular, Human 100 Units/1 Ml SUB-Q 3 units Q6HR YRIS Administration Protocol Oxycodone/Acetaminophen 1 tab 03/13/22 17:18 Oxycodone /Acetaminophen 5-325mg Tab PO Q16H PRN Pain, Moderate (4-6) Rivaroxaban 15 mg 03/14/22 10:29 03/19/22 09:20 Rivaroxaban 15 Mg Tab PO 15 mg QDDIAB YRIS Administration Senna/Docusate Sodium 1 tab 03/14/22 22:00 03/18/22 21:50 Sennosides/Docusate Sodium 8.6/50 Mg Tab FEEDTUBE 1 tab QHS YRIS Administration Sodium Bicarbonate 650 mg 03/16/22 06:00 03/19/22 07:01 Sodium Bicarbonate 650 Mg Tab PO 650 mg Q8HR YRIS Administration Sodium Chloride 10 ml 03/13/22 22:00 03/19/22 09:19 Sodium Chloride 0.9% 10 Ml Flush Syringe IV 10 ml BID YRIS Administration Sodium Chloride 10 ml 03/13/22 17:18 Sodium Chloride 0.9% 10 Ml Flush Syringe IV PRN PRN LINE FLUSH
--- NOTE | 2022-03-19 12:49 | Progress Note ---
<TRISTON ORDOÑEZTanisha - Last Filed: 03/19/22 14:52> Assessment and Plan Assessment and plan: This is a 56-year-old male with OHS, HTN, PE on therapeutic anticoagulation, CHF and AICD and still admitted with acute on chronic CHF decompensation metabolic acidosis, fluid overload, transaminitis, acute hypoxic respiratory failure and acute kidney injury Neuro: Acute metabolic encephalopathy, CVA -Fentanyl IVP, fentanyl gtt if needed -RASS goal 0 to -1 -Reorientation as needed -Maintain sleep-wake cycle -As needed analgesia -CT head shows diffuse cerebral atrophy, 3.4 cm rounded fluid density structure located along the medial anterior aspect of the left temporal lobe most likely arachnoid cyst, evolving cerebral infarct right greater than left (age indeterminant), no evidence of hemorrhage -03/17 CT head shows evidence of 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 -CTA head shows poor visualization of the right PICA noted, areas of mild narrowing seen in the posterior circulation, no definitive signs of large vessel occlusion -CTA neck shows no significant stenosis appreciated in the limited CTA of the neck -Neurology and neurosurgery consulted, appreciate recommendations -MRI brain unable to be completed d/t AICD -MRA head/neck unable to be completed d/t AICD -Bilateral carotid US with less than 50% stenosis in Bilateral carotid arteries -TSH, lipid panel noted -Lipitor holding re elevated LFTs, Aspirin/plavix -PT/OT/ST eval requested Cardiac: Acute on chronic heart failure with reduced EF, NSTEMI suspect type II, h/o HTN, AICD -Cardiology consulted, appreciate recommendations -Blood pressure monitoring per protocol -Vasopressor support with levophed -BB -Per family: outpatient milrinone through PICC -s/p milrinone gtt-> hypotension, not tolerated -IV hydral PRN -Echocardiogram shows LVEF 20 to 25%, mild concentric LVH, mild to moderate pulm hypertension -Hold statin in setting of transaminitis Respiratory: Acute hypoxic respiratory failure, h/o PE on Xarelto -[facility] consulted, appreciate recommendations -Intubated on 03/13 with 7.5 OETT at 24 at the lips -A.m. vent settings: AC TV 450/ Rate 24/ Peep 8/ FiO2 45% -See RT notes for titration -A.m. ABG and CXR noted -VAP bundle -SPO2 monitoring GI: Morbid obesity, transaminitis (improving) -24 hours + 1604 mL -HD removal 03/18 500 mL -PPI -NTR consulted for tube feedings -BR: Senokot S -03/15 abdominal ultrasound shows hepatomegaly with hepatic steatosis, gallbladder sludge without sonographic evidence of acute cholecystitis -Trend LFTs : Acute kidney injury with possible underlying CKD -Nephrology consulted, appreciate recommendations -s/p lasix 80mg 03/14, 03/15 40 mg lasix-> Bumex->HD -Right femoral trialysis placed 03/17 -HD initiated on 03/17 -HD per nephrology -Monitor intake and output -Renally dose medications -Avoid nephrotoxic medications -Urine electrolytes pending -Renal ultrasound cancelled -Trend BMP ID: Staph Aureus in tracheal aspirate -MRSA nasal swab (-) -Having fevers and has leukocytosis -Vancomycin changed to nafcillin -f/u sputum culture -Monitor WBC and temperature curve Endo: h/o DM -Hold home Novolin 70/30 100 units twice daily -Avoid hypoglycemia -SSI -Accu-Cheks q. 6 -Lantus added, titrate as needed -Hemoglobin A1c 8.6 Heme: Leukocytosis -Trend CBC -Transfuse hemoglobin less than 7 -SCDs to BLE while in bed -Bilateral lower extremity Dopplers are negative for DVT -Continue home Xarelto The high probability of a clinically significant, sudden or life threatening deterioration of the [multi] system(s) required my full and direct attention, intervention and personal management. The aggregate critical care time was [60] minutes. This time is in addition to time spent performing reported procedures but includes the following: [x] Data Review and interpretation [x] Patient assessment and monitoring of vital signs [x] Documentation [x] Medication orders and management Disposition Plan: ICU Total Time Spent with Patient (Minutes): 60 History Interval history: This is a 56-year-old male with OHS, HTN, PE on therapeutic anticoagulation with Xarelto, CHF and AICD in situ who presented to emergency department on 03/13 with complaints of shortness of breath over the past 2 days with worsening sympt oms over the past day via EMS. Per documentation patient had last hemodialysis session on 03/08. Patient was emergently intubated in the emergency department as he was found to have some oropharyngeal edema and inability to protect his airway and found to have a pulse ox of 89%. 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 Patient was admitted to the hospital service with acute CHF decompensation, metabolic acidosis, fluid overload, transaminitis, acute kidney injury and acute hypoxic respiratory failure with consults to [facility], cardiology and nephrology. Hospital course to date: 03/14: Cardiology discontinued hydralazine, hydrochlorothiazide and clonidine due to soft blood pressures this morning and would like to continue Coreg and decreased Xarelto. Nephrology ordered a one-time dose of Lasix 80 mg. Patient remains intubated. This evening patient was becoming hypertensive and as needed hydralazine added. Unable to confirm if patient is on outpatient hemodialysis as does not know and current chest access appears to be PICC line. 03/15: Family stated that patient had milrinone infusion through PICC line, hemodialysis approximately 8 years ago. Nephrology administered additional Lasix today. We will continue to monitor renal function. [facility] made vent changes. Daughter and updated extensively at bedside by nurse practitioner. 03/16: Worsening renal function however no urgent need for indication for nephrology. Diuretics changed to Bumex. Neurology ordered a CTA head/neck (not ordered yesterday due to renal function, MRA not ordered due to pacemaker) and nephrology has okayed the use of dye per RN however testing still pending as radiology states patient will need hemodialysis postcontrast. RN paged telemetry neurology. Cardiology will restart IV milrinone. 03/17: HD started, levophed gtt for hypotension, millrinone gtt. 03/18: HD today, weaned off levophed gtt, milrinone on hold. Patient did not tolerate CPAP trial this morning. Patient did not tolerate PSV this morning, we will ask RT to repeat this afternoon. 03/19: Hemodialysis yesterday with removal of 500 mL, still spiking temperatures despite being on vancomycin, will obtain bilateral lower extremity Doppler ultrasounds given persistent fevers while on antibiotics. Patient now has leukocytosis. Lantus increased. Will change abx to nafcillin Hospitalist Physical - Constitutional Vitals: Temp Pulse Resp BP Pulse Ox 101.2 F H 77 31 H 107/51 97 07/30/22 12:00 03/19/22 12:15 03/19/22 12:15 03/19/22 12:15 03/19/22 12:15 General appearance: Present: no acute distress, other (Intubated and sedated) - EENT Eyes: Present: PERRL ENT: dentition normal - Neck Neck: Present: normal ROM - Respiratory Respiratory effort: normal Respiratory: bilateral: diminished - Cardiovascular Rhythm: regular Heart Sounds: Present: S1 & S2. Absent: systolic murmur, diastolic murmur - Extremities Extremities: no ischemia, pulses intact, pulses symmetrical, normal temperature, normal color Extremity abnormal: edema Peripheral Pulses: within normal limits - Abdominal General gastrointestinal: soft, non-tender, normal bowel sounds - Integumentary Integumentary: Present: warm, dry - Psychiatric Psychiatric: other - Neurologic Neurologic: other (Intact cough/gag, pulls equal round reactive, intermittent response to painful stimuli) - Allied Health Allied health notes reviewed: nursing, RT HEART Score - HEART Score Troponin: Troponin T 0.176 ng/mL (0.00-0.029) H* 03/13/22 15:44 Results - Labs CBC & Chem 7: 03/19/22 04:00 03/19/22 04:00 Labs: Laboratory Last Values WBC 14.8 K/mm3 (4.5-11.0) H 03/19/22 04:00 RBC 4.44 M/mm3 (3.65-5.03) 03/19/22 04:00 Hgb 12.6 gm/dl (11.8-15.2) 03/19/22 04:00 Hct 38.5 % (35.5-45.6) 03/19/22 04:00 MCV 87 fl (84-94) 03/19/22 04:00 MCH 28 pg (28-32) 03/19/22 04:00 MCHC 33 % (32-34) 03/19/22 04:00 RDW 19.4 % (13.2-15.2) H 03/19/22 04:00 Plt Count 106 K/mm3 (140-440) L 03/19/22 04:00 Lymph % (Auto) 4.7 % (13.4-35.0) L 03/14/22 04:50 [place] % (Auto) 5.6 % (0.0-7.3) 03/14/22 04:50 Eos % (Auto) 0.1 % (0.0-4.3) 03/14/22 04:50 Baso % (Auto) 0.1 % (0.0-1.8) 03/14/22 04:50 Lymph # (Auto) 0.5 K/mm3 (1.2-5.4) L 03/14/22 04:50 [place] # (Auto) 0.5 K/mm3 (0.0-0.8) 03/14/22 04:50 Eos # (Auto) 0.0 K/mm3 (0.0-0.4) 03/14/22 04:50 Baso # (Auto) 0.0 K/mm3 (0.0-0.1) 03/14/22 04:50 Add Manual Diff Complete 03/18/22 04:17 Total Counted 100 03/18/22 04:17 Seg Neutrophils % 89.5 % (40.0-70.0) H 03/14/22 04:50 Seg Neuts % (Manual) 88.0 % (40.0-70.0) H 03/18/22 04:17 Band Neutrophils % 1.0 % 03/18/22 04:17 Lymphocytes % (Manual) 3.0 % (13.4-35.0) L 03/18/22 04:17 Reactive Lymphs % (Man) 0 % 03/18/22 04:17 Monocytes % (Manual) 7.0 % (0.0-7.3) 03/18/22 04:17 Eosinophils % (Manual) 1.0 % (0.0-4.3) 03/18/22 04:17 Basophils % (Manual) 0 % (0.0-1.8) 03/18/22 04:17 Metamyelocytes % 0 % 03/18/22 04:17 Myelocytes % 0 % 03/18/22 04:17 Promyelocytes % 0 % 03/18/22 04:17 Blast Cells % 0 % 03/18/22 04:17 Nucleated RBC % 2.0 % (0.0-0.9) H 03/18/22 04:17 Seg Neutrophils # 8.5 K/mm3 (1.8-7.7) H 03/14/22 04:50 Seg Neutrophils # Man 7.6 K/mm3 (1.8-7.7) 03/18/22 04:17 Band Neutrophils # 0.1 K/mm3 03/18/22 04:17 Lymphocytes # (Manual) 0.3 K/mm3 (1.2-5.4) L 03/18/22 04:17 Abs React Lymphs (Man) 0.0 K/mm3 03/18/22 04:17 Monocytes # (Manual) 0.6 K/mm3 (0.0-0.8) 03/18/22 04:17 Eosinophils # (Manual) 0.1 K/mm3 (0.0-0.4) 03/18/22 04:17 Basophils # (Manual) 0.0 K/mm3 (0.0-0.1) 03/18/22 04:17 Metamyelocytes # 0.0 K/mm3 03/18/22 04:17 Myelocytes # 0.0 K/mm3 03/18/22 04:17 Promyelocytes # 0.0 K/mm3 03/18/22 04:17 Blast Cells # 0.0 K/mm3 03/18/22 04:17 WBC Morphology Not Reportable 03/18/22 04:17 Hypersegmented Neuts Not Reportable 03/18/22 04:17 Hyposegmented Neuts Not Reportable 03/18/22 04:17 Hypogranular Neuts Not Reportable 03/18/22 04:17 Smudge Cells Not Reportable 03/18/22 04:17 Toxic Granulation Not Reportable 03/18/22 04:17 Toxic Vacuolation Not Reportable 03/18/22 04:17 Dohle Bodies Not Reportable 03/18/22 04:17 Pelger-Huet Anomaly Not Reportable 03/18/22 04:17 Tyson Rods Not Reportable 03/18/22 04:17 Platelet Estimate Consistent w auto 03/18/22 04:17 Clumped Platelets Not Reportable 03/18/22 04:17 Plt Clumps, EDTA Not Reportable 03/18/22 04:17 Large Platelets Not Reportable 03/18/22 04:17 Giant Platelets Not Reportable 03/18/22 04:17 Platelet Satelliting Not Reportable 03/18/22 04:17 Plt Morphology Comment Not Reportable 03/18/22 04:17 RBC Morphology Not Reportable 03/18/22 04:17 Dimorphic RBCs Not Reportable 03/18/22 04:17 Polychromasia Not Reportable 03/18/22 04:17 Hypochromasia Not Reportable 03/18/22 04:17 Poikilocytosis Not Reportable 03/18/22 04:17 Anisocytosis 1+ 03/18/22 04:17 Microcytosis Not Reportable 03/18/22 04:17 Macrocytosis Not Reportable 03/18/22 04:17 Spherocytes Not Reportable 03/18/22 04:17 Pappenheimer Bodies Not Reportable 03/18/22 04:17 Sickle Cells Not Reportable 03/18/22 04:17 Target Cells Not Reportable 03/18/22 04:17 Tear Drop Cells Not Reportable 03/18/22 04:17 Ovalocytes Not Reportable 03/18/22 04:17 Helmet Cells Not Reportable 03/18/22 04:17 S[place]ough[place] Bodies Not Reportable 03/18/22 04:17 [place] Rings Not Reportable 03/18/22 04:17 Azale Cells Not Reportable 03/18/22 04:17 Bite Cells Not Reportable 03/18/22 04:17 Crenated Cell Not Reportable 03/18/22 04:17 Elliptocytes Not Reportable 03/18/22 04:17 Acanthocytes (Spur) Not Reportable 03/18/22 04:17 Rouleaux Not Reportable 03/18/22 04:17 Hemoglobin C Crystals Not Reportable 03/18/22 04:17 Schistocytes Not Reportable 03/18/22 04:17 Malaria parasites Not Reportable 03/18/22 04:17 Rashaad Bodies Not Reportable 03/18/22 04:17 Hem Pathologist Commnt No 03/18/22 04:17 ABG pH 7.439 pH Units (7.350-7.450) 03/18/22 05:30 ABG pCO2 37.6 mm Hg 03/18/22 05:30 ABG pO2 69.0 mm Hg (80.0-90.0) L 03/18/22 05:30 ABG HCO3 24.9 mmol/L (20.0-26.0) 03/18/22 05:30 ABG O2 Saturation 95.4 % (95.0-99.0) 03/18/22 05:30 ABG O2 Content 16.6 (0.0-44) 03/18/22 05:30 ABG Base Excess 0.9 mmol/L (-2.0-3.0) 03/18/22 05:30 ABG Hemoglobin 12.6 gm/dl (14.0-18.0) L 03/18/22 05:30 ABG Carboxyhemoglobin 1.5 % (0.0-5.0) 03/18/22 05:30 ABG Methemoglobin 0.5 % (0.0-1.5) 03/18/22 05:30 Oxyhemoglobin 93.5 % (95.0-99.0) L 03/18/22 05:30 FiO2 50 % 03/18/22 05:30 Sodium 142 mmol/L (137-145) 03/19/22 04:00 Potassium 4.1 mmol/L (3.6-5.0) 03/19/22 04:00 Chloride 103.4 mmol/L (98-107) 03/19/22 04:00 Carbon Dioxide 26 mmol/L (22-30) 03/19/22 04:00 Anion Gap 17 mmol/L 03/19/22 04:00 BUN 95 mg/dL (9-20) H 03/19/22 04:00 Creatinine 4.1 mg/dL (0.8-1.3) H 03/19/22 04:00 Estimated GFR 18 ml/min 03/19/22 04:00 BUN/Creatinine Ratio 23 % 03/19/22 04:00 Glucose 228 mg/dL (75-100) H 03/19/22 04:00 POC Glucose 240 mg/dL (70-105) H 03/19/22 11:13 Hemoglobin A1c 8.6 % (4-6) H 03/15/22 04:36 Calcium 8.5 mg/dL (8.4-10.2) 03/19/22 04:00 Magnesium 2.50 mg/dL (1.7-2.3) H 03/13/22 20:33 Total Bilirubin 1.60 mg/dL (0.1-1.2) H 03/18/22 04:17 AST 33 units/L (5-40) 03/18/22 04:17 ALT 94 units/L (7-56) H 03/18/22 04:17 Alkaline Phosphatase 135 units/L (35-129) H 03/18/22 04:17 Troponin T 0.176 ng/mL (0.00-0.029) H* 03/13/22 15:44 NT-Pro-B Natriuret Pep 41784 pg/mL (0-900) H 03/13/22 15:44 Total Protein 5.8 g/dL (6.3-8.2) L 03/18/22 04:17 Albumin 2.0 g/dL (3.9-5) L 03/18/22 04:17 Albumin/Globulin Ratio 0.5 % 03/18/22 04:17 Triglycerides 98 mg/dL (2-149) 03/13/22 15:44 Cholesterol 99 mg/dL (50-199) 03/13/22 15:44 LDL Cholesterol Direct 59 mg/dL (50-130) 03/13/22 15:44 HDL Cholesterol 24 mg/dL (40-59) L 03/13/22 15:44 Cholesterol/HDL Ratio 4.12 % 03/13/22 15:44 Procalcitonin 41.58 ng/mL (<0.15) 03/17/22 15:50 TSH 0.362 mlU/mL (0.270-4.200) 03/15/22 04:36 Free T4 1.24 ng/dL (0.76-1.46) 03/13/22 20:33 Urine Color Straw (Yellow) 03/14/22 16:25 Urine Turbidity Clear (Clear) 03/14/22 16:25 Urine pH 5.0 (5.0-7.0) 03/14/22 16:25 Ur Specific [place] 1.015 (1.003-1.030) 03/14/22 16:25 Urine Protein 30 mg/dl mg/dL (Negative) 03/14/22 16:25 Urine Glucose (UA) Negative mg/dL (Negative) 03/14/22 16:25 Urine Ketones Trace mg/dL (Negative) 03/14/22 16:25 Urine Blood 1+ (Negative) 03/14/22 16:25 Urine Nitrite Negative (Negative) 03/14/22 16:25 Ur Reducing Substances Not Reportable 03/14/22 16:25 Urine Bilirubin Negative (Negative) 03/14/22 16:25 Urine Ictotest Not Reportable 03/14/22 16:25 Urine Urobilinogen < 2.0 mg/dL (<2.0) 03/14/22 16:25 Ur Leukocyte Esterase Negative (Negative) 03/14/22 16:25 Urine WBC (Auto) 6.0 /HPF (0.0-6.0) 03/14/22 16:25 Urine RBC (Auto) 82.0 /HPF (0.0-6.0) 03/14/22 16:25 U Epithel Cells (Auto) 1.0 /HPF (0-13.0) 03/14/22 16:25 Urine Bacteria (Auto) 1+ /HPF (Negative) 03/14/22 16:25 Urine Mucus Few /HPF 03/14/22 16:25 Nasal Screen MRSA (PCR) Negative (Negative) 03/18/22 10:30 Random Vancomycin 6.3 ug/mL (0-40.0) 03/19/22 05:00 Hepatitis A IgM Ab Non-reactive (NonReactive) 03/14/22 10:12 Hep Bs Antigen Non-reactive (Negative) 03/14/22 10:12 Hep B Core IgM Ab Non-reactive (NonReactive) 03/14/22 10:12 Hepatitis C Antibody Non-reactive (NonReactive) 03/14/22 10:12 Microbiology: Microbiology 03/17/22 15:50 Peripheral/Venous Blood Culture - Preliminary 03/13/22 18:15 Sputum - Expectorated Sputum Sputum Culture - Preliminary Staphylococcus Aureus 03/17/22 15:50 Peripheral/Venous Blood Culture - Preliminary NO GROWTH AFTER 24 HOURS Anguiano/IV: Voiding Method Indwelling Catheter Active Medications - Current Medications Current Medications: Generic Name Dose Route Start Last Admin Trade Name Freq PRN Reason Stop Dose Admin Acetaminophen 650 mg 03/13/22 17:18 03/19/22 09:20 Acetaminophen 325 Mg Tab PO 650 mg Q6H PRN Administration Pain MILD(1-3)/Fever >100.5/FLORES Albumin Human 25 gm 03/13/22 18:43 Albumin Human 25% (25 Gm/100 Ml) Inj IV GLADYS PRN Hypotension Albuterol 2.5 mg 03/13/22 17:18 Albuterol 2.5 Mg/3 Ml Nebu IH Q3HRT PRN Shortness Of Breath Albuterol/Ipratropium 1 ampul 03/15/22 12:00 03/19/22 08:20 Ipratropium/Albuterol Sulfate 3 Ml Ampul.Neb IH 1 ampul Q12HRT YRIS Administration Aspirin 81 mg 03/14/22 10:00 03/19/22 09:20 Aspirin 81 Mg Tab Chew PO 81 mg QDAY YRIS Administration Bumetanide 1 mg 03/16/22 18:00 03/19/22 06:59 Bumetanide 1 Mg/4 Ml Inj IV 1 mg BID@0600,1800 YRIS Administration Carvedilol 6.25 mg 03/17/22 22:00 03/18/22 21:50 Carvedilol 6.25 Mg Tab FEEDTUBE 6.25 mg BID YRIS Administration Clopidogrel Bisulfate 75 mg 03/15/22 11:00 03/19/22 09:21 Clopidogrel 75 Mg Tab FEEDTUBE 75 mg QDAY YRIS Administration Dextrose 50 ml 03/14/22 12:30 Dextrose 50% In Water (25gm) 50 Ml Syringe IV Q30MIN PRN Hypoglycemia Protocol Famotidine 10 mg 03/14/22 22:00 03/19/22 09:20 Famotidine 10 Mg Tab FEEDTUBE 10 mg BID YRIS Administration Fentanyl 50 mcg 03/14/22 11:20 03/18/22 12:22 Fentanyl 100 Mcg/2 Ml Inj IV 50 mcg Q10MIN PRN Administration ANALGESIA Hydralazine HCl 10 mg 03/14/22 15:57 Hydralazine 20 Mg/1 Ml Inj IV Q4HR PRN Hypertension Hydromorphone HCl 0.5 mg 03/13/22 17:18 03/13/22 21:30 Hydromorphone 0.5 Mg/0.5 Ml Inj IV 0.5 mg Q13H PRN Administration Pain , Severe (7-10) Fentanyl Citrate 2,000 mcg in 100 mls @ 7.095 mls/hr 03/14/22 12:00 03/19/22 02:07 Fentanyl Drip Premix IV 0.5 mcg/kg/hr TITR YRIS 3.548 mls/hr Titration Protocol 1 MCG/KG/HR NORepinephrine/NS 8 MG-250 ML 8 mg in 250 mls @ 3.75 mls/hr 03/17/22 11:00 03/19/22 02:08 Norepinephrine/Ns 8 Mg-250 Ml (Double Conc) IV 2 mcg/min TITRATE YRIS 3.75 mls/hr Titration Protocol 2 MCG/MIN Milrinone Lactate/Dextrose 20 mg in 100 mls @ 11.6 mls/hr 03/17/22 12:00 Milrinone-D5w 20 Mg/100 Ml IV DIRECT YRIS Protocol 0.275 MCG/KG/MIN Sodium Chloride 1,000 mls @ 1 mls/hr 03/17/22 17:08 Nacl 0.9% 1000 Ml IV DIRECT PRN ARTERIAL LINE FLUSH Sodium Chloride 100 mls @ 999 mls/hr 03/18/22 11:00 Nacl 0.9% IV GLADYS PRN Hypotension Sodium Chloride 100 mls @ 999 mls/hr 03/19/22 11:48 Nacl 0.9% IV GLADYS PRN Hypotension Vancomycin HCl 1,500 mg/ 530 mls @ 333.333 mls/hr 03/19/22 13:00 Sodium Chloride IV 03/19/22 14:35 ONCE ONE Insulin Glargine 30 units 03/19/22 22:00 Insulin Glargine 100 Units/Ml SUB-Q QHS YRIS Insulin Human Regular 0 units 03/14/22 13:00 03/19/22 11:18 Insulin Regular, Human 100 Units/1 Ml SUB-Q 3 units Q6HR YRIS Administration Protocol Oxycodone/Acetaminophen 1 tab 03/13/22 17:18 Oxycodone /Acetaminophen 5-325mg Tab PO Q16H PRN Pain, Moderate (4-6) Rivaroxaban 15 mg 03/14/22 10:29 03/19/22 09:20 Rivaroxaban 15 Mg Tab PO 15 mg QDDIAB YRIS Administration Senna/Docusate Sodium 1 tab 03/14/22 22:00 03/18/22 21:50 Sennosides/Docusate Sodium 8.6/50 Mg Tab FEEDTUBE 1 tab QHS YRIS Administration Sodium Bicarbonate 650 mg 03/16/22 06:00 03/19/22 07:01 Sodium Bicarbonate 650 Mg Tab PO 650 mg Q8HR YRIS Administration Sodium Chloride 10 ml 03/13/22 22:00 03/19/22 09:19 Sodium Chloride 0.9% 10 Ml Flush Syringe IV 10 ml BID YRIS Administration Sodium Chloride 10 ml 03/13/22 17:18 Sodium Chloride 0.9% 10 Ml Flush Syringe IV PRN PRN LINE FLUSH Nutrition/Malnutrition Assess - Dietary Evaluation Nutrition/Malnutrition Findings: Nutrition Notes Start: 03/14/22 09:54 Freq: Status: Active Protocol: Document 03/16/22 10:04 VICTORIA (Rec: 03/16/22 10:27 VICTORIA [id number]) Nutrition Notes Initial or Follow up Brief Note Current Diagnosis Acute Kidney Injury,CKD(stage I-IV),Diabetes,Hypertension, Respiratory Failure,Stroke Other Pertinent Diagnosis ESRD+HD, Pulmonary Embolism, Fluid Overload, Metabolic Acidosis, CHF... Current Diet TF-Nepro w/CARBSTEADY @ 50 ml/ hr (from L 03/14). Labs/Tests 03/16: Na 148, Cl 110.3, BUN 111, Crea 4.7, Glu 243, Ca 8.3 , HbA1c 8.6%. Pertinent Medications 03/16: Lantus 10U, Humulin R 3U, others nutritionally unremarkable. Height 5 ft 11 in Weight 140.6 kg [place] Body Weight (kg) 78.18 BMI 43.2 Weight change and time frame 1.3 Kg body weight loss in 2 days reported. Weight Status Morbidly Obese Subjective/Other Information RD consult for routine F/U on TF tolerance/continuation. TF continues as prescribed, and well tolerated, according to RN notes. Pt remains on Mechanical Ventilation, O2 saturation @ 98%, according to Physical Assessment History notes. Pt has not had a BM since , according to Physical Assessment History notes. Percent of energy/protein needs met: Prescribed TF-Nepro w/ CARBSTEADY @ 50 ml/hr provides for energy/protein needs (2, 180 Kcal/98 g) during LOS, 102 % Kcal; 74% AA. #1 Nutrition Diagnosis Inadequate oral intake Diagnosis Progress(for reassessment Continues documentation) Is patient on ventilator? Yes Is Patient Ambulatory and/or Out of Bed No REE-([facility]-confined to bed) 2725.248 Kcal/Kg value to use for calculation 15 Approximate Energy Requirements Using 2109 kcal/Kg Calculation Used for Recommendations Kcal/kg Additional Notes Protein: >1.2 g/Kg AdjBW; >132 g/day. Fluids: 1 ml/Kcal, or as per MD. Nutrition Intervention Nutrition Support: Continue TF-Nepro w/CARBSTEADY @ 50 ml/hr. Flush: 200 ml water Q 4 hr,or as per MD. Kcal 2,180 Protein (gm) 98 Carbohydrates (gm) 195 Fat (gm) 116 Fluid (mL) 880 Fiber (gm) 15 % RDI: 102% Kcal; 74% AA. Goal #1 Provide at least 75% of energy /protein needs through Enteral Feeding during LOS. Follow-Up By: 03/23/22 Additional Comments Continue monitoring TF tolerance and BM. <DWAYNE ANNE - Last Filed: 03/20/22 07:15> Assessment and Plan Assessment and plan: I saw and evaluated the patient. I agree with the findings and the plan of care as documented in the Nurse Practitioner's~note, with the following corrections a nd additions. Hospitalist Physical - Constitutional Vitals: Temp Pulse Resp BP Pulse Ox 102.6 F H 99 H 32 H 166/71 0 L 03/19/22 16:00 03/19/22 20:02 03/19/22 18:00 03/19/22 20:02 03/19/22 21:21 HEART Score - HEART Score Troponin: Troponin T 0.176 ng/mL (0.00-0.029) H* 03/13/22 15:44 Results - Labs CBC & Chem 7: 03/19/22 04:00 03/19/22 20:30 Labs: Laboratory Last Values WBC 14.8 K/mm3 (4.5-11.0) H 03/19/22 04:00 RBC 4.44 M/mm3 (3.65-5.03) 03/19/22 04:00 Hgb 12.6 gm/dl (11.8-15.2) 03/19/22 04:00 Hct 38.5 % (35.5-45.6) 03/19/22 04:00 MCV 87 fl (84-94) 03/19/22 04:00 MCH 28 pg (28-32) 03/19/22 04:00 MCHC 33 % (32-34) 03/19/22 04:00 RDW 19.4 % (13.2-15.2) H 03/19/22 04:00 Plt Count 106 K/mm3 (140-440) L 03/19/22 04:00 Lymph % (Auto) 4.7 % (13.4-35.0) L 03/14/22 04:50 [place] % (Auto) 5.6 % (0.0-7.3) 03/14/22 04:50 Eos % (Auto) 0.1 % (0.0-4.3) 03/14/22 04:50 Baso % (Auto) 0.1 % (0.0-1.8) 03/14/22 04:50 Lymph # (Auto) 0.5 K/mm3 (1.2-5.4) L 03/14/22 04:50 [place] # (Auto) 0.5 K/mm3 (0.0-0.8) 03/14/22 04:50 Eos # (Auto) 0.0 K/mm3 (0.0-0.4) 03/14/22 04:50 Baso # (Auto) 0.0 K/mm3 (0.0-0.1) 03/14/22 04:50 Add Manual Diff Complete 03/18/22 04:17 Total Counted 100 03/18/22 04:17 Seg Neutrophils % 89.5 % (40.0-70.0) H 03/14/22 04:50 Seg Neuts % (Manual) 88.0 % (40.0-70.0) H 03/18/22 04:17 Band Neutrophils % 1.0 % 03/18/22 04:17 Lymphocytes % (Manual) 3.0 % (13.4-35.0) L 03/18/22 04:17 Reactive Lymphs % (Man) 0 % 03/18/22 04:17 Monocytes % (Manual) 7.0 % (0.0-7.3) 03/18/22 04:17 Eosinophils % (Manual) 1.0 % (0.0-4.3) 03/18/22 04:17 Basophils % (Manual) 0 % (0.0-1.8) 03/18/22 04:17 Metamyelocytes % 0 % 03/18/22 04:17 Myelocytes % 0 % 03/18/22 04:17 Promyelocytes % 0 % 03/18/22 04:17 Blast Cells % 0 % 03/18/22 04:17 Nucleated RBC % 2.0 % (0.0-0.9) H 03/18/22 04:17 Seg Neutrophils # 8.5 K/mm3 (1.8-7.7) H 03/14/22 04:50 Seg Neutrophils # Man 7.6 K/mm3 (1.8-7.7) 03/18/22 04:17 Band Neutrophils # 0.1 K/mm3 03/18/22 04:17 Lymphocytes # (Manual) 0.3 K/mm3 (1.2-5.4) L 03/18/22 04:17 Abs React Lymphs (Man) 0.0 K/mm3 03/18/22 04:17 Monocytes # (Manual) 0.6 K/mm3 (0.0-0.8) 03/18/22 04:17 Eosinophils # (Manual) 0.1 K/mm3 (0.0-0.4) 03/18/22 04:17 Basophils # (Manual) 0.0 K/mm3 (0.0-0.1) 03/18/22 04:17 Metamyelocytes # 0.0 K/mm3 03/18/22 04:17 Myelocytes # 0.0 K/mm3 03/18/22 04:17 Promyelocytes # 0.0 K/mm3 03/18/22 04:17 Blast Cells # 0.0 K/mm3 03/18/22 04:17 WBC Morphology Not Reportable 03/18/22 04:17 Hypersegmented Neuts Not Reportable 03/18/22 04:17 Hyposegmented Neuts Not Reportable 03/18/22 04:17 Hypogranular Neuts Not Reportable 03/18/22 04:17 Smudge Cells Not Reportable 03/18/22 04:17 Toxic Granulation Not Reportable 03/18/22 04:17 Toxic Vacuolation Not Reportable 03/18/22 04:17 Dohle Bodies Not Reportable 03/18/22 04:17 Pelger-Huet Anomaly Not Reportable 03/18/22 04:17 Tyson Rods Not Reportable 03/18/22 04:17 Platelet Estimate Consistent w auto 03/18/22 04:17 Clumped Platelets Not Reportable 03/18/22 04:17 Plt Clumps, EDTA Not Reportable 03/18/22 04:17 Large Platelets Not Reportable 03/18/22 04:17 Giant Platelets Not Reportable 03/18/22 04:17 Platelet Satelliting Not Reportable 03/18/22 04:17 Plt Morphology Comment Not Reportable 03/18/22 04:17 RBC Morphology Not Reportable 03/18/22 04:17 Dimorphic RBCs Not Reportable 03/18/22 04:17 Polychromasia Not Reportable 03/18/22 04:17 Hypochromasia Not Reportable 03/18/22 04:17 Poikilocytosis Not Reportable 03/18/22 04:17 Anisocytosis 1+ 03/18/22 04:17 Microcytosis Not Reportable 03/18/22 04:17 Macrocytosis Not Reportable 03/18/22 04:17 Spherocytes Not Reportable 03/18/22 04:17 Pappenheimer Bodies Not Reportable 03/18/22 04:17 Sickle Cells Not Reportable 03/18/22 04:17 Target Cells Not Reportable 03/18/22 04:17 Tear Drop Cells Not Reportable 03/18/22 04:17 Ovalocytes Not Reportable 03/18/22 04:17 Helmet Cells Not Reportable 03/18/22 04:17 S[place]ay-[place]ough[place] Bodies Not Reportable 03/18/22 04:17 [place] Rings Not Reportable 03/18/22 04:17 Azael Cells Not Reportable 03/18/22 04:17 Bite Cells Not Reportable 03/18/22 04:17 Crenated Cell Not Reportable 03/18/22 04:17 Elliptocytes Not Reportable 03/18/22 04:17 Acanthocytes (Spur) Not Reportable 03/18/22 04:17 Rouleaux Not Reportable 03/18/22 04:17 Hemoglobin C Crystals Not Reportable 03/18/22 04:17 Schistocytes Not Reportable 03/18/22 04:17 Malaria parasites Not Reportable 03/18/22 04:17 Rashaad Bodies Not Reportable 03/18/22 04:17 Hem Pathologist Commnt No 03/18/22 04:17 ABG pH 7.439 pH Units (7.350-7.450) 03/18/22 05:30 ABG pCO2 37.6 mm Hg 03/18/22 05:30 ABG pO2 69.0 mm Hg (80.0-90.0) L 03/18/22 05:30 ABG HCO3 24.9 mmol/L (20.0-26.0) 03/18/22 05:30 ABG O2 Saturation 95.4 % (95.0-99.0) 03/18/22 05:30 ABG O2 Content 16.6 (0.0-44) 03/18/22 05:30 ABG Base Excess 0.9 mmol/L (-2.0-3.0) 03/18/22 05:30 ABG Hemoglobin 12.6 gm/dl (14.0-18.0) L 03/18/22 05:30 ABG Carboxyhemoglobin 1.5 % (0.0-5.0) 03/18/22 05:30 ABG Methemoglobin 0.5 % (0.0-1.5) 03/18/22 05:30 Oxyhemoglobin 93.5 % (95.0-99.0) L 03/18/22 05:30 FiO2 50 % 03/18/22 05:30 Sodium 144 mmol/L (137-145) 03/19/22 20:30 Potassium 4.5 mmol/L (3.6-5.0) 03/19/22 20:30 Chloride 98.6 mmol/L (98-107) 03/19/22 20:30 Carbon Dioxide 28 mmol/L (22-30) 03/19/22 20:30 Anion Gap 22 mmol/L 03/19/22 20:30 BUN 104 mg/dL (9-20) H 03/19/22 20:30 Creatinine 4.7 mg/dL (0.8-1.3) H 03/19/22 20:30 Estimated GFR 16 ml/min 03/19/22 20:30 BUN/Creatinine Ratio 22 % 03/19/22 20:30 Glucose 208 mg/dL (75-100) H 03/19/22 20:30 POC Glucose 215 mg/dL (70-105) H 03/19/22 20:30 Hemoglobin A1c 8.6 % (4-6) H 03/15/22 04:36 Calcium 8.4 mg/dL (8.4-10.2) 03/19/22 20:30 Magnesium 2.50 mg/dL (1.7-2.3) H 03/13/22 20:33 Total Bilirubin 3.40 mg/dL (0.1-1.2) H 03/19/22 20:30 AST 186 units/L (5-40) H 03/19/22 20:30 ALT 97 units/L (7-56) H 03/19/22 20:30 Alkaline Phosphatase 216 units/L (35-129) H 03/19/22 20:30 Troponin T 0.176 ng/mL (0.00-0.029) H* 03/13/22 15:44 NT-Pro-B Natriuret Pep 23500 pg/mL (0-900) H 03/13/22 15:44 Total Protein 6.2 g/dL (6.3-8.2) L 03/19/22 20:30 Albumin 2.0 g/dL (3.9-5) L 03/19/22 20:30 Albumin/Globulin Ratio 0.5 % 03/19/22 20:30 Triglycerides 98 mg/dL (2-149) 03/13/22 15:44 Cholesterol 99 mg/dL (50-199) 03/13/22 15:44 LDL Cholesterol Direct 59 mg/dL (50-130) 03/13/22 15:44 HDL Cholesterol 24 mg/dL (40-59) L 03/13/22 15:44 Cholesterol/HDL Ratio 4.12 % 03/13/22 15:44 Procalcitonin 41.58 ng/mL (<0.15) 03/17/22 15:50 TSH 0.362 mlU/mL (0.270-4.200) 03/15/22 04:36 Free T4 1.24 ng/dL (0.76-1.46) 03/13/22 20:33 Urine Color Straw (Yellow) 03/14/22 16:25 Urine Turbidity Clear (Clear) 03/14/22 16:25 Urine pH 5.0 (5.0-7.0) 03/14/22 16:25 Ur Specific [place] 1.015 (1.003-1.030) 03/14/22 16:25 Urine Protein 30 mg/dl mg/dL (Negative) 03/14/22 16:25 Urine Glucose (UA) Negative mg/dL (Negative) 03/14/22 16:25 Urine Ketones Trace mg/dL (Negative) 03/14/22 16:25 Urine Blood 1+ (Negative) 03/14/22 16:25 Urine Nitrite Negative (Negative) 03/14/22 16:25 Ur Reducing Substances Not Reportable 03/14/22 16:25 Urine Bilirubin Negative (Negative) 03/14/22 16:25 Urine Ictotest Not Reportable 03/14/22 16:25 Urine Urobilinogen < 2.0 mg/dL (<2.0) 03/14/22 16:25 Ur Leukocyte Esterase Negative (Negative) 03/14/22 16:25 Urine WBC (Auto) 6.0 /HPF (0.0-6.0) 03/14/22 16:25 Urine RBC (Auto) 82.0 /HPF (0.0-6.0) 03/14/22 16:25 U Epithel Cells (Auto) 1.0 /HPF (0-13.0) 03/14/22 16:25 Urine Bacteria (Auto) 1+ /HPF (Negative) 03/14/22 16:25 Urine Mucus Few /HPF 03/14/22 16:25 Nasal Screen MRSA (PCR) Negative (Negative) 03/18/22 10:30 Random Vancomycin 6.3 ug/mL (0-40.0) 03/19/22 05:00 Hepatitis A IgM Ab Non-reactive (NonReactive) 03/14/22 10:12 Hep Bs Antigen Non-reactive (Negative) 03/14/22 10:12 Hep B Core IgM Ab Non-reactive (NonReactive) 03/14/22 10:12 Hepatitis C Antibody Non-reactive (NonReactive) 03/14/22 10:12 Microbiology: Microbiology 03/17/22 15:50 Peripheral/Venous Blood Culture - Preliminary NO GROWTH AFTER 48 HOURS 03/17/22 15:50 Peripheral/Venous Blood Culture - Preliminary [place]/IV: Voiding Method Indwelling Catheter Nutrition/Malnutrition Assess - Dietary Evaluation Nutrition/Malnutrition Findings: Nutrition Notes Start: 03/14/22 09:54 Freq: Status: Discharge Protocol: Document 03/16/22 10:04 VICTORIA (Rec: 03/16/22 10:27 VICTORIA [id number]) Nutrition Notes Initial or Follow up Brief Note Current Diagnosis Acute Kidney Injury,CKD(stage I-IV),Diabetes,Hypertension, Respiratory Failure,Stroke Other Pertinent Diagnosis ESRD+HD, Pulmonary Embolism, Fluid Overload, Metabolic Acidosis, CHF... Current Diet TF-Nepro w/CARBSTEADY @ 50 ml/ hr (from L 03/14). Labs/Tests 03/16: Na 148, Cl 110.3, BUN 111, Crea 4.7, Glu 243, Ca 8.3 , HbA1c 8.6%. Pertinent Medications 03/16: Lantus 10U, Humulin R 3U, others nutritionally unremarkable. Height 5 ft 11 in Weight 140.6 kg [place] Body Weight (kg) 78.18 BMI 43.2 Weight change and time frame 1.3 Kg body weight loss in 2 days reported. Weight Status Morbidly Obese Subjective/Other Information RD consult for routine F/U on TF tolerance/continuation. TF continues as prescribed, and well tolerated, according to RN notes. Pt remains on Mechanical Ventilation, O2 saturation @ 98%, according to Physical Assessment History notes. Pt has not had a BM since , according to Physical Assessment History notes. Percent of energy/protein needs met: Prescribed TF-Nepro w/ CARBSTEADY @ 50 ml/hr provides for energy/protein needs (2, 180 Kcal/98 g) during LOS, 102 % Kcal; 74% AA. #1 Nutrition Diagnosis Inadequate oral intake Diagnosis Progress(for reassessment Continues documentation) Is patient on ventilator? Yes Is Patient Ambulatory and/or Out of Bed No REE-([facility]-confined to bed) 2725.248 Kcal/Kg value to use for calculation 15 Approximate Energy Requirements Using 2109 kcal/Kg Calculation Used for Recommendations Kcal/kg Additional Notes Protein: >1.2 g/Kg AdjBW; >132 g/day. Fluids: 1 ml/Kcal, or as per MD. Nutrition Intervention Nutrition Support: Continue TF-Nepro w/CARBSTEADY @ 50 ml/hr. Flush: 200 ml water Q 4 hr,or as per MD. Kcal 2,180 Protein (gm) 98 Carbohydrates (gm) 195 Fat (gm) 116 Fluid (mL) 880 Fiber (gm) 15 % RDI: 102% Kcal; 74% AA. Goal #1 Provide at least 75% of energy /protein needs through Enteral Feeding during LOS. Follow-Up By: 03/23/22 Additional Comments Continue monitoring TF tolerance and BM.
[2022-03-19] MEDS ORDERED: VANCOMYCIN 1,500 MG in SODIUM CHLORIDE 0.9% 500 ML 500 ML IV ONE (13:00)
--- NOTE | 2022-03-19 13:23 | Progress Note ---
Assessment and Plan -Acute hypoxic respiratory failure on MVS -h/o PE on Xarelto -Acute metabolic encephalopathy, CVA -Acute on chronic heart failure with reduced EF - NSTEMI suspect type II, h/o HTN, AICD -Morbid obesity BMI 43 -Transaminitis (improving) -Acute kidney injury with possible underlying CKD, -Hyperchloremic, uremia, hyponatremia - h/o DM -Thrombocytopenia- improving Norepinephrine as needed for BP support, titrate to MAP>65 Low dose Fentanyl infusion for patient-ventilator synchrony Norepinephrine for hypotension, target MAP fro 65 HD per Renal service Follow trach cultures and de-escalate antibiotics based on culture data Blood cultures are negative to date Trend temperature and WCC- Right femoral trialysis catheter -Anguiano catheter in for strict Is and Os. - continue to titrate supplemental oxygen to keep SpO2 89-92% - VAP bundle addressed, aspiration precautions, HOB >40 - continue lung protective strategies -CXR,ABG as clinically indicated - continue bronchodilators with pulmonary hygiene per RT - wean per pulmonary driven protocols otherwise - avoid nephrotoxins, renally dose all medications - continue daily assessment for readiness to wean - continue accuchecks with glycemic control per SSI (While critically ill target blood glucose of 140-180 mg/dL; avoid hypoglycemia) - continue to avoid benzodiazepines, reduce the possibility of delirium - prn analgesia per CPOT score - Maintenance of sleep-wake cycle, avoid delirium - continue enteral nutritional support at goal rate as tolerated - VTE prophylaxis- on Rivaroxaban for h/o PE. Continue to monitor for bleeding and platelet counts -Stress ulcer prophylaxis- Famotidine -continue mobility , off loading per facility protocol for pressure ulcer prevention - Monitor hemodynamics closely, -Supportive transfusions as clinically indicated to keep HgB >7g/dL - continue other care per attending / other consultants COVID SPECIFIC INTERVENTIONS - COVID-19 PCR negative CONDITION: CRITICAL PROGNOSIS: GUARDED CODE STATUS: FULL CODE The high probability of a clinically significant, sudden or life-threatening deterioration of the [respiratory, cardiovascular, neurologic] system(s) required my full and direct attention, intervention and personal management. The aggregate critical care time was [33] minutes without overlap. 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 Off Milrinone with soft blood pressures High grade intermittent fevers, On Vancomycin for Staph in tracheal aspirate No diarrhea, no vomiting. Tolerating tube feeding Objective Vital Signs - 12hr 03/19/22 03/19/22 03/19/22 01:31 01:45 02:00 Temperature Pulse Rate 78 79 79 Pulse Rate [ Bilateral Throughout] Pulse Rate [ From Monitor] Respiratory 24 26 H 26 H Rate Respiratory Rate [Bilateral Throughout] Blood Pressure 122/60 99/63 112/58 O2 Sat by Pulse 90 88 Oximetry 03/19/22 03/19/22 03/19/22 02:15 02:31 02:45 Temperature Pulse Rate 79 79 78 Pulse Rate [ Bilateral Throughout] Pulse Rate [ From Monitor] Respiratory 26 H 25 H 24 Rate Respiratory Rate [Bilateral Throughout] Blood Pressure 104/55 111/56 102/57 O2 Sat by Pulse 93 91 Oximetry 03/19/22 03/19/22 03/19/22 03:00 03:15 03:31 Temperature Pulse Rate 78 79 79 Pulse Rate [ Bilateral Throughout] Pulse Rate [ From Monitor] Respiratory 26 H 23 30 H Rate Respiratory Rate [Bilateral Throughout] Blood Pressure 107/62 100/60 104/60 O2 Sat by Pulse 92 90 Oximetry 03/19/22 03/19/22 03/19/22 03:45 04:00 04:01 Temperature 99.4 F Pulse Rate 79 78 78 Pulse Rate [ Bilateral Throughout] Pulse Rate [ 78 From Monitor] Respiratory 28 H 27 H 26 H Rate Respiratory Rate [Bilateral Throughout] Blood Pressure 113/56 115/55 O2 Sat by Pulse 92 94 92 Oximetry 03/19/22 03/19/22 03/19/22 04:15 04:30 04:45 Temperature Pulse Rate 78 76 78 Pulse Rate [ Bilateral Throughout] Pulse Rate [ From Monitor] Respiratory 30 H 30 H 28 H Rate Respiratory Rate [Bilateral Throughout] Blood Pressure 104/59 110/66 116/56 O2 Sat by Pulse 92 92 92 Oximetry 03/19/22 03/19/22 03/19/22 05:01 05:09 05:15 Temperature Pulse Rate 77 77 77 Pulse Rate [ Bilateral Throughout] Pulse Rate [ From Monitor] Respiratory 29 H 30 H Rate Respiratory Rate [Bilateral Throughout] Blood Pressure 107/57 100/50 101/61 O2 Sat by Pulse 93 94 91 Oximetry 03/19/22 03/19/22 03/19/22 05:30 05:45 06:00 Temperature Pulse Rate 78 77 78 Pulse Rate [ Bilateral Throughout] Pulse Rate [ From Monitor] Respiratory 29 H 29 H 28 H Rate Respiratory Rate [Bilateral Throughout] Blood Pressure 115/57 122/57 104/60 O2 Sat by Pulse 92 100 92 Oximetry 03/19/22 03/19/22 03/19/22 06:15 06:30 06:45 Temperature Pulse Rate 78 77 77 Pulse Rate [ Bilateral Throughout] Pulse Rate [ From Monitor] Respiratory 28 H 30 H 30 H Rate Respiratory Rate [Bilateral Throughout] Blood Pressure 101/60 107/59 113/63 O2 Sat by Pulse 92 92 92 Oximetry 03/19/22 03/19/22 03/19/22 07:00 07:15 07:30 Temperature Pulse Rate 77 78 76 Pulse Rate [ Bilateral Throughout] Pulse Rate [ From Monitor] Respiratory 29 H 28 H 30 H Rate Respiratory Rate [Bilateral Throughout] Blood Pressure 120/64 102/52 112/59 O2 Sat by Pulse 92 94 92 Oximetry 03/19/22 03/19/22 03/19/22 07:45 08:00 08:09 Temperature 101 F H Pulse Rate 78 77 78 Pulse Rate [ Bilateral Throughout] Pulse Rate [ 78 From Monitor] Respiratory 32 H 32 H Rate Respiratory Rate [Bilateral Throughout] Blood Pressure 131/79 134/72 134/72 O2 Sat by Pulse 93 95 95 Oximetry 03/19/22 03/19/22 03/19/22 08:15 08:20 08:30 Temperature Pulse Rate 77 78 Pulse Rate [ 78 Bilateral Throughout] Pulse Rate [ From Monitor] Respiratory 22 33 H Rate Respiratory 33 H Rate [Bilateral Throughout] Blood Pressure 127/73 119/70 O2 Sat by Pulse 94 94 Oximetry 03/19/22 03/19/22 03/19/22 08:45 09:01 09:15 Temperature Pulse Rate 76 77 76 Pulse Rate [ Bilateral Throughout] Pulse Rate [ From Monitor] Respiratory 31 H 28 H 26 H Rate Respiratory Rate [Bilateral Throughout] Blood Pressure 128/67 107/51 107/51 O2 Sat by Pulse 92 95 95 Oximetry 03/19/22 03/19/22 03/19/22 09:31 09:38 09:45 Temperature Pulse Rate 75 77 76 Pulse Rate [ Bilateral Throughout] Pulse Rate [ From Monitor] Respiratory H 27 H 23 Rate Respiratory Rate [Bilateral Throughout] Blood Pressure 107/51 107/51 O2 Sat by Pulse 95 95 95 Oximetry 03/19/22 03/19/22 03/19/22 10:01 10:15 10:31 Temperature Pulse Rate 75 75 77 Pulse Rate [ Bilateral Throughout] Pulse Rate [ From Monitor] Respiratory 23 27 H 29 H Rate Respiratory Rate [Bilateral Throughout] Blood Pressure 107/51 107/51 107/51 O2 Sat by Pulse 96 97 91 Oximetry 03/19/22 03/19/22 03/19/22 10:45 11:01 11:15 Temperature Pulse Rate 73 78 77 Pulse Rate [ Bilateral Throughout] Pulse Rate [ From Monitor] Respiratory 28 H 28 H 26 H Rate Respiratory Rate [Bilateral Throughout] Blood Pressure 107/51 107/51 107/51 O2 Sat by Pulse 91 97 96 Oximetry 03/19/22 03/19/22 03/19/22 11:31 11:45 12:00 Temperature 101.2 F H Pulse Rate 78 78 77 Pulse Rate [ Bilateral Throughout] Pulse Rate [ 77 From Monitor] Respiratory 27 H 29 H 31 H Rate Respiratory Rate [Bilateral Throughout] Blood Pressure 107/51 107/51 O2 Sat by Pulse 96 95 97 Oximetry 03/19/22 03/19/22 03/19/22 12:01 12:15 12:31 Temperature Pulse Rate 77 77 78 Pulse Rate [ Bilateral Throughout] Pulse Rate [ From Monitor] Respiratory 29 H 32 H 30 H Rate Respiratory Rate [Bilateral Throughout] Blood Pressure 107/51 107/51 107/51 O2 Sat by Pulse 97 97 97 Oximetry 03/19/22 12:45 Temperature Pulse Rate 77 Pulse Rate [ Bilateral Throughout] Pulse Rate [ From Monitor] Respiratory 33 H Rate Respiratory Rate [Bilateral Throughout] Blood Pressure 107/51 O2 Sat by Pulse 96 Oximetry Constitutional: other (middle aged morbidly obese male with mildly increased respiratory effort at rest on MVS) Eyes: non-icteric ENT: oropharynx moist, other (ETT 24 cm PRESLEY) Neck: supple, no lymphadenopathy, no JVD, other (large circumference) Effort: mildly labored, other (anterior left chest wall tunnelled PICC line) Ascultation: Bilateral: diminished breath sounds, rales Percussion: Bilateral: not dull Cardiovascular: regular rate and rhythm, other (S1,S2) Gastrointestinal: normoactive bowel sounds, soft, non-tender, non-distended (protuberant) Integumentary: normal Extremities: no cyanosis, pulses normal, no ischemia or petechiae, edema (2+) Neurologic: non-focal exam (grossly), pupils equal and round (3mm), unable to assess Psychiatric: other (unable to assess re: AMS) CBC and BMP: 03/19/22 04:00 03/19/22 20:30 ABG, PT/INR, D-dimer: ABG ABG pH 7.439 pH Units (7.350-7.450) 03/18/22 05:30 ABG pCO2 37.6 mm Hg 03/18/22 05:30 ABG pO2 69.0 mm Hg (80.0-90.0) L 03/18/22 05:30 ABG O2 Saturation 95.4 % (95.0-99.0) 03/18/22 05:30 Abnormal lab findings: Abnormal Labs 03/13/22 03/13/22 03/13/22 15:44 15:44 16:15 WBC RBC 5.42 H Hgb 15.4 H Hct 48.1 H MCHC RDW 19.7 H Plt Count Lymph % (Auto) Lymph # (Auto) Seg Neutrophils % Seg Neuts % (Manual) 93.0 H Lymphocytes % (Manual) 3.0 L Nucleated RBC % 1.0 H Seg Neutrophils # Seg Neutrophils # Man 10.1 H Lymphocytes # (Manual) 0.3 L ABG pH 7.281 L ABG pO2 73.5 L ABG HCO3 16.6 L ABG O2 Saturation 92.5 L ABG Base Excess -9.2 L ABG Hemoglobin Oxyhemoglobin 90.4 L Sodium Potassium Chloride Carbon Dioxide 17 L BUN 78 H Creatinine 3.6 H Glucose 135 H POC Glucose Hemoglobin A1c Calcium Magnesium Total Bilirubin 2.50 H AST 363 H ALT 430 H Alkaline Phosphatase Troponin T 0.176 H* NT-Pro-B Natriuret Pep 92492 H Total Protein Albumin 3.6 L HDL Cholesterol 24 L 03/13/22 03/13/22 03/14/22 20:04 20:33 00:23 WBC RBC Hgb Hct MCHC RDW Plt Count Lymph % (Auto) Lymph # (Auto) Seg Neutrophils % Seg Neuts % (Manual) Lymphocytes % (Manual) Nucleated RBC % Seg Neutrophils # Seg Neutrophils # Man Lymphocytes # (Manual) ABG pH 7.339 L ABG pO2 259.5 H ABG HCO3 16.3 L ABG O2 Saturation 99.4 H ABG Base Excess -8.2 L ABG Hemoglobin Oxyhemoglobin Sodium Potassium Chloride Carbon Dioxide BUN Creatinine Glucose POC Glucose 187 H Hemoglobin A1c Calcium Magnesium 2.50 H Total Bilirubin AST ALT Alkaline Phosphatase Troponin T NT-Pro-B Natriuret Pep Total Protein Albumin HDL Cholesterol 03/14/22 03/14/22 03/14/22 03:58 04:50 04:50 WBC RBC Hgb Hct MCHC 31 L RDW 19.3 H Plt Count 115 L Lymph % (Auto) 4.7 L Lymph # (Auto) 0.5 L Seg Neutrophils % 89.5 H Seg Neuts % (Manual) Lymphocytes % (Manual) Nucleated RBC % Seg Neutrophils # 8.5 H Seg Neutrophils # Man Lymphocytes # (Manual) ABG pH 7.327 L ABG pO2 65.2 L ABG HCO3 18.4 L ABG O2 Saturation 91.1 L ABG Base Excess -6.8 L ABG Hemoglobin 13.2 L Oxyhemoglobin 89.1 L Sodium Potassium 5.2 H Chloride 109.5 H Carbon Dioxide 19 L BUN 90 H Creatinine 4.2 H Glucose 204 H POC Glucose Hemoglobin A1c Calcium Magnesium Total Bilirubin AST ALT Alkaline Phosphatase Troponin T NT-Pro-B Natriuret Pep Total Protein Albumin HDL Cholesterol 03/14/22 03/14/22 03/14/22 11:29 16:28 21:00 WBC RBC Hgb Hct MCHC RDW Plt Count Lymph % (Auto) Lymph # (Auto) Seg Neutrophils % Seg Neuts % (Manual) Lymphocytes % (Manual) Nucleated RBC % Seg Neutrophils # Seg Neutrophils # Man Lymphocytes # (Manual) ABG pH 7.347 L ABG pO2 111.6 H ABG HCO3 ABG O2 Saturation ABG Base Excess -3.1 L ABG Hemoglobin 13.4 L Oxyhemoglobin Sodium Potassium Chloride Carbon Dioxide BUN Creatinine Glucose POC Glucose 203 H 190 H Hemoglobin A1c Calcium Magnesium Total Bilirubin AST ALT Alkaline Phosphatase Troponin T NT-Pro-B Natriuret Pep Total Protein Albumin HDL Cholesterol 03/14/22 03/15/22 03/15/22 23:43 04:36 04:36 WBC RBC Hgb Hct MCHC RDW Plt Count Lymph % (Auto) Lymph # (Auto) Seg Neutrophils % Seg Neuts % (Manual) Lymphocytes % (Manual) Nucleated RBC % Seg Neutrophils # Seg Neutrophils # Man Lymphocytes # (Manual) ABG pH ABG pO2 ABG HCO3 ABG O2 Saturation ABG Base Excess ABG Hemoglobin Oxyhemoglobin Sodium Potassium Chloride 109.8 H Carbon Dioxide 21 L BUN 100 H Creatinine 4.3 H Glucose 178 H POC Glucose 166 H Hemoglobin A1c 8.6 H Calcium Magnesium Total Bilirubin 1.50 H AST 136 H ALT 299 H Alkaline Phosphatase Troponin T NT-Pro-B Natriuret Pep Total Protein 5.3 L Albumin 2.5 L HDL Cholesterol 03/15/22 03/15/22 03/15/22 11:25 16:15 21:30 WBC RBC Hgb Hct MCHC RDW Plt Count Lymph % (Auto) Lymph # (Auto) Seg Neutrophils % Seg Neuts % (Manual) Lymphocytes % (Manual) Nucleated RBC % Seg Neutrophils # Seg Neutrophils # Man Lymphocytes # (Manual) ABG pH ABG pO2 ABG HCO3 ABG O2 Saturation ABG Base Excess ABG Hemoglobin Oxyhemoglobin Sodium Potassium Chloride Carbon Dioxide BUN Creatinine Glucose POC Glucose 199 H 192 H 207 H Hemoglobin A1c Calcium Magnesium Total Bilirubin AST ALT Alkaline Phosphatase Troponin T NT-Pro-B Natriuret Pep Total Protein Albumin HDL Cholesterol 03/15/22 03/16/22 03/16/22 23:09 04:00 05:00 WBC RBC Hgb Hct MCHC RDW Plt Count Lymph % (Auto) Lymph # (Auto) Seg Neutrophils % Seg Neuts % (Manual) Lymphocytes % (Manual) Nucleated RBC % Seg Neutrophils # Seg Neutrophils # Man Lymphocytes # (Manual) ABG pH ABG pO2 ABG HCO3 ABG O2 Saturation ABG Base Excess ABG Hemoglobin Oxyhemoglobin Sodium 148 H Potassium Chloride 110.3 H Carbon Dioxide BUN 111 H Creatinine 4.7 H Glucose 243 H POC Glucose 193 H 201 H Hemoglobin A1c Calcium 8.3 L Magnesium Total Bilirubin 1.50 H AST 72 H ALT 202 H Alkaline Phosphatase Troponin T NT-Pro-B Natriuret Pep Total Protein 5.6 L Albumin 2.3 L HDL Cholesterol 03/16/22 03/16/22 03/16/22 06:00 11:48 18:00 WBC RBC Hgb Hct MCHC RDW Plt Count Lymph % (Auto) Lymph # (Auto) Seg Neutrophils % Seg Neuts % (Manual) Lymphocytes % (Manual) Nucleated RBC % Seg Neutrophils # Seg Neutrophils # Man Lymphocytes # (Manual) ABG pH ABG pO2 111.9 H ABG HCO3 ABG O2 Saturation ABG Base Excess ABG Hemoglobin 13.4 L Oxyhemoglobin Sodium Potassium Chloride Carbon Dioxide BUN Creatinine Glucose POC Glucose 209 H 261 H Hemoglobin A1c Calcium Magnesium Total Bilirubin AST ALT Alkaline Phosphatase Troponin T NT-Pro-B Natriuret Pep Total Protein Albumin HDL Cholesterol 03/16/22 03/16/22 03/16/22 21:19 23:27 Unknown WBC RBC Hgb Hct MCHC RDW 19.9 H Plt Count 94 L Lymph % (Auto) Lymph # (Auto) Seg Neutrophils % Seg Neuts % (Manual) Lymphocytes % (Manual) Nucleated RBC % Seg Neutrophils # Seg Neutrophils # Man Lymphocytes # (Manual) ABG pH ABG pO2 ABG HCO3 ABG O2 Saturation ABG Base Excess ABG Hemoglobin Oxyhemoglobin Sodium Potassium Chloride Carbon Dioxide BUN Creatinine Glucose POC Glucose 241 H 241 H Hemoglobin A1c Calcium Magnesium Total Bilirubin AST ALT Alkaline Phosphatase Troponin T NT-Pro-B Natriuret Pep Total Protein Albumin HDL Cholesterol 03/17/22 03/17/22 03/17/22 04:17 04:17 05:04 WBC RBC Hgb Hct MCHC RDW 19.6 H Plt Count 77 L Lymph % (Auto) Lymph # (Auto) Seg Neutrophils % Seg Neuts % (Manual) Lymphocytes % (Manual) Nucleated RBC % Seg Neutrophils # Seg Neutrophils # Man Lymphocytes # (Manual) ABG pH ABG pO2 ABG HCO3 ABG O2 Saturation ABG Base Excess ABG Hemoglobin Oxyhemoglobin Sodium Potassium Chloride Carbon Dioxide 21 L BUN 119 H Creatinine 4.5 H Glucose 446 H POC Glucose 241 H Hemoglobin A1c Calcium 7.6 L Magnesium Total Bilirubin 1.50 H AST ALT 122 H Alkaline Phosphatase Troponin T NT-Pro-B Natriuret Pep Total Protein 5.1 L Albumin 1.9 L HDL Cholesterol 03/17/22 03/17/22 03/17/22 06:00 11:51 17:46 WBC RBC Hgb Hct MCHC RDW Plt Count Lymph % (Auto) Lymph # (Auto) Seg Neutrophils % Seg Neuts % (Manual) Lymphocytes % (Manual) Nucleated RBC % Seg Neutrophils # Seg Neutrophils # Man Lymphocytes # (Manual) ABG pH ABG pO2 64.3 L ABG HCO3 ABG O2 Saturation 93.6 L ABG Base Excess ABG Hemoglobin 12.6 L Oxyhemoglobin 91.4 L Sodium Potassium Chloride Carbon Dioxide BUN Creatinine Glucose POC Glucose 184 H 228 H Hemoglobin A1c Calcium Magnesium Total Bilirubin AST ALT Alkaline Phosphatase Troponin T NT-Pro-B Natriuret Pep Total Protein Albumin HDL Cholesterol 03/17/22 03/17/22 03/18/22 21:05 23:42 04:17 WBC RBC Hgb Hct MCHC RDW 19.3 H Plt Count 90 L Lymph % (Auto) Lymph # (Auto) Seg Neutrophils % Seg Neuts % (Manual) 88.0 H Lymphocytes % (Manual) 3.0 L Nucleated RBC % 2.0 H Seg Neutrophils # Seg Neutrophils # Man Lymphocytes # (Manual) 0.3 L ABG pH ABG pO2 ABG HCO3 ABG O2 Saturation ABG Base Excess ABG Hemoglobin Oxyhemoglobin Sodium Potassium Chloride Carbon Dioxide BUN Creatinine Glucose POC Glucose 228 H 190 H Hemoglobin A1c Calcium Magnesium Total Bilirubin AST ALT Alkaline Phosphatase Troponin T NT-Pro-B Natriuret Pep Total Protein Albumin HDL Cholesterol 03/18/22 03/18/22 03/18/22 04:17 05:30 05:50 WBC RBC Hgb Hct MCHC RDW Plt Count Lymph % (Auto) Lymph # (Auto) Seg Neutrophils % Seg Neuts % (Manual) Lymphocytes % (Manual) Nucleated RBC % Seg Neutrophils # Seg Neutrophils # Man Lymphocytes # (Manual) ABG pH ABG pO2 69.0 L ABG HCO3 ABG O2 Saturation ABG Base Excess ABG Hemoglobin 12.6 L Oxyhemoglobin 93.5 L Sodium Potassium Chloride Carbon Dioxide BUN 109 H Creatinine 4.3 H Glucose 253 H POC Glucose 270 H Hemoglobin A1c Calcium Magnesium Total Bilirubin 1.60 H AST ALT 94 H Alkaline Phosphatase 135 H Troponin T NT-Pro-B Natriuret Pep Total Protein 5.8 L Albumin 2.0 L HDL Cholesterol 03/18/22 03/18/22 03/18/22 11:36 17:12 21:43 WBC RBC Hgb Hct MCHC RDW Plt Count Lymph % (Auto) Lymph # (Auto) Seg Neutrophils % Seg Neuts % (Manual) Lymphocytes % (Manual) Nucleated RBC % Seg Neutrophils # Seg Neutrophils # Man Lymphocytes # (Manual) ABG pH ABG pO2 ABG HCO3 ABG O2 Saturation ABG Base Excess ABG Hemoglobin Oxyhemoglobin Sodium Potassium Chloride Carbon Dioxide BUN Creatinine Glucose POC Glucose 210 H 209 H 237 H Hemoglobin A1c Calcium Magnesium Total Bilirubin AST ALT Alkaline Phosphatase Troponin T NT-Pro-B Natriuret Pep Total Protein Albumin HDL Cholesterol 03/18/22 03/19/22 03/19/22 23:43 04:00 04:00 WBC 14.8 H RBC Hgb Hct MCHC RDW 19.4 H Plt Count 106 L Lymph % (Auto) Lymph # (Auto) Seg Neutrophils % Seg Neuts % (Manual) Lymphocytes % (Manual) Nucleated RBC % Seg Neutrophils # Seg Neutrophils # Man Lymphocytes # (Manual) ABG pH ABG pO2 ABG HCO3 ABG O2 Saturation ABG Base Excess ABG Hemoglobin Oxyhemoglobin Sodium Potassium Chloride Carbon Dioxide BUN 95 H Creatinine 4.1 H Glucose 228 H POC Glucose 260 H Hemoglobin A1c Calcium Magnesium Total Bilirubin AST ALT Alkaline Phosphatase Troponin T NT-Pro-B Natriuret Pep Total Protein Albumin HDL Cholesterol 03/19/22 03/19/22 06:48 11:13 WBC RBC Hgb Hct MCHC RDW Plt Count Lymph % (Auto) Lymph # (Auto) Seg Neutrophils % Seg Neuts % (Manual) Lymphocytes % (Manual) Nucleated RBC % Seg Neutrophils # Seg Neutrophils # Man Lymphocytes # (Manual) ABG pH ABG pO2 ABG HCO3 ABG O2 Saturation ABG Base Excess ABG Hemoglobin Oxyhemoglobin Sodium Potassium Chloride Carbon Dioxide BUN Creatinine Glucose POC Glucose 236 H 240 H Hemoglobin A1c Calcium Magnesium Total Bilirubin AST ALT Alkaline Phosphatase Troponin T NT-Pro-B Natriuret Pep Total Protein Albumin HDL Cholesterol Allied health notes reviewed: RT
[2022-03-19] MEDS: carvediloL 6.25 MG TAB FEEDTUBE SCH (13:35)
--- NOTE | 2022-03-19 14:14 | Vascular Lab Report ---
DUPLEX DOPPLER LOWER EXTREMITY VEINS, BILATERAL INDICATION / CLINICAL INFORMATION: Lower external knee pain and swelling. TECHNIQUE: Duplex doppler imaging was performed through the veins of both lower extremities using venous paul bart and other maneuvers. COMPARISON: None available. FINDINGS: Right Common Femoral vein: Negative. Right Femoral vein: Negative. Right Popliteal vein: Negative. Right Calf veins: Negative. Left Common Femoral vein: Negative. Left Femoral vein: Negative. Left Popliteal vein: Negative. Left Calf veins: Negative. Additional findings: Mild subcutaneous edema identified bilaterally.. IMPRESSION: 1. No sonographic evidence for DVT in either lower extremity. Signer Name: Boone Lvei MD Signed: 03/19/2022 2:09 PM Workstation Name: [id number]
[2022-03-19] MEDS: NAFCILLIN 2 GM in SODIUM CHLORIDE 0.9% 100 ML IV SCH ×2 (15:06→17:48)
[2022-03-19] MEDS: fentaNYL DRIP Premix 2,000 MCG/100 ML BAG IV SCH (15:07)
--- NOTE | 2022-03-19 16:51 | Progress Note ---
Assessment and Plan Continued dialysis and other management. - Patient Problems (1) Acute hypoxemic respiratory failure Current Visit: Yes Status: Acute (2) SULEMAN (acute kidney injury) Current Visit: Yes Status: Acute (3) Acute on chronic HFrEF (heart failure with reduced ejection fraction) Current Visit: Yes Status: Acute (4) Acute CVA (cerebrovascular accident) Current Visit: Yes Status: Acute (5) NSTEMI (non-ST elevated myocardial infarction) Current Visit: Yes Status: Acute (6) Cardiomyopathy Current Visit: Yes Status: Chronic (7) AICD (automatic cardioverter/defibrillator) present Current Visit: Yes Status: Chronic (8) Hypertension Current Visit: Yes Status: Chronic Qualifiers: Hypertension type: primary hypertension Qualified Code(s): I10 - Essential (primary) hypertension (9) Diabetes mellitus Current Visit: Yes Status: Chronic (10) History of pulmonary embolism Current Visit: Yes Status: Resolved Subjective Date of service: 03/19/22 Principal diagnosis: SULEMAN, acute on chronic HFrEF, acute respiratory failure Interval history: Sedated, intubated mechanically ventilated. Objective Vital Signs Temp Pulse Pulse Pulse Resp Resp BP 03/19/22 16:30 79 107/51 03/19/22 15:16 79 30 H 107/51 03/19/22 15:00 78 29 H 107/51 03/19/22 14:46 77 33 H 107/51 03/19/22 14:30 77 31 H 107/51 03/19/22 14:16 77 31 H 107/51 03/19/22 14:00 76 32 H 107/51 03/19/22 13:46 77 32 H 107/51 03/19/22 13:30 78 33 H 03/19/22 13:21 77 32 H 03/19/22 13:00 77 33 H 107/51 03/19/22 12:45 77 33 H 107/51 03/19/22 12:31 78 30 H 107/51 03/19/22 12:15 77 32 H 107/51 03/19/22 12:01 77 29 H 107/51 03/19/22 12:00 101.2 F H 77 77 31 H 03/19/22 11:45 78 29 H 107/51 03/19/22 11:31 78 27 H 107/51 03/19/22 11:15 77 26 H 107/51 03/19/22 11:01 78 28 H 107/51 03/19/22 10:45 73 28 H 107/51 03/19/22 10:31 77 29 H 107/51 03/19/22 10:15 75 27 H 107/51 03/19/22 10:01 75 23 107/51 03/19/22 09:45 76 23 107/51 03/19/22 09:38 77 27 H 03/19/22 09:31 75 27 H 107/51 03/19/22 09:15 76 26 H 107/51 03/19/22 09:01 77 28 H 107/51 03/19/22 08:45 76 31 H 128/67 03/19/22 08:30 78 33 H 119/70 03/19/22 08:20 78 33 H 03/19/22 08:15 77 22 127/73 03/19/22 08:09 78 134/72 03/19/22 08:00 101 F H 77 78 32 H 134/72 03/19/22 07:45 78 32 H 131/79 03/19/22 07:30 76 30 H 112/59 03/19/22 07:15 78 28 H 102/52 03/19/22 07:00 77 29 H 120/64 03/19/22 06:45 77 30 H 113/63 03/19/22 06:30 77 30 H 107/59 03/19/22 06:15 78 28 H 101/60 03/19/22 06:00 78 28 H 104/60 03/19/22 05:45 77 29 H 122/57 03/19/22 05:30 78 29 H 115/57 03/19/22 05:15 77 30 H 101/61 03/19/22 05:09 77 100/50 03/19/22 05:01 77 29 H 107/57 03/19/22 04:45 78 28 H 116/56 03/19/22 04:30 76 30 H 110/66 03/19/22 04:15 78 30 H 104/59 03/19/22 04:01 78 26 H 115/55 03/19/22 04:00 99.4 F 78 78 27 H 03/19/22 03:45 79 28 H 113/56 03/19/22 03:31 79 30 H 104/60 03/19/22 03:15 79 23 100/60 03/19/22 03:00 78 26 H 107/62 03/19/22 02:45 78 24 102/57 03/19/22 02:31 79 25 H 111/56 03/19/22 02:15 79 26 H 104/55 03/19/22 02:00 79 26 H 112/58 03/19/22 01:45 79 26 H 99/63 03/19/22 01:31 78 24 122/60 03/19/22 01:15 79 26 H 111/63 03/19/22 01:00 79 26 H 120/58 03/19/22 00:45 78 26 H 120/58 03/19/22 00:30 80 23 105/59 03/19/22 00:15 78 28 H 105/59 03/19/22 00:01 79 31 H 110/58 03/19/22 00:00 101 F H 79 29 H 03/18/22 23:45 79 31 H 115/63 03/18/22 23:31 79 33 H 115/62 03/18/22 23:15 81 35 H 118/69 03/18/22 23:01 81 31 H 114/64 03/18/22 22:45 81 31 H 123/69 03/18/22 22:30 81 34 H 110/65 03/18/22 22:15 83 36 H 124/69 03/18/22 22:00 84 34 H 121/68 03/18/22 21:50 83 120/67 03/18/22 21:45 82 34 H 120/68 03/18/22 21:30 83 34 H 103/64 03/18/22 21:15 82 33 H 114/65 03/18/22 21:00 84 35 H 116/67 03/18/22 20:45 85 34 H 120/68 03/18/22 20:30 85 36 H 128/73 03/18/22 20:15 85 34 H 131/75 03/18/22 20:00 100.3 F H 82 85 36 H 126/71 03/18/22 19:53 85 31 H 03/18/22 19:48 82 127/73 03/18/22 19:45 83 33 H 124/73 03/18/22 19:30 82 34 H 117/69 03/18/22 19:15 81 33 H 110/69 03/18/22 19:00 81 30 H 103/67 03/18/22 18:45 80 31 H 85/61 03/18/22 18:31 79 32 H 85/61 03/18/22 18:15 78 29 H 99/55 03/18/22 18:00 76 25 H 99/56 03/18/22 17:45 78 26 H 96/46 03/18/22 17:30 77 28 H 98/51 03/18/22 17:15 82 32 H 113/66 03/18/22 17:00 88 47 H 108/75 Vital Signs 03/19/22 03/19/22 03/19/22 09:01 09:15 09:31 Temperature Pulse Rate 77 76 75 Pulse Rate [ From Monitor] Respiratory 28 H 26 H 27 H Rate Blood Pressure 107/51 107/51 107/51 O2 Sat by Pulse 95 95 95 Oximetry 03/19/22 03/19/22 03/19/22 09:38 09:45 10:01 Temperature Pulse Rate 77 76 75 Pulse Rate [ From Monitor] Respiratory 27 H 23 23 Rate Blood Pressure 107/51 107/51 O2 Sat by Pulse 95 95 96 Oximetry 03/19/22 03/19/22 03/19/22 10:15 10:31 10:45 Temperature Pulse Rate 75 77 73 Pulse Rate [ From Monitor] Respiratory 27 H 29 H 28 H Rate Blood Pressure 107/51 107/51 107/51 O2 Sat by Pulse 97 91 91 Oximetry 03/19/22 03/19/22 03/19/22 11:01 11:15 11:31 Temperature Pulse Rate 78 77 78 Pulse Rate [ From Monitor] Respiratory 28 H 26 H 27 H Rate Blood Pressure 107/51 107/51 107/51 O2 Sat by Pulse 97 96 96 Oximetry 03/19/22 03/19/22 03/19/22 11:45 12:00 12:01 Temperature 101.2 F H Pulse Rate 78 77 77 Pulse Rate [ 77 From Monitor] Respiratory 29 H 31 H 29 H Rate Blood Pressure 107/51 107/51 O2 Sat by Pulse 95 97 97 Oximetry 03/19/22 03/19/22 03/19/22 12:15 12:31 12:45 Temperature Pulse Rate 77 78 77 Pulse Rate [ From Monitor] Respiratory 32 H 30 H 33 H Rate Blood Pressure 107/51 107/51 107/51 O2 Sat by Pulse 97 97 96 Oximetry 03/19/22 03/19/22 03/19/22 13:00 13:21 13:30 Temperature Pulse Rate 77 77 78 Pulse Rate [ From Monitor] Respiratory 33 H 32 H 33 H Rate Blood Pressure 107/51 O2 Sat by Pulse 96 95 96 Oximetry 03/19/22 03/19/22 03/19/22 13:46 14:00 14:16 Temperature Pulse Rate 77 76 77 Pulse Rate [ From Monitor] Respiratory 32 H 32 H 31 H Rate Blood Pressure 107/51 107/51 107/51 O2 Sat by Pulse 95 95 96 Oximetry 03/19/22 03/19/22 03/19/22 14:30 14:46 15:00 Temperature Pulse Rate 77 77 78 Pulse Rate [ From Monitor] Respiratory 31 H 33 H 29 H Rate Blood Pressure 107/51 107/51 107/51 O2 Sat by Pulse 96 96 97 Oximetry 03/19/22 03/19/22 15:16 16:30 Temperature Pulse Rate 79 79 Pulse Rate [ From Monitor] Respiratory 30 H Rate Blood Pressure 107/51 107/51 O2 Sat by Pulse 97 94 Oximetry - Physical Examination General: No Apparent Distress, Other (Intubated and sedated) HEENT: Positive: Normocephaly, Mucus Membranes Moist Neck: Positive: trachea midline Cardiac: Positive: Reg Rate and Rhythm Lungs: Positive: clear to auscultation Neuro: Positive: Other (Unable to assess) Abdomen: Positive: Soft, Active Bowel Sounds Skin: Negative: Rash Extremities: Absent: edema - Labs and Meds CBC 03/19/22 Range/Units 04:00 WBC 14.8 H (4.5-11.0) K/mm3 RBC 4.44 (3.65-5.03) M/mm3 Hgb 12.6 (11.8-15.2) gm/dl Hct 38.5 (35.5-45.6) % Plt Count 106 L (140-440) K/mm3 Comprehensive Metabolic Panel 03/19/22 Range/Units 04:00 Sodium 142 (137-145) mmol/L Potassium 4.1 (3.6-5.0) mmol/L Chloride 103.4 (98-107) mmol/L Carbon Dioxide 26 (22-30) mmol/L BUN 95 H (9-20) mg/dL Creatinine 4.1 H (0.8-1.3) mg/dL Glucose 228 H (75-100) mg/dL Calcium 8.5 (8.4-10.2) mg/dL - Telemetry EKG Rhythm: Sinus Rhythm - EKG Sinus rhythms and dysrhythmias: sinus rhythm AV and intraventricular conduction: left anterior fascicular - Allied health notes Allied health notes reviewed: RT
[2022-03-19] MEDS ORDERED: carvediloL 6.25 MG TAB FEEDTUBE SCH (16:59)
[2022-03-19] MEDS ORDERED: EPINEPHrine 1 MG/1 ML 8 MG in SODIUM CHLORIDE 0.9% 250ML 242 ML IV SCH (19:00)
[2022-03-19] MEDS ORDERED: VASOPRESSIN 20 UNIT in SODIUM CHLORIDE 0.9% 100 ML IV SCH (19:00)
[2022-03-19 20:08] VITALS: BP 166/71
[2022-03-19] MEDS ORDERED: DOPamine DRIP 800 MG/D5W 250ML PreMix IV ONE (21:00)
[2022-03-19] MEDS ORDERED: PHENYLEPHRINE 100 MG in SODIUM CHLORIDE 0.9% 90 ML IV SCH (21:00)
[2022-03-19] MEDS ORDERED: EPINEPHrine 1 MG/10 ML SYRINGE ONE (21:00)
[2022-03-19] MEDS ORDERED: SODIUM BICARB 8.4% 50 MEQ/50 ML SYRINGE IV ONE (21:00)
[2022-03-19 21:55] LABS: Calcium 8.4 mg/dL (8.4-10.2)
[2022-03-19] MEDS ORDERED: INSULIN GLARGINE 100 UNITS/ML SUB-Q SCH (22:00)
--- NOTE | 2022-03-19 22:57 | Event Note ---
Date: 03/19/22 CODE BLUE was called at 1844 hrs. ACLS protocol was initiated See code sheet Patient was also started on IV dopamine, IV vasopressin and epinephrine drip Patient was revived Code was called off at around 90 no 8 hours Discussed with who came in after the code about the diagnosis and prognosis. wanted full code.
--- NOTE | 2022-03-19 23:00 | Event Note ---
Date: 03/19/22 CODE BLUE was called again around 21 hours ACLS protocol was followed See code sheet Patient could not be revived Time of expiration 2120 hrs. Pronouncing physician--myself--Dr Stacia Oates Certifying physician--Dr Stacia Leos Cause of cardiorespiratory failure Acute respiratory failure with hypoxia Hypertension Cardiomyopathy with ejection fraction of 20 to 25% Bacteremia End-stage renal disease on hemodialysis and daughter were informed around 2121 hrs.
--- NOTE | 2022-03-20 07:51 | Death Summary ---
<TRISTON ORDOÑEZ - Last Filed: 03/20/22 07:52> Summary - Providers Consults: 03/13/22 17:10 Consult to Physician [CONS] Urgent Comment: Consulting Provider: FROILAN MCQUEEN Physician Instructions: Reason For Exam: ESRD needing dialysis 03/13/22 19:01 Consult to Cardiology [CONS] Routine Consulting Provider: JENNIFER SUTHERLAND Reason For Exam: chf 03/14/22 07:40 Consult to Physician [CONS] Routine Comment: Consulting Provider: KRISHNA FAGAN Physician Instructions: Reason For Exam: acute resp failure 03/14/22 07:57 Consult to Dietitian/Nutrition [CONS] Routine Physician Instructions: Reason For Exam: Reason for Consult: Write/Manage Tube Feeding 03/14/22 16:27 Occupational Therapy Evaluate and Treat [CONS] Routine Comment: Reason For Exam: Neuro deficits Physical Therapy Evaluation and Treat [CONS] Routine Comment: Reason For Exam: Neuro deficits 03/15/22 11:57 Consult to Physician [CONS] Routine Comment: called office/[facility] Consulting Provider: RANJIT ORDONEZ Physician Instructions: Reason For Exam: cva Attending: DWAYNE ANNE MD - summary Date of admission: 03/13/22 17:19 Date of : 03/19/22 Significant findings: This is a 56-year-old male with OHS, HTN, PE on therapeutic anticoagulation with Xarelto, CHF and AICD in situ who presented to emergency department on 03/13 with complaints of shortness of breath over the past 2 days with worsening symptoms over the past day via EMS. Per documentation patient had last hemodialysis session on 03/08. Patient was emergently intubated in the emergency department as he was found to have some oropharyngeal edema and inability to protect his airway and found to have a pulse ox of 89%. 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 Patient was admitted to the hospital service with acute CHF decompensation, metabolic acidosis, fluid overload, transaminitis, acute kidney injury and acute hypoxic respiratory failure with consults to [facility], cardiology and nephrology. On 03/14 antihypertensive regimen was discontinued due to soft blood pressures. He was given lasix and bumex for several doses, had a short rum of milrinone infusion but this was discontinued due to hypotension. Eventually patient was started on hemodialysis. He did unfortunately suffer a subacute CVA. Patient grew Staph aureus and was on vancomycin which speciate to MSSA and was on nafcillin. Unfortunately patient suffered a cardiac arrest with PEA late evening on 03/19/2022 and was unable to regain ROSC. Dr. Oates was the pronouncing doctor and family was informed. Cardiorespiratory arrest Acute CVA Acute on chronic heart failure with reduced EF NSTEMI suspect type II h/o HTN, AICD in stiu Acute hypoxic respiratory failure h/o PE on Xarelto Morbid obesity Transaminitis Acute kidney injury with possible underlying CKD MSSA PNA h/o DM Leukocytosis <DWAYNE ANNE - Last Filed: 03/21/22 07:35> Summary - Providers Consults: 03/13/22 17:10 Consult to Physician [CONS] Urgent Comment: Consulting Provider: FROILAN MCQUEEN Physician Instructions: Reason For Exam: ESRD needing dialysis 03/13/22 19:01 Consult to Cardiology [CONS] Routine Consulting Provider: JENNIFER SUTHERLAND Reason For Exam: chf 03/14/22 07:40 Consult to Physician [CONS] Routine Comment: Consulting Provider: KRISHNA FAGAN Physician Instructions: Reason For Exam: acute resp failure 03/14/22 07:57 Consult to Dietitian/Nutrition [CONS] Routine Physician Instructions: Reason For Exam: Reason for Consult: Write/Manage Tube Feeding 03/14/22 16:27 Occupational Therapy Evaluate and Treat [CONS] Routine Comment: Reason For Exam: Neuro deficits Physical Therapy Evaluation and Treat [CONS] Routine Comment: Reason For Exam: Neuro deficits 03/15/22 11:57 Consult to Physician [CONS] Routine Comment: called office/[facility] Consulting Provider: RANJIT ORDONEZ Physician Instructions: Reason For Exam: cva Attending: DWAYNE ANNE MD - summary Date of admission: 03/13/22 17:19
[2022-03-25 18:00] LABS: Albumin 2.4 g/dL (3.8-4.8); Gamma Globulin 0.8 g/dL (0.8-1.7)
[2022-03-26 12:32] LABS: ANA Screen, IFA Negative (Negative); Myeloperoxidase Antibody <1.0 AI (<1.0)
== END 2022-03-19 00:15 | DRG 207 ==
LOC: ED 13:57 → CC1 17:19
PROVIDERS: ADMIT Internal Medicine; ATTEND Internal Medicine
PROC: 5A1955Z Respiratory Ventilation, Greater than 96 Consecutive Hours (ICD-10-PCS; principal; 2022-03-13)
PROC: 0BH17EZ Insertion of Endotracheal Airway into Trachea, Via Natural or Artificial Opening (ICD-10-PCS; 2022-03-13)
PROC: 4A033R1 Measurement of Arterial Saturation, Peripheral, Percutaneous Approach (ICD-10-PCS; 2022-03-13)
PROC: 5A09357 Assistance with Respiratory Ventilation, Less than 24 Consecutive Hours, Continuous Positive Airway Pressure (ICD-10-PCS; 2022-03-13)
PROC: 5A1D70Z Performance of Urinary Filtration, Intermittent, Less than 6 Hours Per Day (ICD-10-PCS; 2022-03-17)
PROC: 06HY33Z Insertion of Infusion Device into Lower Vein, Percutaneous Approach (ICD-10-PCS; 2022-03-17)
PROC: 03HY32Z Insertion of Monitoring Device into Upper Artery, Percutaneous Approach (ICD-10-PCS; 2022-03-17)
PROC: 5A1D70Z Performance of Urinary Filtration, Intermittent, Less than 6 Hours Per Day (ICD-10-PCS; 2022-03-18)
DX: J96.01 Acute respiratory failure with hypoxia (principal); I21.A1 Myocardial infarction type 2; I50.23 Acute on chronic systolic (congestive) heart failure; N18.6 End stage renal disease; G93.41 Metabolic encephalopathy; I63.9 Cerebral infarction, unspecified; J15.211 Pneumonia due to Methicillin susceptible Staphylococcus aureus; I13.2 Hypertensive heart and chronic kidney disease with heart failure and with stage 5 chronic kidney disease, or end stage renal disease; E87.2 Acidosis; Z68.41 Body mass index [BMI] 40.0-44.9, adult; E66.2 Morbid (severe) obesity with alveolar hypoventilation; E87.1 Hypo-osmolality and hyponatremia; N17.9 Acute kidney failure, unspecified; I42.9 Cardiomyopathy, unspecified; I46.9 Cardiac arrest, cause unspecified; Z20.822 Contact with and (suspected) exposure to COVID-19; E87.5 Hyperkalemia; E11.22 Type 2 diabetes mellitus with diabetic chronic kidney disease; Z99.2 Dependence on renal dialysis; E11.65 Type 2 diabetes mellitus with hyperglycemia; A49.01 Methicillin susceptible Staphylococcus aureus infection, unspecified site; E87.8 Other disorders of electrolyte and fluid balance, not elsewhere classified; D69.6 Thrombocytopenia, unspecified; Z86.711 Personal history of pulmonary embolism; Z83.3 Family history of diabetes mellitus; Z82.49 Family history of ischemic heart disease and other diseases of the circulatory system; Z95.810 Presence of automatic (implantable) cardiac defibrillator; Z79.4 Long term (current) use of insulin; Z79.82 Long term (current) use of aspirin
CPT/HCPCS: 36415; 36600; 70450; 70496; 70498; 71045; 74018; 76705; 76770; 80048; 80053; 80061; 80074; 80202; 81001; 82803; 82962; 83036; 83735; 83880; 84145; 84165; 84439; 84443; 84484; 85007; 85025; 85027; 86021; 86038; 86160; 86225; 87040; 87070; 87076; 87186; 87205; 87641; 92950; 93005; 93306; 93880; 93970; 94002; 94003; 94640; 94760; G0378; J2354; J3490; Q9967; C8929; J0171; J0330; J1170; J1265; J1815; J1940; J2060; J2250; J2260; J2405; J3010; J3370; J7040